=== PATIENT | female | born 1950 | race Caucasian/White ===

== ENCOUNTER 2017-11-14 11:00 | Outpatient (RCR) | payer MEDICARE, SELFPAY ==
--- NOTE | 2017-09-30 16:26 | HMH.PTOPEV ---
Rehab Outpatient Evaluation Rehab OP Evaluation Start: 09/30/17 16:07 Freq: Status: Active Protocol: Document 09/30/17 16:07 RMYOKASTA (Rec: 09/30/17 16:26 [facility] [id number][facility] Electronically Signed By Mandie Zaldivar OT 09/30/17 16:07 Outpatient Therapy Subjective History Subjective History Pt is a 67 year old female who reports to therapy for initial evaluation to right wrist/thumb. Pt reports her pain began in April of 2017. Pt does not recall any specific injury causing her pain. Pt demonstrates with slight decreased AROM/strength at right wrist. 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 Pt has been dx with right De' Quervain's and CMC arthritis. Pt's main complaint with wrist is her pain during use. Pt also reports her pain has been refurring up her arm into her shoulder. Pt will continue to be seen in order to address these deficits. Chief Complaint Pain Stiff Decreased Plastic Surgery Technician Strength Decreased Coordination Symptom Type Ache Sharp Symptoms Relieved By Nothing Rest/Positioning Symptoms Aggravated By Physical Activity Twisting Lifting Prior Functional Limitations None Current Functional Limitations Reaching Lifting Housework Sleeping Recreation Activity Symptom Description Intermittent Activity Dependent Level of pain today (0-10) 2 Pain scale - at its best (0-10) 2 Pain scale - at its worst (0-10) 8 Wrist/Hand Eval Wrist Range of Motion Wrist Limitations of Range of Motion Soft Tissue Tightness Pain Wrist Extension Active Range of Motion ( 60 degrees) Wrist Flexion Active Range of Motion ( 60 degrees) Wrist Radial Deviation Active Range of 28 Motion (degrees) Wrist Ulnar Deviation Active Range of 28
== END 2017-11-14 11:01 | disposition home or self-care (01) ==
LOC: OT 11:00
PROVIDERS: Family Provider Internal Medicine Adolescent Medicine; PCP Internal Medicine Adolescent Medicine; Visit Provider Orthopaedic Surgery
DX: M25.531 Pain in right wrist (principal)
CPT/HCPCS: 97014; 97018; 97035; 97140; 97165; G0283

== ENCOUNTER 2017-12-17 14:00 | Outpatient (RCR) | payer MEDICARE, SELFPAY ==
--- NOTE | 2017-11-26 15:26 | HMH.PTOPEV ---
Rehab Outpatient Evaluation Rehab OP Evaluation Start: 11/26/17 15:12 Freq: Status: Active Protocol: Document 11/26/17 15:12 RMARSHALL (Rec: 11/26/17 15:26 [facility] [id number] Electronically Signed By Mandie Zaldivar OT 11/26/17 15:12 Outpatient Therapy Subjective History Subjective History Pt is a 67 year old female who reports to therapy for evaluation to right wrist. Pt was recently seen by therapy for ~5 weeks due to right de Quervains and CMC joint arthritis. Pt continues to have a small knot at the right thumb base with pain, but the de Quervains has improved. However, pt has began to have more pain in the posterior aspect of the right wrist. Pt has recently been dx with right common extensor tendonitis. Pt does demonstrate with decreased AROM and strength at right wrist. 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 Pt will continue to be seen in order to address these deficits. Chief Complaint Pain Stiff Decreased Stained Glass Artist Strength Symptom Type Ache Throb Sharp Stabbing Numbness Tingling Symptoms Relieved By Nothing Symptoms Aggravated By Physical Activity Twisting Lifting Prior Functional Limitations None Current Functional Limitations Reaching Lifting Housework Driving Sleeping Recreation Activity Symptom Description Constant but Variable Level of pain today (0-10) 3 Pain scale - at its best (0-10) 2 Pain scale - at its worst (0-10) 8 Wrist/Hand Eval Wrist Range of Motion Wrist Limitations of Range of Motion Pain Wrist Extension Active Range of Motion ( 58 degrees degrees) Wrist Flexion Active Rang
== END 2017-12-17 14:01 | disposition home or self-care (01) ==
LOC: OT 14:00
PROVIDERS: Family Provider Internal Medicine Adolescent Medicine; PCP Internal Medicine Adolescent Medicine; Visit Provider Orthopaedic Surgery
DX: M65.4 Radial styloid tenosynovitis [de Quervain] (principal); M19.041 Primary osteoarthritis, right hand
CPT/HCPCS: 97014; 97018; 97035; 97140; 97163; 97166; G0283

== ENCOUNTER → 2018-01-21 10:42 | Outpatient (CLI) | payer MEDICARE, SELFPAY ==
--- NOTE | 2018-01-21 10:44 | MR_ITS ---
MR wrist RT wo con HISTORY right wrist pain ITS.REASON: RT wrist ganglion cyst volar aspect ORDERING PHYSICIAN: Abiodun Aburto MD PATIENT AGE: 67 years Comparison: None TECHNIQUE: Multiplanar multiecho sequences are performed with the head coil. In addition, thin section coronal 3-D images also generated. FINDINGS: A fluid collection is present along the dorsal aspect of the wrist at epicentered dorsal to the capitate measuring approximate 1 cm AP and 1.8 cm transverse the collection also extends laterally dorsal to the scapholunate trapezium and scaphotriquetral area region and is deep to the extensor carpi radialis brevis and extensor indicis.. An additional small locular-appearing fluid collection is present at the ulnar styloid process region measuring 5 mm. There is also small amount fluid in the radiocarpal joint. An additional small fluid collection measuring 6 mm is present just deep to the flexor carpi radialis. This measures 6 x 6 mm and is at the radiocarpal region. There are mild osteoarthritic changes of the scaphotrapezium joint with a minimal amount of bone marrow edema in the scaphoid. The triangle fibrocartilage appears intact. Small subchondral cystic changes are present at the first metacarpal carpal joint. IMPRESSION: 1. Fluid collection along the dorsal aspect of the wrist epicentered dorsal to the capitate as described above. This is nonspecific but could be related to a ganglion cyst 2. Small fluid collection associated with the flexor carpi radialis measuring 6 mm and could be related to a small ganglion cyst or 3 small locular fluid collection along the ulnar styloid process region at 5 mm also possibly related to ganglia on cyst or secondary to synovitis 3. Osteoarthritis of the wrist
== END ==
PROVIDERS: Family Provider Internal Medicine Adolescent Medicine; PCP Internal Medicine Adolescent Medicine; Visit Provider Orthopaedic Surgery
DX: M67.431 Ganglion, right wrist (principal)
CPT/HCPCS: 73221

== ENCOUNTER → 2018-06-04 08:27 | Outpatient (CLI) | payer MEDICARE, SELFPAY ==
--- NOTE | 2018-06-04 08:39 | MM_ITS ---
MM Dig screening mamm BI w/CAD CAD Screening COMPARISON: Digital mammograms with CAD 06/02/2017 and 05/16/2016 INDICATION: There is a history of breast cancer in patient's maternal grandmother diagnosed at age 30 and patient's sister diagnosed at age 40 TECHNIQUE: Standard CC and MLO images were obtained. R2 CAD reviewed. FINDINGS: Scattered fibroglandular densities are seen in both breasts and the findings are bilateral and symmetrical. There is no suspicious lesion and no suspicious microcalcifications. IMPRESSION: Fibrofatty parenchyma no suspicious lesion seen BI-RADS Category: 1 Negative RECOMMENDED FOLLOW-UP: 1YR - 1 YEAR FOLLOW-UP (A letter has been sent to the patient regarding results of the study.)
== END ==
PROVIDERS: PCP Internal Medicine Adolescent Medicine; Visit Provider Nurse Practitioner Family
DX: Z12.31 Encounter for screening mammogram for malignant neoplasm of breast (principal)
CPT/HCPCS: 77067

== ENCOUNTER → 2019-03-22 10:40 | Outpatient (CLI) | payer MEDICARE, SELFPAY ==
--- NOTE | 2019-03-22 10:48 | XR_ITS ---
XR foot wt bearing RT 3V HISTORY: ITS.REASON: pain ORDERING PHYSICIAN: Krista Cedeno DPM PATIENT AGE: 68 years COMPARISON: None FINDINGS: No fracture or dislocation. No lytic or blastic change. There is normal mineralization.. The joint spaces are well-preserved. No significant degenerative/arthritic changes. No erosive changes evident. Minimal pes planus IMPRESSION: Minimal pes planus otherwise negative
--- NOTE | 2019-03-22 10:48 | XR_ITS ---
XR ankle wt bearing RT min 3V HISTORY: ITS.REASON: pain ORDERING PHYSICIAN: Krista Cedeno DPM PATIENT AGE: 68 years Comparison: None FINDINGS: No fracture or dislocation. No lytic or blastic change. There is normal mineralization.. The joint spaces are well-preserved. No significant degenerative/arthritic changes. No erosive changes evident. IMPRESSION: Negative ankle, no acute finding
--- NOTE | 2019-03-22 10:48 | XR_ITS ---
XR ankle wt bearing LT min 3V HISTORY: ITS.REASON: pain ORDERING PHYSICIAN: Krista Cedeno DPM PATIENT AGE: 68 years Comparison: None FINDINGS: No fracture or dislocation. No lytic or blastic change. There is normal mineralization.. The joint spaces are well-preserved. No significant degenerative/arthritic changes. No erosive changes evident. IMPRESSION: Negative ankle, no acute finding
--- NOTE | 2019-03-22 10:48 | XR_ITS ---
XR foot wt bearing LT 3V HISTORY: ITS.REASON: pain ORDERING PHYSICIAN: Krista Cedeno DPM PATIENT AGE: 68 years COMPARISON: None FINDINGS: No fracture or dislocation. No lytic or blastic change. There is normal mineralization.. The joint spaces are well-preserved. No significant degenerative/arthritic changes. No erosive changes evident. IMPRESSION: Negative, no acute finding
== END ==
PROVIDERS: PCP Internal Medicine Adolescent Medicine; Visit Provider Podiatrist
DX: M79.672 Pain in left foot (principal); M25.572 Pain in left ankle and joints of left foot; M25.571 Pain in right ankle and joints of right foot
CPT/HCPCS: 73610; 73630

== ENCOUNTER → 2019-04-27 15:33 | Outpatient (POV) | payer MEDICARE, SELFPAY | PROVIDERS: Visit Provider Dermatology | DX: Z00.00 Encounter for general adult medical examination without abnormal findings (principal) ==

== ENCOUNTER → 2019-05-25 09:55 | Outpatient (POV) | payer MEDICARE, SELFPAY | PROVIDERS: Visit Provider Dermatology | DX: Z00.00 Encounter for general adult medical examination without abnormal findings (principal) ==

== ENCOUNTER → 2019-06-07 08:15 | Outpatient (CLI) | payer MEDICARE, SELFPAY ==
--- NOTE | 2019-06-07 08:22 | XR_ITS ---
PROCEDURE: XR DEXA AXIAL SKELETON CLINICAL HISTORY: OSTEOPENIA The the the the the the COMPARISON: No exams were available for comparison FINDINGS: L1-L4 density is 1.235 grams/centimeters sq with T-score of 0.5. Left femoral neck density is 0.838 grams/centimeters sq with a T-score of -1.4 IMPRESSION: Osteopenia with moderate fracture risk. Treatment advised. Suggest follow-up exam May 2021. Dictated by: Elliot Oliver MD 06/07/2019 12:27 Electronically signed by Elliot Oliver MD in [place] 06/07/2019 12:27
--- NOTE | 2019-06-07 08:23 | MM_ITS ---
PROCEDURE: MM DIG SCREENING MAMM BI W/CAD CLINICAL INDICATION: SCREENING There is a history of breast cancer patient's maternal grandmother and the patient's sister both diagnosed before menopause. There have been previous cyst aspirations on each breast for benign disease. COMPARISON: DMDXUAVL DIG MAMM-DX UNI ADD VIEWS-LT from 05/29/2016 [facility] DIG MAMM-SCREEN TRUDI W/CAD from 06/02/2017 [facility] MM Dig screening mamm BI w/CAD from 06/04/2018 TECHNIQUE: Standard CC and MLO images were obtained. R2 CAD reviewed. FINDINGS: Scattered diffuse fibroglandular densities are seen throughout both breasts. There is stable somewhat asymmetric fibroglandular elements upper-outer quadrant right breast. There are multiple small nodes in both axilla. There is no suspicious lesion and no suspicious microcalcifications. IMPRESSION: Stable exam with no suspicious lesions seen BI-RAD Category: 2 Benign Finding(s) FOLLOW-UP: 1YR 1 Year Follow-up (A letter has been sent to the patient regarding results of the study.) Dictated by: Dr. Carlo Rodriguez MD 06/08/2019 11:[address] Carlo Rodriguez MD in [place] 06/08/2019 11:03
== END ==
PROVIDERS: PCP Internal Medicine Adolescent Medicine; Visit Provider Nurse Practitioner Family
DX: M85.89 Other specified disorders of bone density and structure, multiple sites (principal); Z12.31 Encounter for screening mammogram for malignant neoplasm of breast
CPT/HCPCS: 77067; 77080

== ENCOUNTER → 2020-05-18 14:16 | Outpatient (POV) | payer MEDICARE, SELFPAY ==
[2020-05-18 14:44] VITALS: BP 132/78; PULSE 79; RESP 18; TEMP 36.2; O2SAT 98; BMI 22.1
--- NOTE | 2020-05-18 15:34 | HMH.PMCON ---
Assessment and Plan (1) Low back pain Status: Chronic Category: Medical Code(s): M54.5 - Low back pain (2) Lumbar radiculopathy Status: Chronic Category: Medical Code(s): M54.16 - Radiculopathy, lumbar region (3) Left hip pain Status: Chronic Category: Medical Code(s): M25.552 - Pain in left hip - Assessment and plan all Dx Assessment and Plan for all problems:: Patient did not have any tenderness over bilateral SI joints and she was negative for Joann and compression test. At this point, I think she would benefit from an MRI of her lumbar spine. We will get imaging of her spine to see if she has had any changes from her previous MRI. We will follow-up with her afterwards to reassess her symptoms. We will also order patient some Lyrica 75 mg 1 tablet p.o. daily. She is not able to tolerate gabapentin. We will see her back in the clinic to discuss her MRI results and see how she is doing with Lyrica. She has been instructed to contact clinic if she has any concerns before next appointment. The patient and I specifically discussed risk factors for COVID19. These risks include, but are not limited to age greater than 60, heart or lung disease, diabetes, immunosuppression, and travel. We also discussed NSAIDs may worsen COVID19 infection or symptoms. Patient should not use NSAIDs to treat COVID19 signs or symptoms. Patient was also informed that any type of corticosteroid of any form (oral or injection) will decrease the patient's immune system response and may increase the likelihood of COVID19 infection and symptoms. HPI - Data of Consult Patient: new to practice Consult date: 05/18/20 Requesting Physician: Carrie Martines APRN Primary Care Provider: Addy Rubin MD - Consult Narrative Reason for consult: Left low back pain, left hip pain History of present illness: Ms. Diego is a 70 year old female who presents today for consultation for left low back pain with radiation into left hip. Patient says that she has had this pain for many years. She has had surgery to her L5-S1 area in the past. She says that she is very active with golfing and outdoor activity. She says that she toughened through the pain . Patient says that the pain at this time is excruciating, however. She rates her pain a 6 out of 10 today. Patient says the pain is not worsened by movement. She says that it is sporadic and a throbbing sensation that requires repetitive repositioning. She has tried anti-inflammatories and has gotten some relief with those medications. She also reports that she is now having some numbness and tingling into her right foot. She says that she has seen Dr. Carrasco as well as an orthopedic provider to discuss the pain and numbness and tingling in her right foot. Patient does not have any recent imaging of her lumbar spine. Patient says she is concerned that her numbness and tingling in her foot could be routed to something going on with her back. She does use ice and heat therapies and does do exercises daily. Patient is currently doing physical therapy. CC: Carrie Martines APRN [facility] History I have reviewed the patient's past medical history: Yes Medical History: Reports:: Hyperlipidemia, Osteoporosis Denies:: Cancer, Diabetes Mellitus Type 1, Diabetes Mellitus Type 2, MRSA *Have you ever received a pneumonia vaccine?: Yes *Have you received a flu vaccine this season?: Yes Other Medical History: Reports: Arthritis, Osteoporosis, Other (Osteopenia ) Other Surgeries: Yes: No Previous Surgery, Colonoscopy, Hysterectomy-Total, Other Amputation: No Fractures: No - *Social History Smoking Status: Never smoker Alcohol Intake: never Alcohol Intake Frequency:: a few times a week Substance Use Type: denies use *Occupational Status:: retired Housing: house Household Members: other *Travel in the last 8 weeks: None Family Hx:: Unable to obtain Review of Systems - Review of Systems Rev
== END ==
PROVIDERS: PCP Internal Medicine Adolescent Medicine; Visit Provider Clinical Nurse Specialist Family Health
DX: M54.5 Low back pain (principal); M54.16 Radiculopathy, lumbar region; M25.552 Pain in left hip
CPT/HCPCS: 99202

== ENCOUNTER → 2020-05-24 14:16 | Outpatient (CLI) | payer MEDICARE, SELFPAY ==
--- NOTE | 2020-05-24 14:24 | MR_ITS ---
PROCEDURE: MR LUMBAR SPINE WO CON CLINICAL INDICATION: BACK PAIN HX OF L5-S1 SURGERY IN 2000. PT C/O LBP AND INTERMITTENT PAIN WHEN TWISTING AND BENDING. PT DENIES TRAUMA OR INJURY. COMPARISON: No exams were available for comparison TECHNIQUE: Standard multiplanar multiecho sequences are performed without contrast. 3-D MIP and myelographic images are also rendered and reviewed FINDINGS: There is normal alignment. Spinal cord ends at the T12-L1 level. 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 L1-L2: Mild degenerative disc disease with minimal bulging disc. There is mild kyphosis at L1-L2 L2-L3: Minimal bulging disc. L3-L4: Minimal bulging disc with mild facet and ligamentum hypertrophy and mild bilateral lateral recess and foraminal narrowing. L4-5: Bulging disc with a small broad-based central disc protrusion slightly eccentric toward the left along with facet and ligamentum hypertrophy with canal stenosis. There is severe left lateral recess narrowing moderate right lateral recess narrowing and mild bilateral foraminal narrowing. Prominent facet and ligamentum hypertrophy is present at this level with severe canal stenosis L5-S1: Degenerative disc disease with facet and ligamentum hypertrophy. There is a small central disc protrusion very slightly eccentric toward the left. There is moderate left-sided foraminal narrowing and mild right foraminal narrowing. There are small synovial cyst at the facet joint posteriorly at L5-S1. Tarlov cysts are present at S1-S2 IMPRESSION: 1. There is multilevel lumbar spondylosis with degenerative disc disease, bulging disc, facet and ligamentum hypertrophy with lateral recess and foraminal narrowing. Please see above for detailed description at each level. 2. L4-5: Bulging disc with a small broad-based central disc protrusion slightly eccentric toward the left along with facet and ligamentum hypertrophy with canal stenosis. There is severe left lateral recess narrowing moderate right lateral recess narrowing and mild bilateral foraminal narrowing. Prominent facet and ligamentum hypertrophy is present at this level with severe canal stenosis 3. L5-S1: Degenerative disc disease with facet and ligamentum hypertrophy. There is a small central disc protrusion very slightly eccentric toward the left. There is moderate left-sided foraminal narrowing and mild right foraminal narrowing. Dictated by: Elliot Oliver MD 05/25/2020 13:50 Elliot Oliver MD in [place] 05/25/2020 13:50
== END ==
PROVIDERS: PCP Internal Medicine Adolescent Medicine; Visit Provider Clinical Nurse Specialist Family Health
DX: M54.5 Low back pain (principal)
CPT/HCPCS: 72148; 76376

== ENCOUNTER → 2020-06-01 13:11 | Outpatient (POV) | payer MEDICARE, SELFPAY ==
[2020-06-01 13:14] VITALS: BP 112/74; PULSE 85; RESP 18; O2SAT 97; BMI 22.1
--- NOTE | 2020-06-01 16:36 | HMH.PAINSOAP ---
[facility] Pain Management SOAP Note Subjective:: Patient is a pleasant 70-year-old white female who presents today for follow-up after MRI. The patient is being treated for low back pain that is radiating into her left hip. Her pain is primarily in her left low back area. She says that it does radiate into the left hip and has been there for many years. She has had surgery to her L5-S1 area in the past. She is very active with golfing and yoga as well as outdoor activities. Patient reports that her pain is worse with leaning forward and with turning and twisting, extension at her waist. She does rate her pain a 5 out of 10 today. Patient says that she has worsening pain with standing and leaning forward, however, her pain does improve with sitting. Patient is very active with exercising and says that this has not been beneficial for her pain. She is also having some numbness and tingling into her right foot. She has tried anti-inflammatories [id number]-vhsyqpe and has gotten some relief with these medications in the past. She has undergone physical therapy and is currently enrolling in aquatic therapy. Does use ice and heat therapies. Review of Systems General: No recent weight changes, no fever, no sleep disturbances Respiratory: No cough, no shortness of air, no recurring pulmonary infections Cardiovascular/peripheral vascular: No chest pain, no palpitations, no edema, no shortness of breath Gastrointestinal: No new onset incontinence, normal bowel movements reported Genitourinary: No new onset incontinence Musculoskeletal: Low back pain, left hip pain, intermittent right foot numbness Psychiatric: Normal mood/affect Neurological: [Denies weakness in extremities], [denies balance issues] Objective:: Physical exam General: Alert and oriented x3, no acute distress, pleasant and cooperative, [on room air] Lungs: Respirations even and unlabored, symmetrical chest expansion Eyes: PERRL Musculoskeletal: Flexion and extension of lumbar spine somewhat guarded secondary to pain, deep tendon reflexes normal, strength in upper and lower extremities [5/5], [abnormal gait noted], positive Kemps test Neurological: Speech clear, 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 She is continuing to be very active. She does use ice and heat therapies. We will proceed with injective therapy. She does have a positive Kemps test today. Her pain is worse with leaning forward and extension at her waist. We will schedule the patient for medial branch block/facet joint injections at L4-L5 L5-S1. She is not on any anticoagulation therapy. We will plan to see her back in the clinic after her injections to reassess her symptoms. She will continue with her home stretching program and her ice and heat therapies. We will also order the patient diclofenac 75 mg 1 tablet p.o. twice daily. She has been instructed to contact clinic if she has any concerns before next appointment. The patient and I specifically discussed risk factors for COVID19. These risks include, but are not limited to age greater than 60, heart or lung disease, diabetes, immunosuppression, and travel. We also discussed NSAIDs may worsen COVID19 infection or symptoms. Patient should not use NSAIDs to treat COVID19 signs or symptoms. Patient was also informed that any type of corticosteroid of any form (oral or injection) will decrease the patient's immune system response and may increase the likelihood of COVID[address] Maria has reviewed this note and agrees with this plan of care. This note was dictated using voice recognition software and make contain errors or omissions. [facility] History I have reviewed the patient'
== END ==
PROVIDERS: PCP Internal Medicine Adolescent Medicine; Visit Provider Clinical Nurse Specialist Family Health
DX: M51.36 Other intervertebral disc degeneration, lumbar region (principal); M47.816 Spondylosis without myelopathy or radiculopathy, lumbar region; M12.88 Other specific arthropathies, not elsewhere classified, other specified site
CPT/HCPCS: 99212

== ENCOUNTER → 2020-06-08 07:56 | Outpatient (CLI) | payer MEDICARE, SELFPAY ==
--- NOTE | 2020-06-08 08:03 | MM_ITS ---
PROCEDURE: MM DIG SCREENING MAMM BI W/CAD Digital Breast Tomosynthesis Included CLINICAL INDICATION: SCREENING There is a history of breast cancer in the patient's maternal grandmother and sister both diagnosed before menopause. There has been previous cyst aspirations on each breast. COMPARISON: MG [facility] DIG MAMM-SCREEN TRUDI W/CAD from 06/02/2017 [facility] MM Dig screening mamm BI w/CAD from 06/04/2018 MG MM DIG SCREENING MAMM BI W/CAD from 06/07/2019 TECHNIQUE: Standard CC and MLO images and 3D Tomosynthesis was obtained. R2 CAD reviewed. FINDINGS: Scattered fibroglandular densities are seen throughout both breast. There is an asymmetric density near the nipple upper-outer quadrant right breast which has been seen previously but it appears more prominent on the current study with slightly spiculated borders best demonstrated on yevgeniy images. Recommend the patient return for spot compression magnification views and ultrasound for additional evaluation. There are no suspicious microcalcifications. There are multiple small benign-appearing nodes in both axilla. IMPRESSION: Fibrofatty parenchyma with possible change and asymmetric density right breast BI-RAD Category: 0 Need Additional Imaging Evaluation FOLLOW-UP: IMM Immediate Follow-up Recommended (A letter has been sent to the patient regarding results of the study.) Dictated by: Dr. Carlo Rodriguez MD 06/09/2020 09:09 Dr. Carlo Rodriguez MD in [place] 06/09/2020 09:09
== END ==
PROVIDERS: PCP Internal Medicine Adolescent Medicine; Visit Provider Internal Medicine Adolescent Medicine
DX: Z12.31 Encounter for screening mammogram for malignant neoplasm of breast (principal)
CPT/HCPCS: 77063; 77067

== ENCOUNTER 2020-06-16 09:55 | Day surgery (SDC) | payer MEDICARE, SELFPAY ==
[2020-06-16 10:27] VITALS: BP 164/72; PULSE 69; RESP 18; TEMP 36.8; O2SAT 69; BMI 22.1
--- NOTE | 2020-06-16 11:20 | HMH.PMPROC ---
- Procedure Date: 06/16/20 Time: 11:26 Anesthesiologist:: Ramiro Maria MD Complications:: None Pre-procedure Diagnosis:: Degenerative disc disease of lumbar spine with lumbar spondylosis and lumbar facet arthropathy Post-procedure Diagnosis:: Same Indications for Procedure:: This patient is a pleasant 70-year-old white female who we are treating for low back pain with lumbar spondylosis and lumbar facet arthropathy. She does have increasing pain to the lumbar spine. This does radiate into her left hip. She is tender over the facet joints of L4-5 and L5-S1. We will do bilateral lumbar medial branch block/facet joint injections of L4-5 and L5-S1 today. Procedure Details:: Lumbar medial branch block Informed consent was obtained and the risks and benefits of the procedure was explained to the patient. The back was prepped using ChloraPrep. The skin and subcutaneous tissues were anesthetized using lidocaine. I placed 22-gauge spinal needles into the facet joint/medial branches of L4-L5 and L5-S1 bilaterally. Needle placement was confirmed with dye. After this we injected 3 mL bupivacaine 0.25% and Depo-Medrol 20 mg into each facet joint/medial branch of L4-L5 and L5-S1 bilaterally. We used a total of 80 mg Depo-Medrol for both levels bilaterally. The patient tolerated the procedure well with no complications. Plan and Disposition:: We will follow-up with her in 2 weeks. Will reevaluate symptoms at that time. If these blocks are successful may seek approval for RF ablation to the same facet joint/medial branches of L4-5 and L5-S1 bilaterally.
[2020-06-16 11:22] VITALS: BP 122/74; PULSE 85; RESP 18; O2SAT 98
[2020-06-16 11:23] VITALS: BP 121/74; PULSE 88; RESP 18; O2SAT 98
[2020-06-16 11:42] VITALS: BP 135/67; PULSE 59; RESP 18; O2SAT 97
== END 2020-06-16 11:43 | disposition home or self-care (01) ==
PROVIDERS: PCP Internal Medicine Adolescent Medicine; Visit Provider Anesthesiology
DX: M51.36 Other intervertebral disc degeneration, lumbar region (principal); M47.816 Spondylosis without myelopathy or radiculopathy, lumbar region; M12.88 Other specific arthropathies, not elsewhere classified, other specified site; E78.5 Hyperlipidemia, unspecified; Z82.49 Family history of ischemic heart disease and other diseases of the circulatory system; Z88.6 Allergy status to analgesic agent; Z79.82 Long term (current) use of aspirin; Z79.899 Other long term (current) drug therapy
CPT/HCPCS: 64493; 64494; J1030; Q9966

== ENCOUNTER 2020-06-17 12:06 | Emergency (ER) | payer MEDICARE, SELFPAY ==
[2020-06-17 12:45] VITALS: BP 158/83; PULSE 78; RESP 17; TEMP 36.9; O2SAT 98; BMI 22.4
--- NOTE | 2020-06-17 12:47 | HMH.EDUTC ---
[facility] [place] Disposition Clinical Impression: Exposure to COVID-19 virus Disposition: Home, Self-Care Condition on Discharge: Good Instructions: Preventing the Spread of Coronavirus Discharge Instructions Referrals: Addy Rubin MD [Primary Care Provider] - Time of Disposition: 12:49 Medical Decision Making - Greg Inquiry Pt receiving controlled substance: No Orders (Tests/Meds): ORDERS Category Date Time Status Covid-19 Nasal PCR ([facility]) Routine Lab 06/17/20 12:37 Ordered [facility] [place] HPI - General Stated complaint: covid test Time Seen by Provider: 06/17/20 12:47 - History of Present Illness Provider Complaint: Secondary exposure to COVID19. Would like to be tested as a precaution. Denies symptoms at this time. Onset (ago): week(s) (1) Relieving factors: none Exacerbating factors: none Associated symptoms: denies other symptoms Treatments prior to arrival: none - Related Data Home Medications Medication Instructions Recorded Confirmed krill oil 500 mg capsule 500 mg PO DAILY 11/25/17 06/16/20 magnesium 250 mg tablet 250 mg PO ONCE 11/25/17 06/16/20 arginine (L-arginine) 500 mg tablet 500 mg PO DAILY 03/22/19 06/16/20 aspirin 81 mg tablet,delayed 81 mg PO BID 03/22/19 06/16/20 release simvastatin 20 mg tablet 20 mg PO DAILY #30 tab 03/22/19 06/16/20 diclofenac sodium 25 mg 25 mg PO DAILY PRN tab 08/30/19 06/16/20 tablet,delayed release Diclofenac Sodium [Diclofenac 75mg 75 mg PO BID 06/16/20 Tab] Allergies Allergy/AdvReac Type Severity Reaction Status Date / Time codeine [CODEINE] AdvReac Unknown NA-NAUSEA Verified 05/15/20 13:43 [facility] History - Hepatitis A Screen Attestation statement:: This patient has been screened for Hepatitis A risk factors. I have reviewed the patient's past medical history: Yes Medical History: Reports:: Hyperlipidemia, Osteoporosis Denies:: Cancer, Diabetes Mellitus Type 1, Diabetes Mellitus Type 2, MRSA, Seizures Other Medical History: Reports: Arthritis, Osteoporosis, Other (Osteopenia ). Denies: Blood Transfusion Reaction Other Surgeries: Yes: No Previous Surgery, Colonoscopy, Hysterectomy-Total, Other Amputation: No Fractures: No Comment: back surgery - Social History Smoking Status: Never smoker Alcohol Intake: never Alcohol Intake Frequency:: a few times a week Substance Use Type: denies use Occupational Status: employed Housing: house Household Members: spouse Family Hx:: Unable to obtain ROS Obtained: Yes All systems reviewed & no additional complaints Physical Exam - General General appearance: alert, in no apparent distress - Head Head exam: atraumatic, normocephalic - Eye Eye exam: Present: PERRL - ENT ENT exam: Present: normal oropharynx - Chest Chest inspection: Present: normal inspection, symmetric chest wall rise - Respiratory Respiratory exam: Present: normal lung sounds bilaterally - Cardiovascular Cardiovascular exam: Present: regular rate, normal rhythm - Neurological Exam Neurological exam: Present: alert, oriented X3
[2020-06-17 12:56] VITALS: BP 158/83; PULSE 78; RESP 17; TEMP 36.9
--- NOTE | 2020-06-17 16:04 | PC.NURSE ---
Pt called 06/17/2020at 1556 and given Covid-19 results. Negative.
== END 2020-06-17 12:55 | disposition home or self-care (01) ==
PROVIDERS: Emergency Provider Physician Assistant; PCP Internal Medicine Adolescent Medicine
DX: Z20.828 Contact with and (suspected) exposure to other viral communicable diseases (principal); E78.5 Hyperlipidemia, unspecified; M81.0 Age-related osteoporosis without current pathological fracture; Z88.5 Allergy status to narcotic agent; Z79.899 Other long term (current) drug therapy
CPT/HCPCS: G0463; 99201; U0003

== ENCOUNTER → 2020-06-29 13:30 | Outpatient (CLI) | payer MEDICARE, SELFPAY ==
--- NOTE | 2020-06-29 13:32 | MM_ITS ---
PROCEDURE: MM DIG MAMM DX UNILAT RT CAD Digital Breast Tomosynthesis Included CLINICAL INDICATION: ABN MAMM OF RT BREAST COMPARISON: US BR US BREAST-RT from 06/08/2013 MG [facility] MM Dig screening mamm BI w/CAD from 06/04/2018 MG MM DIG SCREENING MAMM BI W/CAD from 06/07/2019 MG MM DIG SCREENING MAMM BI W/CAD from 06/08/2020 US US BREAST RT COMPLETE from 06/29/2020 TECHNIQUE: Standard CC and MLO images and 3D Tomosynthesis was obtained. R2 CAD reviewed. Right breast ultrasound complete axilla FINDINGS: There is average fibroglandular tissue. The area of asymmetric density in the superior aspect of the right breast does appear to compress out on the spot compression view. Right breast ultrasound: At 12 o'clock there is a 6 mm 6 mm hypoechoic area. This is wider than tall well-circumscribed show some enhanced through transmission of sound. This area was present on 06/08/2013 and appears somewhat less apparent on today's exam. This is probably benign. Six-month follow-up is suggested. At 1 o'clock there is a 3 mm hypoechoic nodule may be due to small complex cyst. IMPRESSION: BI-RAD Category: 3 Probably Benign Finding Short Term Follow-up FOLLOW-UP: 6M 6Month Follow-up (A letter has been sent to the patient regarding results of the study.) Dictated by: Elliot Oliver MD 06/30/2020 12:11 Elliot Oliver MD in [place] 06/30/2020 12:11
== END ==
PROVIDERS: PCP Internal Medicine Adolescent Medicine; Visit Provider Internal Medicine Adolescent Medicine
DX: R92.8 Other abnormal and inconclusive findings on diagnostic imaging of breast (principal)
CPT/HCPCS: 76641; 77061; 77065; G0279

== ENCOUNTER → 2020-07-10 10:07 | Outpatient (POV) | payer MEDICARE, SELFPAY ==
[2020-07-10 10:43] VITALS: BP 110/62; PULSE 72; RESP 18; TEMP 36.6; O2SAT 98; BMI 22.4
--- NOTE | 2020-07-10 11:13 | P.CONS_ITS ---
[facility] Pain Management SOAP Note Subjective:: Patient is a pleasant 70-year-old white female who presents today for follow-up after medial branch block of the lumbar spine. Patient got no relief with this. She did not even get relief while numb. Patient and I had a long discussion about her symptomology. She does have pain over her low back. Patient's pain does not radiate. Patient has a positive Joann test SI joint compression test Raleigh's test and distraction test bilaterally. Patient and I discussed SI joint injections I do believe that this may benefit her. She does have worsening pain after she golfs. We did discuss SI joint stabilization belt. She rates her pain today a 3 out of 10. ROS General: no recent weight change, no fever, no sleep disturbances Respiratory: no cough, no shortness of air, no recurring pulmonary infections Cardiovascular/Peripheral Vascular: No chest pain, No palpitations, no edema, no shortness of breath. Gastrointestinal: no new onset incontinence, normal bowel movements reported Genitourinary: no new onset incontinence Musculoskeletal: Back pain, SI joint pain Psychiatric: normal mood/ affect Neurological: [denies new onset weakness in extremities], [denies new onset balance issues] Objective:: Physical Exam General: Alert and oriented x3, no acute distress, pleasant and cooperative, [on room air] Lungs: Resps E/U, Symmetrical chest expansion, Eyes: PERRL Musculoskeletal: Flexion and extension of lumbar spine somewhat guarded secondary to pain, deep tendon reflexes normal, strength in upper and lower extremities [5/5], slightly antalgic gait noted Neurological: 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 Patient's been instructed to call the office if she has any issues prior to her next appointment. Dr. Maria has reviewed this note and agrees with this plan of care. This note was dictated using voice recognition software and may contain errors or omissions [facility] History I have reviewed the patient's past medical history: Yes Medical History: Reports:: Hyperlipidemia, Osteoporosis Denies:: Cancer, Diabetes Mellitus Type 1, Diabetes Mellitus Type 2, Internal Pacemaker, MRSA, Seizures *Have you ever received a pneumonia vaccine?: Yes *Have you received a flu vaccine this season?: Yes Other Medical History: Reports: Arthritis, Osteoporosis, Other (Osteopenia ). Denies: Blood Transfusion Reaction Other Surgeries: Yes: No Previous Surgery, Colonoscopy, Hysterectomy-Total, Other. No: Pacemaker Amputation: No Fractures: No - *Social History Smoking Status: Never smoker Alcohol Intake: never Alcohol Intake Frequency:: a few times a week Substance Use Type: denies use *Occupational Status:: other Housing: house Household Members: spouse *Travel in the last 8 weeks: None Family Hx:: Unable to obtain
== END ==
PROVIDERS: PCP Internal Medicine Adolescent Medicine; Visit Provider Clinical Nurse Specialist Family Health
DX: M46.1 Sacroiliitis, not elsewhere classified (principal); M51.36 Other intervertebral disc degeneration, lumbar region
CPT/HCPCS: 99212

== ENCOUNTER 2020-07-31 12:54 | Day surgery (SDC) | payer MEDICARE, SELFPAY ==
[2020-07-31 13:03] VITALS: BP 137/75; PULSE 72; RESP 18; TEMP 36.6; O2SAT 98; BMI 22.4
[2020-07-31 13:47] VITALS: BP 133/74; PULSE 85; RESP 18
[2020-07-31 13:48] VITALS: BP 135/74; PULSE 86; RESP 18; O2SAT 98
--- NOTE | 2020-07-31 13:57 | HMH.PMPROC ---
- Procedure Date: 07/31/20 Time: 13:57 Anesthesiologist:: Jeannie Monroy APRN Complications:: None Pre-procedure Diagnosis:: Sacroiliitis Post-procedure Diagnosis:: Same Indications for Procedure:: Patient is a pleasant 70-year-old white female who presents today for bilateral SI joint injections. Patient had medial branch blocks of her lumbar spine with no relief she did not even get relief while numb. Patient symptomology is low back. She has a positive SI joint compression test Raleigh's test Joann test distraction test bilaterally. I do believe that SI joint injections will benefit her. We will move forward with this today. Procedure Details:: informed consent was obtained and the risks and benefits of the procedure were explained to the patient. Patient was taken to the procedure room. Patient was placed prone on the procedure table. The left hip was prepped using ChloraPrep as a cleansing solution. The skin and subcutaneous tissues were anesthetized using lidocaine. Using fluoroscopic guidance I placed a 22-gauge spinal needle into the inferior aspect of the left SI joint. After this I injected 5 mL bupivacaine 0.25% and Depo-Medrol 40 mg into the left SI joint. This was then repeated on the right side. The patient tolerated the procedure well with no complication. Plan and Disposition:: I will see the patient back in several weeks reassess her symptoms at that time she has been instructed to call the office if she has any issues prior to her next appointment. Dr. Maria has reviewed this note and agrees with this plan of care. This note was dictated using voice recognition software and may contain errors or omissions
[2020-07-31 14:08] VITALS: BP 154/70; PULSE 69; RESP 20; O2SAT 98
== END 2020-07-31 14:08 | disposition home or self-care (01) ==
LOC: SC.PAINP 12:57
PROVIDERS: PCP Internal Medicine Adolescent Medicine; Visit Provider Clinical Nurse Specialist Family Health
DX: M46.1 Sacroiliitis, not elsewhere classified (principal); E78.5 Hyperlipidemia, unspecified
CPT/HCPCS: 27096; G0260; J1030; Q9966

== ENCOUNTER → 2020-08-15 10:38 | Outpatient (POV) | payer MEDICARE, SELFPAY | PROVIDERS: Visit Provider Dermatology | DX: Z00.00 Encounter for general adult medical examination without abnormal findings (principal) ==

== ENCOUNTER → 2020-08-21 08:42 | Outpatient (POV) | payer MEDICARE, SELFPAY ==
--- NOTE | 2020-08-21 09:01 | P.CONS_ITS ---
[facility] Pain Management SOAP Note Subjective:: Pleasant 70-year-old white female who presents today for follow-up after bilateral SI joint injections. Patient got significant relief rating her pain today 1 out of 10. She got over 80% relief of her symptomology. Patient would like to repeat this injection in several months. I do believe that would benefit her. She does have a positive Joann test Raleigh's test SI joint compression test and distraction test bilaterally. ROS General: no recent weight change, no fever, no sleep disturbances Respiratory: no cough, no shortness of air, no recurring pulmonary infections Cardiovascular/Peripheral Vascular: No chest pain, No palpitations, no edema, no shortness of breath. Gastrointestinal: no new onset incontinence, normal bowel movements reported Genitourinary: no new onset incontinence Musculoskeletal: SI joint pain Psychiatric: normal mood/ affect Neurological: [denies new onset weakness in extremities], [denies new onset balance issues] Objective:: Physical Exam General: Alert and oriented x3, no acute distress, pleasant and cooperative, [on room air] Lungs: Resps E/U, Symmetrical chest expansion, Eyes: PERRL Musculoskeletal: Flexion and extension of lumbar spine somewhat guarded secondary to pain, deep tendon reflexes normal, strength in upper and lower extremities [5/5], normal gait noted Neurological: 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 Patient been instructed to call the office if she has any issues prior to her next appointment. Overall patient doing well at this time. Dr. Maria has reviewed this note and agrees with this plan of care. This note was dictated using voice recognition software and may contain errors or omissions [facility] History I have reviewed the patient's past medical history: Yes Medical History: Reports:: Hyperlipidemia, Osteoporosis Denies:: Cancer, Diabetes Mellitus Type 1, Diabetes Mellitus Type 2, Internal Pacemaker, MRSA, Seizures *Have you ever received a pneumonia vaccine?: No *Have you received a flu vaccine this season?: No Other Medical History: Reports: Arthritis, Osteoporosis, Other (Osteopenia ). Denies: Blood Transfusion Reaction Laterality Cases: Left: Other Other Surgeries: Yes: No Previous Surgery, Colonoscopy, Hysterectomy-Total, Other. No: Pacemaker Amputation: No Fractures: No - *Social History Smoking Status: Never smoker Alcohol Intake: never Alcohol Intake Frequency:: a few times a week Substance Use Type: denies use *Occupational Status:: retired Housing: house Household Members: spouse *Travel in the last 8 weeks: None Family Hx:: Unable to obtain
[2020-08-21 09:16] VITALS: BP 125/85; PULSE 74; RESP 18; TEMP 36.2; O2SAT 98; BMI 22.9
== END ==
PROVIDERS: PCP Internal Medicine Adolescent Medicine; Visit Provider Clinical Nurse Specialist Family Health
DX: M46.1 Sacroiliitis, not elsewhere classified (principal)
CPT/HCPCS: 99212; G0463

== ENCOUNTER 2020-10-06 09:23 | Day surgery (SDC) | payer MEDICARE, SELFPAY ==
[2020-10-06 09:49] VITALS: BP 128/71; PULSE 68; RESP 18; O2SAT 98; BMI 22.4
--- NOTE | 2020-10-06 10:01 | HMH.PMPROC ---
- Procedure Date: 10/06/20 Time: 10:01 Anesthesiologist:: Ramiro Maria MD Complications:: None Pre-procedure Diagnosis:: Sacroiliitis Post-procedure Diagnosis:: Same Indications for Procedure:: Patient is a pleasant 70-year-old white female who we are treating for bilateral hip pain. She did very well after her last bilateral SI joint injections. She was 80 to 90% better. Her pain is just now starting to come back. She does have a positive Joann test bilaterally. She has a positive Raleigh's test bilaterally. She is positive SI joint compression test bilaterally. She is positive distraction test bilaterally. We will do repeat bilateral SI joint injections under fluoroscopy today. Procedure Details:: B/L SI joint injection under fluoroscopy Informed consent was obtained and the risks and benefits of the procedure was explained to the patient. The patient was taken to the procedure room and placed prone on the procedure table. The patient was prepped using ChloraPrep. The skin and subcutaneous tissues overlying the SI joints were anesthetized using lidocaine. I placed a 22-gauge needle first in the left SI joint and second in the right SI joint. Needle placement was confirmed with dye. After this we injected 5 mL bupivacaine 0.25% and Depo-Medrol 40 mg into each SI joint. Patient tolerated the procedure well with no complication. Plan and Disposition:: We will follow-up with her in 2 weeks. Will reevaluate her symptoms at that time.
[2020-10-06 10:17] VITALS: BP 122/62; PULSE 65; RESP 18; O2SAT 98
[2020-10-06 10:19] VITALS: BP 128/68; PULSE 85; RESP 18; O2SAT 98
[2020-10-06 10:44] VITALS: BP 151/79; PULSE 62; RESP 18; O2SAT 98
== END 2020-10-06 10:45 | disposition home or self-care (01) ==
LOC: SC.PAINP 09:25
PROVIDERS: PCP Internal Medicine Adolescent Medicine; Visit Provider Anesthesiology
DX: M46.1 Sacroiliitis, not elsewhere classified (principal); E78.5 Hyperlipidemia, unspecified; M19.90 Unspecified osteoarthritis, unspecified site; M81.0 Age-related osteoporosis without current pathological fracture; Z88.6 Allergy status to analgesic agent; Z79.82 Long term (current) use of aspirin; Z79.899 Other long term (current) drug therapy
CPT/HCPCS: 27096; G0260; J1030; Q9966

== ENCOUNTER → 2020-10-26 10:46 | Outpatient (POV) | payer MEDICARE, SELFPAY ==
--- NOTE | 2020-10-26 11:32 | HMH.PAINSOAP ---
[facility] Pain Management SOAP Note Subjective:: Patient is a pleasant 70-year-old white female who presents today for follow-up after bilateral SI joint injections. Patient rates her pain today a 2 out of 10. Patient overall doing well. She is continuing water aerobics and staying quite active. Patient and I discussed following up on an as-needed basis. ROS General: no recent weight change, no fever, no sleep disturbances Respiratory: no cough, no shortness of air, no recurring pulmonary infections Cardiovascular/Peripheral Vascular: No chest pain, No palpitations, no edema, no shortness of breath. Gastrointestinal: no new onset incontinence, normal bowel movements reported Genitourinary: no new onset incontinence Musculoskeletal: SI joint pain Psychiatric: normal mood/ affect Neurological: [denies new onset weakness in extremities], [denies new onset balance issues] Objective:: Physical Exam General: Alert and oriented x3, no acute distress, pleasant and cooperative, [on room air] Lungs: Resps E/U, Symmetrical chest expansion, Eyes: PERRL Musculoskeletal: Flexion and extension of lumbar spine somewhat guarded secondary to pain, deep tendon reflexes normal, strength in upper and lower extremities [5/5], normal gait noted Neurological: 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 Patient's been instructed to call the office if she has return of her symptomology. Dr. Maria has reviewed this note and agrees with this plan of care. This note was dictated using voice recognition software and may contain errors or omissions [facility] History I have reviewed the patient's past medical history: Yes Medical History: Reports:: Hyperlipidemia, Osteoporosis Denies:: Cancer, Diabetes Mellitus Type 1, Diabetes Mellitus Type 2, Internal Pacemaker, MRSA, Seizures *Have you ever received a pneumonia vaccine?: No *Have you received a flu vaccine this season?: No Other Medical History: Reports: Arthritis, Osteoporosis, Other (Osteopenia ). Denies: Blood Transfusion Reaction Laterality Cases: Left: Other Other Surgeries: Yes: No Previous Surgery, Colonoscopy, Hysterectomy-Total, Other. No: Pacemaker Amputation: No Fractures: No - *Social History Smoking Status: Never smoker Alcohol Intake: never Alcohol Intake Frequency:: a few times a week Substance Use Type: denies use *Occupational Status:: retired Housing: house Household Members: spouse *Travel in the last 8 weeks: None Family Hx:: Unable to obtain
[2020-10-26 12:07] VITALS: BP 111/74; PULSE 71; RESP 18; O2SAT 99; BMI 22.6
== END ==
PROVIDERS: PCP Internal Medicine Adolescent Medicine; Visit Provider Clinical Nurse Specialist Family Health
DX: M46.1 Sacroiliitis, not elsewhere classified (principal)
CPT/HCPCS: 99212; G0463

== ENCOUNTER → 2020-11-28 12:29 | Outpatient (CLI) | payer MEDICARE, SELFPAY ==
[2020-11-28 13:33] LABS: Blood Urea Nitrogen 16 mg/dl (7-17); Estimated Glomerular Filt Rate 62 ml/min (>60); GFR (African American) 75 ML/MIN (>60)
== END ==
PROVIDERS: Visit Provider Nurse Practitioner Family
DX: H53.10 Unspecified subjective visual disturbances (principal)
CPT/HCPCS: 36415; 82565; 84520

== ENCOUNTER → 2020-11-29 09:24 | Outpatient (CLI) | payer MEDICARE, SELFPAY ==
--- NOTE | 2020-11-29 09:28 | MR_ITS ---
PROCEDURE: MR HEAD/BRAIN WO/W CON CLINICAL INDICATION: DISTURBANCE, VISUAL, SUBJECTIVE Pt has hx of hemachromatosis. Blood was drained from jugular vein x3wks ago. After blood was drained pt was unable to move lt arm. Had visual disturbance out of lt eye that lasted 15 minutes x2wks ago. Another episode of visual disturbance that lasted 5 minutes. Pt has hx of vitreous detachment of rt eye. Rt temporal headache. COMPARISON: No exams were available for comparison TECHNIQUE: Routine multiplanar multi echo sequences are performed without gadolinium enhancement. FINDINGS: No midline shift, mass effect, intracranial hemorrhage or hydrocephalus is evident. There is no evidence of acute infarction. The cerebellopontine angles, cerebellum, and brainstem have an unremarkable appearance as does midbrain. There are few scattered T2 white matter hyperintensities in the frontal and parietal and right occipital lobe. These are nonspecific and may be due to ischemic gliotic foci. Summary in the right external capsule. These areas do not demonstrate restricted diffusion. There is 2 small cystic areas in the right basal ganglia the largest at 4 mm and may represent dilated perivascular spaces. There appears to be a small developmental venous anomaly is noted in the left frontal area series 9/image 15. No surrounding hemorrhage. The pituitary, optic chiasm, of the corpus callosum, and craniocervical junction have an unremarkable appearance. No mastoid effusion or sinus air-fluid level. IMPRESSION: 1. No acute intracranial findings. 2. Scattered T2 white matter hyperintensities as described above which may represent ischemic gliotic foci from small vessel disease. Migraine headache is also a consideration. Demyelinating process felt to be less likely based on imaging characteristics but not totally excluded 3. 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 Dictated by: Elliot Oliver MD 11/30/2020 13:24 Elliot Oliver MD in [place] 11/30/2020 13:24
--- NOTE | 2020-11-29 09:28 | MR_ITS ---
PROCEDURE: MR ANGIO HEAD WO CON CLINICAL INDICATION: DISTURBANCE, VISUAL, SUBJECTIVE Pt has hx of hemachromatosis. Blood was drained from jugular vein x3wks ago. After blood was drained pt was unable to move lt arm. Had visual disturbance out of lt eye that lasted 15 minutes x2wks ago. Another episode of visual disturbance that lasted 5 minutes. Pt has hx of vitreous detachment of rt eye. Rt temporal headache. COMPARISON: No exams were available for comparison TECHNIQUE: 3D [id number] images were obtained with multi slab reformats FINDINGS: No aneurysm, AVM, intracranial occlusive process or dissection is evident. There is persistent origin of the right posterior cerebral artery as a normal variant. MRI performed of the same day with contrast suggested a developmental venous anomaly in the left frontal area. This is not demonstrated on this exam possibly due to lack of IV contrast. IMPRESSION: Negative MR a of the brain. Please see above for detail Dictated by: Elliot Oliver MD 11/30/2020 13:32 Elliot Oliver MD in [place] 11/30/2020 13:32
== END ==
PROVIDERS: PCP Internal Medicine Adolescent Medicine; Visit Provider Nurse Practitioner Family
DX: H53.10 Unspecified subjective visual disturbances (principal)
CPT/HCPCS: 70544; 70553; A9576

== ENCOUNTER → 2020-12-23 09:05 | Outpatient (CLI) | payer MEDICARE, SELFPAY | PROVIDERS: Visit Provider Specialist | DX: G44.1 Vascular headache, not elsewhere classified (principal) ==

== ENCOUNTER → 2020-12-26 08:10 | Outpatient (CLI) | payer MEDICARE, SELFPAY ==
[2020-12-26 09:26] LABS: Erythrocyte Sedimentation Rate 1 mm/hr (0-30)
[2020-12-26 09:33] LABS: C-Reactive Protein 0.4 mg/L (0-4)
== END ==
PROVIDERS: Visit Provider Specialist
DX: G44.1 Vascular headache, not elsewhere classified (principal); H53.9 Unspecified visual disturbance; R29.818 Other symptoms and signs involving the nervous system
CPT/HCPCS: 36415; 85651; 86140

== ENCOUNTER → 2020-12-27 14:15 | Outpatient (CLI) | payer MEDICARE, SELFPAY ==
--- NOTE | 2020-12-27 | CA_ITS ---
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 Laterality: Bilateral Study Quality: Good Indications: syncope, hemachromotosis Doppler Spectral Velocity Analysis ECA (R) 113.00/10.50 cm/s ECA (L) 178.60/20.30 cm/s dICA (R) 130.20/43.40 cm/s dICA (L) 108.80/36.00 cm/s Marco (R) 119.00/38.20 cm/s Marco (L) 101.10/35.10 cm/s pICA (R) 122.70/41.90 cm/s pICA (L) 186.90/56.40 cm/s dCCA (R) 80.10/21.70 cm/s dCCA (L) 87.30/23.80 cm/s pCCA (R) 80.80/15.00 cm/s pCCA (L) 81.50/16.70 cm/s Vert (R) 53.30/12.80 cm/s Vert (L) 53.30/16.70 cm/s ICA/CCA 1.60 ICA/CCA 2.14 Findings Duplex evaluation demonstrates stenosis of the right proximal internal carotid artery in the range of 20-49% with PSV <140 cm/sec, EDV <100 cm/sec, and IC/CC Ratio <4.0.Duplex evaluation demonstrates stenosis of the left proximal internal carotid artery in the range of 50-69% with PSV =140 cm/sec, EDV <100 cm/sec, and IC/CC Ratio <4.0. Duplex evaluation demonstrates antegrade flow of the bilateral Vertebral Arteries. Conclusion Duplex evaluation demonstrates stenosis of the right proximal internal carotid artery in the range of 20-49% with PSV <140 cm/sec, EDV <100 cm/sec, and IC/CC Ratio <4.0.Duplex evaluation demonstrates stenosis of the left proximal internal carotid artery in the range of 50-69% with PSV =140 cm/sec, EDV <100 cm/sec, and IC/CC Ratio <4.0. Duplex evaluation demonstrates antegrade flow of the bilateral Vertebral Arteries. Electronically signed by : Elliot Oliver MD 12/27/2020 16:14:26
== END ==
PROVIDERS: PCP Internal Medicine Adolescent Medicine; Visit Provider Specialist
DX: G44.1 Vascular headache, not elsewhere classified (principal); H53.9 Unspecified visual disturbance; R29.818 Other symptoms and signs involving the nervous system; R42 Dizziness and giddiness
CPT/HCPCS: 93880

== ENCOUNTER → 2021-01-22 13:30 | Outpatient (CLI) | payer MEDICARE, SELFPAY ==
[2021-01-22 15:13] LABS: Blood Urea Nitrogen 15 mg/dl (7-17); Estimated Glomerular Filt Rate 62 ml/min (>60); GFR (African American) 75 ML/MIN (>60)
== END ==
PROVIDERS: Visit Provider Specialist
DX: Z01.812 Encounter for preprocedural laboratory examination (principal)
CPT/HCPCS: 36415; 82565; 84520

== ENCOUNTER → 2021-01-24 12:44 | Outpatient (CLI) | payer MEDICARE, SELFPAY ==
--- NOTE | 2021-01-24 12:44 | CT_ITS ---
Procedure: CT ANGIO NECK CLINICAL HISTORY: Carotid stenosis, left worse than the right COMPARISON: US CA CAROTID DUPLEX BI from 12/27/2020 TECHNIQUE: IV Contrast: 100ml Isovue 370 Axial images obtained with sagittal and coronal reformats. All CT scans at the facility use one or more dose reduction, viz: automated exposure control, ma/kV adjustment per patient size (including targeted exams where dose is matched to indication, i.e. head), or iterative reconstruction technique. FINDINGS: CT angiography of the neck shows moderate calcified plaque at the bilateral carotid bulbs and proximal internal carotid arteries. There is a moderate stenosis of the proximal left internal carotid artery with that narrowed vessel measuring about 2.4 mm in the more distal normal vessel measuring about 5.4 mm, consistent with a approximately 60-70 percent stenosis. There is a mild stenosis of the right carotid bulb measuring 3.6 mm at the bulb and 5 mm in the more normal distal right internal carotid artery, consistent with a 30-40 percent stenosis. External carotid arteries are normal. Right vertebral artery is hypoplastic compared to the left. Vertebral arteries otherwise normal. Some diffuse degenerative changes of the cervical spine are noted. Soft tissues of the neck are normal. Great vessels off the aortic arch are normal. No intracranial abnormality is noted. Lung apices show some scar versus atelectasis. IMPRESSION: Findings consistent with a 60-70 percent stenosis of the left proximal internal carotid artery and a 30-40 percent stenosis of the right carotid bulb, with moderate calcified plaque in the bilateral carotid bulbs and proximal internal carotid arteries. 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 Vertebral arteries otherwise normal. Diffuse cervical spondylosis. Some scar versus atelectasis in the lung apices. Dictated by: Abiodun Martin MD 01/24/2021 14:13 Abiodun Martin MD in [facility] 01/24/2021 14:13
== END ==
PROVIDERS: PCP Internal Medicine Adolescent Medicine; Visit Provider Specialist
DX: H53.412 Scotoma involving central area, left eye (principal); I65.23 Occlusion and stenosis of bilateral carotid arteries
CPT/HCPCS: 70498; Q9967

== ENCOUNTER → 2021-01-26 12:52 | Outpatient (CLI) | payer MEDICARE, SELFPAY ==
[2021-01-26 14:54] LABS: Cholesterol 170 mg/dl (140-200); HDL Cholesterol 34 mg/dl (40-60); Triglycerides 324 mg/dl (30-150); VLDL Cholesterol 65 mg/dL (0-40)
[2021-01-26 15:05] LABS: Direct LDL Cholesterol 67.51 mg/dL (100-129)
== END ==
PROVIDERS: Visit Provider Specialist
DX: I65.29 Occlusion and stenosis of unspecified carotid artery (principal)
CPT/HCPCS: 36415; 80061

== ENCOUNTER → 2021-03-30 08:13 | Outpatient (CLI) | payer MEDICARE, SELFPAY ==
[2021-03-30 09:21] LABS: Chol/HDL Ratio 2.2 (1-3.5); Cholesterol 160 mg/dl (140-200); HDL Cholesterol 73 mg/dl (40-60); Triglycerides 103 mg/dl (30-150); VLDL Cholesterol 21 mg/dL (0-40)
[2021-03-30 09:32] LABS: Direct LDL Cholesterol 70.61 mg/dL (100-129)
== END ==
PROVIDERS: Visit Provider Internal Medicine Adolescent Medicine
DX: E78.5 Hyperlipidemia, unspecified (principal)
CPT/HCPCS: 36415; 80061

== ENCOUNTER → 2021-04-11 17:09 | Outpatient (CLI) | payer MEDICARE, SELFPAY ==
[2021-04-11 19:18] LABS: Ferritin 117 ng/ml (11.1-264)
== END ==
PROVIDERS: Visit Provider Nurse Practitioner Family
DX: R79.89 Other specified abnormal findings of blood chemistry (principal)
CPT/HCPCS: 36415; 82728

== ENCOUNTER → 2021-06-12 08:19 | Outpatient (CLI) | payer MEDICARE, SELFPAY ==
--- NOTE | 2021-06-12 08:24 | MM_ITS ---
PROCEDURE INFORMATION: Exam: MG Bilateral Screening 3D Mammography Exam date and time: 06/12/2021 8:24 AM Age: 71 years old Clinical indication: Encounter for screening mammogram for malignant neoplasm of breast. Family history of premenopausal breast carcinoma. TECHNIQUE: Imaging protocol: Bilateral screening tomosynthesis and 2D mammography including computer-aided detection (CAD) when performed. COMPARISON: 1. MG MM DIG MAMM DX UNILAT RT CAD 06/29/2020 1:39 PM 2. MG MM DIG SCREENING MAMM BI W/CAD 06/08/2020 8:06 AM 3. MG MM DIG SCREENING MAMM BI W/CAD 06/07/2019 8:38 AM FINDINGS: MAMMOGRAPHY: Breast composition: There are scattered areas of fibroglandular density. Mass: No suspicious masses. Architectural distortion: See below. Calcifications: No suspicious calcifications. Asymmetric density: Questionable irregular 1.2 cm asymmetry in the right upper outer quadrant, anterior to middle depth. Questionable associated architectural distortion is seen. Skin thickening: None. Axillary adenopathy: None. IMPRESSION: 1. Recommend right breast spot compression CC/MLO view, full field true lateral view and ultrasound for further evaluation of a questionable asymmetry in the right upper outer quadrant with associated architectural distortion. 2. Of note, six-month follow-up right breast ultrasound was also previously recommended on right breast ultrasound report dated 06/30/2020, in order to confirm stability of 2 masses in the 12:00 o'clock and 1 o'clock position of the right breast. Follow-up ultrasound is not seen in PACS at this time. If not yet performed at outside facility, patient should also return for sonographic follow-up of the previously noted masses in the right breast. 3. No definite mammographic evidence of malignancy in the left breast . Given the reported risk factors , a breast cancer risk assessment may prove useful for further evaluation. ASSESSMENT: BI-RADS Category 0: Incomplete- Need Additional Imaging Evaluation and/or Prior Mammograms for Comparison
--- NOTE | 2021-06-12 08:25 | XR_ITS ---
PROCEDURE: XR DEXA AXIAL SKELETON CLINICAL HISTORY: POST MENOPAUSAL COMPARISON: CR BONE3 BONE DENSITOMETRY(HIP:LT SPINE from 04/07/2017 FINDINGS: The right hip BMD is 0.701 with a T-score of -1.3. The left hip BMD is 0.726 with a T-score of -1.1. The lumbar spine BMD is 1.063 with a T-score of 0.1. Previously the lowest density was in the left femoral neck with a T-score -1.8 IMPRESSION: This patient is considered osteopenic according to the World Health Organization criteria. Bone density is between 10 and 25 percent below young normal. Fracture risk is moderate. Treatment is advised. Based on these results a follow-up exam is recommended in 2 year. Dictated by: Elliot Oliver MD 06/14/2021 15:48 Elliot Oliver MD in [place] 06/14/2021 15:48
== END ==
PROVIDERS: PCP Internal Medicine Adolescent Medicine; Visit Provider Nurse Practitioner Family
DX: Z12.31 Encounter for screening mammogram for malignant neoplasm of breast (principal); Z13.820 Encounter for screening for osteoporosis; Z78.0 Asymptomatic menopausal state
CPT/HCPCS: 77063; 77067; 77080

== ENCOUNTER → 2021-07-19 13:55 | Outpatient (CLI) | payer MEDICARE, SELFPAY ==
--- NOTE | 2021-07-19 13:57 | MM_ITS ---
PROCEDURE INFORMATION: Exam: US Right Breast, Complete MG Right Diagnostic Breast Tomosynthesis Exam date and time: 07/19/2021 1:57 PM Age: 71 years old Clinical indication: patient recalled on the basis of a screening mammogram dated 06/12/2021 for further evaluation of a questionable asymmetry in the anterior right upper outer quadrant TECHNIQUE: Imaging protocol: Complete ultrasound of all four quadrants of the Right breast and the retroareolar regions, including ultrasound of the axilla when performed. Right Diagnostic tomosynthesis and 2D mammography including computer-aided detection (CAD) when performed. Unilateral or bilateral exam. COMPARISON: 1. MG MM DIG SCREENING MAMM BI W/CAD 06/12/2021 8:25 AM 2. MG MM DIG MAMM DX UNILAT RT CAD 06/29/2020 1:39 PM FINDINGS: MAMMOGRAPHY: Digital diagnostic spot compression views of the right breast and 90 degree lateral view of the right breast demonstrate normal overlapping fibroglandular structures without persistent mass or asymmetry identified. ULTRASOUND: Sonographic images of the right breast including the retroareolar region, all 4 quadrants and the axilla do not demonstrate any solid or cystic masses. Cursors were placed over normal fibroglandular structures in the 12 o'clock axis No architectural distortion or acoustical shadowing. No skin thickening or axillary adenopathy. IMPRESSION: No mammographic or sonographic evidence of malignancy. Annual bilateral mammographic screening is recommended unless otherwise clinically indicated. ASSESSMENT: BI-RADS Category 1: Negative
== END ==
PROVIDERS: PCP Internal Medicine Adolescent Medicine; Visit Provider Nurse Practitioner Family
DX: R92.8 Other abnormal and inconclusive findings on diagnostic imaging of breast (principal)
CPT/HCPCS: 76641; 77061; 77065; G0279

== ENCOUNTER → 2021-08-13 16:43 | Outpatient (CLI) | payer MEDICARE, SELFPAY | PROVIDERS: PCP Internal Medicine Adolescent Medicine; Visit Provider Nurse Practitioner | DX: Z20.822 Contact with and (suspected) exposure to COVID-19 (principal) | CPT/HCPCS: C9803; U0003; U0005 ==

== ENCOUNTER → 2021-08-21 10:57 | Outpatient (POV) | payer MEDICARE, SELFPAY ==
--- NOTE | 2021-08-21 11:08 | HMH.PAINSOAP ---
[facility] Pain Management SOAP Note Subjective:: Patient is a 71-year-old white female who presents today for follow-up. Patient was last seen in the clinic on 10/26/2020. At that time she was following up after bilateral SI joint injections. She is complaining today of pain once again to these areas. She says that the pain is currently in the low back, left buttock and left leg. She does have a tired type sensation. Patient describes the pain as similar to what she had years ago prior to surgery that was performed at the L4-L5 area?20 years ago. Patient is very active and says this is limiting her ability to perform daily activity. Pain did worsen in May and has progressively gotten worse since then. She does report to be in a clinical trial with Eugenio to following a carotid endarterectomy. She is currently on 2 baby aspirin's daily. The patient says her pain is worse upon awakening in the a.m. As the day progresses the pain does improve somewhat. Today, she rates her pain a 6 out of 10. Review of Systems General: No recent weight changes, no fever, no sleep disturbances Respiratory: No cough, no shortness of air, no recurring pulmonary infections Cardiovascular/peripheral vascular: No chest pain, no palpitations, no edema, no shortness of breath Gastrointestinal: No new onset incontinence, normal bowel movements reported Genitourinary: No new onset incontinence Musculoskeletal: Left low back pain with radiation into left buttock and leg Psychiatric: [Normal mood/affect] Neurological: [Denies weakness in extremities], [denies balance issues] Objective:: Physical exam General: Alert and oriented x3, no acute distress, pleasant and cooperative Lungs: Respirations even and unlabored, symmetrical chest expansion Eyes: PERRL Musculoskeletal: Flexion and extension of lumbar [spine] somewhat guarded secondary to pain, [antalgic gait noted], positive Martha's test, positive Raleigh's test, positive distraction test, positive compression test Neurological: Speech clear, no gross sensory deficit Assessment:: Degenerative disc disease lumbar spine with lumbar radiculopathy symptoms Plan:: We will schedule the patient for a repeat left SI joint injection. If she does not get relief, we will proceed with an injection at L4-L5/epidural. She is in agreement. Possible side effects of corticosteroids have been discussed with the patient. Risks and benefits of the procedure have been explained to the patient. Patient would like to proceed with the procedure. Patient has been instructed to contact the clinic with any concerns before the next appointment. Dr. Maria has reviewed this note and agrees with this plan of care. This note was dictated using voice recognition software and make contain errors or omissions. [facility] History I have reviewed the patient's past medical history: Yes Medical History: Reports:: Hyperlipidemia, Osteoporosis Denies:: Cancer, Diabetes Mellitus Type 1, Diabetes Mellitus Type 2, Internal Pacemaker, MRSA, Seizures *Have you ever received a pneumonia vaccine?: Yes *Have you received a flu vaccine this season?: Yes Other Medical History: Reports: Arthritis, Osteoporosis, Other. Denies: Blood Transfusion Reaction Laterality Cases: Left: Other Other Surgeries: Yes: No Previous Surgery, Colonoscopy, Hysterectomy-Total, Other. No: Pacemaker Amputation: No Fractures: No - *Social History Smoking Status: Never smoker Alcohol Intake: never Alcohol Intake Frequency:: a few times a week Substance Use Type: denies use *Occupational Status:: retired Housing: house Household Members: spouse *Travel in the last 8 weeks: None Family Hx:: Unable to obtain
[2021-08-21 11:11] VITALS: BP 150/72; PULSE 78; RESP 18; O2SAT 100; BMI 21.9
== END ==
PROVIDERS: Visit Provider Clinical Nurse Specialist Family Health
DX: M51.16 Intervertebral disc disorders with radiculopathy, lumbar region (principal)
CPT/HCPCS: 99212; G0463

== ENCOUNTER 2021-09-07 14:18 | Day surgery (SDC) | payer MEDICARE, SELFPAY ==
[2021-09-07 14:26] VITALS: BP 139/68; PULSE 74; RESP 20; TEMP 36.5; O2SAT 99; BMI 21.8
[2021-09-07 15:11] VITALS: BP 134/84; PULSE 79; RESP 16; O2SAT 97
[2021-09-07 15:19] VITALS: PULSE 75; RESP 18; O2SAT 98
--- NOTE | 2021-09-07 15:23 | HMH.PMPROC ---
- Procedure Date: 09/07/21 Time: 15:23 Anesthesiologist:: Ramiro Maria MD Complications:: None Pre-procedure Diagnosis:: Sacroiliitis Post-procedure Diagnosis:: Same Indications for Procedure:: Patient is a pleasant 71-year-old white female who we are treating for bilateral hip pain. She did well with previous bilateral SI joint injections. She now has return of some left-sided hip pain over the left SI joint. She has a positive Alan's test on left side. She is positive Joann is on the left side. She is positive SI joint compression test on left side. We will plan a left SI joint injection under fluoroscopy today to help with pain symptoms. Procedure Details:: Left SI joint injection under fluoroscopy Informed consent was obtained and the risks and benefits of the procedure was explained to the patient. Patient was taken to the procedure room. Patient was placed prone on the procedure table. The left hip was prepped using ChloraPrep. The skin and subcutaneous tissues were anesthetized using lidocaine. I placed a 22-gauge spinal needle into the inferior aspect of the left SI joint. Needle placement was confirmed with dye. After this we injected 5 mL bupivacaine 0.25% and Depo-Medrol 40 mg into the left SI joint. The patient tolerated the procedure well with no complication. Plan and Disposition:: We will follow-up with her in 2 weeks. Will reevaluate symptoms at that time.
[2021-09-07 15:30] VITALS: BP 142/72; PULSE 72; RESP 20; O2SAT 98
== END 2021-09-07 15:32 | disposition home or self-care (01) ==
LOC: SC.PAINP 14:19
PROVIDERS: PCP Internal Medicine Adolescent Medicine; Visit Provider Anesthesiology
DX: M46.1 Sacroiliitis, not elsewhere classified (principal); I10 Essential (primary) hypertension
CPT/HCPCS: 27096; G0260; J1040; Q9966

== ENCOUNTER → 2021-09-27 11:13 | Outpatient (POV) | payer MEDICARE, SELFPAY ==
[2021-09-27 11:20] VITALS: BP 134/64; PULSE 78; RESP 18; O2SAT 100; BMI 21.9
--- NOTE | 2021-09-27 15:29 | HMH.PAINSOAP ---
[facility] Pain Management SOAP Note Subjective:: Patient is a very pleasant 71-year-old white female who presents today for follow-up. Currently being treated for left-sided sacroiliitis. She recently underwent left SI joint injection on September 07, [address] ASH Duvall and notes 80% pain relief that is ongoing. She is very satisfied with the results of the injection. Rates her pain today as a 2 out of 10. She is not taking any controlled pain medications at this time. ROS General: No recent weight changes, no fever, no sleep disturbances Respiratory: No cough, no shortness of air, no recurring pulmonary infections Cardiovascular/peripheral vascular: No chest pain, no palpitations, no edema, no shortness of breath Gastrointestinal: No new onset incontinence, normal bowel movements reported Genitourinary: No new onset incontinence Musculoskeletal: No low back or hip pain Psychiatric: [Normal mood/affect] Neurological: [Denies weakness in extremities], [denies balance issues] Objective:: General: Alert and oriented x3, no acute distress, pleasant and cooperative Lungs: Resps E/U, symmetric chest expansion Eyes: PERRL Musculoskeletal: limited flexion and extension of the lumbar spine secondary to pain. Deep tendon reflexes were normal in bilateral lower extremities. Motor exam was grossly intact in the bilateral lower extremities, antalgic gait noted. Neurological: Speech is clear, currency exchange specialist equal, no gross sensory deficits Assessment:: Left sacroiliitis, low back pain, left-sided hip pain Plan:: Discussed with the patient that we will continue to closely monitor her pain symptoms for her left hip. I also discussed with her that we will schedule her for repeat sided SI joint injection should the pain started to return. We will follow-up with this patient in 3 months for reassessment of her chronic pain symptoms. [facility] #[id number] was reviewed and appropriate. [facility] History Medical History: Reports:: Hyperlipidemia, Hypertension, Osteoporosis Denies:: Cancer, Diabetes Mellitus Type 1, Diabetes Mellitus Type 2, Internal Pacemaker, MRSA, Seizures *Have you ever received a pneumonia vaccine?: Yes *Have you received a flu vaccine this season?: Yes Other Medical History: Reports: Arthritis, Osteoporosis, Other. Denies: Blood Transfusion Reaction Laterality Cases: Left: Other Other Surgeries: Yes: No Previous Surgery, Colonoscopy, Hysterectomy-Total, Other. No: Pacemaker Amputation: No Fractures: No - *Social History Smoking Status: Never smoker Alcohol Intake: never Alcohol Intake Frequency:: a few times a week Substance Use Type: denies use *Occupational Status:: unemployed, retired Housing: house Household Members: spouse *Travel in the last 8 weeks: None Family Hx:: Other
== END ==
PROVIDERS: Visit Provider Anesthesiology Pain Medicine
DX: M46.1 Sacroiliitis, not elsewhere classified (principal); M54.50 Low back pain, unspecified; M25.552 Pain in left hip
CPT/HCPCS: 99212; G0463

== ENCOUNTER 2021-10-26 10:24 | Day surgery (SDC) | payer MEDICARE, SELFPAY ==
[2021-10-26 10:38] VITALS: BP 134/58; BP 161/60; BP 167/71; PULSE 65; PULSE 76; PULSE 79; RESP 20; TEMP 36.4; O2SAT 97; O2SAT 98; BMI 21.9
--- NOTE | 2021-10-26 10:54 | P.PCN_ITS ---
- Procedure Date: 10/26/21 Time: 10:54 Anesthesiologist:: Ramiro Maria MD Complications:: None Pre-procedure Diagnosis:: Sacroiliitis Post-procedure Diagnosis:: Same Indications for Procedure:: Patient pleasant 71-year-old white female who we are treating for left-sided hip pain. She is tender over the left SI joint. She does have a positive Raleigh's test on the left side. She has a positive Joann test on left side. She is positive SI joint compression test on left side. We will plan a left SI joint junction under fluoroscopy. Procedure Details:: Left SI joint injection under fluoroscopy Informed consent was obtained and the risks and benefits of the procedure was explained to the patient. Patient was taken to the procedure room. Patient was placed prone on the procedure table. The left hip was prepped using ChloraPrep. The skin and subcutaneous tissues were anesthetized using lidocaine. I placed a 22-gauge spinal needle into the inferior aspect of the left SI joint. Needle placement was confirmed with dye. After this we injected 5 mL bupivacaine 0.25% and Depo-Medrol 40 mg into the left SI joint. The patient tolerated the proced ure well with no complication. Plan and Disposition:: We will follow-up with her in 2 weeks. Will reevaluate symptoms at that time.
[2021-10-26 11:00] VITALS: BP 155/72; PULSE 67; RESP 20; O2SAT 99
== END 2021-10-26 11:00 | disposition home or self-care (01) ==
LOC: SC.PAINP 10:25
PROVIDERS: PCP Internal Medicine Adolescent Medicine; Visit Provider Anesthesiology
DX: M46.1 Sacroiliitis, not elsewhere classified (principal); I10 Essential (primary) hypertension; E78.5 Hyperlipidemia, unspecified; M19.90 Unspecified osteoarthritis, unspecified site; Z88.6 Allergy status to analgesic agent
CPT/HCPCS: 27096; G0260; J1040; Q9966

== ENCOUNTER → 2021-11-22 10:56 | Outpatient (POV) | payer MEDICARE, SELFPAY ==
[2021-11-22 11:21] VITALS: BP 145/74; PULSE 75; RESP 18; TEMP 36.6; O2SAT 99; BMI 21.8
--- NOTE | 2021-11-22 12:43 | P.CONS_ITS ---
[facility] Pain Management SOAP Note Subjective:: Patient is a pleasant 71-year-old female who is here today for follow-up after a left SI injection under fluoroscopy on October 26, 2021. Patient is current being treated for left sacroiliitis. After the procedure, she had 60 to 70% relief. Rates pain at 3 out of 10. This is the patient's fourth SI injection. She had 2 SI injections last year that provided long-term relief of about 5 to 6 months. She says that these last 2 SI injections are not helping her as much as the previous 2. She does remain fairly active. She continues to do home exercises. Denies any recent falls or traumas. For pain, she takes Tylenol as needed. [facility] #[id number] with an active morphine equivalent of 0. Review of Systems: General: No recent weight changes, no fever, no sleep disturbances Respiratory: No cough, no shortness of air, no recurring pulmonary infections Cardiovascular/peripheral vascular: No chest pain, no palpitations, no edema, no shortness of breath Gastrointestinal: No new onset incontinence, normal bowel movements reported Genitourinary: No new onset incontinence Musculoskeletal: Left hip pain Psychiatric: [Normal mood/affect] Neurological: [Denies weakness in extremities], [denies balance issues] Objective:: Physical Exam: General: Alert and oriented x3, no acute distress, pleasant and cooperative, [on room air] Lungs: Respirations even and unlabored, symmetrical chest expansion Eyes: PERRL Musculoskeletal: Left SI is positive for BI, Martha's, Boston's, Gaenslen's, compression, and distraction. Neurological: Speech clear, no gross sensory deficit Assessment:: Sacroiliitis Plan:: Patient had some relief after her left SI injection. She wants to know if we can restart her muscle relaxer since it was helping her a lot previously. We will start the patient on Flexeril 5 mg twice a day. Patient is to take this medication at night first for the first few days and then she can take it twice a day after that. Follow-up in 3 months Patient has been instructed to contact the clinic with any concerns before the next appointment. Dr. Maria has reviewed this note and agrees with this plan of care. This note was dictated using voice recognition software and make contain errors or omissions. [facility] History Medical History: Reports:: Hyperlipidemia, Hypertension, Osteoporosis Denies:: Cancer, Diabetes Mellitus Type 1, Diabetes Mellitus Type 2, Internal Pacemaker, MRSA, Seizures *Have you ever received a pneumonia vaccine?: Yes *Have you received a flu vaccine this season?: Yes Other Medical History: Reports: Arthritis, Osteoporosis, Other. Denies: Blood Transfusion Reaction Laterality Cases: Left: Other Other Surgeries: Yes: No Previous Surgery, Colonoscopy, Hysterectomy-Total, Other. No: Pacemaker Amputation: No Fractures: No - *Social History Smoking Status: Never smoker Alcohol Intake: never Alcohol Intake Frequency:: a few times a week Substance Use Type: denies use *Occupational Status:: retired Housing: house Household Members: spouse *Travel in the last 8 weeks: None Family Hx:: Coronary Artery Disease, Cancer
== END ==
PROVIDERS: Visit Provider Student in an Organized Health Care Education/Training Program
DX: M46.1 Sacroiliitis, not elsewhere classified (principal)
CPT/HCPCS: 99212; G0463

== ENCOUNTER → 2022-03-04 09:54 | Outpatient (POV) | payer MEDICARE, SELFPAY ==
[2022-03-04 11:44] VITALS: BP 137/77; PULSE 67; RESP 20; TEMP 36.5; O2SAT 100; BMI 22.1
--- NOTE | 2022-03-04 13:02 | HMH.PAINSOAP ---
[facility] Pain Management SOAP Note Subjective:: Patient is a pleasant 71-year-old female who presents today for follow-up. Patient is currently being treated for left-sided sacroiliitis. Patient is currently being managed with injective therapy. She gets significant relief from L SI injections. We are also managing her with flexeril 5mg TID as needed. She is needed refills on these today. She does have some pain from time to time, but tolerable. She says that she is doing good overall. She has a trip to [facility] in the next few weeks. Rates pain today as 2/10. Review of Systems: General: No recent weight changes, no fever, no sleep disturbances Respiratory: No cough, no shortness of air, no recurring pulmonary infections Cardiovascular/peripheral vascular: No chest pain, no palpitations, no edema, no shortness of breath Gastrointestinal: No new onset incontinence, normal bowel movements reported Genitourinary: No new onset incontinence Musculoskeletal: Left hip pain Psychiatric: [Normal mood/affect] Neurological: [Denies weakness in extremities], [denies balance issues] Objective:: Physical Exam: General: Alert and oriented x3, no acute distress, pleasant and cooperative Lungs: Respirations even and unlabored, symmetrical chest expansion Eyes: PERRL Musculoskeletal: Flexion and extension of lumbar [spine] somewhat guarded secondary to pain, [antalgic gait noted]; improving ROM of left hip Neurological: Speech clear, no gross sensory deficit Assessment:: Sacroiliitis Plan:: Patient is now wanting any repeat injections at this time. We will refill the patient's Flexeril 5 mg 3 times a day as needed. I will also start this patient on prednisone 20 mg twice a day for 5 days in case her left hip pain flares up while she is traveling. We will follow this patient in 6 months. Patient has been instructed to contact the clinic with any concerns before the next appointment. Dr. Maria has reviewed this note and agrees with this plan of care. This note was dictated using voice recognition software and make contain errors or omissions. [facility] History Medical History: Reports:: Hyperlipidemia, Hypertension, Osteoporosis Denies:: Cancer, Diabetes Mellitus Type 1, Diabetes Mellitus Type 2, Internal Pacemaker, MRSA, Seizures *Have you ever received a pneumonia vaccine?: Yes *Have you received a flu vaccine this season?: Yes Other Medical History: Reports: Arthritis, Osteoporosis, Other. Denies: Blood Transfusion Reaction Laterality Cases: Left: Other Other Surgeries: Yes: No Previous Surgery, Colonoscopy, Hysterectomy-Total, Other. No: Pacemaker Amputation: No Fractures: No - *Social History Smoking Status: Never smoker Alcohol Intake: never Alcohol Intake Frequency:: a few times a week Substance Use Type: denies use *Occupational Status:: other Housing: house Household Members: spouse *Travel in the last 8 weeks: None Family Hx:: Coronary Artery Disease, Cancer
== END ==
PROVIDERS: PCP Internal Medicine Adolescent Medicine; Visit Provider Student in an Organized Health Care Education/Training Program
DX: M46.1 Sacroiliitis, not elsewhere classified (principal)
CPT/HCPCS: 99212; G0463

== ENCOUNTER → 2022-03-05 09:44 | Outpatient (POV) | payer MEDICARE, SELFPAY | PROVIDERS: Visit Provider Dermatology | DX: Z00.00 Encounter for general adult medical examination without abnormal findings (principal) ==

== ENCOUNTER → 2022-06-13 08:23 | Outpatient (CLI) | payer MEDICARE, SELFPAY ==
--- NOTE | 2022-06-13 08:29 | MM_ITS ---
PROCEDURE INFORMATION: Exam: MG Bilateral Screening 3D Mammography Exam date and time: 06/13/2022 8:24 AM Age: 72 years old Clinical indication: Screening examination TECHNIQUE: Imaging protocol: Bilateral Screening tomosynthesis and 2D mammography including computer-aided detection (CAD) when performed. COMPARISON: 1. MG MM DIG MAMM DX UNILAT RT CAD 07/19/2021 1:52 PM 2. MG MM DIG SCREENING MAMM BI W/CAD 06/12/2021 8:25 AM FINDINGS: MAMMOGRAPHY: Breast composition: There are scattered areas of fibroglandular density. Mass: None. Architectural distortion: None. Calcifications: No suspicious calcifications. Asymmetric density: None. Skin thickening: None. Axillary adenopathy: None. IMPRESSION: No mammographic evidence of malignancy. Annual screening is recommended unless otherwise clinically indicated. ASSESSMENT: BI-RADS Category 1: Negative
== END ==
PROVIDERS: PCP Internal Medicine Adolescent Medicine; Visit Provider Nurse Practitioner Family
DX: Z12.31 Encounter for screening mammogram for malignant neoplasm of breast (principal)
CPT/HCPCS: 77063; 77067

== ENCOUNTER → 2022-09-02 10:11 | Outpatient (POV) | payer MEDICARE, SELFPAY ==
--- NOTE | 2022-09-02 10:34 | EXP.PAIN.SOA ---
[facility] Pain Management SOAP Note Subjective:: Patient is a pleasant 72-year-old female who presents today for 6-month follow-up. We are currently treating the patient for left-sided sacroiliitis, low back pain, lumbar radiculopathy symptoms.Today she rates her pain a 3 out of 10. Patient denies any new injury or trauma. Patient denies any change from the location or type of pain she experiences. Patient states she will occasionally have flareups of pain however, when she rests it is relieved. Patient states this is worse in times of summer due to increased gardening and increased activity. Patient had previously been prescribed Flexeril 5 mg 3 times daily as needed however she states she has not been having to take this for quite some time. Patient is on estrogen therapy from Dr. Giron. Patient's Greg is [id number]. Its been reviewed and appropriate. Review of Systems: General: No recent weight changes, no fever, no sleep disturbances Respiratory: No cough, no shortness of air, no recurring pulmonary infections Cardiovascular/peripheral vascular: No chest pain, no palpitations, no edema, no shortness of breath Gastrointestinal: No new onset incontinence, normal bowel movements reported Genitourinary: No new onset incontinence Musculoskeletal: Low back pain Psychiatric: [Normal mood/affect] Neurological: [Denies weakness in extremities], [denies balance issues] Objective:: Physical Exam: General: Alert and oriented x3, no acute distress, pleasant and cooperative Lungs: Respirations even and unlabored, symmetrical chest expansion Eyes: PERRL Musculoskeletal: Flexion and extension of lumbar [spine] somewhat guarded secondary to pain, [antalgic gait noted] Neurological: Speech clear, no gross sensory deficit ORT score updated with low risk Assessment:: Low back pain with lumbar radiculopathy symptoms. sacroiliitis Plan:: Patient continues to have decreased pain in her low back and at this time does not require any additional injective therapy. Patient will return to clinic in 6 months for reevaluation of symptoms and follow-up. Patient has been instructed to contact the clinic with any concerns before the next appointment. Dr. Maria has reviewed this note and agrees with this plan of care. This note was dictated using voice recognition software and make contain errors or omissions. [facility] Disclaimer: The information contained in this section may have been updated after the patient was seen, as this information can be updated by other users. 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
[2022-09-02 10:36] VITALS: BP 117/76; PULSE 78; RESP 18; O2SAT 98; BMI 22.3
== END ==
PROVIDERS: PCP Internal Medicine Adolescent Medicine; Visit Provider Nurse Practitioner Family
DX: M46.1 Sacroiliitis, not elsewhere classified (principal); M54.16 Radiculopathy, lumbar region; M54.50 Low back pain, unspecified
CPT/HCPCS: 99212; G0463

== ENCOUNTER → 2023-03-06 09:34 | Outpatient (POV) | payer MEDICARE, SELFPAY ==
--- NOTE | 2023-03-06 09:43 | EXP.PAIN.SOA ---
[facility] Pain Management SOAP Note Subjective:: Patient is a pleasant 72-year-old female who presents today for 6-month follow-up. We are currently treating the patient for left-sided sacroiliitis, low back pain, lumbar radiculopathy symptoms.Today she rates her pain a 3 out of 10. She denies any new trauma or injury or change to location of her pain. She states overall she continues to do well. She states she has occasionally had some pain more so on the left side which is a chronic issue and that occasionally will have a small amount on the right but overall she still can rest and it goes away. She does state that she has recently been painting more so she has had a little bit more of flareups but it is still very tolerable and she does not feel like she needs an injection at this time. She states she will use Tylenol or the Flexeril 5 mg as needed for additional help and it works well. Patient's Greg is [phone]. Its been reviewed and appropriate. Review of Systems: General: No recent weight changes, no fever, no sleep disturbances Respiratory: No cough, no shortness of air, no recurring pulmonary infections Cardiovascular/peripheral vascular: No chest pain, no palpitations, no edema, no shortness of breath Gastrointestinal: No new onset incontinence, normal bowel movements reported Genitourinary: No new onset incontinence Musculoskeletal: Low back pain Psychiatric: [Normal mood/affect] Neurological: [Denies weakness in extremities], [denies balance issues] Objective:: Physical Exam: General: Alert and oriented x3, no acute distress, pleasant and cooperative Lungs: Respirations even and unlabored, symmetrical chest expansion Eyes: PERRL Musculoskeletal: Flexion and extension of lumbar [spine] somewhat guarded secondary to pain, [antalgic gait noted] Neurological: Speech clear, no gross sensory deficit Assessment:: Left-sided sacroiliitis, low back pain, lumbar radiculopathy symptoms Plan:: At this time the patient does not require any additional injective therapy or medication refills. I have counseled the patient if something were to change to contact our office and we can move up her next follow-up appointment. Patient will return to clinic in 6 months for reevaluation of symptoms and plan of care. Patient has been instructed to contact the clinic with any concerns before the next appointment. Dr. Maria has reviewed this note and agrees with this plan of care. This note was dictated using voice recognition software and make contain errors or omissions. [facility] Disclaimer: The information contained in this section may have been updated after the patient was seen, as this information can be updated by other users. 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
[2023-03-06 09:55] VITALS: BP 129/72; PULSE 80; RESP 20; BMI 21.8
== END ==
PROVIDERS: Visit Provider Nurse Practitioner Family
DX: M46.1 Sacroiliitis, not elsewhere classified (principal); M54.16 Radiculopathy, lumbar region; M54.50 Low back pain, unspecified
CPT/HCPCS: 99212; G0463

== ENCOUNTER → 2023-04-03 09:18 | Outpatient (CLI) | payer MEDICARE, SELFPAY ==
--- NOTE | 2023-04-03 09:22 | US_ITS ---
FINAL REPORT CLINICAL HISTORY: ABNORMAL LIVER ENZYMES COMPARISON: None FINDINGS: Sonographic images of the right upper quadrant were obtained. The pancreas is partially obscured. There is mild fatty infiltration of the liver. The gallbladder appears normal without evidence of gallstones.There is no evidence of biliary ductal dilatation.The common duct measures 3 mm. Limited images of the right kidney are unremarkable. IMPRESSION: Mild fatty infiltration of the liver. Otherwise unremarkable right upper quadrant ultrasound. Reviewed, Interpreted and Dictated by Richy Lopez MD Transcribed by Nakia Yañez Authenticated and [facility]
== END ==
PROVIDERS: PCP Internal Medicine Adolescent Medicine; Visit Provider Nurse Practitioner Family
DX: R74.8 Abnormal levels of other serum enzymes (principal); R79.89 Other specified abnormal findings of blood chemistry
CPT/HCPCS: 76705

== ENCOUNTER 2023-06-12 15:33 | Outpatient (CLI) | payer MEDICARE, SELFPAY ==
[2023-06-12 15:39] VITALS: BMI 22.4
--- NOTE | 2023-06-12 16:00 | PC.NURSE ---
1400-collected labs via venipuncture stick in right hand after 2 unsuccessful attempts;sent specimens to lab;d/c home
[2023-06-12 16:11] LABS: Basophils % 0.4 % (0.1-2.0); Eosinophils # 0.2 K/mm3 (0.0-0.4); Eosinophils % 2.9 % (0.1-12.0); Hematocrit 46.2 % (37.0-47.0); Hemoglobin 15.6 g/dL (12.2-16.2); Lymphocytes # 1.6 K/mm3 (0.7-4.5); Lymphocytes % 29.3 % (10-50); Mean Corpuscular HGB Conc 33.7 g/dL (31.8-35.4); Mean Corpuscular Hemoglobin 34.6 pg (27.0-31.2); Mean Corpuscular Volume 102.8 fl (81-99); Mean Platelet Volume 9.4 fl (7.4-10.4); Monocytes # 0.4 K/mm3 (0.1-1.0); Monocytes % 7.1 % (1.7-9.3); Neutrophils # 3.3 K/mm3 (1.8-7.8); Neutrophils % 60.2 % (37.0-80.0); Platelet Count 249 K/mm3 (142-424); Red Blood Count 4.49 M/mm3 (4.20-5.40); Red Cell Distribution Width 13.2 % (11.5-17.5); White Blood Count 5.4 K/mm3 (4.8-10.8)
[2023-06-12 16:16] LABS: Chloride 104 mmol/L (98-107)
[2023-06-12 16:17] LABS: Potassium 4.3 mmoL/L (3.5-5.1); Sodium 139 mmol/L (136-145)
[2023-06-12 16:19] LABS: Alanine Aminotransferase 40 U/L (12-78); Alkaline Phosphatase 54 U/L (38-126); Aspartate Amino Transferase 45 U/L (14-36); Bilirubin,Total 0.3 mg/dl (0.2-1.3); Blood Urea Nitrogen 20 mg/dl (7-17); Creatinine Clearance Estimated 50 mL/min (50-200); Estimated Glomerular Filt Rate 71 ml/min (>60); GFR (African American) 86 ML/MIN (>60)
[2023-06-12 16:20] LABS: Albumin Level 4.9 g/dl (3.5-5.0); Albumin/Globulin Ratio 2.1 (1.1-1.8); Anion Gap 11.3 mEq/L (5-15); Calcium 9.7 mg/dl (8.4-10.2); Carbon Dioxide 28 mmol/L (22.0-30.0); Globulin 2.3 g/dL (1.3-3.2); Glucose 96 mg/dl (74-100); Iron 251 ug/dL (37-170); Total Protein,Serum 7.2 g/dl (6.3-8.2)
[2023-06-12 16:29] LABS: Total Iron Binding Capacity 251 ug/dL (265-497)
[2023-06-12 16:55] LABS: Ferritin 176 ng/ml (11.1-264)
== END 2023-06-12 16:05 | disposition home or self-care (01) ==
LOC: LAB 15:34 → INF 15:39
PROVIDERS: PCP Internal Medicine Adolescent Medicine; Visit Provider Internal Medicine Medical Oncology
DX: E83.119 Hemochromatosis, unspecified (principal)
CPT/HCPCS: 36415; 80053; 81256; 82728; 83540; 83550; 85025

== ENCOUNTER 2023-06-16 08:25 | Outpatient (CLI) | payer MEDICARE, SELFPAY ==
[2023-06-16 08:30] VITALS: BMI 21.7
--- NOTE | 2023-06-16 08:45 | PC.NURSE ---
0842-collected labs via venipuncture stick with butterfly needle in right wrist; pt d/c home.
[2023-06-16 09:23] LABS: Lactate Dehydrogenase 259 U/L (313-618)
[2023-06-16 10:31] LABS: Vitamin B12 369 pg/mL (239-931)
[2023-06-16 10:32] LABS: Folate > 20.00 ng/mL
[2023-06-17 10:00] LABS: Haptoglobin 94 mg/dL (42-346)
== END 2023-06-16 08:45 | disposition home or self-care (01) ==
LOC: INF 08:27
PROVIDERS: PCP Internal Medicine Adolescent Medicine; Visit Provider Internal Medicine Medical Oncology
DX: E83.118 Other hemochromatosis (principal)
CPT/HCPCS: 36415; 82607; 82746; 83010; 83615; 85044; 86880

== ENCOUNTER → 2023-06-18 07:54 | Outpatient (CLI) | payer MEDICARE, SELFPAY ==
--- NOTE | 2023-06-18 07:57 | MM_ITS ---
PROCEDURE INFORMATION: Exam: MG Bilateral Screening 3D Mammography Exam date and time: 06/18/2023 7:52 AM Age: 73 years old Clinical indication: Screening examination TECHNIQUE: Imaging protocol: Bilateral Screening tomosynthesis and 2D mammography including computer-aided detection (CAD) when performed. COMPARISON: 1. MG MM DIG SCREENING MAMM BI W/CAD 06/13/2022 8:24 AM 2. MG MM DIG MAMM DX UNILAT RT CAD 07/19/2021 1:52 PM FINDINGS: MAMMOGRAPHY: Breast composition: There are scattered areas of fibroglandular density. Mass: None. Architectural distortion: None. Calcifications: No suspicious calcifications. Asymmetric density: None. Skin thickening: None. Axillary adenopathy: None. IMPRESSION: No mammographic evidence of malignancy. Annual screening is recommended unless otherwise clinically indicated. ASSESSMENT: BI-RADS Category 1: Negative
== END ==
PROVIDERS: PCP Internal Medicine Adolescent Medicine; Visit Provider Internal Medicine Adolescent Medicine
DX: Z12.31 Encounter for screening mammogram for malignant neoplasm of breast (principal)
CPT/HCPCS: 77063; 77067

== ENCOUNTER → 2023-07-22 11:12 | Outpatient (POV) | payer MEDICARE, SELFPAY | PROVIDERS: PCP Internal Medicine Adolescent Medicine; Visit Provider Dermatology | DX: Z00.00 Encounter for general adult medical examination without abnormal findings (principal) ==

== ENCOUNTER → 2023-08-08 09:03 | Outpatient (CLI) | payer MEDICARE, SELFPAY ==
--- NOTE | 2023-08-08 09:13 | XR_ITS ---
FINAL REPORT CLINICAL HISTORY: OSTEOPENIA OF MULTIPLE SITES Osteoporosis screening COMPARISON: 06/12/2021 FINDINGS: Using L1-4, the bone mineral density of the spine is 1.014 g/cm2, corresponding to T-score of -0.3, within normal limits. Previously 1.063 g/cm? with a T-score of 0.1. Using the left hip, the bone mineral density of the femoral neck is 0.708 g/cm2, corresponding to a T-score of -1.8, consistent with osteopenia. Previously 0.726 g/cm? with T-score of -1.1. Using the right hip, the bone mineral density of the femoral neck is 0.712 g/cm2, corresponding to a T-score of -1.2, consistent with osteopenia. Previously 0.701 g/cm? with T-score of -1.3. FRAX 10 year fracture risk is 2.4% for a hip fracture and 14% for a major osteoporotic fracture. NOTE: T-score: Standard deviation compared with peak bone mass of young adult mean. *Following the recommendations of the International Society of Bone densitometry, classification of hip BMD is based on the lower of two T-scores; total hip or femoral neck. IMPRESSION: Diminished bone mineral density consistent with osteopenia. Reviewed, Interpreted and Dictated by Richy Lopez MD Transcribed by Brittney Valenzuela Authenticated and [facility]
== END ==
LOC: RAD 09:03
PROVIDERS: PCP Internal Medicine Adolescent Medicine; Visit Provider Nurse Practitioner Family
DX: M85.89 Other specified disorders of bone density and structure, multiple sites (principal)
CPT/HCPCS: 77080

== ENCOUNTER → 2023-09-04 08:26 | Outpatient (POV) | payer MEDICARE, SELFPAY ==
--- NOTE | 2023-09-04 09:19 | A.OFFVIS_ITS ---
[facility] Pain Management SOAP Note Subjective:: Patient is a pleasant 73-year-old female who presents today for follow-up. We are currently treating the patient for left-sided sacroiliitis. Today she rates her pain at a 6 out of 10. Patient denies any new trauma or injury. She does state that her left SI area has started to flareup. Patient states she has been helping her daughters with painting and trim work which may have aggravated her symptoms. She does describe her pain as an aching, throbbing sensation with some numbness and tingling in and around her low back on the left side and left hip. Patient does state the pain interferes with her ability perform activities of daily living such as cooking and cleaning. Patient has had injections in her SI in the past that did provide upwards of 80% relief lasting 5 to 6 months with each injection. Patient is interested in repeating this procedure. Patient does use Tylenol or Flexeril 5 mg as needed for additional improvement. Patient denies any side effects from this medication. Her Greg has been reviewed and is appropriate. Review of Systems: General: No recent weight changes, no fever, no sleep disturbances Respiratory: No cough, no shortness of air, no recurring pulmonary infections Cardiovascular/peripheral vascular: No chest pain, no palpitations, no edema, no shortness of breath Gastrointestinal: No new onset incontinence, normal bowel movements reported Genitourinary: No new onset incontinence Musculoskeletal: Low back pain, left hip pain Psychiatric: [Normal mood/affect] Neurological: [Denies weakness in extremities], [denies balance issues] Objective:: Physical Exam: General: Alert and oriented x3, no acute distress, pleasant and cooperative Lungs: Respirations even and unlabored, symmetrical chest expansion Eyes: PERRL Musculoskeletal: Flexion and extension of lumbar [spine] somewhat guarded secondary to pain, [antalgic gait noted] point tenderness along left SI with positive left Raleigh's, Martha's, Gaenslen's, compression and distraction exam Neurological: Speech clear, no gross sensory deficit Assessment:: Chronic left sacroiliitis Plan:: Patient is experiencing worsening pain in her low back along the left side and into her left hip. Patient did have point tenderness along her left SI with a positive left Raleigh's, Martha's, Gaenslen's, compression and distraction exam. I have discussed with the patient that she may benefit from a repeat left SI injection. Risk and benefits were discussed with the patient and she would like to proceed forward with this plan of care. Patient has had 80% improvement in the past lasting approximately 5 to 6 months. I will also refill the patient's Flexeril 5 mg twice daily as needed and provide a 6-month supply of this medication. Patient will be scheduled for a left SI injection under fluoroscopy. Patient has been instructed to contact the clinic with any concerns before the next appointment. Dr. Maria has reviewed this note and agrees with this plan of care. This note was dictated using voice recognition software and make contain errors or omissions. [facility] Disclaimer: The information contained in this section may have been updated after the patient was seen, as this information can be updated by other users. Medical History Colon polyp Endometriosis Eustachian tube dysfunction I would encourage her to continue to auto inflate the ears. We are going to change her nasal steroid spray to 1 that is more moisturizing and less inflammatory. Fibrocystic breast disease GERD (gastroesophageal reflux disease) Hx of ectopic Hyperlipidemia Impacted cerumen, right ear Laryngopharyngeal reflux This is partially treated and I do think she would benefit from the use of regular medication. We will avoid the PPI family and use Pepcid to see if this is beneficial. 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
[2023-09-04 11:58] VITALS: BP 130/64; PULSE 72; RESP 18; O2SAT 97; BMI 22.4
== END | disposition home or self-care (01) ==
PROVIDERS: PCP Internal Medicine Adolescent Medicine; Visit Provider Nurse Practitioner Family
DX: M46.1 Sacroiliitis, not elsewhere classified (principal); G89.29 Other chronic pain
CPT/HCPCS: 99212; G0463

== ENCOUNTER 2023-09-16 08:16 | Day surgery (SDC) | payer MEDICARE, SELFPAY ==
[2023-09-16 08:39] VITALS: BP 135/74; PULSE 72; RESP 18; TEMP 36.3; O2SAT 99; BMI 22.6
[2023-09-16] MEDS: methylPREDNISolone ACETATE 80MG/ML VIAL 80 MG (09:01)
[2023-09-16] MEDS: LIDOCAINE 1% 5ML PF VIAL 5 ML (09:01)
[2023-09-16 09:02] VITALS: BP 138/76; PULSE 70; RESP 18; O2SAT 99
[2023-09-16] MEDS: BUPIVACAINE 0.25% 10ML INJ 25 MG IJ (09:02)
[2023-09-16 09:07] VITALS: BP 138/76; PULSE 70; RESP 18; O2SAT 99
[2023-09-16 09:10] VITALS: BP 147/62; PULSE 61; RESP 18; O2SAT 99
--- NOTE | 2023-09-16 09:14 | P.PCN_ITS ---
Procedure Date: 09/16/23 Time: 09:00 Anesthesiologist:: Leland Woodward CRNA Complications:: None Pre-procedure Diagnosis:: Left sacroiliitis Post-procedure Diagnosis:: Same Indications for Procedure:: Patient is a pleasant 73-year-old female comes our clinic today for a left sacroiliac joint injection. Patient received significant improvement terms of her overall left posterior hip pain with previous injection 2 years ago. She rates her pain today 6/10. She reports difficulty transitioning from sitting to standing. Difficulty with ambulation due to left posterior hip pain. Procedure Details:: Procedure: Left sacroiliac injection under fluoroscopy Informed consent was obtained and the risk and benefits of the procedure were explained to the patient.~ The patient was taken to the procedure room and noninvasive monitors were placed including noninvasive blood pressure cuff and pulse oximeter.~ The patient was placed prone on the procedure table.~ The~ left hip was cleansed using Betadine as a cleansing solution.~ C-arm fluorosocpy was used to view the left SI joint.~ The skin and subcutaneous tissues were anesthetized using Lidocaine 1.5% and a 25-gauge needle.~ After this, a 22-gauge spinal needle was inserted under fluoroscopic guidance into the inferior aspect of the left SI joint.~ Omnipaque dye was injected and a good spread was seen throughout the joint.~ After this, approximately 5 mL of bupivacaine 0.25% and D epo-Medrol 40 mg was incrementally injected into the sacroiliac joint.~ The patient tolerated the procedure well with no complications.~ The patient was observed in the Pain Clinic for a period of 30-45 minutes, then discharged home neurologically intact.~ Plan and Disposition:: Patient was discharged without incident.
== END 2023-09-16 09:10 | disposition home or self-care (01) ==
PROVIDERS: PCP Internal Medicine Adolescent Medicine; Visit Provider Nurse Anesthetist, Certified Registered
DX: M46.1 Sacroiliitis, not elsewhere classified (principal)
CPT/HCPCS: 27096; G0260; J1040

== ENCOUNTER → 2023-10-06 13:56 | Outpatient (POV) | payer MEDICARE, SELFPAY ==
--- NOTE | 2023-10-06 14:11 | EXP.PAIN.SOA ---
[facility] Pain Management SOAP Note Subjective:: Patient is a pleasant 73-year-old female who presents today for follow-up of left SI injection on 09/16/2023. We are currently treating the patient for left-sided sacroiliitis. Today she rates her pain a 0 out of 10. Patient states she has had at least 85% relief following this injection and feels like it is still continuing to provide additional improvement. Patient states she has been able to increase her activity with decreased pain symptoms and feels overall more functional. Patient does typically get at least 5 to 6 months with each of these injections. Patient does use Flexeril 5 mg as needed however has not had to take this due to the improvement of her overall pain symptoms. Her Greg has been reviewed and is appropriate. Review of Systems: General: No recent weight changes, no fever, no sleep disturbances Respiratory: No cough, no shortness of air, no recurring pulmonary infections Cardiovascular/peripheral vascular: No chest pain, no palpitations, no edema, no shortness of breath Gastrointestinal: No new onset incontinence, normal bowel movements reported Genitourinary: No new onset incontinence Musculoskeletal: Low back pain Psychiatric: [Normal mood/affect] Neurological: [Denies weakness in extremities], [denies balance issues] Objective:: Physical Exam: General: Alert and oriented x3, no acute distress, pleasant and cooperative Lungs: Respirations even and unlabored, symmetrical chest expansion Eyes: PERRL Musculoskeletal: Flexion and extension of lumbar [spine] somewhat guarded secondary to pain Neurological: Speech clear, no gross sensory deficit Assessment:: Left-sided sacroiliitis Plan:: Patient has had significant improvement following her left SI injection and does not require any additional injection therapy at this time. Patient does typically get at least 6 months relief from these injections. Patient will return to clinic in 6 months for reevaluation of symptoms and plan of care. Patient has been instructed to contact the clinic with any concerns before the next appointment. Dr. Maria has reviewed this note and agrees with this plan of care. This note was dictated using voice recognition software and make contain errors or omissions. [facility] Disclaimer: The information contained in this section may have been updated after the patient was seen, as this information can be updated by other users. Medical History Colon polyp Endometriosis Eustachian tube dysfunction I would encourage her to continue to auto inflate the ears. We are going to change her nasal steroid spray to 1 that is more moisturizing and less inflammatory. Fibrocystic breast disease GERD (gastroesophageal reflux disease) Hx of ectopic Hyperlipidemia Impacted cerumen, right ear Laryngopharyngeal reflux This is partially treated and I do think she would benefit from the use of regular medication. We will avoid the PPI family and use Pepcid to see if this is beneficial. 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
[2023-10-06 15:33] VITALS: BP 134/77; PULSE 59; RESP 18; O2SAT 97; BMI 22.1
== END ==
LOC: SC.PAIN 13:57
PROVIDERS: Visit Provider Nurse Practitioner Family
DX: M46.1 Sacroiliitis, not elsewhere classified (principal)
CPT/HCPCS: 99212; G0463

== ENCOUNTER 2023-11-06 08:50 | Outpatient (CLI) | payer MEDICARE, SELFPAY ==
[2023-11-06 09:02] VITALS: BMI 22.3
--- NOTE | 2023-11-06 09:09 | PC.NURSE ---
0909-collected labs via venipuncture stick in right wrist with butterfly needle pt to hematology appointment.
[2023-11-06 09:19] LABS: Basophils # 0.1 K/mm3 (0-0.2); Basophils % 1.1 % (0.1-2.0); Eosinophils # 0.1 K/mm3 (0.0-0.4); Hematocrit 48.3 % (37.0-47.0); Hemoglobin 15.1 g/dL (12.2-16.2); Lymphocytes # 1.7 K/mm3 (0.7-4.5); Lymphocytes % 40.3 % (10-50); Mean Corpuscular HGB Conc 31.2 g/dL (31.8-35.4); Mean Corpuscular Hemoglobin 34.3 pg (27.0-31.2); Mean Corpuscular Volume 109.7 fl (81-99); Mean Platelet Volume 9.4 fl (7.4-10.4); Monocytes # 0.3 K/mm3 (0.1-1.0); Monocytes % 6.6 % (1.7-9.3); Neutrophils # 2.1 K/mm3 (1.8-7.8); Platelet Count 276 K/mm3 (142-424); White Blood Count 4.3 K/mm3 (4.8-10.8)
[2023-11-06 11:08] LABS: Ferritin 19.9 ng/ml (11.1-264)
== END 2023-11-06 09:10 | disposition home or self-care (01) ==
LOC: INF 08:51
PROVIDERS: PCP Internal Medicine Adolescent Medicine; Visit Provider Internal Medicine Medical Oncology
DX: E83.119 Hemochromatosis, unspecified (principal)
CPT/HCPCS: 36415; 82728; 85025

== ENCOUNTER 2023-12-17 12:32 | Day surgery (SDC) | payer MEDICARE, SELFPAY ==
[2023-12-16 08:30] VITALS: BMI 22.8
[2023-12-17] MEDS: LACTATED RINGERS 1000ML 1,000 ML 25 ML IV (12:58)
[2023-12-17 13:00] VITALS: BP 109/58; PULSE 81; RESP 18; TEMP 36.7; O2SAT 98
--- NOTE | 2023-12-17 13:31 | EXP.ANES.CKL ---
[facility] Disclaimer: The information contained in this section may have been updated after the patient was seen, as this information can be updated by other users. Medical History Endometriosis Hx of ectopic Fibrocystic breast disease Colon polyp GERD (gastroesophageal reflux disease) Hyperlipidemia Polycythemia Eustachian tube dysfunction Laryngopharyngeal reflux Impacted cerumen, right ear Surgical History H/O endarterectomy H/O arthroplasty History of hysterectomy History of lumbar surgery Family History Other Cancer Heart disease Stroke Social History Smoking Status: Never smoker second hand exposure: No alcohol intake: never substance use type: denies use current occupational status: retired Travel in the last 8 weeks: None household members: spouse housing: house 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: No caffeine: Yes [facility] Anesthesia Checklist Patient Identification Patient Identification: Arm Band and Verbal (Name & ) Structural Data Admitted From: Home Planned Operative Procedure/s: Colonoscopy Consent for Planned Operative Procedure(s) Verified: Yes NPO Status Verified Time NPO: 00:00 Additional verifications Anesthesia Reactions: No Hx Blood Transfusions: No Blood Transfusion Reaction: No Airway Assessment Mallampati Score:: Class II C-Spine Mobility Assessed: Yes TMJ Mobility Assessed: Yes Dentition: Good Dentition Neurological Assessment Level of Consciousness: Awake Hx Seizures: No Numbness or tingling in extremities: No Anesthesia Plan Anesthesia Risk discussed: Yes Anesthesia Plan: Verified ASA Class: II Anesthesia Type: MAC
[2023-12-17 14:15] VITALS: O2SAT 100
--- NOTE | 2023-12-17 14:38 | HMH.SCOPE ---
Procedure: Date: 12/17/23 Patient Date of :: 1950 Procedure Performed:: Colonoscopy Indications:: The patient is a 73-year-old who presents for surveillance colonoscopy for history of polyps in the past. Performing Provider:: Grant Michaels MD Referring Provider:: Eliu Rubin MD Sedation:: See RN records Procedure:: After placing the patient in the left lateral decubitus position, the colonoscopy was gently inserted into the rectum and under direct visualization advanced to the cecum which was identified by transillumination in the right lower quadrant, identification of the ileocecal valve, appendiceal orifice, and cecal strap. Color, texture, mucosa, and anatomy of the colon were carefully examined with the scope. Findings:: Colonoscopy was somewhat difficult secondary to a tortuous colon. The quality of the bowel preparation was fair in the sigmoid colon and ascending colon. Time was spent irrigating and cleansing the mucosa. Remainder of the colon was a good preparation. There was a diminutive polyp in the sigmoid colon. The polyp was removed with cold forceps. On retroflexion view the rectum appeared normal. There were small hypertrophic anal papilla seen. Impression: Sigmoid colon polyp Recommendations:: Await pathology result Yash colonoscopy in 5 years Complications:: None Estimated blood obtained (mL): 0 Colonoscopy Component Colonoscopy Component Was a colonoscopy performed during today's procedure?: Yes Recommended follow up colonoscopy of at least 10 years?: Yes
[2023-12-17 14:40] VITALS: BP 90/50; PULSE 72; RESP 12; O2SAT 95
[2023-12-17 14:50] VITALS: BP 86/45; PULSE 72; RESP 14; O2SAT 95
[2023-12-17 15:00] VITALS: BP 93/58; PULSE 83; RESP 14; O2SAT 97
== END 2023-12-17 15:10 | disposition home or self-care (01) ==
PROVIDERS: PCP Internal Medicine Adolescent Medicine; Visit Provider Internal Medicine
PROC: 0DJD8ZZ Inspection of Lower Intestinal Tract, Via Natural or Artificial Opening Endoscopic (ICD-10-PCS; CPT 45378; principal; 2023-12-17 13:30)
DX: Z12.11 Encounter for screening for malignant neoplasm of colon (principal); Z86.010 Personal history of colon polyps; K56.2 Volvulus; K63.5 Polyp of colon
CPT/HCPCS: 45380

== ENCOUNTER 2024-04-05 08:33 | Outpatient (POV) | payer MEDICARE, SELFPAY ==
[2024-04-05 08:45] VITALS: BP 125/67; PULSE 73; RESP 16; O2SAT 99; BMI 22.6
--- NOTE | 2024-04-05 08:52 | A.OFFVIS_ITS ---
[facility] Disclaimer: The information contained in this section may have been updated after the patient was seen, as this information can be updated by other users. Medical History Endometriosis Hx of ectopic Fibrocystic breast disease Colon polyp GERD (gastroesophageal reflux disease) Hyperlipidemia Polycythemia Eustachian tube dysfunction Laryngopharyngeal reflux Impacted cerumen, right ear Surgical History H/O endarterectomy H/O arthroplasty History of hysterectomy History of lumbar surgery Family History Other Cancer Heart disease Stroke Social History Smoking Status: Never smoker second hand exposure: No alcohol intake: never substance use type: denies use current occupational status: retired Travel in the last 8 weeks: None household members: spouse housing: house 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 Today she rates her pain a 1 out of 10. Patient denies any new trauma or injury. Patient does state that overall she is doing well. She states she will have an occasional pain when she is vacuuming but she is able to change arms and it does go away or stop and take a break. Patient is currently managed with Flexeril 5 mg as needed however she states that she may have only used 2 or 3 from her last prescription and does not need any refills. Patient had her last left SI injection back in September of this year and has continued to do extremely well with this. Her Greg has been reviewed and is appropriate. Review of Systems: General: No recent weight changes, no fever, no sleep disturbances Respiratory: No cough, no shortness of air, no recurring pulmonary infections Cardiovascular/peripheral vascular: No chest pain, no palpitations, no edema, no shortness of breath Gastrointestinal: No new onset incontinence, normal bowel movements reported Genitourinary: No new onset incontinence Musculoskeletal: Low back pain Psychiatric: [Normal mood/affect] Neurological: [Denies weakness in extremities], [denies balance issues] Pain at rest (0-10 scale): 1 Objective Objective:: Physical Exam: General: Alert and oriented x3, no acute distress, pleasant and cooperative Lungs: Respirations even and unlabored, symmetrical chest expansion Eyes: PERRL Musculoskeletal: Flexion and extension of lumbar within normal limits Neurological: Speech clear, no gross sensory deficit Has patient had previous pain injection?: No Conservative treatment options previously tried: Home exercise plan Length of treatment: Longer than 6 weeks Meds Home Medications and Allergies Home Medications ?Medication ?Instructions ?Recorded ?Confirmed ?Type arginine (L-arginine) 500 mg tablet 500 mg PO DAILY . 03/22/19 04/05/24 History aspirin 81 mg tablet,delayed 81 mg PO BID heart health 03/22/19 04/05/24 History release (Adult Low Dose Aspirin) atorvastatin 80 mg tablet 80 mg PO HS 04/07/23 04/05/24 History esterified 1 tab PO DAILY 04/07/23 04/05/24 History estrogens-methyltestosterone 0.625 mg-1.25 mg tablet lisinopril 20 mg tablet 10 mg PO DAILY 04/07/23 04/05/24 History sod picosulf 10 mg-magnes 3.5 160 ml PO DAILY bowel prep 2 doses 12/01/23 04/05/24 Rx gram-citric 12 gram/160 mL oral #320 mL solution (Clenpiq) cyclobenzaprine 5 mg tablet 5 mg PO BID PRN . 12/16/23 04/05/24 History famotidine 20 mg tablet (Pepcid) 20 mg PO DAILY 12/16/23 04/05/24 History New Prescriptions to Start Prescriptions: Allergies Allergy/AdvReac Type Severity Reaction Status Date / Time codeine [CODEINE] AdvReac Unknown NA-NAUSEA Verified 12/17/23 12:59 Assessment and Plan *Assessment and plan (1) Left hip pain: Status: Chronic Category: Medical Code(s): M25.552 - Pain in left hip Plan Patient continues to do well and does not require any additional interventions at this time. Patient will return to clinic in 3 months for reevaluation of symptoms and plan of care. Patient has been instructed to contact the clinic with any concerns before the next appointment. Dr. Maria has reviewed this note and agrees with this plan of care. This note was dictated using voice recognition software and make contain errors or omissions. All injections are used with Lidocaine or Bupivacaine and Depo Medrol.
[2024-04-05 11:20] VITALS: BMI 22.6
--- NOTE | 2024-04-05 11:25 | PC.NURSE ---
1125-collected labs via venipuncture stick in right wrist with butterfly needle;pt to d/c home
[2024-04-05 12:29] LABS: Ferritin 38.8 ng/ml (11.1-264)
== END 2024-04-05 11:30 | disposition home or self-care (01) ==
LOC: SC.PAIN 08:34 → INF 11:15
PROVIDERS: PCP Internal Medicine Adolescent Medicine; Visit Provider Nurse Practitioner Family
DX: M25.552 Pain in left hip (principal); E83.119 Hemochromatosis, unspecified
CPT/HCPCS: 36415; 82728; 99212; G0463

== ENCOUNTER 2024-06-07 10:15 | Emergency (ER) | payer MEDICARE, SELFPAY ==
[2024-06-07 11:35] VITALS: BP 134/67; PULSE 67; RESP 18; TEMP 36.6; O2SAT 100; BMI 23.3
--- NOTE | 2024-06-07 11:39 | EXP.UTC ---
Discharge Plan Disposition Patient Disposition: Home, Self-Care Condition: Good Prescriptions Prescriptions: New ibuprofen 600 mg tablet 600 mg PO Q6HP PRN (Reason: Mild Pain) Qty: 30 0RF No Action atorvastatin 80 mg tablet 80 mg PO HS lisinopril 20 mg tablet 10 mg PO DAILY estrogens-methyltestosterone 0.625-1.25 mg tablet 1 tab PO DAILY Referrals Follow up/Referrals: Vitor Mason DO [Staff Physician] - See instructions Addy Rubin MD [Primary Care Provider] - See instructions Activity Restrictions/Add. Instructions Additional Instructions/Restrictions: Rest the extremity. Take tylenol or ibuprofen for pain. I sent in a prescription for ibuprofen to your pharmacy. Wear the arm sling for the next few days to support your shoulder. After that, stop wearing it. Follow up with Dr. Mason (orthopedics). I put in a referral but you need to call his office and schedule an appointment. Follow up with your regular doctor. GO TO THE ER FOR ANY WORSENING SYMPTOMS Clinical Impressions Clinical Impression: Shoulder separation, Left shoulder pain Instructions Patient Instructions: How to Use a Sling, DI for AC Joint Separation, AC Joint Separation Print Language Print Language: [place] Discharge ED [place] Abiodun Lozoya [facility] [place] [facility] [place] General Stated complaint: fall 06/06 L shoulder pain Time Seen by Provider: 06/07/24 11:39 History of Present Illness Provider Complaint: She states that she tripped in a hole in a parking lot and fell yesterday. She came down on her left upper arm. Since then she has had left upper arm pain and left shoulder pain. She denies any neck pain, back pain or any other complaints. She did not hit her head. Related Data Home Medications ?Medication ?Instructions ?Recorded ?Confirmed atorvastatin 80 mg tablet 80 mg PO HS 04/07/23 06/07/24 esterified 1 tab PO DAILY 04/07/23 06/07/24 estrogens-methyltestosterone 0.625 mg-1.25 mg tablet lisinopril 20 mg tablet 10 mg PO DAILY 04/07/23 06/07/24 Previous Rx's ?Medication ?Instructions ?Recorded ibuprofen 600 mg tablet 600 mg PO Q6HP PRN Mild Pain #30 06/07/24 tabs Allergies Allergy/AdvReac Type Severity Reaction Status Date / Time codeine [CODEINE] AdvReac Unknown NA-NAUSEA Verified 12/17/23 12:59 PFS PFS Disclaimer: The information contained in this section may have been updated after the patient was seen, as this information can be updated by other users. Medical History Endometriosis Hx of ectopic Fibrocystic breast disease Colon polyp GERD (gastroesophageal reflux disease) Hyperlipidemia Polycythemia Eustachian tube dysfunction Laryngopharyngeal reflux Impacted cerumen, right ear Surgical History H/O endarterectomy H/O arthroplasty History of hysterectomy History of lumbar surgery Family History Other Cancer Heart disease Stroke Social History Smoking Status: Never smoker second hand exposure: No alcohol intake: never substance use type: denies use current occupational status: retired Travel in the last 8 weeks: None household members: spouse housing: house 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: No caffeine: Yes ROS Obtained: Yes All systems reviewed & no additional complaints except as documented Constitutional Constitutional: Denies chills and Denies fever(s) Eyes Eyes: Denies eye discharge ENT Ears, Nose, Mouth, and Throat: Denies dizziness, Denies otalgia and Denies sore throat Cardiovascular Cardiovascular: Denies chest pain Respiratory Respiratory: Denies shortness of breath, Denies chest congestion, Denies cough, Denies stridor and Denies wheezing Gastrointestinal Gastrointestingal: Denies nausea or vomiting Musculoskeletal Musculoskeletal: Reports as per HPI Integumentary/Breasts Skin/Breast: Denies redness, Denies rash and Denies wounds Neurologic Neurologic: Denies dizziness and Denies paresthesias Allergic/Immunologic Allergic/Immunologic: Denies wheezing Physical Exam General General appearance: alert and in no apparent distress Head Head exam: atraumatic, normocephalic and normal inspection Eye Eye exam: Present normal appearance, PERRL and EOMI ENT ENT exam: Present normal exam, normal oropharynx, mucous membranes moist, TM's normal bilaterally and normal external ear exam Neck Neck exam: Present normal inspection, full ROM and trachea midline; Absent tenderness, meningismus or lymphadenopathy Chest Chest inspection: Present normal inspection and symmetric chest wall rise; Absent tenderness Respiratory Respiratory exam: Present normal lung sounds bilaterally; Absent respiratory distress Cardiovascular Cardiovascular exam: Present regular rate and normal rhythm; Absent JVD Abdominal Exam Abdominal exam: Present soft and normal bowel sounds; Absent distention, tenderness or guarding Extremities Exam Extremities exam: Present normal capillary refill; Absent calf tenderness Expanded Upper Extremity Exam Left: Shoulder exam: Present full ROM and tenderness; Absent swelling, abrasion, laceration, ecchymosis, deformity, crepitus, dislocation, erythema or tenderness over AC joint Arm exam: Present full ROM and tenderness; Absent swelling, abrasion, laceration, ecchymosis, deformity, crepitus or erythema Elbow exam: Present normal inspection and full ROM; Absent tenderness, pain w/ pronation/supination or tenderness over radial head Forearm/Wrist exam: Present normal inspection and full ROM; Absent tenderness, tenderness over anatomical snuff box or pain with axial thumb loading Hand exam: Present normal inspection and full ROM; Absent tenderness Neuromotor exam: Normal wrist extension, thumb opposition, thumb IP flexion, thumb adduction and fingers 2-5 abduction Neurosensory exam: Normal radial nerve, ulnar nerve and median nerve Vascular exam: Normal capillary refill, radial pulse and ulnar pulse Back Exam Back exam: Present normal inspection; Absent tenderness Neurological Exam Neurological exam: Present alert and oriented X3 Psychiatric Psychiatric exam: Present normal affect and normal mood Skin Skin exam: Present warm, dry, intact and normal color Lymphatic Lymphatic Findings: no adenopathy Medical Decision Making Medical Records Medical records reviewed: No I reviewed the patient's medical records. Screening: Per USPSTF and CDC recommendations, given the prevalence of disease in our region, it is our hospital?s policy to screen for HIV and viral Hepatitis for all patients aged 18 and over and those with ongoing risk factors. Greg Inquiry Pt receiving controlled substance: No Radiology Data #1: Image(s): Shoulder Image Reviewed: Yes I reviewed the patient's radiology image and Yes I have reviewed radiologist's interpretation Preliminary Findings: No Fracture Seen Accession No. : [id number] Patient Name / ID : TEJA MANN / [id number] Exam Date : 06/07/2024 11:45:28 ( Final ) Study Comment : Sex / Age : F / 74Y Creator : REGAN SAVAGE MD Dictator : Marketing Specialist : Medical Laboratory Technical Officer : REGAN SAVAGE MD Approver2 : Report Date : 06/07/2024 13:04:47 My Comment : PROCEDURE INFORMATION: Exam: XR Left Shoulder Exam date and time: 06/07/2024 11:45 AM Age: 74 years old Clinical indication: Pain; Shoulder; Left; Additional info: Fell TECHNIQUE: Imaging protocol: Radiologic exam of the left shoulder. Views: 2 or more views. COMPARISON: CT ANGIO NECK 01/24/2021 1:39 PM FINDINGS: Bones/joints: There is no evidence for acute fracture or dislocation. Overall bony mineralization is within normal limits. Acromioclavicular productive change is noted. Soft tissues: Normal. IMPRESSION: No acute process in the left shoulder. #2: Image(s): Humerus Image Reviewed: Yes I reviewed the patient's radiology image and Yes I have reviewed radiologist's interpretation Preliminary Findings: No Fracture Seen Accession No. : [id number] Patient Name / ID : TEJA MANN / [id number] Exam Date : 06/07/2024 11:46:57 ( Final ) Study Comment : Sex / Age : F / 74Y Creator : REGAN SAVAGE MD Dictator : Marketing Specialist : Medical Laboratory Technical Officer : REGAN SAVAGE MD Approver2 : Report Date : 06/07/2024 13:06:11 My Comment : PROCEDURE INFORMATION: Exam: XR Left Humerus Exam date and time: 06/07/2024 11:46 AM Age: 74 years old Clinical indication: Pain; Shoulder; Left; Additional info: Fell TECHNIQUE: Imaging protocol: Radiologic exam of the left humerus. Views: 2 or more views. COMPARISON: CR XR SHOULDER LT MIN 2V 06/07/2024 11:45 AM FINDINGS: Bones/joints: Normal. Soft tissues: Normal. IMPRESSION: No acute findings. Procedures Risk/Benefits of Procedure(s) Were Explained: Yes Orthopedic Splinting/Casting Injury #1: Side: left Upper Extremity Injury Location: shoulder and upper arm Upper Extremity Immobilizer: sling and applied by nurse/dr hernández Post Cast/Splinting Neuro Status: intact and no change Post Cast/Splinting Vasc Status: intact and no change
[2024-06-07 12:53] VITALS: BP 134/67; PULSE 67; RESP 18; TEMP 36.6; O2SAT 100
== END 2024-06-07 12:57 | disposition home or self-care (01) ==
PROVIDERS: Emergency Provider Nurse Practitioner Family; PCP Internal Medicine Adolescent Medicine
DX: S43.005A Unspecified dislocation of left shoulder joint, initial encounter (principal); W19.XXXA Unspecified fall, initial encounter
CPT/HCPCS: 73030; 73060; 99213; G0381

== ENCOUNTER 2024-06-17 10:38 | Outpatient (CLI) | payer MEDICARE, SELFPAY ==
--- NOTE | 2024-06-17 11:00 | PC.NURSE ---
1100-collected labs via venipuncture stick in right hand with butterfly needle; to notify pt with results.
[2024-06-17 11:18] LABS: Basophils # 0.1 K/mm3 (0-0.2); Basophils % 1.1 % (0.1-2.0); Eosinophils # 0.1 K/mm3 (0.0-0.4); Eosinophils % 2.5 % (0.1-12.0); Hematocrit 48.2 % (37.0-47.0); Hemoglobin 16.1 g/dL (12.2-16.2); Lymphocytes # 1.4 K/mm3 (0.7-4.5); Lymphocytes % 33.2 % (10-50); Mean Corpuscular HGB Conc 33.4 g/dL (31.8-35.4); Mean Corpuscular Hemoglobin 33.7 pg (27.0-31.2); Mean Corpuscular Volume 101.2 fl (81-99); Mean Platelet Volume 9.1 fl (7.4-10.4); Monocytes # 0.3 K/mm3 (0.1-1.0); Monocytes % 7.5 % (1.7-9.3); Neutrophils # 2.3 K/mm3 (1.8-7.8); Neutrophils % 55.6 % (37.0-80.0); Platelet Count 258 K/mm3 (142-424); Red Blood Count 4.77 M/mm3 (4.20-5.40); Red Cell Distribution Width 13.2 % (11.5-17.5); White Blood Count 4.2 K/mm3 (4.8-10.8)
[2024-06-17 11:33] LABS: Albumin Level 4.6 g/dl (3.5-5.0); Chloride 106 mmol/L (98-107); Potassium 4.2 mmoL/L (3.5-5.1); Sodium 137 mmol/L (136-145)
[2024-06-17 11:35] LABS: Blood Urea Nitrogen 21 mg/dl (7-17)
[2024-06-17 11:36] LABS: Alanine Aminotransferase 39 U/L (12-78); Albumin/Globulin Ratio 1.8 (1.1-1.8); Alkaline Phosphatase 50 U/L (38-126); Anion Gap 12.2 mEq/L (5-15); Aspartate Amino Transferase 60 U/L (14-36); Bilirubin,Total 0.9 mg/dl (0.2-1.3); Calcium 9.6 mg/dl (8.4-10.2); Carbon Dioxide 23 mmol/L (22.0-30.0); Estimated Glomerular Filt Rate 71 ml/min (>60); GFR (African American) 85 ML/MIN (>60); Globulin 2.5 g/dL (1.3-3.2); Glucose 115 mg/dl (74-100); Total Protein,Serum 7.1 g/dl (6.3-8.2)
[2024-06-17 12:10] LABS: Ferritin 44.2 ng/ml (11.1-264)
== END 2024-06-17 11:05 | disposition home or self-care (01) ==
LOC: INF 10:38
PROVIDERS: PCP Internal Medicine Adolescent Medicine; Visit Provider Internal Medicine Medical Oncology
DX: E83.119 Hemochromatosis, unspecified (principal)
CPT/HCPCS: 36415; 80053; 82728; 85025

== ENCOUNTER 2024-07-06 16:04 | Outpatient (CLI) | payer MEDICARE, SELFPAY ==
--- NOTE | 2024-07-06 16:07 | MM_ITS ---
PROCEDURE INFORMATION: Exam: MG Bilateral Screening 3D Mammography Exam date and time: 07/06/2024 4:10 PM Age: 74 years old Clinical indication: Screening examination. Family history of breast carcinoma. TECHNIQUE: Imaging protocol: Bilateral Screening tomosynthesis and 2D mammography including computer-aided detection (CAD) when performed. COMPARISON: 1. MG MM DIG SCREENING MAMM BI W/CAD 06/18/2023 7:52 AM 2. MG MM DIG SCREENING MAMM BI W/CAD 06/13/2022 8:24 AM 3. MG MM DIG MAMM DX UNILAT RT CAD 07/19/2021 1:52 PM FINDINGS: MAMMOGRAPHY: Breast composition: There are scattered areas of fibroglandular density. Mass: No suspicious masses. Architectural distortion: No suspicious distortion. Calcifications: No suspicious calcifications. Asymmetric density: None. Skin thickening: None. Axillary adenopathy: None. IMPRESSION: 1. No mammographic evidence of malignancy. Annual screening is recommended unless otherwise clinically indicated. 2. Given the reported risk factors for this patient, a breast cancer risk assessment may prove useful for further evaluation. ASSESSMENT: BI-RADS Category 1: Negative.
== END 2024-07-06 23:59 | disposition home or self-care (01) ==
LOC: RAD 16:05
PROVIDERS: PCP Internal Medicine Adolescent Medicine; Visit Provider Internal Medicine Adolescent Medicine
DX: Z12.31 Encounter for screening mammogram for malignant neoplasm of breast (principal)
CPT/HCPCS: 77063; 77067

== ENCOUNTER 2024-07-14 13:48 | Outpatient (CLI) | payer MEDICARE, SELFPAY ==
--- NOTE | 2024-07-14 13:49 | MR_ITS ---
FINAL REPORT CLINICAL HISTORY: left shoulder pain.PT FELL ON SHOULDER 5-6WEEKS AGO. LIMITED ROM. WEAKNESS IN ARM FINDINGS: Multiplanar MR imaging of the left shoulder was performed without contrast. There is a partial-thickness bursal surface tear of the infraspinatus tendon involving less than 50%. No full-thickness rotator cuff tear is identified. There is mild AC joint arthrosis. Small amount of fluid is seen in the subacromial/subdeltoid bursa. There is a small Hill-Sachs deformity. There is a fracture of the anterior glenoid with bone marrow edema. No well-defined labral tear is identified. The long head of the biceps tendon is intact. Moderate glenohumeral joint effusion is seen. There is irregularity at the humeral attachment of the glenohumeral ligament worrisome for HAGL. There is no evidence of soft tissue mass. IMPRESSION: Small Hill-Sachs deformity with a fracture of the anterior glenoid. Partial-thickness bursal surface tear of the supraspinatus tendon. Findings worrisome for HAGL. Reviewed, Interpreted and Dictated by Tremayne Khan III, MD Transcribed by Doreen Kim Authenticated and [facility]
== END 2024-07-14 23:59 | disposition home or self-care (01) ==
LOC: RAD 13:49
PROVIDERS: PCP Internal Medicine Adolescent Medicine; Visit Provider Physician Assistant
DX: S40.012A Contusion of left shoulder, initial encounter (principal)
CPT/HCPCS: 73221

== ENCOUNTER 2024-09-09 11:00 | Outpatient (RCR) | payer MEDICARE, SELFPAY ==
--- NOTE | 2024-08-24 12:48 | HMH.OTOPEV ---
OT Inpatient Evaluation Rehab OT Outpatient Eval Start: 08/24/24 11:45 Freq: Status: Active Protocol: Document 08/24/24 11:45 RMARSHALL (Rec: 08/24/24 12:48 RMARSHALL [id number]) E-signed By Mandie Zaldivar, OT Outpatient Therapy Subjective History Subjective History Pt is a 74 year old female who reports to therapy for initial evaluation to left shoulder. Pt initially injured left shoulder on June 06, 2024 during a fall in a parking lot landing on left shoulder. Pt has had a MRI with the following findings: Small Hill-Sachs deformity with a fracture of the anterior glenoid and Partial-thickness bursal surface tear of the supraspinatus tendon. Pt demonstrates with significant decline in AROM and strength at left shoulder. Pt will continue to be seen twice a week in order to address all deficits. New diagnosis of cancer in past 12 Yes: Skin cancer 2023? Chief Complaint Pain,Stiff,Weakness Symptom Type Ache,Throb,Sharp,Dull Symptoms Relieved By Rest/Positioning Symptoms Aggravated By Physical Activity,Lifting Prior Functional Limitations None Current Functional Limitations Reaching,Lifting,Housework, Dressing,Driving,Sleeping, Recreation Activity Symptom Description Intermittent,Activity Dependent Level of pain today (0-10) 0 Pain scale - at its best (0-10) 0 Pain scale - at its worst (0-10) 5 Shoulder/Elbow Eval Shoulder Objective Measurements Shoulder ROM Left Shoulder Abduction Active Range of 100 degrees Motion (degrees) Shoulder Flexion Active Range of Motion 110 degrees (degrees) Query Text: Shoulder External Rotation Active Range 60 degrees of Motion (degrees) Shoulder Internal Rotation Active Range 35 degrees of Motion (degrees) Shoulder MMT Shoulder Abduction Strength Grade 3+ Fair+ Shoulder Flexion Strength Grade 3+ Fair+ Shoulder External Rotation Strength 3+ Fair+ Grade Shoulder Internal Rotation Strength 3+ Fair+ Grade Shoulder Strength Patient Testing Sitting Position Elbow Objective Measurements QuickDASH Activities Please rate your ability to do the following activities in the last week by selecting the number below the appropriate response. 1. Open a tight or new jar. Moderate difficulty 2. Do heavy poultry vaccinator (e.g., wash Mild difficulty llamas, floors). 3. Carry a shopping bag or briefcase. No difficulty 4. Wash your back. Mild difficulty 5. Use a knife to cut food. Mild difficulty 6. Recreational activities in which you Moderate difficulty take some force or impact through your arm, shoulder, or hand (e.g., golf, hammering, tennis, etc.). 7. During the past week, to what extent Moderately has your arm, shoulder or hand problem interfered with your normal social activities with family, friends, neighbors or groups? 8. During the past week, were you Moderately limited limited in your work or other regular daily activites as a result of your arm, shoulder or hand problem? 9. Arm, shoulder or hand pain. Moderate 10. Tingling (pins and needles) in your Mild arm, shoulder or hand. 11. During the past week, how much Moderate difficulty difficulty have you had sleeping because of the pain in your arm, shoulder or hand? Quick DASH 27 OT Outpatient Assessment Impairments Problems/Impairments Palpation Tenderness,Impaired Range of Motion,Impaired Strength,Impaired Endurance, Impaired Lifting,Impaired Shower/Bathing,Impaired Household Care,Impaired Recreational Activities, Impaired Work Activities, Subjective C/O Pain Prognosis Rehab Potential Good Clinical Impression Consistent with Diagnosis Yes Short Term Goals Number of Weeks 3 Increase Range of Motion Yes: Flex: 130 Abd: 120 ER: 75 IR: 55 Increase Strength Yes: 4-/5 throughout left shoulder Increase Endurance Yes: Pt will tolerate L shoulder exercises for ~20 minutes prior to rest. Decrease Subjective C/O Pain Yes: 3/10 pain at worst Patient to be Ind w/ HEP Yes: AAROM exercises; pulleys Improve Quick Dash Score Yes: Activities: 20 or below Solutions Architect Consultant Goals Number of Weeks 6 Increase Range of Motion Yes: Flex: 150 Abd: 140 ER: 80 IR: 60 Increase Strength Yes: 4/5 throughout left shoulder Increase Endurance Yes: Pt will tolerate L shoulder exercises for ~30 minutes prior to rest. Decrease Subjective C/O Pain Yes: 2/10 at worst Patient to be Ind w/ Advanced HEP Yes: Advanced strengthening Improve Quick Dash Score Yes: Activities: 15 or below Outpatient Therapy Plan of Care Treatment Plan May Include Therapeutic Exercise Including Home Yes Exercise Program Manual Therapy Techniques Yes Neuromuscular Re-education Yes Therapeutic Activities to Return to Yes Previous Functional/Work Level ADL/Self Care Education Yes Thermal Modalities Yes Electrical Stimulation Yes Ultrasound/Phonophoresis Yes Iontophoresis Yes Orthotics/Bracing/Splinting Yes Massage Yes Eval/Re-Eval Yes Frequency Times per week 2 Duration Number of Weeks 6 Addendums This patient is a candidate for social No or vocational rehab? Patient/Guardian verbally acknowledges Yes understanding of treatment program and consents to further treatment? Patient/Guardian verbally acknowledges Yes understanding of diagnosis, prognosis and goals for treatment? Eval Complexity OT Charge 91551 - Moderate Complexity PHYSICIAN CERTIFICATION: I certify the specified therapy services for Lyla Diego are required, authorized, and reviewed every 30 days.
== END 2024-09-09 23:59 | disposition home or self-care (01) ==
LOC: OT 11:00
PROVIDERS: Visit Provider Physician Assistant
DX: M25.512 Pain in left shoulder (principal); S40.012A Contusion of left shoulder, initial encounter
CPT/HCPCS: 97014; 97110; 97140; 97166; G0283

== ENCOUNTER 2024-10-01 11:23 | Outpatient (CLI) | payer MEDICARE, SELFPAY ==
--- NOTE | 2024-10-01 11:26 | XR_ITS ---
FINAL REPORT CLINICAL HISTORY: Right foot pain, 1st mtp joint pain COMPARISON: 03/22/2019 FINDINGS: AP, oblique and lateral views of the right foot were obtained. There is no acute fracture or dislocation. There is degenerative joint disease at the first metatarsophalangeal joint and the midfoot. This appears slightly progressed compared to the prior exam. Soft tissues are unremarkable. IMPRESSION: No acute osseous abnormality of the right foot. Slight progression of degenerative disc disease. Reviewed, Interpreted and Dictated by Carli Reed MD Transcribed by Tere Sol Authenticated and [facility]
== END 2024-10-01 23:59 | disposition home or self-care (01) ==
LOC: RAD 11:24
PROVIDERS: PCP Internal Medicine Adolescent Medicine; Visit Provider Nurse Practitioner
DX: M77.41 Metatarsalgia, right foot (principal); M79.671 Pain in right foot
CPT/HCPCS: 73630

== ENCOUNTER 2024-10-04 08:00 | Outpatient (RCR) | payer MEDICARE, SELFPAY ==
--- NOTE | 2024-09-24 10:43 | HMH.RHREAS ---
Rehab Reassessment Rehab OP Re-assessment Start: 09/13/24 14:33 Freq: Status: Active Protocol: Document 09/24/24 09:55 MAGALY (Rec: 09/24/24 10:42 MAGALY [id number]) E-signed By Mandie Zaldivar OT Rehab Re-assessment Subjective Subjective I do feel it is doing better. Objective Objective Notes Pt continues to be seen twice a week in order to address L shoulder deficits. Each session, pt engages in AROM, AAROM, and strengthening exercises at left shoulder. Pt also receives PROM manual stretching in all planes: flexion, abduction, ER, and IR . Modalities are provided in order to decrease pain/ inflammation (phonophoresis and e-stim). Assessment Progress Assessment Progressing as Expected Assessment Notes Pt very consistent about attending therapy sessions. Overall, pt's AROM at left shoulder has improved significantly since initial evaluation. Pt also rates her worst pain at 3/10 at worst. Pt returns to ortho on October 12 for re-evaluation. Pt continues to have most pain with internal rotation. L shoulder AROM Flex: 145 degrees Abd: 150 degrees ER: 85 degrees IR: [address] goals [address]-6 Goals Not Met See below Revised Goals LT-6 Plan Plan Continue with OT plan of care at this time Frequency of Therapy 2x's a week Duration of therapy 4 more weeks Time and Billing Re-Eval Time 8 Re-Eval Billing Units 1 Charge for OT reassessment? Yes PHYSICIAN CERTIFICATION: I certify the specified therapy services for Lyla Diego are required, authorized, and reviewed every 30 days.
== END 2024-10-04 23:59 | disposition home or self-care (01) ==
LOC: OT 08:00
PROVIDERS: Visit Provider Physician Assistant
DX: M25.512 Pain in left shoulder (principal); S40.012A Contusion of left shoulder, initial encounter
CPT/HCPCS: 97014; 97035; 97110; 97140; 97168; G0283

== ENCOUNTER 2024-11-05 10:00 | Outpatient (RCR) | payer MEDICARE, SELFPAY | END 2024-11-05 23:59 | disposition home or self-care (01) | LOC: OT 10:00 | PROVIDERS: Visit Provider Physician Assistant | DX: M25.512 Pain in left shoulder (principal); M79.602 Pain in left arm; S40.012A Contusion of left shoulder, initial encounter | CPT/HCPCS: 97014; 97035; 97110; 97140; 97168; 97530; G0283 ==

== ENCOUNTER 2024-12-01 11:15 | Outpatient (CLI) | payer MEDICARE, SELFPAY ==
[2024-12-01 11:28] VITALS: BMI 22.4
[2024-12-01 11:49] LABS: Basophils % 0.3 % (0.1-2.0); Eosinophils # 0.1 Kmm3 (0.0-0.4); Eosinophils % 1.7 % (0.1-12.0); Hematocrit 43.2 % (37.0-47.0); Hemoglobin 14.9 g/dL (12.2-16.2); Lymphocytes # 1.8 K/mm3 (0.7-4.5); Mean Corpuscular HGB Conc 34.5 g/dL (31.8-35.4); Mean Corpuscular Hemoglobin 32.3 pg (27.0-31.2); Mean Corpuscular Volume 93.7 fl (81-99); Mean Platelet Volume 11.3 fl (7.4-10.4); Monocytes # 0.5 K/mm3 (0.1-1.0); Monocytes % 8.5 % (1.7-9.3); Neutrophils # 3.5 K/mm3 (1.8-7.8); Neutrophils % 59.2 % (37.0-80.0); Nucleated Red Blood Cells # 0 10^3/uL; Nucleated Red Blood Cells % 0 %; Platelet Count 258 K/mm3 (142-424); Red Blood Count 4.61 M/mm3 (4.20-5.40); Red Cell Distribution Width-SD 44.7 fL
[2024-12-01 12:00] LABS: Alanine Aminotransferase 33 U/L (12-78); Albumin Level 4.4 g/dl (3.5-5.0); Albumin/Globulin Ratio 1.6 (1.1-1.8); Alkaline Phosphatase 47 U/L (38-126); Anion Gap 8.4 mEq/L (5-15); Aspartate Amino Transferase 39 U/L (14-36); Bilirubin,Total 0.9 mg/dl (0.2-1.3); Blood Urea Nitrogen 23 mg/dl (7-17); Calcium 9.7 mg/dl (8.4-10.2); Carbon Dioxide 25 mmol/L (22.0-30.0); Chloride 108 mmol/L (98-107); Creatinine Clearance Estimated 49 mL/min (50-200); Estimated Glomerular Filt Rate 62 ml/min (>60); GFR (African American) 74 ML/MIN (>60); Globulin 2.8 g/dL (1.3-3.2); Glucose 103 mg/dl (74-100); Potassium 4.4 mmoL/L (3.5-5.1); Sodium 137 mmol/L (136-145); Total Protein,Serum 7.2 g/dl (6.3-8.2)
[2024-12-01 12:44] LABS: Ferritin 16.5 ng/ml (11.1-264)
--- NOTE | 2024-12-01 14:11 | PC.NURSE ---
1140-Blood drawn using butterfly needle from right AC for labs, per Dr Levi.
== END 2024-12-01 11:45 | disposition home or self-care (01) ==
LOC: INF 11:16
PROVIDERS: PCP Internal Medicine Adolescent Medicine; Visit Provider Internal Medicine Medical Oncology
DX: D45 Polycythemia vera (principal)
CPT/HCPCS: 36415; 80053; 82728; 85025

== ENCOUNTER 2024-12-06 11:00 | Outpatient (RCR) | payer MEDICARE, SELFPAY | END 2024-12-08 23:59 | disposition home or self-care (01) | LOC: OT 11:00 | PROVIDERS: Visit Provider Physician Assistant | DX: M25.512 Pain in left shoulder (principal); S40.012A Contusion of left shoulder, initial encounter | CPT/HCPCS: 97014; 97035; 97110; 97140; 97168; 97530; G0283 ==

== ENCOUNTER 2025-05-06 08:43 | Outpatient (CLI) | payer MEDICARE, SELFPAY ==
--- NOTE | 2025-05-06 08:45 | MR_ITS ---
FINAL REPORT TECHNIQUE: Multiplanar and multisequence imaging the right knee was obtained without contrast. CLINICAL HISTORY: PAIN IN RIGHT KNEE instability felt pop when walking down stairs pain is below patella COMPARISON: None FINDINGS: Bones: There is no acute fracture or marrow edema. The joint space is preserved. There is full-thickness cartilage loss involving the lateral patellar facet with subchondral changes. There is also grade 2-3 cartilage loss in the medial patellar facet. Menisci: There is an oblique tear of the anterior horn of the lateral meniscus. The posterior horn is intact. The medial meniscus is intact. Ligaments: No cruciate or collateral ligament tear is present. Tendons/Muscles: The quadriceps and patellar tendons are within normal limits. The biceps femoris tendon and iliotibial tract are intact. The popliteus tendon is normal. Other: A moderate to large joint effusion is present. Note is made of a small popliteal cyst. 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 Oblique tear of the anterior horn of the lateral meniscus. Moderate to large joint effusion. Reviewed, Interpreted and Dictated by Carli Reed MD Transcribed by Nakia Yañez Authenticated and . [facility]
--- OUTSIDE RECORDS SUMMARY | 2025-05-06 09:07 | XMS_ITS | Clinical Summary ---
[facility] Address [address] [place] [address] Care Team Providers Care Warp Knit Operator Name Role Phone Addy Rubin MD Primary Care Provider [phone] Allergies Active Allergy Reactions Criticality Noted Date Comments Codeine Nausea Only 10/22/2021 Medications estrogens, conjugated,-met hyltestosterone (ESTRATEST HS) 0.625-1.25 MG per tablet Take 0.5 tablets by mouth Take As Directed. 4 times weekly Active aspirin 81 MG EC tablet Take 2 tablets by mouth Daily. Active KRILL OIL PO Take 2,000 mg by mouth Daily. Active Multiple Minerals (CALCIUM/MAGNES IUM/ZINC PO) Take 1 tablet by mouth 2 (two) times a day. Active L-ARGININE PO Take 1,000 mg by mouth Daily. Active Cholecalciferol (VITAMIN D3 PO) Take 2,000 Units by mouth 1 (One) Time Per Week. Active B Complex Vitamins (VITAMIN B COMPLEX PO) Take 1 tablet by mouth Daily. 2 tablets per week Active ibuprofen (ADVIL,MOTRIN) 600 MG tablet Take 1 tablet by mouth As Needed. 1 Active atorvastatin (LIPITOR) 80 MG tablet TAKE ONE TABLET BY MOUTH AT BEDTIME 30 tablet 11 2 Active cyclobenzaprine (FLEXERIL) 5 MG tablet 1 tablet As Needed. 2 Active dutasteride (AVODART) 0.5 MG capsule Take 1 capsule by mouth Daily. 3 Active famotidine (PEPCID) 20 MG tablet Take 1 tablet by mouth At Night As Needed. 3 Active Flonase Sensimist 27.5 MCG/SPRAY nasal spray 2 sprays into the nostril(s) as directed by provider Daily. 3 Active montelukast (SINGULAIR) 10 MG tablet Take 1 tablet by mouth Every Night. 3 Active minoxidil (LONITEN) 2.5 MG tablet Take 1 tablet by mouth Daily. 4 Active Diclofenac Sodium (VOLTAREN) 1 % gel gel Apply 4 g topically to the appropriate area as directed As Needed. Active lisinopril (PRINIVIL,ZESTR IL) 20 MG tabletIndicatio ns:Carotid stenosis, left,History of left-sided carotid endarterectomy, Essential hypertension,Dy slipidemia TAKE ONE TABLET BY MOUTH ONCE A DAY 30 tablet 11 5 Active Active Problems Problem Noted Date Diagnosed Date History of left-sided carotid endarterectomy Moderate R ICA stenosis 04/17/2021 Hemochromatosis requiring phlebotomy 04/17/2021 Dyslipidemia 04/17/2021 Hypertension 04/17/2021 Former smoker 04/17/2021 Daily ETOH use 04/17/2021 Carotid stenosis, left 04/09/2021 Immunizations Immunization Administration Dates Next Due COVID-19 (MODERNA) 1st,2nd,3rd Dose Monovalent 0 09/14/2020,08/17/2020 Family History Medical History Relation Name Comments Heart attack Father Nicho 3 times Hyperlipidemia Father Nicho Anemia Maternal Grandmother Cynthia breast, cervical Anemia Mother Daly Thalassemia, ca ncer Multiple myeloma Mother Daly Anemia Sister 1 Renetta Thalassemia, ca ncer Breast cancer Sister 1 Renetta No Known Problems Sister 2 has liver problems No Known Problems Sister 3 Relation Name Status Comments Brother in a car accident Father Nicho Maternal Grandmother Cynthia Mother Daly Sister 1 Renetta Alive Sister 2 has liver problems Alive Sister 3 Alive Social History Tobacco Use Types Packs/Day Years Used Date Smoking Tobacco: Never Passive Smoke Exposure: Never Smokeless Tobacco: Never Comments:Casual social one t o two cigarettes monthly Alcohol Use Standard Drinks/Week Comments Yes 6 (1 standard drink = 0.6 oz pur e alcohol) occas Abuse Screen Answer Date Recorded Unsafe at Home or Work/School Not on file Feels Threatened by Someone? Not on file 04/2023 Does Anyone Keep You from Co ntacting Others or Doint Things Outside the Home? Not on file 05/19/2023 Physical Sign of Abuse Present Not on file 1 Housing Stability Answer Date Recorded Current Living Arrangements Not on file 04/2023 Potentially Unsafe Housing Conditions Not on claudia e 05/19/2023 Family and Community Support Answer Ronnie e Recorded Help with Day-to-Day Activities Not on file 05/19/2023 Lonely or Isolated Not on file 05/19/2023 Employment Answer Date Recorded Do you want help finding or keeping work or a simi b? Not on file 05/19/2023 Disabilities Answer Date Recorded Concentrating, Remembering, or Making Decisions Difficulty Not on file 05/19/2023 Doing Errands Independently Difficulty Not on fi le 05/19/2023 Education Answer Date Recorded Help with school or training? Not on file Preferred Language Not on file 05/19/2023 Comments No Sex and Gender Information Value Date Recorded Sex Assigned at Not on file Legal Sex Female 10:10 AM EDT Gender Identity Not on file Sexual Orientation Not on file Last Filed Vital Signs Vital Sign Reading Time Taken Comments Blood Pressure 147/77 04/27/2024 2:06 PM EDT Pulse 77 04/27/2024 2:06 PM EDT Temperature 36.4 C (97.6 F) 08/23/2021 2:11 PM EST Respiratory Rate 16 04/18/2021 8:00 AM EDT Oxygen Saturation 99% 04/27/2024 1:25 PM EDT Inhaled Oxygen Concentration - - Weight 62.1 kg (137 lb) 04/27/2024 2:00 PM EDT Height 163.8 cm (5' 4.5 ) 04/27/2024 1:25 PM EDT Body Mass Index 23.15 04/27/2024 1:25 PM EDT Plan of Treatment Upcoming Encounters Date Type Department Care Team (Late st Contact Info) Description 07/19/2025 10:00 AM EST Appointment [facility] NONINVASIVE LAB [address] [place] [phone] 07/19/2025 11:15 AM EST [facility] [address] [place] [phone] Ky Lai MD [address] [place] [address] Health Maintenance Due Date Last Done Comments DXA SCAN 1952 TDAP/TD VACCINES (1 - Tdap) 1971 MAMMOGRAM 1992 COLOGUARD 1997 COLON CANCER SCREENING 5 YEA R SIGMOIDOSCOPY 1997 COLONOSCOPY 1997 COLORECTAL CANCER SCREENING 1997 CT COLONOGRAPHY 1997 FECAL OCCULT BLOOD TEST 1997 FIT Testing (1 year) 1997 ANNUAL WELLNESS VISIT 03/26/2021 HEPATITIS C SCREENING 03/26/2021 INFLUENZA VACCINE 03/11/2025 05/17/2022, , 06/04/2019, Additional history exists COVID-19 Vaccine (2023- 5 season) 2025 04/20/2024, 05/17/2022, 12/26/2021, Additional history exists Pneumococcal Vaccine 50+ Completed 04/15/2018, 03/12 ZOSTER VACCINE Completed 06/21/2019, 04/2019, 04/30/2017 Medical Devices Implanted Type Area Site Damage Prevention Technician Device Identifier Shelf Expiration Date Model / Serial / Lot Clip Ligat Vasc Horizon Abhi Arriola Yoan 6ct - [id number] Implanted:Qty : 1 on 04/17/2021 by Syd De La Cruz MD at [facility] Implant Left: Carotid TELEFLEX MEDICAL [id number] / / 0 Clip Ligat Vasc Horizon Abhi Arriola Yoan 6ct - [id number] Implanted:Qty : 1 on 04/17/2021 by Syd De La Cruz MD at [facility] Implant Left: Carotid TELEFLEX MEDICAL [id number] / / 0 Clip Ligat Vasc Horizon Ti Yel 6ct - [id number] Implanted:Qty : 1 on 04/17/2021 by Syd De La Cruz MD at [facility] Implant Left: Carotid TELEFLEX MEDICAL [id number] / / 0 Clip Ligat Vasc Horizon Ti Sm Yel 6ct - [id number] Implanted:Qty : 1 on 04/17/2021 by Syd De La Cruz MD at [facility] Implant Left: Carotid TELEFLEX MEDICAL [id number] / / 0 Kt Seal Hemos Abs Floseal Matrx Fast/Prep 10ml - [id number] Implanted:Qty : 1 on 04/17/2021 by Syd De La Cruz MD at [facility] Implant Left: Carotid [facility] [id number] 01/09/2023 [id number] / / [id number] Hemost Abs Surgifoam Sz100 8x12 10mm - [id number] Implanted:Qty : 1 on 04/17/2021 by Syd De La Cruz MD at [facility] Implant Left: Carotid ETHICON DIV OF J AND J 11/02/2024 1974 / / [id number] Ptch Vascuguard 1x6cm - [id number] Implanted:Qty : 1 on 04/17/2021 by Syd De La Cruz MD at [facility] Implant Left: Carotid SYNOVIS [id number] 10/25/2025 [id number] / / [id number] Hemost Abs Surgicel 4x8in - [id number] Implanted:Qty : 1 on 04/17/2021 by Syd De La Cruz MD at [facility] Implant Left: Carotid ETHICON DIV OF J AND J [id number] 10/08/20241951 / / [id number] Left Finger Insurance Medicare [employer] PPO Advance Directives Documents on File Type Date Recorded Patient Tripe Cooker Expl anation POWER OF STUDY LEAD - SCAN 04/17/2021 5:58 AM LIVING WILL - SCAN 04/17/2021 5:57 AM Healthcare Agents on File Name Relationship Healthcare Agent Relationshi p Communication Mac Johnathon Spouse Power of Attorne y for Healthcare Care Teams Warp Knit Operator Relationship Specialty Start Date End Date Addy Rubin MD [address] [facility] [address] [address] PCP - General Adolescent Medicine 02/08/21
== END 2025-05-06 23:59 | disposition home or self-care (01) ==
LOC: RAD 08:44
PROVIDERS: PCP Internal Medicine Adolescent Medicine; Visit Provider Nurse Practitioner Family
DX: M22.41 Chondromalacia patellae, right knee (principal); S83.281A Other tear of lateral meniscus, current injury, right knee, initial encounter; M25.461 Effusion, right knee; G89.11 Acute pain due to trauma
CPT/HCPCS: 73721

== ENCOUNTER 2025-05-23 12:11 | Outpatient (CLI) | payer MEDICARE, SELFPAY ==
--- NOTE | 2025-05-23 12:13 | PC.NURSE ---
1213-collected labs via venipuncture stick in right arm with butterfly needle
--- OUTSIDE RECORDS SUMMARY | 2025-05-23 12:14 | XMS_ITS | Clinical Summary ---
[facility] Address [address] [place] [address] Care Team Providers Care Claims Adjuster Supervisor Name Role Phone Addy Rubin MD Primary Care Provider [phone] Allergies Active Allergy Reactions Criticality Noted Date [...] Info) Description 07/19/2025 10:00 AM EST Appointment [facility] NONINVASIVE LAB [address] [place] [phone] 07/19/2025 11:15 AM EST Office Visit [facility] [address] [place] [phone] Ky Lai MD [address] [place] [address] Health Maintenance Due Date Last Done Comments [...] 04/2019, 04/30/2017 Medical Devices Implanted Type Area Supply Specialist Device Identifier Shelf Expiration Date Model / Serial / Lot Clip Ligat Vasc Horizon Abhi Arriola Yoan 6ct - [id number] Implanted:Qty : 1 on 04/17/2021 by Syd De La Cruz MD at [facility] Implant Left: Carotid TELEFLEX MEDICAL [id number] / / 0 Clip Ligat Vasc Horizon Abhi Arriola Yoan 6ct - [id number] Implanted:Qty : 1 on 04/17/2021 by Syd De La Cruz MD at [facility] Implant Left: Carotid TELEFLEX MEDICAL [id number] / / 0 Clip Ligat Vasc Horizon Ti Yel 6ct - [id number] Implanted:Qty : 1 on 04/17/2021 by Syd De La Cruz MD at [facility] Implant Left: Carotid TELEFLEX MEDICAL [id number] / / 0 Clip Ligat Vasc Horizon Ti Sm Yel 6ct - [id number] Implanted:Qty : 1 on 04/17/2021 by Syd De La Cruz MD at [facility] Implant Left: Carotid TELEFLEX MEDICAL [id number] / / 0 Kt Seal Hemos Abs Floseal Matrx Fast/Prep 10ml - [id number] Implanted:Qty : 1 on 04/17/2021 by Syd De La Cruz MD at [facility] Implant Left: Carotid [facility] [id number] 01/09/2023 [id number] / / [id number] Hemost Abs Surgifoam Sz100 8x12 10mm - [id number] Implanted:Qty : 1 on 04/17/2021 by Syd De La Cruz MD at [facility] Implant Left: Carotid ETHICON DIV OF J AND J 11/02/2024 1974 / / [id number] Ptch Vascuguard 1x6cm - [id number] Implanted:Qty : 1 on 04/17/2021 by Syd De La Cruz MD at [facility] Implant Left: Carotid SYNOVIS [id number] 10/25/2025 [id number] / / [id number] Hemost Abs Surgicel 4x8in - [id number] Implanted:Qty : 1 on 04/17/2021 by Syd De La Cruz MD at [facility] Implant Left: Carotid ETHICON DIV OF J AND J [id number] 10/08/20241951 / / [id number] Left Finger Insurance Medicare [employer] PPO Advance Directives Documents on File Type Date Recorded Patient Digital Sales Representative Expl anation POWER OF CRAYON SAWYER - SCAN 04/17/2021 5:58 AM LIVING WILL - SCAN 04/17/2021 5:57 AM Healthcare Agents on File Name Relationship Healthcare Agent Relationshi p Communication Mac Johnathon Spouse Power of Attorne y for Healthcare Care Teams Claims Adjuster Supervisor Relationship Specialty Start Date End Date Addy Rubin MD [address] [facility] [address] [address] PCP - General Adolescent Medicine 02/08/21
[2025-05-23 12:24] LABS: Hematocrit 42.6 % (37.0-47.0); Hemoglobin 14.7 g/dL (12.2-16.2); Immature Granulocytes % 0.2 %; Mean Corpuscular HGB Conc 34.5 g/dL (31.8-35.4); Mean Corpuscular Hemoglobin 33.1 pg (27.0-31.2); Mean Corpuscular Volume 95.9 fl (81-99); Nucleated Red Blood Cells % 0 %; Platelet Count 262 K/mm3 (142-424); Red Blood Count 4.44 M/mm3 (4.20-5.40); Red Cell Distribution Width-SD 46.0 fL; White Blood Count 5.1 K/mm3 (4.8-10.8)
[2025-05-23 12:34] LABS: Albumin Level 4.3 g/dl (3.5-5.0); Chloride 104 mmol/L (98-107); Sodium 137 mmol/L (136-145)
[2025-05-23 12:35] LABS: Potassium 4.2 mmoL/L (3.5-5.1)
[2025-05-23 12:37] LABS: Alanine Aminotransferase 30 U/L (12-78); Albumin/Globulin Ratio 1.6 (1.1-1.8); Alkaline Phosphatase 63 U/L (38-126); Anion Gap 13.2 mEq/L (5-15); Aspartate Amino Transferase 36 U/L (14-36); Bilirubin,Total 0.6 mg/dl (0.2-1.3); Blood Urea Nitrogen 18 mg/dl (7-17); Carbon Dioxide 24 mmol/L (22.0-30.0); Creatinine,Serum 0.80 mg/dl (0.52-1.04); Estimated Glomerular Filt Rate 70 ml/min (>60); GFR (African American) 85 ML/MIN (>60); Globulin 2.7 g/dL (1.3-3.2); Total Protein,Serum 7.0 g/dl (6.3-8.2)
[2025-05-23 12:38] LABS: Calcium 9.0 mg/dl (8.4-10.2); Glucose 68 mg/dl (74-100)
[2025-05-23 13:13] LABS: Ferritin 30.5 ng/ml (11.1-264)
== END 2025-05-23 23:59 | disposition home or self-care (01) ==
PROVIDERS: PCP Internal Medicine Adolescent Medicine; Visit Provider Internal Medicine Medical Oncology
DX: E83.119 Hemochromatosis, unspecified (principal)
CPT/HCPCS: 36415; 80053; 82728; 85025

== ENCOUNTER 2025-06-08 09:51 | Outpatient (CLI) | payer MEDICARE, SELFPAY ==
--- OUTSIDE RECORDS SUMMARY | 2025-06-08 10:17 | XMS_ITS | Clinical Summary ---
[facility] Address [address] [place] [address] Care Team Providers Care Commission Clerk Name Role Phone Addy Rubin MD Primary Care Provider [phone] Allergies Active Allergy Reactions Criticality Noted Date [...] Info) Description 07/19/2025 10:00 AM EST Appointment [facility] NONINVASIVE LAB [address] [place] [phone] 07/19/2025 11:15 AM EST Office Visit [facility] [address] [place] [phone] Ky Lai MD [address] [place] [address] Health Maintenance Due Date Last Done Comments [...] , 06/04/2019, Additional history exists COVID-19 Vaccine (7 - Modern a risk ) 04/11/2025 04/20/2024, 05/17/2022, 12/26/2021, Additional history exists Pneumococcal Vaccine 50+ Completed 04/15/2018, 03/12 ZOSTER VACCINE Completed 06/21/2019, 04/2019, 04/30/2017 Medical Devices Implanted Type Area Earth Science Technician Device Identifier Shelf Expiration Date Model / Serial / Lot Clip Ligat Vasc Horizon Abhi Arriola Yoan 6ct - [id number] Implanted:Qty : 1 on 04/17/2021 by Syd De La Cruz MD at Implant Left: Carotid TELEFLEX MEDICAL [id number] / / 0 Clip Ligat Vasc Horizon Abhi Arriola Yoan 6ct - [id number] Implanted:Qty : 1 on 04/17/2021 by Syd De La Cruz MD at Implant Left: Carotid TELEFLEX MEDICAL [id number] / / 0 Clip Ligat Vasc Horizon Ti Yel 6ct - [id number] Implanted:Qty : 1 on 04/17/2021 by Syd De La Cruz MD at Implant Left: Carotid TELEFLEX MEDICAL [id number] / / 0 Clip Ligat Vasc Horizon Ti Sm Yel 6ct - [id number] Implanted:Qty : 1 on 04/17/2021 by Syd De La Cruz MD at Implant Left: Carotid TELEFLEX MEDICAL [id number] / / 0 Kt Seal Hemos Abs Floseal Matrx Fast/Prep 10ml - [id number] Implanted:Qty : 1 on 04/17/2021 by Syd De La Cruz MD at Implant Left: Carotid [facility] [id number] 01/09/2023 [id number] / / [id number] Hemost Abs Surgifoam Sz100 8x12 10mm - [id number] Implanted:Qty : 1 on 04/17/2021 by Syd De La Cruz MD at Implant Left: Carotid ETHICON DIV OF J AND J 11/02/2024 1974 / / [id number] Ptch Vascuguard 1x6cm - [id number] Implanted:Qty : 1 on 04/17/2021 by Syd De La Cruz MD at Implant Left: Carotid SYNOVIS [id number] 10/25/2025 [id number] / / [id number] Hemost Abs Surgicel 4x8in - [id number] Implanted:Qty : 1 on 04/17/2021 by Syd De La Cruz MD at Implant Left: Carotid ETHICON DIV OF J AND J [id number] 10/08/20241951 / / [id number] Left Finger Insurance Medicare [employer] PPO Advance Directives Documents on File Type Date Recorded Patient Litigation Partner Expl anation POWER OF VICE PRESIDENT OF COMMUNICATIONS - SCAN 04/17/2021 5:58 AM LIVING WILL - SCAN 04/17/2021 5:57 AM Healthcare Agents on File Name Relationship Healthcare Agent Relationshi p Communication Mac Johnathon Spouse Power of Attorne y for Healthcare Care Teams Commission Clerk Relationship Specialty Start Date End Date Addy Rubin MD [facility] [address] [facility] [address] [place] [address] PCP - General Adolescent Medicine 02/08/21
--- NOTE | 2025-06-08 10:26 | ECG_ITS ---
APPROVED REPORT Exam: Resting ECG HR:67 bpm ECG Measurements Heart Rate 67 AXES WA 133 P 62 QRSd 91 QRS 85 QT 393 T 66 QTc 408 Conclusion SINUS RHYTHM NONSPECIFIC ST & T-WAVE ABNORMALITY BORDERLINE ECG UNCONFIRMED REPORT Electronically signed by : Addy Rubin MD 06/09/2025 16:06:59
[2025-06-08 11:10] LABS: Hematocrit 44.2 % (37.0-47.0); Hemoglobin 15.1 g/dL (12.2-16.2); Immature Granulocytes % 0.2 %; Mean Corpuscular HGB Conc 34.2 g/dL (31.8-35.4); Mean Corpuscular Hemoglobin 32.8 pg (27.0-31.2); Mean Corpuscular Volume 95.9 fl (81-99); Nucleated Red Blood Cells % 0 %; Platelet Count 283 K/mm3 (142-424); Red Blood Count 4.61 M/mm3 (4.20-5.40); Red Cell Distribution Width-SD 45.9 fL; White Blood Count 4.5 K/mm3 (4.8-10.8)
[2025-06-08 11:29] LABS: Alanine Aminotransferase 40 U/L (12-78); Albumin Level 3.7 g/dl (3.5-5.0); Albumin/Globulin Ratio 1.0 (1.1-1.8); Alkaline Phosphatase 64 U/L (38-126); Anion Gap 11.5 mEq/L (5-15); Aspartate Amino Transferase 44 U/L (14-36); Bilirubin,Total 0.9 mg/dl (0.2-1.3); Blood Urea Nitrogen 24 mg/dl (7-17); Calcium 9.4 mg/dl (8.4-10.2); Carbon Dioxide 25 mmol/L (22.0-30.0); Chloride 104 mmol/L (98-107); Creatinine,Serum 0.90 mg/dl (0.52-1.04); Estimated Glomerular Filt Rate 61 ml/min (>60); GFR (African American) 74 ML/MIN (>60); Globulin 3.6 g/dL (1.3-3.2); Glucose 97 mg/dl (74-100); Potassium 4.5 mmoL/L (3.5-5.1); Sodium 136 mmol/L (136-145); Total Protein,Serum 7.3 g/dl (6.3-8.2)
== END 2025-06-08 23:59 | disposition home or self-care (01) ==
LOC: PREOP 09:52
PROVIDERS: Nurse Anesthetist, Certified Registered; PCP Internal Medicine Adolescent Medicine; Visit Provider Otolaryngology
DX: Z01.810 Encounter for preprocedural cardiovascular examination (principal); Z01.812 Encounter for preprocedural laboratory examination; R94.31 Abnormal electrocardiogram [ECG] [EKG]
CPT/HCPCS: 80053; 85025; 93005

== ENCOUNTER 2025-06-20 06:48 | Day surgery (SDC) | payer MEDICARE, SELFPAY ==
[2025-06-08 11:27] VITALS: BMI 22.4
[2025-06-20] VITALS (12 sets, daily range): BP systolic 112–206; BP diastolic 63–100; PULSE 76–110; RESP 16–18; TEMP 36.2–36.6; O2SAT 98–100
[2025-06-20] MEDS: LACTATED RINGERS 1000ML 1,000 ML 25 ML IV (07:21)
--- NOTE | 2025-06-20 07:36 | EXP.ANES.CKL ---
[facility] Disclaimer: The information contained in this section may have been updated after the patient was seen, as this information can be updated by other users. 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 Laryngopharyngeal reflux This is partially treated and I do think she would benefit from the use of regular medication. We will avoid the PPI family and use Pepcid to see if this is beneficial. 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: No caffeine: Yes Have you lived/traveled outside US in past 30 days?: No Contact w/someone who lives/traveled outside US past 30 days?: No Exposure to someone with infectious disease in past 14 days?: No Do you have a fever (greater than 100.4 F or 38 C)?: No Have you tested positive for COVID-19?: No Exposed to someone with COVID-19 in past 14 days?: No Do you have a sore throat?: No Do you have a cough?: No Do you have any weakness?: No Do you have any diarrhea?: No Are you experiencing any unusual bleeding?: No Do you have any muscle aches/pain?: No Do you have any abdominal pain?: No Are you experiencing loss of taste or smell?: No [facility] Anesthesia Checklist Patient Identification Patient Identification: Arm Band and Verbal (Name & ) Structural Data Admitted From: Home Planned Operative Procedure/s: Eustachian tube dilation Verified Documents: Surgical Consent NPO Status Verified Time NPO: 00:00 Chart Verification Results Verified: ECG Additional verifications Anesthesia Reactions: No Hx Blood Transfusions: No Blood Transfusion Reaction: No Airway Assessment Mallampati Score:: Class II C-Spine Mobility Assessed: Yes TMJ Mobility Assessed: Yes Dentition: Good Dentition Neurological Assessment Level of Consciousness: Awake, Alert and Appropriate Anesthesia Plan Anesthesia Risk discussed: Yes Anesthesia Plan: Verified ASA Class: II Anesthesia Type: General
[2025-06-20] MEDS: LIDOCAINE 1% W/EPI 1:100,000 20ML VIAL 20 ML (08:26)
[2025-06-20] MEDS: OXYMETAZOLINE NASAL SPRAY 0.05% 15ML 15 ML NS (08:26)
[2025-06-20] MEDS: MUPIROCIN 2% OINTMENT 22GM TUBE 22 GM TP (08:32)
--- NOTE | 2025-06-20 08:48 | P.PNANES_ITS ---
[facility] Anesthesia Record Part I Anesthesia Record I Intake, IV Amount: 800 Hydration: Adequate Estimated blood loss (mL): 5 Urine output (mL): 0 Blood Products used (#): none Blood Pressure: 178/99 SaO2: 99 Pulse Rate: 110 Airway Patency: Patent Respiratory Rate: 16 Temperature: 97.1 F Patient is:: Drowsy and Stable Stable to PACU at:: 08:45
--- NOTE | 2025-06-20 08:51 | EXP.OP.NOTE ---
Date of procedure: 06/20/25 Pre-op Diagnosis:: Chronic eustachian tube dysfunction Post-op Diagnosis:: Same Procedure performed:: Bilateral eustachian tube balloon dilatation Surgeon:: Kwame Banegas III, MD CONE CLEANER:: Scott Gannon Anesthesia: GETA Estimated blood loss (mL): 19 Operative findings:: Intraoperative noted left septal spur Operative note:: The patient was brought to the operating room and placed under general endotracheal anesthesia with IV sedation. An LMA device was used to facilitate the airway. The patient's nose was prepared with topical Afrin and lidocaine on cottonoids. She was placed in the lounge chair position. After adequate time was allowed for vasoconstriction the cottonoids were removed from the left side of the nose. It was evident that she had a left septal spur that was impacting the airway. In order to access the eustachian tube opening, I displaced the spur back to the midline. Using the 0 degree pediatric scope was able to identify the opening to the eustachian tube. The [place] eustachian tube balloon was then introduced into the eustachian tube opening and advanced. It was then inflated for approximately 2 minutes. After this was completed topical mupirocin ointment was applied. A similar procedure (without the septal reduction) was performed on the right side with similar results. The patient was then awakened in the operating room taken recovery good condition. Condition: stable Disposition: PACU Complications:: None
[2025-06-20] MEDS: LABETALOL 20MG/4ML SYRINGE 10 MG IV ×2 (09:25→09:36)
--- NOTE | 2025-06-20 10:58 | P.PNANES_ITS ---
[facility] Anesthesia Record Part II Anesthesia Record Part II Discharge Time: 10:05 Destination: Surgical Day Care (OP Surgery) PACU nurse assessment reviewed?: Yes Patient Condition:: Good Anesthesia Complications:: None Swallowing reflex intact?: Yes Airway Patency: Patent Cyanosis?: No Blood Pressure: 169/100 SaO2: 100 Respiratory Rate: 18 Pulse Rate: 76 Temperature: 97.6 F Mental Status: Alert & Oriented Pain level:: 0 Nausea and/or vomitting:: None Intake, IV Amount: 0 Hydration: Adequate
== END 2025-06-20 10:05 | disposition home or self-care (01) ==
PROVIDERS: PCP Internal Medicine Adolescent Medicine; Visit Provider Otolaryngology
PROC: (CPT 69420; principal; 2025-06-20 08:15)
DX: H69.83 Other specified disorders of Eustachian tube, bilateral (principal); K21.9 Gastro-esophageal reflux disease without esophagitis; E78.5 Hyperlipidemia, unspecified; M19.90 Unspecified osteoarthritis, unspecified site; Z85.9 Personal history of malignant neoplasm, unspecified; Z88.5 Allergy status to narcotic agent; Z79.01 Long term (current) use of anticoagulants; Z79.899 Other long term (current) drug therapy
CPT/HCPCS: 69706; C1726; J1100; J1920; J2003; J2004; J2405; J2704; J3010; J7120

== ENCOUNTER 2025-06-24 19:57 | Emergency (ER) | payer MEDICARE, SELFPAY ==
[2025-06-24] VITALS (16 sets, daily range): BP systolic 62–183; BP diastolic 44–129; PULSE 65–103; RESP 13–25; TEMP 34.7–37.1; O2SAT 97–100; BMI 23.1
--- OUTSIDE RECORDS SUMMARY | 2025-06-24 20:06 | XMS_ITS | Clinical Summary ---
[facility] Address [address] [place] [address] Care Team Providers Care Extension Worker Name Role Phone Addy Rubin MD Primary Care Provider [phone] Allergies Active Allergy Reactions Criticality Noted Date [...] Info) Description 07/19/2025 10:00 AM EST Appointment [facility] NONINVASIVE LAB [address] [place] [phone] 07/19/2025 11:15 AM EST Office Visit [facility] [address] [place] [phone] Ky Lai MD [address] [place] [address] Health Maintenance Due Date Last Done Comments [...] 04/2019, 04/30/2017 Medical Devices Implanted Type Area Meat Cutter Device Identifier Shelf Expiration Date Model / Serial / Lot Clip Ligat Vasc Horizon Abhi Arriola Yoan 6ct - [id number] Implanted:Qty : 1 on 04/17/2021 by Syd De La Cruz MD at [facility] Implant Left: Carotid TELEFLEX MEDICAL [id number] / / 0 Clip Ligat Vasc Horizon Abhi Arriola Yoan 6ct - [id number] Implanted:Qty : 1 on 04/17/2021 by Syd De La Cruz MD at [facility] Implant Left: Carotid TELEFLEX MEDICAL 727654 / / 0 Clip Ligat Vasc Horizon Ti Yel 6ct - [id number] Implanted:Qty : 1 on 04/17/2021 by Syd De La Cruz MD at [facility] Implant Left: Carotid TELEFLEX MEDICAL 457455 / / 0 Clip Ligat Vasc Horizon Ti Sm Yel 6ct - [id number] Implanted:Qty : 1 on 04/17/2021 by Syd De La Cruz MD at [facility] Implant Left: Carotid TELEFLEX MEDICAL [id number] / / 0 Kt Seal Hemos Abs Floseal Matrx Fast/Prep 10ml - [id number] Implanted:Qty : 1 on 04/17/2021 by Syd De La Cruz MD at [facility] Implant Left: Carotid [facility] [id number] 01/09/2023 [id number] / / [id number] Hemost Abs Surgifoam Sz100 8x12 10mm - [id number] Implanted:Qty : 1 on 04/17/2021 by Syd De La Cruz MD at [facility] Implant Left: Carotid ETHICON DIV OF J AND J 11/02/2024 1974 / / [id number] Ptch Vascuguard 1x6cm - [id number] Implanted:Qty : 1 on 04/17/2021 by Syd De La Cruz MD at [facility] Implant Left: Carotid SYN[employer]IS [id number] 10/25/2025 [id number] / / [id number] Hemost Abs Surgicel 4x8in - [id number] Implanted:Qty : 1 on 04/17/2021 by Syd De La Cruz MD at [facility] Implant Left: Carotid ETHICON DIV OF J AND J [id number] 10/08/20241951 / / [id number] Left Finger Insurance Medicare [employer] PPO Advance Directives Documents on File Type Date Recorded Patient Bow Machine Operator Expl anation POWER OF BOX TOE BUFFER - SCAN 04/17/2021 5:58 AM LIVING WILL - SCAN 04/17/2021 5:57 AM Healthcare Agents on File Name Relationship Healthcare Agent Relationshi p Communication Mac Johnathon Spouse Power of Attorne y for Healthcare Care Teams Extension Worker Relationship Specialty Start Date End Date Addy Rubin MD [facility] [address] [facility] [address] [place] [address] PCP - General Adolescent Medicine 02/08/21
--- OUTSIDE RECORDS SUMMARY | 2025-06-24 20:06 | XMS_ITS | Data Portability ---
Author Organization [facility] Sharon cates, ILAS STOUT CLOSED Address [address] [place] [address] Care Team Providers Care Advertising Operations Manager Name Role Phone ADDY WATSON Primary Care Provider [phone] Assessment Encounter Date Assessment Date Assessment LastModified by Organization Details LastModified Time 09/10/2024 09/10/2024 74-year-old female with a history of hand joint issues presenting with joint pain and inflammation. The symptoms suggest persistent joint pathology, likely due to degenerative changes and partial cartilage loss. Management including topical and oral therapy has provided limited relief. Consideration of alternatives, like glucosamine and chondroitin, discussed; also considering the limitation of avoiding invasive interventions such as surgery at this stage. [email or web address] Not available 09/10/2024 10:21:49 Plan of Treatment Reminders Order Date Submit Date Provider Last Modified By Organization Details Last Modified Time Details Appointments None record ed. Lab None record ed. Referral None record ed. Procedures None record ed. Surgeries None record ed. Imaging None record ed. Medication Orders None record ed. Patient TargetsNo targets recorded. Patient Instructions Encounter Date Encounter Id Patient Instructions Last Modified By Organization Details Last Modified Time 09/10/2024 [id number] - Continue using Voltaren gel as needed for pain relief. - Consider trying glucosamine and chondroitin supplements to help alleviate joint pain. - Monitor symptoms and seek follow-up care if conditions worsen or do not improve with the current management plan. [email or web address] Not available 09/10/2024 10:21:52 Reason for Referral None Reported. Problems No Known Problems Procedures Surgical History Date Name Laterality Status Provider Name and Address Organization Details Recorded Time 08/04/202 5 Injection - Joint/Bursa, Small completed ADDY CHIN MD [address] [place], [address], [place] [facility] 03/14/2025 10:19:52 5 Injection - Joint/Bursa, Interm completed ADDY CHIN MD [address] [place], [address], [place] [facility] 11/26/2024 11:41:44 5 Injection - Joint/Bursa, Small completed ADDY CHIN MD [address] [place], [address], [place] [facility] 11/26/2024 11:41:56 5 Injection - Joint/Bursa, Small completed ADDY CHIN MD [address] [place], [address], [place] [facility] 09/10/2024 10:22:19 4 Injection - Joint/Bursa, Small completed ADDY CHIN MD [address] [place], [address], [place] [facility] 05/31/2024 09:36:54 4 Injection - Joint/Bursa, Interm completed ADDY CHIN MD [address] [place], [address], [place] [facility] 02/27/2024 10:47:21 4 Injection - Joint/Bursa, Small completed ADDY CHIN MD [address] [place], [address], [place] [facility] 02/27/2024 10:47:36 4 Injection - Joint/Bursa, Small completed ADDY CHIN MD [address] [place], [address], [facility] 11/26/2023 12:55:06 4 Injection - Joint/Bursa, Small completed Jocelynn Delgado [facility] 08/25/2023 09:19:14 3 Injection - Joint/Bursa, Interm completed ADDY CHIN MD [address] [place], [address], [place] [facility] 05/02/2023 10:51:11 3 Injection - Joint/Bursa, Small completed ADDY CHIN MD [address] [place], [address], [place] [facility] 01/08/2023 17:33:54 1 Injection - Joint/Bursa, Interm completed ADDY CHIN MD [address] [place], [address], [place] [facility] 10/02/2020 14:04:43 0 Injection - Joint/Bursa, Interm completed ADDY CHIN MD [address] [place], [address], [place] [facility] 04/07/2020 09:09:31 0 Injection - Joint/Bursa, Small completed ADDY CHIN MD [address] [place], [address], [place] [facility] 04/07/2020 09:09:54 0 Injection - Joint/Bursa, Interm completed ADDY CHIN MD [address] [place], [address], [place] [facility] 12/24/2019 09:09:29 0 Injection - Joint/Bursa, Small completed ADDY CHIN MD [address] [place], [address], [place] [facility] 12/24/2019 09:09:44 9 Injection - Joint/Bursa, Small completed ADDY CHIN MD [address] [place], [address], [place] [facility] 06/28/2019 15:41:13 9 Injection - Joint/Bursa, Interm completed ADDY CHIN MD [address] [place], [address], [place] [facility] 12/07/2018 10:14:18 9 Injection - Joint/Bursa, Small completed ADDY CHIN MD [address] [place], [address], [facility] 12/07/2018 10:14:11 8 Injection - Joint/Bursa, Interm completed ADDY CHIN MD [address] [place], [address], [facility] 02/23/2018 11:28:59 Imaging Results None recorded. Procedure Notes None recorded. Medical Equipment None Reported. Allergies No known drug allergies Medications Name Sig Start Date Stop Date Status Note LastModified by Organization Details LastModified Time atorvastat in 80 mg tablet TAKE ONE TABLET BY MOUTH ONCE A DAY active Not Available Not Available No t Available esterified estrogens- methyltest osterone 0.625 mg-1.25 mg tablet TAKE 1/2 TABLET BY MOUTH 4 TIMES EACH WEEK active Not Available Not Available No t Available azithromyc in 250 mg tablet 10/02 completed Not Available Not Available Not Available ampicillin 500 mg capsule TAKE 1 CAPSULE BY MOUTH THREE TIMES DAILY active Not Available Not Available No t Available ranitidine 300 mg tablet 06/28 completed Not Available Not Available Not Available hydrocodon e 5 mg-acetami nophen 325 mg tablet TAKE 1 TAB PO Q 4-6 HRS PRN UNCONTRO LLED PAIN 10/02 completed Not Available Not Available Not Available lisinopril 20 mg tablet TAKE ONE TABLET BY MOUTH ONCE A DAY active Not Available Not Available No t Available prednisone 20 mg tablet 05/02 completed Not Available Not Available Not Available ciprofloxa reddy 500 mg tablet 09/10 completed per pt no longer taking as of 024 Not Available Not Available Not Available minoxidil 2.5 mg tablet TAKE ONE TABLET BY MOUTH ONCE A DAY active Not Available Not Available No t Available aspirin 81 mg tablet,del ayed release Take 1 tablet twice a day by oral route. active Not Available Not Available No t Available triamcinol one acetonide 0.1 % topical cream 05/02 completed Not Available Not Available Not Available famotidine 20 mg tablet TAKE ONE TABLET BY MOUTH 2 TIMES A DAY active Not Available Not Available No t Available simvastati n 20 mg tablet 3 times weekly 05/02 completed Not Available Not Available Not Available neomycin-p olymyxin-d exameth 3.5 mg/mL-10,0 00 unit/mL-0. 1% eye drops 09/10 completed per pt no longer taking as of 024 Not Available Not Available Not Available lisinopril 10 mg tablet 09/10 completed per pt no longer taking as of 024 Not Available Not Available Not Available fluorometh olone 0.1 % eye drops,susp ension 05/02 completed Not Available Not Available Not Available omeprazole 20 mg capsule,de layed release 06/28 completed Not Available Not Available Not Available diclofenac sodium 75 mg tablet,del ayed release 05/02 completed Not Available Not Available Not Available montelukas t 10 mg tablet 09/10 completed per pt no longer taking as of 024 Not Available Not Available Not Available ibuprofen 600 mg tablet active Not Available Not Available Not Available amoxicilli n 500 mg-potassi um clavulanat e 125 mg tablet active Not Available Not Available Not Available dutasterid e 0.5 mg capsule 09/10 completed per pt no longer taking as of 024 Not Available Not Available Not Available cyclobenza vita 5 mg tablet active Not Available Not Available Not Available Lyrica 50 mg capsule Take 1 capsule every day by oral route. 10/02 completed Not Available Not Available Not Available Estratest F.S. 05/02 completed Not Available Not Available Not Available Prevacid 12/23 completed Not Available Not Available Not Available Zostavax (PF) 19,400 unit/0.65 mL subcutaneo us suspension 02/23 completed Not Available Not Available Not Available MoviPrep 100 gram-7.5 gram-2.691 gram oral powder packet 02/23 completed Not Available Not Available Not Available Children's Flonase Sensimist 27.5 mcg/actuat ion nasal spray,susp ension 09/10 completed per pt no longer taking as of 024 Not Available Not Available Not Available Shingrix (PF) 50 mcg/0.5 mL intramuscu lar suspension , kit 11/27 completed Not Available Not Available Not Available Lagevrio 200 mg capsule (EUA) TAKE 4 CAPSULES BY MOUTH EVERY 12 HOURS FOR 5 DAYS active per pt no longer taking as of 024 Not Available Not Available Not Available Vitals Date Recorded Body height Pain severity - 0-10 verbal numeric rating [Score] - Reported Body mass index (BMI) Body weight Provider Name and Address Organization Details Last Updated DateTime 09/10/2024 163.83 cm 8 22.6 kg/m2 21716.38 g Haresh De La Cruz [facility] 09/10/2024 09:09:05 Date Recorded Body height Pain severity - 0-10 verbal numeric rating [Score] - Reported Body mass index (BMI) Body weight Provider Name and Address Organization Details Last Updated DateTime 11/26/2024 162.56 cm 6 22.7 kg/m2 07154.19 g Haresh De La Cruz [facility] 11/26/2024 11:22:02 Date Recorded Body height Body mass index (BMI) Body weight Provider Name and Address Organization Details Last Updated DateTime 02/27/2024 165.1 cm 22.6 kg/m2 21414.56 g Kathy Joseph [facility] 02/27/2024 10:13:26 Date Recorded Body height Body mass index (BMI) Body weight Provider Name and Address Organization Details Last Updated DateTime 03/14/2025 162.56 cm 22.7 kg/m2 75964.19 g Michael Jimenez [facility] 03/14/2025 10:09:46 Date Recorded Body height Pain severity - 0-10 verbal numeric rating [Score] - Reported Body mass index (BMI) Body weight Provider Name and Address Organization Details Last Updated DateTime 05/31/2024 165.1 cm 7 22.6 kg/m2 95474.56 g Haresh De La Cruz [facility] 05/31/2024 09:23:49 Social History Question Answer Notes LastModified by Organizat ion Details LastModified Time Tobacco Smoking Status [facility] 08:56:54 What Is Your Level Of Caffeine Consumption? Occasional Information not available 02/23/2018 Which Of Your Hands Is Dominant? Bilateral Information not available 02/23/2018 Have You Been Treated For This Problem Before? No Information not available 02/23/2018 How Long Have You Had These Symptoms? May Information not available 02/23/2018 Will This Be Filed As Workers' Compensation? No Information not available 02/23/2018 Marital Status Informatio n not available 02/23/2018 Work Related Injury? No Information not available 02/23/2018 Sex: Female Functional Status Question Answer Note LastModified by Organizat ion Details LastModified Time Do you use any illicit or recreational drugs? No Information not available 02/23/2018 What is your level of alcohol consumption? Occasional Information not available 02/23/2018 Are you currently employed? 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 Family History Relationship Description Onset Age of this Age Resolved Age Notes LastModified by Organization Details LastModified Time Father No current problems or disability Not available 02/23 11:03:52 Mother No current problems or disability Not available 02/23 11:03:52 Medical History Condition Response Included as Review of Systems Y Bleeding Disorder Y Blood Thinners Y Arthritis Y High Cholesterol Y Gynecological HistoryNo gynecological history recorded. Obstetrics History GPAL:G 0 P 0 0 0 0 Immunizations Vaccine Type Date Status Note Provider Nam e and Address Organization Details Recorded Time Influenza, split virus, quadrivalent, preservative 7 completed [facility] 11/26/2024 11:14:55 zoster recombinant 9 completed Haresh De La Cruz [facility] 11/26/2024 11:14:55 zoster recombinant 9 completed Haresh De La Cruz [facility] 11/26/2024 11:14:55 COVID-19, mRNA, LNP-S, PF, 100 mcg/0.5mL dose or 50 mcg/0.25mL dose 1 completed Haresh De La Cruz [facility] 11/26/2024 11:14:55 COVID-19, mRNA, LNP-S, PF, 100 mcg/0.5mL dose or 50 mcg/0.25mL dose 1 completed Haresh De La Cruz [facility] 11/26/2024 11:14:55 COVID-19, mRNA, LNP-S, PF, 100 mcg/0.5mL dose or 50 mcg/0.25mL dose 2 completed Haresh De La Cruz [facility] 11/26/2024 11:14:55 COVID-19, mRNA, LNP-S, PF, 100 mcg/0.5mL dose or 50 mcg/0.25mL dose 1 completed Haresh De La Cruz [facility] 11/26/2024 11:14:55 COVID-19, mRNA, LNP-S, bivalent, PF, 50 mcg/0.5 mL or 25mcg/0.25 mL dose 2 completed Haresh De La Cruz [facility] 11/26/2024 11:14:55 pneumococcal polysaccharide PPV23 8 completed Haresh De La Cruz [facility] 11/26/2024 11:14:55 Pneumococcal conjugate PCV 13 7 completed Haresh De La Cruz [facility] 11/26/2024 11:14:55 zoster live 7 completed Haresh De La Cruz [facility] 11/26/2024 11:14:56 Influenza, high-dose, trivalent, PF 0 completed Haresh De La Cruz [facility] 11/26/2024 11:14:56 Influenza, high-dose, trivalent, PF 9 completed Haresh De La Cruz [facility] 11/26/2024 11:14:56 Hep A, adult 8 completed Haresh De La Cruz [facility] 11/26/2024 11:14:56 Influenza, split virus, quadrivalent, PF 2 completed Haresh De La Cruz [facility] 11/26/2024 11:14:56 Pneumococcal conjugate PCV 13 7 completed Michael Jimenez [facility] 03/14/2025 10:05:40 Past Encounters Encounter ID Performer Location Encounter Start Date Encounter Closed Date Diagnosis/Indication Diagnosis SNOMED-CT Code Diagnosis ICD10 Code Diagnosis IMO Codes Diagnosis Note [id number] MD CAROLINE BLANTON [facility] [address] [place] [address] 02/23/2018 10:54:58 02/23/2018 14:29:34 Idiopathic osteoarthritis 903362369 M19.91 There is evidence of CMC arthritis with subchondra l cyst formation but 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 Options include excision distal scaphoid pole, STT arthrodesi s, and basal joint arthroplas ty with partial trapezoid excision. She would do best without arthrodesi s in my estimation because of the potential late effects on the CMC joint. Having said that, would like to avoid surgery in this active woman and for the moment I did an injection into the STT joint, she will see how that works and contact me if we need to discuss the options further. She will continue her natural anti-infla mmatory regimen. [id number] MD [facility]ANT[facility] [address] [place] [address] 12/07/2018 09:29:03 12/07/2018 10:16:56 Idiopathic osteoarthritis 421352637 M19.91 Right STT joint, left index MP joint. Injected both. May be a good candidate for right distal pole scaphoid excision, still has no CMC involvemen t. [id number] MD [facility] [address] [place] [address] 06/28/2019 14:50:23 06/28/2019 16:53:40 Idiopathic osteoarthritis 306975598 M19.91 Left index MP joint. Injection. Right wrist STT joint is doing okay Upon follow-up as needed obtain x-ray AP lateral left hand [id number] MD CAROL[facility] BLANT[facility] [address] [place] [address] 12/24/2019 08:38:37 12/24/2019 09:25:30 Idiopathic osteoarthritis 624919436 M19.91 Left index MP joint. Injection. Best definitive treatment: Arthrodesi s. Second best: Grundy arthroplas ty Right wrist STT joint Injection Best definitive treatment: Basal joint arthroplas ty with partial trapezoid excision. If CMC not symptomati c then excision distal scaphoid pole. [id number] ADDY CHIN MD [facility] [address] [facility] [place] [address] 04/07/2020 08:45:30 04/07/2020 09:17:23 Idiopathic osteoarthritis 828332360 M19.91 Left index MP joint. Injection. Best definitive treatment: Arthrodesi s. Second best: Grundy arthroplas ty 04/07/2020 discussion : Favor arthroplas ty over arthrodesi s Right wrist STT joint Injection Best definitive treatment: Basal joint arthroplas ty with partial trapezoid excision. If CMC not symptomati c then excision distal scaphoid pole. 04/07/2020 discussion : Favor excision distal pole scaphoid, CMC grind is positive but it does not hurt and there is no guarantee that it will ever hurt in the future. [id number] ADDY CHIN MD SURGERY SCHEDULE [address] [place] [address] 07/11/2020 07:08:05 07/11/2020 07:09:48 [id number] OCHOA BROCK PA-C [facility] [address] [place] [address] 07/24/2020 13:52:49 07/24/2020 14:49:06 Idiopathic osteoarthritis 741427491 M19.91 and well status post left index finger MCP joint arthroplas ty with repair of the ulnar and radial collateral ligaments. [id number] ADDY CHIN MD [facility] [address] [place] [address] 08/21/2020 10:40:31 08/21/2020 11:47:47 Idiopathic osteoarthritis 279001864 M19.91 6 weeks postop with developing PIP dorsal capsular contractur e, recommend joint mobilizati on, active and passive range of motion and strengthen ing, follow-up 6 weeks with new x-rays [id number] ADDY CHIN MD [facility] [address] [address] 10/02/2020 13:21:33 10/02/2020 14:07:34 Idiopathic osteoarthritis 686304197 M19.91 3 months postop, PIP dorsal capsular contractur e resolving, a little bit of extensor tendon adhesions been no intrinsic tightness. She has some of the initial pain that she Had preoperati vely, which is disappoint ing, hopefully this will resolve with use and time. Follow-up 6 weeks Right wrist STT arthritis, injection. Follow-up 6 weeks with x-rays PA lateral and hyperprona nima view [id number] ADDY CHIN MD [facility] [address] [address] 11/27/2020 14:58:47 11/27/2020 15:51:35 Idiopathic osteoarthritis 797809992 M19.91 Starting to improve, able to play golf doing well on the left. On the right may benefit from distal scaphoid excision, follow-up as needed [id number] ADDY CHIN MD [facility] [address] [address] 01/08/2023 16:34:00 01/08/2023 17:34:51 Idiopathic osteoarthritis 413136429 M19.91 Left LF and IF We discussed operative versus nonoperati ve management including risks and benefits. She does not want to proceed with surgical interventi on. We discussed doing a CSI, LLF MPJ and the patient agreed to CSI in the office today. F/U PRN [id number] ADDY CHIN MD [facility] [address] [address] 05/02/2023 08:58:24 05/02/2023 09:25:54 Idiopathic osteoarthritis 170365516 M19.91 Left LF and Right IFWe discussed operative versus nonoperati ve management including risks and benefits. Discussed a silicon implant or to fuse the joint. She does not want to proceed with surgical interventi on. Recommende d to do a CSI to right STT joint and left LF MPJ in office today, she agrees to proceed. I injected her right STT joint and left LF MPJ with CSI; she tolerated the procedure well.Geronimo martinez prn. [id number] ADDY CHIN MD [facility] [address] [address] 08/25/2023 09:09:19 08/25/2023 09:34:47 Idiopathic osteoarthritis 385101930 M19.91 Left LF MPJ and Right IF STT joint We discussed the anatomy of the fingers and etiology of OA. Her right IF is still doing well s/p STT joint CSI. We discussed repeat CSI for the left LF in the office today and she would like to move forward with this. I injected her left LF MP joint with CSI; she tolerated the procedure well. F/U PRN. [id number] ADDY CHIN MD [facility] [address] [address] 11/26/2023 12:33:58 12/03/2023 10:31:46 Idiopathic osteoarthritis 983311221 M19.91 Left LF MPJ injection. Index finger seems to be doing a little bit better in terms of range of motion and pain although it does hurt to flex it beyond [id number] ADDY CHIN MD [facility] [address] [place] [address] 02/27/2024 10:00:31 02/27/2024 10:50:09 Idiopathic osteoarthritis 453246391 M19.91 Left LF MPJ injection. R STT inj f/u prn [id number] ADDY CHIN MD [facility] [address] [address] 05/31/2024 09:18:11 05/31/2024 10:08:53 Idiopathic osteoarthritis 590966905 M19.91 Only about 6 weeks relief with the left long finger injection the right wrist is doing well. Advised this is a quality-of -life issue and if injections splinting activity modificati on are not satisfacto ry to her then MP arthroplas ty would be ideal. I advised her that the long finger is more predictabl e than the index finger and the postoperat brando recovery should be superior She will follow-up as needed. [id number] ADDY CHIN MD [facility] [address] [address] 09/10/2024 08:51:42 09/10/2024 10:16:26 Arthritis 2276793 M19.90 The plan includes the continuati on of topical Voltaren gel and a trial of glucosamin e and chondroiti n supplement s for possible relief from joint pain and swelling. A follow-up will be contingent on the patient s response to these interventi ons. Surgical options are deferred at this time per the patient's preference . [id number] ADDY CHIN MD [facility] [address] [address] 11/26/2024 11:10:09 11/26/2024 12:03:02 Arthritis [id number] M19.90 Injected right STT joint and left long finger MP joint, palliative management , she will consider surgical management but really wants to avoid it, have not injected the STT joint in a long time and the MP injection was 4 months ago [id number] ADDY CHIN MD [facility] [address] [place] [address] 03/14/2025 09:54:32 03/14/2025 10:28:13 Arthritis 7546348 M19.90 Left long finger MP joint injected, discussed surgical management and she again declines. Not seeing any developing complicati ons with injections and she is getting at least 3 months to 4 months relief so reasonable to continue. Health Concerns Section Related Observation LastModified by Organization Detai ls LastModified Time None Recorded Concern Status LastModified by Organization Details LastModified Time None Recorded Advance Directives Directive None Recorded Payers Insurance Date Sequence Insurance Name Policy Number Policy Mejia Covered Member ID Mejia Member ID Guarantor Name 03/11/2025 1 [facility] (MEDICARE REPLACEMENT/A DVANTAGE - PPO) [id number] Lyla Diego [id number] Lyla Diego Notes Date Note Type Note Provider Name and Address Organization Details Recorded Time 4 text/html [facility] Phys[facility]: Dr. Addy Watson Hand dominance: ambidextrousLocation: Left LF rt wrist Pain level: 8 /10 Onset: 7 months Recent Surgery: No In office procedure? Yeslt LF, rt IF csi: 05/02/2023lt LF MP joint CSI: 08/25/2023; 11/26/2023; 01/08/2023Right wrist STT csi: 1Previous upper extremity surgery? YesProcedure: Left index finger metacarpophalangeal arthroplasty with Integra Grundy MCP size 20Repair radial collateral ligament left index finger MP jointRepair ulnar collateral ligament left index finger MP jointApproximate date of surgery:07/11/2020Surgeo n (if known): Dr. Chin Have you or any of your immediate family members been seen by our hand surgeons before? 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 Diego is here for recheck of lt hand. She received an injection at her last visit. She says the injection lasted 2 months, she is disappointed with that. She is also wanting another injection in the right wrist. ADDY CHIN MD [address] [place] [address], [id number], [facility] 02/27/2024 10:48:06 4 text/html Consult [facility]: [facility] Phys[facility]: Dr. Addy Watson Hand dominance: ambidextrousLocation: Left LF rt wrist Pain level: 7 /10 Onset: 7+ months Recent Surgery: No In office procedure? Yeslt LF, rt IF csi: 05/02/2023lt LF MP joint CSI:02/27/2024; 08/25/2023; 11/26/2023; 01/08/2023Right wrist STT csi: 02/27/2024; 1Previous upper extremity surgery? YesProcedure: Left index finger metacarpophalangeal arthroplasty with Integra Grundy MCP size 20Repair radial collateral ligament left index finger MP jointRepair ulnar collateral ligament left index finger MP jointApproximate date of surgery:07/11/2020Sursofyao n (if known): Dr. Chin Have you or any of your immediate family members been seen by our hand surgeons before? 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 Diego is here for recheck of lt hand. She received injections at her last visit. Ms. Diego says that her right wrist is doing great. However, she says that the injections in her left hand helped for 6 weeks, but is now painful again. ADDY CHIN MD [address] [place] [address], [phone], [facility] 05/31/2024 09:37:56 5 text/html Consult [facility]: [facility] Care Physician: Dr. Addy Watson Hand dominance: ambidextrousLocation: Left LF rt wrist Pain level: 8 /10 Onset: 10+ months Recent Surgery: No In office procedure? Yeslt LF, rt IF csi: 05/02/2023lt LF MP joint CSI: 05/31/2024; 02/27/2024; 08/25/2023; 11/26/2023; 01/08/2023Right wrist STT csi: 02/27/2024; 11/27/2020 Previous upper extremity surgery? YesProcedure: Left index finger metacarpophalangeal arthroplasty with Integra Grundy MCP size 20Repair radial collateral ligament left index finger MP jointRepair ulnar collateral ligament left index finger MP jointApproximate date of surgery:07/11/2020Surgaudencio n (if known): Dr. Chin Have you or any of your immediate family members been seen by our hand surgeons before? 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 Diego is here for recheck of lt hand. She received an injection at her last visit, which she says helped for ~7 weeks. However, her symptoms have returned and her LF is sore again. She experiences stabbing pains at the base of her LF. She says that her rt wrist is doing well so far.The patient is a 74-year-old female presenting with joint pain and inflammation in the hand. She reports experiencing pain and swelling in the joint, with noticeable shaking and fluid accumulation. The patient has been managing the condition with topical Voltaren gel, which provides some relief, and oral acetaminophen, which she prefers to avoid due to her desire to limit the use of medications. The patient is contemplating other treatments that may provide longer relief since she has also tried joint injections in the past, which are becoming less effective. She has a history of not wanting surgery. The patient's condition seems to be associated with joint cartilage damage, and she seeks advice on alternative therapies. ADDY CHIN MD [address] [place] [address], [phone], [facility] 09/10/2024 10:22:43 5 text/html Consult [facility]: [facility] Physician: Dr. Addy Watson Hand dominance: ambidextrousLocation: Left LF rt wrist Pain level: 7 /10 on lt LF and 6/10 in rt wrist Onset: 10+ months Recent Surgery: No In office procedure? Yeslt LF, rt IF csi: 05/02/2023lt LF MP joint CSI: 09/10/2024; 05/31/2024; 02/27/2024; 08/25/2023; 11/26/2023; 01/08/2023Right wrist STT csi: 02/27/2024; 11/27/2020 Previous upper extremity surgery? YesProcedure: Left index finger metacarpophalangeal arthroplasty with Integra Grundy MCP size 20Repair radial collateral ligament left index finger MP jointRepair ulnar collateral ligament left index finger MP jointApproximate date of surgery:07/11/2020Surgeo n (if known): Dr. Chin Have you or any of your immediate family members been seen by our hand surgeons before? 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 Diego is here for a recheck of her lt LF and rt thumb. She received an injection at her last visit, which she says helped for ~3.5 months. However, her LF MCP joint is becoming painful again. She says that the pain is constant.She also says that her rt base of thumb started becoming painful again 3-4 weeks ago. She says that ther pain spikes when she tries to use her rt hand, especially when twisting the wrist. She complains that she still has not been able to play golf due to her rt wrist pain. ADDY CHIN MD [facility] [place], [phone], [facility] 11/26/2024 11:42:55 text/html Consult requested by: selfPrimary Care Physician: Dr. Addy Watson Hand dominance: ambidextrousLocation: Left LF & rt wrist Pain level: 8 /10 -lt LF Onset: 1+ years Recent Surgery: No In office procedure? Yeslt LF, rt IF csi: 05/02/2023lt LF MP joint CSI: 11/26/2024; 09/10/2024; 05/31/2024; 02/27/2024; 08/25/2023; 11/26/2023; 01/08/2023Right wrist STT CSI: 11/26/2024; 02/27/2024; 11/27/2020 Previous upper extremity surgery? YesProcedure: Left index finger metacarpophalangeal arthroplasty with Integra Grundy MCP size 20Repair radial collateral ligament left index finger MP jointRepair ulnar collateral ligament left index finger MP jointApproximate date of surgery:07/11/2020Surgeo n (if known): Dr. Chin Have you or any of your immediate family members been seen by our hand surgeons before? 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 Diego is here for a recheck of her lt LF and rt wrist. She received an injection in both at her last visit. Pt states the injections helped and the rt wrist is still doing well currently. However, she has been having pain again in the lt LF for ~4 weeks. She states the pain is now constant. [place], [phone], [facility] 03/14/2025 10:20:38 OBGyn Episode No OBEpisode recorded.
[2025-06-24] MEDS: OXYMETAZOLINE NASAL SPRAY 0.05% 15ML NS ×2 (20:15→21:08)
[2025-06-24] MEDS: LACTATED RINGERS 1000ML 1,000 ML 999 ML IV ×2 (20:20→21:53)
[2025-06-24 20:31] LABS: Hematocrit 33.8 % (37.0-47.0); Hemoglobin 11.8 g/dL (12.2-16.2); Immature Granulocytes % 0.2 %; Mean Corpuscular HGB Conc 34.9 g/dL (31.8-35.4); Mean Corpuscular Hemoglobin 33.2 pg (27.0-31.2); Mean Corpuscular Volume 95.2 fl (81-99); Nucleated Red Blood Cells % 0 %; Platelet Count 264 K/mm3 (142-424); Red Blood Count 3.55 M/mm3 (4.20-5.40); Red Cell Distribution Width-SD 46.0 fL; White Blood Count 4.7 K/mm3 (4.8-10.8)
[2025-06-24 20:37] LABS: Anion Gap 11.0 mEq/L (5-15); Blood Urea Nitrogen 19 mg/dl (7-17); Calcium 9.2 mg/dl (8.4-10.2); Carbon Dioxide 24 mmol/L (22.0-30.0); Chloride 105 mmol/L (98-107); Creatinine,Serum 0.80 mg/dl (0.52-1.04); Estimated Glomerular Filt Rate 70 ml/min (>60); GFR (African American) 85 ML/MIN (>60); Glucose 101 mg/dl (74-100); Potassium 4.0 mmoL/L (3.5-5.1); Sodium 136 mmol/L (136-145)
[2025-06-24] MEDS: LIDOCAINE 1% 10ML MDV 10 ML SUBCUT (20:45)
[2025-06-24 20:54] LABS: Activated Partial Thrombo Time 22.4 seconds (22.8-30.6); INR 1.01 (0.9-1.1); Prothrombin Time 11.2 seconds (10.1-12.5)
--- NOTE | 2025-06-24 21:11 | PC.NURSE ---
[employer] contacted for weather check. [employer] to call back
--- NOTE | 2025-06-24 21:12 | PC.NURSE ---
[employer] on stand by at this time.
--- NOTE | 2025-06-24 21:14 | HMH.EDGENADL ---
Discharge Plan Disposition Patient Disposition: Xfer Other Condition: Serious Prescriptions Prescriptions: No Action atorvastatin 80 mg tablet 80 mg PO HS estrogens-methyltestosterone 0.625-1.25 mg tablet 1 tab PO MOWEFR lisinopril 20 mg tablet 20 mg PO DAILY minoxidil 2.5 mg tablet 2.5 mg PO DAILY famotidine 20 mg tablet 20 mg PO DAILY Patient Comments: TAKE ONE TABLET BY MOUTH 2 TIMES A DAY aspirin 81 mg tablet 81 mg PO BID coQ10 (ubiquinol) [Qunol Kennedy CoQ10] 100 mg capsule 400 mg PO DAILY ibuprofen 600 mg tablet 600 mg PO Q6HP PRN (Reason: Mild Pain) Qty: 30 0RF Referrals Follow up/Referrals: Addy Rubin MD [Primary Care Provider, Internal Medicine] - See instructions Clinical Impressions Clinical Impression: Posterior epistaxis Stand Alone Forms Stand Alone Forms: Transfer Record - ED Instructions Patient Instructions: DI for Nosebleed Print Language Print Language: Swedish Discharge ED Provider: Ky Lambert Adult HPI General Chief complaint: Epistaxis Stated complaint: Severe Nose Bleed Time Seen by Provider: 06/24/25 20:13 Mode of Arrival: Family Vehicle Source of Information: Patient Description of Symptoms (Recalled from ER Triage Doc. by RN): Nose Bleed Pt ppresents to the ED with c/o nose bleed. Pt reports that she had Sx on her ear tubes on 06/20 here. Pt denies pain but has large amount of blood flowing from each nostril. History of Present Illness HPI narrative: This is a 75-year-old female patient, with past medical history of hypertension, hyperlipidemia, who is presenting to the emergency department today for Related Data Home Medications ?Medication ?Instructions ?Recorded ?Confirmed atorvastatin 80 mg tablet 80 mg PO HS 04/07/23 06/20/25 esterified 1 tab PO MOWEFR 04/07/23 06/20/25 estrogens-methyltestosterone 0.625 mg-1.25 mg tablet minoxidil 2.5 mg tablet 2.5 mg PO DAILY 06/17/24 06/20/25 aspirin 81 mg tablet 81 mg PO BID 02/28/25 06/20/25 Held on 06/20/25. Instructions: Resume on 06/22/25. coQ10 (ubiquinol) 100 mg capsule 400 mg PO DAILY 02/28/25 06/20/25 (Qunol Kennedy CoQ10) famotidine 20 mg tablet 20 mg PO DAILY 02/28/25 06/20/25 lisinopril 20 mg tablet 20 mg PO DAILY 02/28/25 06/20/25 Previous Rx's ?Medication ?Instructions ?Recorded ibuprofen 600 mg tablet 600 mg PO Q6HP PRN Mild Pain #30 06/07/24 tabs Allergies Allergy/AdvReac Type Severity Reaction Status Date / Time codeine (CODEINE) AdvReac Unknown NA-NAUSEA Verified 06/24/25 20:34 [facility] Disclaimer: The information contained in this section may have been updated after the patient was seen, as this information can be updated by other users. 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 Laryngopharyngeal reflux This is partially treated and I do think she would benefit from the use of regular medication. We will avoid the PPI family and use Pepcid to see if this is beneficial. 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: No caffeine: Yes Have you lived/traveled outside US in past 30 days?: No Contact w/someone who lives/traveled outside US past 30 days?: No Exposure to someone with infectious disease in past 14 days?: No Do you have a fever (greater than 100.4 F or 38 C)?: No Have you tested positive for COVID-19?: No Exposed to someone with COVID-19 in past 14 days?: No Do you have a sore throat?: No Do you have a cough?: No Do you have any weakness?: No Do you have any diarrhea?: No Are you experiencing any unusual bleeding?: No Do you have any muscle aches/pain?: No Do you have any abdominal pain?: No Are you experiencing loss of taste or smell?: No Other Medical History Have you received the Flu Vaccine for this season: Yes Have you received the Pneumonia Vaccine: Yes ROS Obtained: Yes Systems reviewed as appropriate & no additional complaints except as documented Physical Exam General General appearance: other (See MDM) Respiratory Respiratory exam: Present other (See MDM) Cardiovascular Cardiovascular exam: Present other (See MDM) Neurological Exam Neurological exam: Present other (See MDM) Medical Decision Making Medical Records Medical records reviewed: Yes I reviewed the patient's medical records. Screening: Per USPSTF and CDC recommendations, given the prevalence of disease in our region, it is our hospital?s policy to screen for HIV and viral Hepatitis for all patients aged 18 and over and those with ongoing risk factors. Greg Inquiry Pt receiving controlled substance: No Greg was queried for this patient: No Vital Signs: 06/24/25 20:16 06/24/25 20:20 06/24/25 20:21 Temperature Temperature Source Pulse Rate Pulse Rate [Left] Respiratory Rate 21 25 H 24 Blood Pressure 62/44 L 82/45 L 114/65 Blood Pressure [Right Arm] Blood Pressure Mean Blood Pressure Mean [Right Arm] Blood Pressure Source [Right Arm] Blood Pressure Position [Right Arm] 02 Sat by Pulse Oximetry Oxygen Delivery Method 06/24/25 20:26 06/24/25 20:31 06/24/25 20:33 Temperature Temperature Source Pulse Rate 91 H 89 Pulse Rate [Left] Respiratory Rate 16 16 16 Blood Pressure 176/85 H 151/129 H 179/99 H Blood Pressure [Right Arm] Blood Pressure Mean Blood Pressure Mean [Right Arm] Blood Pressure Source [Right Arm] Blood Pressure Position [Right Arm] 02 Sat by Pulse Oximetry 100 100 Oxygen Delivery Method 06/24/25 20:35 06/24/25 21:00 06/24/25 21:21 Temperature 94.5 F L Temperature Source Axillary Pulse Rate 100 H Pulse Rate [Left] 65 Respiratory Rate 16 16 Blood Pressure 165/102 H 183/91 H Blood Pressure [Right Arm] 114/65 Blood Pressure Mean 121 Blood Pressure Mean [Right Arm] 81 Blood Pressure Source [Right Arm] Automatic Cuff Blood Pressure Position [Right Arm] Sitting 02 Sat by Pulse Oximetry 99 100 Oxygen Delivery Method Room Air 06/24/25 21:21 06/24/25 21:30 06/24/25 21:30 Temperature Temperature Source Pulse Rate 97 H Pulse Rate [Left] Respiratory Rate 14 16 Blood Pressure 163/88 H Blood Pressure [Right Arm] Blood Pressure Mean 120 Blood Pressure Mean [Right Arm] Blood Pressure Source [Right Arm] Blood Pressure Position [Right Arm] 02 Sat by Pulse Oximetry 98 Oxygen Delivery Method 06/24/25 21:45 06/24/25 22:00 06/24/25 22:00 Temperature 98.8 F Temperature Source Axillary Pulse Rate 102 H 94 H Pulse Rate [Left] Respiratory Rate 20 13 Blood Pressure 158/91 H Blood Pressure [Right Arm] Blood Pressure Mean 118 Blood Pressure Mean [Right Arm] Blood Pressure Source [Right Arm] Blood Pressure Position [Right Arm] 02 Sat by Pulse Oximetry 99 98 Oxygen Delivery Method Room Air Room Air 06/24/25 22:15 06/24/25 22:30 Temperature Temperature Source Pulse Rate 103 H 98 H Pulse Rate [Left] Respiratory Rate 13 18 Blood Pressure 160/90 H Blood Pressure [Right Arm] Blood Pressure Mean Blood Pressure Mean [Right Arm] Blood Pressure Source [Right Arm] Blood Pressure Position [Right Arm] 02 Sat by Pulse Oximetry 99 99 Oxygen Delivery Method Lab Data Lab Results 06/24/25 08:20: WBC 4.7 L, RBC 3.55 L, Hgb 11.8 L, Hct 33.8 L, MCV 95.2, MCH 33.2 H, MCHC 34.9, RDW 13.0, Plt Count 264, MPV 11.5 H, Neut % (Auto) 39.4, Lymph % (Auto) 49.2, [place] % (Auto) 8.9, Eos % (Auto) 1.9, Baso % (Auto) 0.4, Neut # (Auto) 1.9, Lymph # (Auto) 2.3, [place] # (Auto) 0.4, Eos # (Auto) 0.1, Baso # (Auto) 0.0, PT 11.2, INR 1.01, APTT 22.4 L, Sodium 136, Potassium 4.0, Chloride 105, Carbon Dioxide 24, Anion Gap 11.0, BUN 19 H, Creatinine 0.80, Estimated GFR 70, Est GFR ( Amer) 85, Glucose 101 H, Calcium 9.2 06/24/25 20:29: Blood Type Confirm A Positive 06/24/25 21:17: Blood Type A Positive, Antibody Screen Negative, Crossmatch (AHG) See Detail 06/24/25 08:20 06/24/25 08:20 Orders (Tests/Meds): ED MEDICATIONS Generic Name Dose Route Start Last Admin Trade Name Freq PRN Reason Stop Dose Admin Sodium Chloride 250 mls @ 25 mls/hr 06/24/25 21:15 06/24/25 21:49 Sod Chlor 0.9% 250ml Bag IV 06/25/25 21:14 Not Given .Q10H ANTONIETA Oxymetazoline HCl 0.5 ml 06/24/25 20:58 06/24/25 21:08 Oxymetazoline Nasal [place] 0.05% 15ml NS 07/24/25 20:57 0.5 ml Q6MINP PRN Administration Epistaxis Discontinued Medications Generic Name Dose Route Start Last Admin Trade Name Freq PRN Reason Stop Dose Admin Hydromorphone HCl 0.5 mg 06/24/25 23:00 Hydromorphone 2mg/Ml Syringe IV 06/24/25 23:01 ONCE ONE Lactated Ringer's 1,000 mls @ 999 mls/hr 06/24/25 20:57 06/24/25 21:20 Lactated Ringer's 1000 Ml Bag IV 06/24/25 21:57 Infused .Q1H1M ONE Infusion Lactated Ringer's 1,000 mls @ 999 mls/hr 06/24/25 21:51 06/24/25 21:53 Lactated Ringer's 1000 Ml Bag IV 06/24/25 22:51 999 mls/hr .Q1H1M ONE Administration Lidocaine HCl 10 ml 06/24/25 20:32 06/24/25 20:45 Lidocaine 1% 10ml Mdv SUBCUT 06/24/25 20:33 10 ml ONCE ONE Administration Morphine Sulfate 4 mg 06/24/25 21:49 06/24/25 21:52 Morphine 4mg/Ml Syringe IV 06/24/25 21:50 4 mg ONCE ONE Administration Morphine Sulfate 4 mg 06/24/25 22:37 06/24/25 22:51 Morphine 4mg/Ml Syringe IV 06/24/25 22:38 4 mg ONCE ONE Administration Ondansetron HCl 4 mg 06/24/25 21:47 06/24/25 21:52 Ondansetron 4mg/2ml Vial IV 06/24/25 21:48 4 mg ONCE ONE Administration Ondansetron HCl 4 mg 06/24/25 22:37 Ondansetron 4mg/2ml Vial IV 06/24/25 22:38 ONCE ONE Tranexamic Acid 1,000 mg 06/24/25 21:15 06/24/25 21:19 Tranexamic Acid 1,000 Mg/10 Ml Vial TP 06/24/25 21:16 50 mg ONCE ONE Administration ORDERS Category Date Time Status PRBC [Red Blood Cells] Stat [facility] 06/24/25 21:17 Results Type and Screen Stat [facility] 06/24/25 21:17 Results BMP [Basic Metabolic Panel] Stat [facility] 06/24/25 08:20 Completed CBC w/Auto Diff [Complete Blood Count Auto Diff] Stat [facility] 06/24/25 08:20 Completed PTT [Activated Partial Thrombo Time] Stat [facility] 06/24/25 08:20 Completed Prothrombin Time INR Stat [facility] 06/24/25 08:20 Completed Medical Decision Narrative: This is a 75-year-old female patient who is presenting to the emergency department today for evaluation of epistaxis. Patient underwent a eustachian tube dilation through the naris on 06/20/2025. This was with Dr. Banegas who is primarily working at [facility] in [place] but also travels here remotely to provide ENT care for patients in [facility]. The patient describes sentinel bleeding from her nares a couple of days ago that was relatively self-limited. 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 She states that today she began having significant bleeding out of the left naris the last over the period of a couple of hours. She has not had any digital trauma to the nose and has not had any falls. She denies anticoagulant use. She is on a daily baby aspirin. On arrival to the emergency department the patient arrives with a small trash can that is full of clots that are completely soaked in blood. She nearly had a constant stream of blood coming from the left nare. She was protecting her airway. Her lungs were equal to auscultation bilaterally and unremarkable Differential diagnose at this time included anterior epistaxes, posterior epistaxis, sphenopalatine artery injury, among other We initially try to stabilize the patient with having her perform anterior tilt and apply pressure to the anterior naris. It was very apparent that this bleed was to precipitate for this to be effective. Therefore I performed packing of the left nare and then applied a nasal clamp and had her perform an anterior tilt. On examination of her oropharynx she had blood that was constantly dripping down the posterior pharynx. She then began having hemorrhage from the right naris. At this point I performed packing of the right nare and applied a nasal clamp. She continued to have hemorrhage through the posterior pharynx and soaked both of the anterior nasal packings. At this point we kept the right nare packed and used a 14 English Carrero catheter to pass through the left nare and into the oropharynx where we inflated the bed with 10 mL of saline and applied anterior traction against the posterior nasal cavity. I used a Merocel packing on the anterior aspect abutting this against the Carrero balloon. Prior to inserting the Merocel, I did soak it with TXA and lidocaine. This controlled hemorrhage for a short period of time and the patient began having hemorrhage down the posterior pharynx again. At this point I was able to establish contact with Dr. Goss through the otolaryngology group at [facility] in [place] where Dr. Banegas works. Dr. Goss instructed me to place a Carrero balloon in the right nare as well and then packed both anterior nare with rapid Rhino. This procedure was performed and we were able to achieve somewhat better hemostasis. The patient does intermittently continue to have hemorrhage down the posterior pharynx in which she expectorates blood. Bleeding does improve as more anterior traction is applied to the full in both naris. We have secured the Carrero to her face as well as to the bed to encourage better traction in the anterior direction. She remains protecting her airway mentating appropriately. She is saturating well on room air. She has had increasing tachycardia since arrival as well as increasing hypertension, and this is felt to be secondary to mixture of blood loss as well as significant pain from the procedures described above. We did obtain hematologic labs while she was here in the emergency department and found that she had a 4 point drop in her hemoglobin from 15-11. Platelets are normal. APTT and PT/INR are within normal limits. The patient is on a daily baby aspirin but does not take any anticoagulant therapies. I do not have DDAVP available to reverse her aspirin use. I ultimately had an interactive discussion with the internal medicine service with Dr. Arndt who graciously agreed to accept the patient to [facility] in [place]. Given the significant risk of decompensation I did elect to fly the patient via helicopter ambulance for more prompt intervention and treatment. Approximate 1 hour lapse between these conversations and when transport arrived. Patient continued to expectorate blood intermittently requiring multiple serial reassessments and adjustments of the amount of inflation of the Carrero balloons as well as adjustment and traction applied to the balloons. We have treated her with IV crystalloids. At the time of arrival of helicopter ambulance the patient has remained hemodynamically stable. She was transferred in guarded condition. Procedures Epistaxis Control Time Out Performed: Yes Nostril: left and right Nose Prepped With: oxymetazoline Direct Inspection: posterior source indentified Clots Removed by: blowing nose Device Inserted: nasal tampon and carrero catheter Patient Tolerated Procedure: well Complications: other (Intermittently continued epistaxis) Critical Care Critical Care Time Critical Care Time: Yes Attestation: On 06/24/25, the high probability of a clinically significant, sudden or life threatening deterioration of the following system(s) required my full and direct attention, intervention and personal management. The time I documented below is in addition to time spent performing reported procedures but includes the following listed in this critical care notation. Total Time Total Critical Care Time: 90
[2025-06-24] MEDS: TRANEXAMIC ACID 1,000 MG/10 ML VIAL 1000 MG TP (21:19)
[2025-06-24] MEDS: MORPHINE 4MG/ML SYRINGE 4 MG IV ×2 (21:52→22:51)
[2025-06-24] MEDS: ONDANSETRON 4MG/2ML VIAL 4 MG IV ×2 (21:52→23:13)
[2025-06-24] MEDS: HYDROMORPHONE 2MG/ML SYRINGE 0.5 MG IV (23:13)
== END 2025-06-24 23:46 | disposition other institution (70) ==
PROVIDERS: Emergency Provider Student in an Organized Health Care Education/Training Program; PCP Internal Medicine Adolescent Medicine
DX: R04.0 Epistaxis (principal)
CPT/HCPCS: 80048; 85025; 85610; 85730; 86850; 96361; 96374; 96375; 96376; 99285; J1171; J2003; J2270; J2405; J7120

== ENCOUNTER 2025-07-01 12:40 | Outpatient (CLI) | payer MEDICARE, SELFPAY ==
--- OUTSIDE RECORDS SUMMARY | 2025-06-25 00:19 | XMS_ITS | Encounter Summary ---
[facility] Organization [facility] Address [address] [place] [address] Care Team Providers Care Truss Maker Name Role Phone Addy Rubin MD Primary Care Provider [phone] Reason for Referral * Physical Therapy (Routine) - Pending Review Specialty Diagnoses / Procedures Referred By Jennifer kathleen Referred To Contact Physical Therapy Diagnoses Acute posterior epistaxis Carotid stenosis, left History of left-sided carotid endarterectomy Primary hypertension Carotid stenosis, right Procedures SD OFFICE/OUTPATIENT NEW MODERATE MDM 45 MINUTES Tamiko Cr PA [address] [address] Phone: tel: fax: Referral ID Status Reason Start Date Expiration Date Visits Requested Visits Authorized [id number] Pending Review Specialty Services Required 09/26/2026 1 1 Reason for Visit * Auth/Cert Specialty Diagnoses / Procedures Referred By Jennifer kathleen Referred To Contact Diagnoses Epistaxis (Nose Bleed) Referral ID Status Reason Start Date Expiration Date Visits Re quested Visits Authorized [id number] 1 1 Encounter Details Date Type Department Care Team (Late st Contact Info) Description 06/25/2025 12:19 AM EST - 06/27/2025 2:18 PM EST Hospital Encounter [address] [place] [id number] Reynaldo Arndt III, DO [address] [place] [address] Duane Scott MD [address] [facility] [address] [place], [place] [id number] Nash Anne MD [address] [place] [id number] Acute posterior epistaxis (Primary Dx); Carotid stenosis, left; History of left-sided carotid endarterectomy; Primary hypertension; Moderate R ICA stenosis Discharge Disposition: Home or Self Care Social History Tobacco Use Types Packs/Day Years Used Date Smoking Tobacco: Never Passive Smoke Exposure: Never Smokeless Tobacco: Never Comments:Casual social one t o two cigarettes monthly Alcohol Use Standard Drinks/Week Comments Not Currently 0 (1 standard drink = 0.6 oz pur e alcohol) occas AUDIT-C Answer Date Recorded Q1: How often do you have a drink containing alcohol? Never 06/25/2025 Q2: How many drinks containi ng alcohol do you have on a typical day when you are drinking? Patient does not drink Q3: How often do you have si x or more drinks on one occasion? Never 06/25/2025 Abuse Screen Answer Date Recorded Feels Unsafe at Home or Work/School no 06/25/2025 Feels Threatened by Someone no 06/11 Does Anyone Try to Keep You From Having Contact with Others or Doing Things Outside Your Home? no 06/25/2025 Physical Signs of Abuse Present no 06/25/2025 Housing Stability Answer Date Recorded Current Living Arrangements home 06/11 Potentially Unsafe Housing Conditions Not on claudia e 06/27/2025 Disabilities Answer Date Recorded Difficulty Concentrating, Remembering or Making Decisions no 06/25/2025 Difficulty Managing Errands Independently no 06/25/2025 Comments No Sex and Gender Information Value Date Recorded Sex Assigned at Not on file Legal Sex Female 10:10 AM EDT Gender Identity Not on file Sexual Orientation Not on file documented as of this encounter Last Filed Vital Signs Vital Sign Reading Time Taken Comments Blood Pressure 109/55 06/27/2025 12:16 PM EST Pulse 79 06/27/2025 4:50 AM EST Temperature 36.7 C (98 F) 06/27/2025 12:16 PM EST Respiratory Rate 16 06/27/2025 12:16 PM EST Oxygen Saturation 97% 06/27/2025 4:50 AM EST Inhaled Oxygen Concentration - - Weight 62.1 kg (137 lb) 06/26/2025 5:00 AM EST Height 163.8 cm (5' 4.5 ) 06/26/2025 5:00 AM EST Body Mass Index 23.15 06/26/2025 5:00 AM EST documented in this encounter Functional Status * Question Answer Date of Assessment Author 1. Wish to be (Past 1 Month) No 025 3:04 AM An Chery RN 2. Non-Specific Active Suici oj Thoughts (Past 1 Month) No 06/25/2025 3:04 AM Arturo Chery RN * Calculated C-SSRS Risk Score (Lifetime/Recent) Answer Date of Assessment Author No Risk Indicated 06/25/2025 3:04 AM An Chery RN * [place] Suicide Severity Rating Scale (Screener/Recent Self-Report) Question Answer Date of Assessment Author 6. Suicidal Behavior (Lifetime) No 3:04 AM An Chery RN documented as of this encounter Discharge Summaries * Lorenza Pop RN - 06/27/2025 10:52 AM EST Images from the original note were not included. To [facility] From Lorenza Pop [phone] Diego Lyla Olivas (75 y.o. Female) [place] [id number] 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 Primary: [employer] MEDICARE REPLACEMENT [id number] Referring Provider Information: TAMIKO CR Referral Information: # Visits: 1 Referral Type: Physical Therapy [AE1] Urgency: Routine Referral Reason: Specialty Services Required Start Date: Jun 27, 2025 End Date: To be determined by Insurer Diagnosis: Acute posterior epistaxis (R04.0) Carotid stenosis, left (I65.22) History of left-sided carotid endarterectomy (Z98.890) Primary hypertension (I10) Carotid stenosis, right (I65.21) Refer to Dept: Refer to Provider: Refer to Provider Phone: Refer to Facility: Specialty needed: Evaluate and treat Weight Bearing Status: Full weight bearing Follow-up needed: Yes This document serves as a request of services and does not constitute Insurance authorization or approval of services. To determine eligibility, please contact the members Insurance carrier to verifyand review coverage. If you have medical questions regarding this request for services. Please contact [address] at [phone] during normal business hours. Authorizing Provider:Tamiko Cr PA Authorizing Provider's Order Entered By: Lorenza Pop RN 06/27/2025 10:51 AM Electronically signed by: Tamiko Cr PA 06/27/2025 10:51 AM Date of 1950 Social Security Number [id number] [place] [address] [place] [address] [employer] Marital Status Admission Date 06/25/2025 Admission Type Urgent Admitting Provider Nash Anne MD Attending Provider Nash Anne MD Department, Room/Bed [address], S527/1 Discharge Date Discharge Disposition Discharge Destination Attending Provider: Nash Anne MD Allergies: Codeine Isolation: None Infection: None Code Status: CPR Ht: 163.8 cm (64.5 ) Wt: 62.1 kg (137 lb) Admission Cmt: None Principal Problem: Acute posterior epistaxis [R04.0] Active Insurance as of 06/25/2025 Primary Coverage Payor Plan Insurance Group Employer/Plan Group [employer] MEDICARE REPLACEMENT UHC Medicare Advantage GROUP PPO [id number] Payor Plan Address Payor Plan Phone Number Payor Plan Fax Number Effective Dates [address] [address] 08/11/2022 - None Entered [facility] [id number] Subscriber Name Subscriber Date Member ID LYLA DIEGO 1950 [id number] Emergency Contacts 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 female who had a eustachian tube dilation 4 days ago at the [facility]. Was performed by the ENT service. She has had bleeding in small amounts over thelast 4 days from the nose, but at around 5:30 PM earlier today (Sunday 06/24) the patient and her state that the blood really began coming out. They describe the bleed is uncontrollable and due to the amount they saw, they took the patient to the ED at [facility] for further evaluation. The ED physician there states to me that he had significant difficulty in controlling the bleed from both nares and the patient's mouth. The ED physician there states he attempted use, repositioning of the patient, nasal clamps, Rhino Rocket's, but she bled through all of these things. He thencontacted the ENT doctor on-call here who recommended placing 14 Sudanese Thurston catheters in each nare and then tying to the bed to achieve anterior traction. He then used a Merisel packing soaked in TXA and lidocaine; this did control the hemorrhage for short time, but she continued to bleed. She also continued to have blood down the back of her throat. The patient was then transferred here by therese. During my visit in the early hours of Monday 06/25, she states she feels very funny, has strange sensations in my ears and back of my throat, and notes that she does not feel very well atall. She still has packing and Thurston catheters in each nare and soaks the packing rather quickly. In terms of other symptoms, she states she had chills earlier tonight after arriving at the [facility] ED, but her temperature was normal. During my visit her vitals are stable, she is not tachycardic, maintains a good blood pressure, and normal O2 saturation. Her medical history is significant for hypertension, hyperlipidemia, and carotid artery stenosis s/p endarterectomy. 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 Personal History Past Medical History: Diagnosis Date Anesthesia slow to awaken Cancer February 2024 Squamous carcinoma GERD (gastroesophageal reflux disease) Headache Hemochromatosis High grade L ICA stenosis 04/09/2021 Hyperlipidemia Wears contact lenses Wears glasses Past Surgical History: Procedure Laterality Date BACK SURGERY 2000 [place] L5/S1 CAROTID ENDARTERECTOMY Left 04/17/2021 Procedure: CAROTID ENDARTERECTOMY WITH EEG LEFT; Surgeon: Syd De La Cruz MD; [facility]; Service: Neurosurgery; Laterality: Left; COLONOSCOPY ECTOPIC 1975 FINGER SURGERY Left 2019 arthroplasty HYSTERECTOMY 1998 SQUAMOUS CELL CARCINOMA EXCISION 04/14/2024 Family History: family history includes Anemia in her maternal grandmother, mother, and sister; Breast cancer in her sister; Heart attack in her father; Hyperlipidemia in her father; Multiple myelomain her mother; No Known Problems in her sister and sister. Social History: reports that she has never smoked. She has never been exposed to tobacco smoke. Shehas never used smokeless tobacco. She reports that she does not currently use alcohol. She reports that she does not use drugs. Social History Social History Narrative Not on file Medications: Available home medication information reviewed. Arginine, B Complex Vitamins, Cholecalciferol, Diclofenac Sodium, Krill Oil, Multiple Minerals, aspirin, atorvastatin, cyclobenzaprine, dutasteride, estrogens (conjugated)-methyltestosterone, famotidine, fluticasone, ibuprofen, lisinopril, minoxidil, and montelukast Allergies Allergen Reactions Codeine Nausea Only Objective Objective Vital Signs: Heart Rate: [79] 79 Resp: [18] 18 BP: (169)/(82) 169/82 Physical Exam Constitutional: Awake, alert. Some distress due to anxiety as well as stress from having Thurston catheter in each nare. Eyes: PERRLA, sclerae anicteric, no conjunctival injection HENT: Each near full with packing as well as Thurston catheter, after anterior packing is replaced, itis soaked with blood within 2-3 minutes. Did not attempt palpation. Did not attempt exam of oropharynx. Neck: Supple, no thyromegaly, no lymphadenopathy, trachea midline Respiratory: Clear to auscultation bilaterally, nonlabored respirations Cardiovascular: RRR, no murmurs, rubs, or gallops, palpable pedal pulses bilaterally Gastrointestinal: Positive bowel sounds, soft, nontender, nondistended Musculoskeletal: No bilateral ankle edema, no clubbing or cyanosis to extremities Psychiatric: Appropriate affect, cooperative Neurologic: Oriented x 3, strength symmetric in all extremities, cranial nerves not tested at this time, speech clear Skin: No rashes, normal turgor. Result Review: I have personally reviewed the results from the time of this admission to 06/25/2025 01:50 EST and agree with these findings: [x] Laboratory list / accordion [] Microbiology [] Radiology [x] EKG/Telemetry [] Cardiology/Vascular [] Pathology [x] Old records [] Other: Most notable findings include: On her hospital receiving clerk in her room, rhythm is sinus, regular, between 75-85 during my visit. Reviewed accompanying lab results and ER report and accompanying paperwork from sending hospital. LAB RESULTS: Microbiology Results (last 10 days) No results found for the last 240 hours. No radiology results from the last 24 hrs Assessment & Plan Assessment & Plan Acute posterior epistaxis 75F with postprocedural acute posterior epistaxis Postprocedural acute posterior epistaxis - H&H every 4 hours. - Type and screen. - IV fluids. - Pain control with IV agents as needed. - Nausea control with IV Zofran as needed. - Will recheck in with ENT on-call tonight for further instructions; family wanting to see ENT tonight. - Will follow-up in ENT recommendations. Hypertension - Hold all home oral medications for now. - Labetalol 10 mg IV every 4 hours as needed systolic pressure >180. Hyperlipidemia - Hold all home oral medications for now, restart statin when she is able to take oral food/fluids/medications. History of carotid artery stenosis s/p endarterectomy. - Chronic comorbidity, no apparent acute issues. [ADDENDUM, 0434, 06/25: Reviewed ENT note after ENT physician on-call came to see the patient during the overnight. Saw a request for IV antibiotics to cover for Staphylococcus, and for systolic pressures to be ideally less than or equal to 140. Will change IV labetalol to 10 mg IV every 4 hours for SBP >140, and will order IV Zosyn.] Total time spent: 75 minutes Time spent includes time reviewing chart, jnyc-dw-ovxz time, counseling patient/family/caregiver, ordering medications/tests/procedures, communicating with other health care transitions nurse, documenting clinical information in the electronic health record, and coordination of care. VTE Prophylaxis: Mechanical VTE prophylaxis orders are present. CODE STATUS: Full Code Status and Medical Interventions: CPR (Attempt to Resuscitate); Full Support Ordered at: 06/25/25 0101 Code Status (Patient has no pulse and is not breathing): CPR (Attempt to Resuscitate) Medical Interventions (Patient has pulse or is breathing): Full Support Level Of Support Discussed With: Patient Expected Discharge tbd Reynaldo Arndt III, 06/25/25 0436 @[email or web address]@ Discharge Summary No notes of this type exist for this encounter. * Tamiko Cr PA - 06/27/2025 10:22 AM EST Images from the original note were not included. [facility] DISCHARGE SUMMARY Patient Name: Lyla Diego : 1950 Date of Admission: 06/25/2025 12:19 AM Date of Discharge: 06/27/2025 Primary Care Physician: Addy Rubin MD Consults Date and Time Order Name Status Description 06/25/2025 1:09 AM Inpatient ENT Consult Completed Hospital Course Presenting Problem: Acute Posterior epistaxis Active Hospital Problems Diagnosis POA Acute posterior epistaxis [R04.0] Yes Resolved Hospital Problems No resolved problems to display. Hospital Course: Lyla Diego is a 75 y.o. female who had eustachian tube dilation recently , presented to [facility] ED w/ nasal bleeding evening of 06/24/25, local ED provider unable to adequately controlbleeding via packing so patient transferred to [facility], seen by ENT upon arrival early vocnisz93/15/25, repacked by Dr. Goss (ENT) and recommended empiric antibiotics. Since admission, bleeding has improved, had nausea improved on scopolamine patch. Original plan was to discharge patient home 06/26/25 (if no further bleeding) with outpatient office follow up Wednesday 06/27 for removal of packing; however, patient was quite generally weak, borderline low BP so keeping in hospital, having pt/ot evals performed. She had progressive bleeding evening 06/26, ENT called and evaluated patient. Patient refused change out of Rhino Rocket at that time. She felt much improved by morning 06/27 other than some weakness in legs/with ambulation. ENT did re evaluate and removed the right side Rhinoroc ket. She has been cleared for DC with plans to remove left side tomorrow in outpatient clinic. PT evaluated patient and recommended home with rolling walker for ambulatory/balance assistance but did feel she was safe for discharge. Refractory posterior bilateral epistaxis Recent eustachian tube balloon dilation (Dr. Banegas) - Seen by ENT Dr. Goss printer slotter feeder 06/25/25: S/P bilateral rhino-rocket insertion, appears bleeding improved - Anti staph antibiotic coverage recommended, initiated on zosyn. Changed to oral Keflex 06/26 for 4 more days. - Advanced diet 06/26, tolerating. - Dr. Banegas discontinued right sided nasal packing on Wednesday 06/27 with plans to remove left side in outpatient clinic in [place] on Thursday 06/28. - H/H overall stable. Carotid stenosis, previous CEA HTN HLP - Per ENT, continue to hold ASA at discharge. - Holding anti hypertensives with marginal BP. Patient is NOT orthostatic here.Monitor BP at home and resume when appropriate. - Continue statin. Nausea - improved w/ scopolamine patch. Will Rx 1 patch at time of DC. Orthostasis Generalized weakness - PT/OT have evaluated, recommended HH. Patient's sister has rolling walker to assist with ambulation at home. Discharge Follow Up Recommendations for outpatient labs/diagnostics: 1. Follow up with Dr. Banegas in [place] clinic on Friday06/28/2025 as directed. 2. Follow up with Dr. Lai on 07/19/2025 at 10 a.m. as previously scheduled. Day of Discharge HPI: Revisited patient in afternoon. Has been cleared for discharged by Dr. Banegas, ENT. Vitals stable, patient is NOT orthostatic. She is requesting DC home. She continues to mess with her nose - cleaning area, picking around rocket. PT/OT have seen patient and are recommending home with walker for balance assistance. Review of Systems See earlier note. Vital Signs: Temp: [97.7 ??F (36.5 ??C)-98.8 ??F (37.1 ??C)] 97.7 ??F (36.5 ??C) Heart Rate: [77-113] 79 Resp: [16-18] 18 BP: (103-154)/(45-71) 114/65 Physical Exam: See earlier note with Right sided Rhino rocket removed. Left sided packing remains. Pertinent and/or Most Recent Results LAB RESULTS: Lab 06/27/25 0531 06/26/25200506/26/25 0605 06/26/25 0103 06/25/25 1716 06/25/25 0428 06/25/25 0151 06/25/25 0150 WBC 5.93 -- -- -- -- -- 8.35 -- HEMOGLOBIN 9.1* 9.4* 10.6* 9.3* 10.4* < > 11.7* -- HEMATOCRIT 28.0* 28.6* 32.2* 27.5* 30.9* < > 35.1 -- PLATELETS 176 -- -- -- -- -- 226 -- MCV 99.3* -- -- -- -- -- 98.0* -- PROTIME -- -- -- -- -- -- -- 14.0 < > = values in this interval not displayed. Lab 06/27/25 0531 06/25/25 0150 SODIUM 141 139 POTASSIUM 3.7 4.5 CHLORIDE 109* 107 CO2 25.3 23.4 ANION GAP 6.7 8.6 BUN 8.7 20.0 CREATININE 0.77 0.70 EGFR 81.6 91.5 GLUCOSE 102* 175* CALCIUM 9.1 8.5* MAGNESIUM -- 2.0 Lab 06/25/25 015 TOTAL PROTEIN 5.6* ALBUMIN 4.0 GLOBULIN 1.6 ALT (SGPT) 31 AST (SGOT) 28 BILIRUBIN 0.3 ALK PHOS 47 Lab 06/25/25 0150 PROTIME 14.0 INR 1.02 Lab 06/25/25 0428 06/25/25 0151 ABO TYPING A A RH TYPING Positive Positive ANTIBODY SCREEN -- Negative Brief Urine Lab Results None Microbiology Results (last 10 days) No results found for the last 240 hours. No radiology results for the last 10 days Results for orders placed during the hospital encounter of 04/27/24 Duplex Carotid Ultrasound CAR 04/28/2024 12:57 PM Interpretation Summary There is bilateral antegrade vertebral artery flow. There is no stenosis in the left ICA s/p left CEA. There is no stenosis in the right ICA. Results for orders placed during the hospital encounter of 04/27/24 Duplex Carotid Ultrasound CAR 04/28/2024 12:57 PM Interpretation Summary There is bilateral antegrade vertebral artery flow. There is no stenosis in the left ICA s/p left CEA. There is no stenosis in the right ICA. I have personally reviewed the therapy plans: [x] PT/OT/ ST Therapy Plans Plan for Follow-up of Pending Labs/Results: No pending results Discharge Details Discharge Medications PAUSE taking these medications Instructions Start Date aspirin 81 MG EC tablet Wait to take this until your doctor or other care provider tells you to start again. Hold until cleared by ENT to resume 162 mg, Daily lisinopril 20 MG tablet Wait to take this until your doctor or other care provider tells you to start again. Continue to check BP at home. If systolic BP (top number) consistently rund >135, you may resumemedication. If it does not, continue to hold/check BP and follow up with PCP. Commonly known as: PRINIVIL,ZESTRIL 20 mg, Oral, Daily New Medications Instructions Start Date cephalexin 500 MG capsule Commonly known as: KEFLEX 500 mg, Oral, 4 Times Daily Scopolamine 1 MG/3DAYS patch 1 patch, Transdermal - scopolamine, Every 72 Hours Start Date: June 28, 2025 Continue These Medications Instructions Start Date atorvastatin 80 MG tablet Commonly known as: LIPITOR TAKE ONE TABLET BY MOUTH AT BEDTIME CALCIUM/MAGNESIUM/ZINC PO 1 tablet, Oral, 2 times daily cyclobenzaprine 5 MG tablet Commonly known as: FLEXERIL 5 mg, As Needed Diclofenac Sodium 1 % gel gel Commonly known as: VOLTAREN 4 g, Topical, As Needed estrogens (conjugated)-methyltestosterone 0.625-1.25 MG per tablet Commonly known as: ESTRATEST HS 0.5 tablets, Oral, Take As Directed, 4 times weekly ibuprofen 600 MG tablet Commonly known as: ADVIL,MOTRIN 1 tablet, Oral, As Needed KRILL OIL PO 2,000 mg, Oral, Daily L-ARGININE PO 1,000 mg, Oral, Daily minoxidil 2.5 MG tablet Commonly known as: LONITEN 2.5 mg, Oral, Daily Stop These Medications dutasteride 0.5 MG capsule Commonly known as: AVODART montelukast 10 MG tablet Commonly known as: SINGULAIR VITAMIN B COMPLEX PO VITAMIN D3 PO ASK your doctor about these medications Instructions Start Date famotidine 20 MG tablet Commonly known as: PEPCID 20 mg, Nightly PRN Flonase Sensimist 27.5 MCG/SPRAY nasal spray Generic drug: fluticasone 2 sprays, Daily Allergies Allergen Reactions Codeine Nausea Only Discharge Disposition: Home in stable condition. to transport Home or Self Care Diet: Diet Order Procedures Diet: Regular/House; Fluid Consistency: Thin (IDDSI 0) Standing Status: Standing Number of Occurrences: 1 Diets:: Regular/House Fluid Consistency:: Thin (IDDSI 0) Activity: As tolerated Restrictions or Other Recommendations: N/A CODE STATUS: Code Status and Medical Interventions: CPR (Attempt to Resuscitate); Full Support Ordered at: 06/25/25 0101 Code Status (Patient has no pulse and is not breathing): CPR (Attempt to Resuscitate) Medical Interventions (Patient has pulse or is breathing): Full Support Level Of Support Discussed With: Patient Future Appointments Date Time Provider Department Center 07/19/2025 10:00 AM [facility] RM 2 [facility] 07/19/2025 11:15 AM Ky Lai MD E [facility] Additional Instructions for the Follow-ups that You Need to Schedule Ambulatory Referral to Physical Therapy for Evaluation & Treatment As directed Specialty needed: Evaluate and treat Weight Bearing Status: Full weight bearing Follow-up needed: Yes CONTRERAS Driver 06/27/25 Time Spent on Discharge: I spent 50 minutes on this discharge activity which included: vlko-rd-guuplihcroykn with the patient, reviewing the data in the system, coordination of the care with the nursing staff as well as consultants, documentation, and entering orders. Cosigned by Nash Anne MD at 06/27/2025 2:53 PM EST Associated attestation - Nash Anne MD - 06/27/2025 2:53 PM EST I have reviewed this documentation and agree. Attending Cosignature I supervised care of the patient on day of service with direct care provided by the advanced care provider (APC). Nash Anne MD 06/27/25 documented in this encounter Discharge Instructions * Attachments The following attachments cannot be sent through Care Everywhere. * Cephalexin Capsules or Tablets (Norwegian) * Scopolamine Patches (Norwegian) * Nasal Packing (Norwegian) * Nasal Packing Care After (Norwegian) documented in this encounter Medications at Time of Discharge aspirin 81 MG EC tablet Take 2 tablets by mouth Daily. atorvastatin (LIPITOR) 80 MG tablet TAKE ONE TABLET BY MOUTH AT BEDTIME 30 tablet 11 01/02/2022 cyclobenzaprine (FLEXERIL) 5 MG tablet 1 tablet As Needed. 03/04/2022 Diclofenac Sodium (VOLTAREN) 1 % gel gel Apply 4 g topically to the appropriate area as directed As Needed. estrogens, conjugated,-meth yltestosterone (ESTRATEST HS) 0.625-1.25 MG per tablet Take 0.5 tablets by mouth Take As Directed. 4 times weekly famotidine (PEPCID) 20 MG tablet Take 1 tablet by mouth At Night As Needed. 04/07/2023 Flonase Sensimist 27.5 MCG/SPRAY nasal spray 2 sprays into the nostril(s) as directed by provider Daily. 04/07/2023 ibuprofen (ADVIL,MOTRIN) 600 MG tablet Take 1 tablet by mouth As Needed. 07/09/2021 KRILL OIL PO Take 2,000 mg by mouth Daily. L-ARGININE PO Take 1,000 mg by mouth Daily. lisinopril (PRINIVIL,ZESTRI L) 20 MG tabletIndication s:Carotid stenosis, left,History of left-sided carotid endarterectomy,E ssential hypertension,Dys lipidemia TAKE ONE TABLET BY MOUTH ONCE A DAY 30 tablet 11 01/04/2025 minoxidil (LONITEN) 2.5 MG tablet Take 1 tablet by mouth Daily. 04/05/2024 Multiple Minerals (CALCIUM/MAGNESI UM/ZINC PO) Take 1 tablet by mouth 2 (two) times a day. cephalexin (KEFLEX) 500 MG capsuleIndicatio ns:Skin and Soft Tissue Infection,nasal packing in place Take 1 capsule by mouth 4 (Four) Times a Day for 11 doses. 11 capsule 06/27/2025 12:37 PM EST 06/27/2025 5 Scopolamine 1 MG/3DAYS patch Apply 1 patch to the appropriate area as directed Every 72 (Seventy-Two) Hours for 1 dose. 1 patch 06/27/2025 12:37 PM EST 06/28/2025 5 documented as of this encounter Progress Notes * Kwame Banegas MD - 06/27/2025 9:39 AM EST ENT Progress Note Subjective Patient did have some oozing last night but it has stopped. She does complain of discomfort from the packing in place Objective Vital Signs Temp: [97.6 ??F (36.4 ??C)-98.8 ??F (37.1 ??C)] 97.7 ??F (36.5 ??C) Heart Rate: [77-113] 79 Resp: [16-18] 18 BP: (103-154)/(45-71) 114/65 Physical Exam: General Appearance: Alert, cooperative, in no acute distress, no audible stridor Head: Normocephalic, without obvious abnormality, atraumatic Eyes: conjunctivae and sclerae normal, corneas clear, PERRLA Nose: Bilateral packing in place-dried clots noted no active bleeding in the nasal cavity or oropharynx Oral Exam: No oral lesions, no thrush, oral mucosa moist, tonsils 2+ Results Review: Results from last 7 days Lab Units 06/27/25 0531 WBC 10*3/mm3 5.93 HEMOGLOBIN g/dL 9.1* HEMATOCRIT % 28.0* PLATELETS 10*3/mm3 176 Results from last 7 days Lab Units 06/27/25 0531 SODIUM mmol/L 141 POTASSIUM mmol/L 3.7 CHLORIDE mmol/L 109* CO2 mmol/L 25.3 BUN mg/dL 8.7 CREATININE mg/dL 0.77 GLUCOSE mg/dL 102* CALCIUM mg/dL 9.1 Imaging Results (Last 24 Hours) No results found for the last 24 hours. Assessment: Acute posterior epistaxis-left side-packed bilaterally- Plan: I removed the packing from the right side. Will arrange for follow-up in [place] tomorrow for further removal on the left Hold aspirin for now -will complete antibiotic course Low activity with no lifting or bending Discharge to home today Kwame Banegas MD 06/27/25 09:40 EST * Tamiko Cr PA - 06/27/2025 7:38 AM EST Images from the original note were not included. [facility] PROGRESS NOTE Patient Name: Lyla Diego : 1950 Date of Admission: 06/25/2025 Primary Care Physician: Addy Rubin MD Subjective Subjective CC: Following for Nose bleeding HPI: Awake in room, asleep at bedside. Vitals stable. Developed headache overnight. Venetia did not help, she did receive relief from Toradol. No further dizziness at this time. IVF are off. Overnight events reviewed with night RN/patient. ENT was called ~ 8-9 pm last night for continued bleeding left side. ENT came and evaluated patient, patient refused for Rhino Rocket to be changed. Objective Objective Vital Signs: Temp: [97.6 ??F (36.4 ??C)-98.8 ??F (37.1 ??C)] 98 ??F (36.7 ??C) Heart Rate: [66-113] 79 Resp: [16-18] 18 BP: (95-154)/(31-71) 142/71 Physical Exam: Constitutional: No acute distress, awake, alert HENT: NCAT, mucous membranes moist. Rhino Rocket bilateral nares. Respiratory: Clear to auscultation bilaterally, respiratory effort normal Cardiovascular: RRR, no murmurs, rubs, or gallops Gastrointestinal: Positive bowel sounds, soft, nontender, nondistended Musculoskeletal: No bilateral ankle edema Psychiatric: Appropriate affect, cooperative Neurologic: Oriented x 3, Cranial Nerves grossly intact to confrontation, speech clear Skin: No rashes Results Reviewed: LAB RESULTS: Lab 06/27/25 0506/26/25 2006 06/26/25 0605 06/26/25 0103 06/25/25 1716 06/25/25 0428 06/25/25 0151 06/25/25 0150 WBC 5.93 -- -- -- -- -- 8.35 -- HEMOGLOBIN 9.1* 9.4* 10.6* 9.3* 10.4* < > 11.7* -- HEMATOCRIT 28.0* 28.6* 32.2* 27.5* 30.9* < > 35.1 -- PLATELETS 176 -- -- -- -- -- 226 -- MCV 99.3* -- -- -- -- -- 98.0* -- PROTIME -- -- -- -- -- -- -- 14.0 < > = values in this interval not displayed. Lab 06/27/25 0531 06/25/25 015 SODIUM 141 139 POTASSIUM 3.7 4.5 CHLORIDE 109* 107 CO2 25.3 23.4 ANION GAP 6.7 8.6 BUN 8.7 20.0 CREATININE 0.77 0.70 EGFR 81.6 91.5 GLUCOSE 102* 175* CALCIUM 9.1 8.5* MAGNESIUM -- 2.0 Lab 06/25/25 0150 TOTAL PROTEIN 5.6* ALBUMIN 4.0 GLOBULIN 1.6 ALT (SGPT) 31 AST (SGOT) 28 BILIRUBIN 0.3 ALK PHOS 47 Lab 06/25/25 0150 PROTIME 14.0 INR 1.02 Lab 06/25/25 0428 06/25/25 0151 ABO TYPING A A RH TYPING Positive Positive ANTIBODY SCREEN -- Negative Brief Urine Lab Results None Microbiology Results Abnormal None No radiology results from the last 24 hrs I have personally reviewed the therapy plans: [] PT/OT/ ST Therapy Plans Current medications: Scheduled Meds:atorvastatin, 40 mg, Oral, Nightly cephalexin, 500 mg, Oral, 4x Daily Scopolamine, 1 patch, Transdermal - scopolamine, Q72H sodium chloride, 10 mL, Intravenous, Q12H Continuous Infusions: PRN Meds:. acetaminophen Calcium Replacement - Follow Nurse / BPA Driven Protocol HYDROcodone-acetaminophen HYDROmorphone AND naloxone ketorolac LORazepam Magnesium Standard Dose Replacement - Follow Nurse / BPA Driven Protocol Morphine AND [DISCONTINUED] naloxone nitroglycerin ondansetron Phosphorus Replacement - Follow Nurse / BPA Driven Protocol Potassium Replacement - Follow Nurse / BPA Driven Protocol sodium chloride sodium chloride Assessment & Plan Assessment & Plan Active Hospital Problems Diagnosis POA Acute posterior epistaxis [R04.0] Yes Resolved Hospital Problems No resolved problems to display. Brief Hospital Course to date: Lyla Diego is a 75 y.o. female who had eustachian tube dilation recently , presented to [facility] ED w/ nasal bleeding evening of 06/24/25, local ED provider unable to adequately controlbleeding via packing so patient transferred to [facility], seen by ENT upon arrival early nawodhn29/15/25, repacked by Dr. Goss (ENT) and recommended empiric antibiotics. Since admission, bleeding has improved, had nausea improved on scopolamine patch. Original plan was to discharge patient home 06/26/25 (if no further bleeding) with outpatient office follow up Wednesday 06/27 for removal of packing; however, patient was quite generally weak, borderline low BP so keeping in hospital, having pt/ot evals performed. She had progressive bleeding evening 06/26, ENT called and evaluated patient. Patient refused change out of Rhino Rocket at that time. Refractory posterior bilateral epistaxis Recent eustachian tube balloon dilation (Dr. Banegas) - Seen by ENT Dr. Goss printer slotter feeder 06/25/25: S/P bilateral rhino-rocket insertion, appears bleeding improved - Anti staph antibiotic coverage recommended, initiated on zosyn. Changed to oral Keflex 06/26 for 4 more days. - Advanced diet 06/26, tolerating. - POC discussed w/ Dr. Goss via phone on 06/26/25, patient generally weak, somewhat dizzy today and not comfortable going home; will stay overnight. Dr. Goss planning on discontinuing the nasal packing Wednesday 06/27 late afternoon/early evening (closer to ~5pm). Dr. Goss was called in ~ 9 pm for p ersistent bleeding/clots left side. He re evaluated patient, patient refused change out of packing. - H/H overall stable. Carotid stenosis, previous CEA HTN HLP - Holding ASA until cleared by ENT - Holding anti hypertensives with orthostasis/marginal BP. - Continue statin. Nausea - improved w/ scopolamine patch Orthostasis Generalized weakness - PT/OT to evaluate patient today. Expected Discharge Location and Transportation: Home with Expected Discharge 06/27/2025 Expected Discharge Date: 06/27/2025; Expected Discharge Time: VTE Prophylaxis: Mechanical VTE prophylaxis orders are present. 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 Attending Cosignature I supervised care of the patient on day of service with direct care provided by the advanced care provider (APC). Nash nAne MD 06/27/25 * Duane Scott MD - 06/26/2025 10:59 AM EST Images from the original note were not included. [facility] PROGRESS NOTE Patient Name: Lyla Diego : 1950 Date of Admission: 06/25/2025 Primary Care Physician: Addy Rubin MD Subjective Subjective CC: Nose bleeding HPI: Was a bit dizzy earlier, now improved. Nausea improved. Generally weak. 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 Lab 06/25/25 0150 SODIUM 139 POTASSIUM 4.5 CHLORIDE 107 CO2 23.4 ANION GAP 8.6 BUN 20.0 CREATININE 0.70 EGFR 91.5 GLUCOSE 175* CALCIUM 8.5* MAGNESIUM 2.0 Lab 06/25/25 0150 TOTAL PROTEIN 5.6* ALBUMIN 4.0 GLOBULIN 1.6 ALT (SGPT) 31 AST (SGOT) 28 BILIRUBIN 0.3 ALK PHOS 47 Lab 06/25/25 0150 PROTIME 14.0 INR 1.02 Lab 06/25/25 0428 06/25/25 0151 ABO TYPING A A RH TYPING Positive Positive ANTIBODY SCREEN -- Negative Brief Urine Lab Results None Microbiology Results Abnormal None No radiology results from the last 24 hrs I have personally reviewed the therapy plans: [] PT/OT/ ST Therapy Plans Current medications: Scheduled Meds:atorvastatin, 40 mg, Oral, Nightly cephalexin, 500 mg, Oral, 4x Daily Scopolamine, 1 patch, Transdermal - scopolamine, Q72H sodium chloride, 10 mL, Intravenous, Q12H Continuous Infusions: PRN Meds:. acetaminophen Calcium Replacement - Follow Nurse / BPA Driven Protocol HYDROcodone-acetaminophen HYDROmorphone AND naloxone ketorolac LORazepam Magnesium Standard Dose Replacement - Follow Nurse / BPA Driven Protocol Morphine AND [DISCONTINUED] naloxone nitroglycerin ondansetron Phosphorus Replacement - Follow Nurse / BPA Driven Protocol Potassium Replacement - Follow Nurse / BPA Driven Protocol sodium chloride sodium chloride Assessment & Plan Assessment & Plan Active Hospital Problems Diagnosis POA Acute posterior epistaxis [R04.0] Yes Resolved Hospital Problems No resolved problems to display. Brief Hospital Course to date: Lyla Diego is a 75 y.o. female who had eustachian tube dilation recently , presented to [facility] ED w/ nasal bleeding evening of 06/24/25, local ED provider unable to adequately controlbleeding via packing so patient transferred to [facility], seen by ENT upon arrival early tbrprij93/15/25, repacked by Dr. Goss (ENT) and recommended empiric antibiotics. Since admission, bleeding has stopped, had nausea improved on scopolamine patch. Original plan was to discharge patient home06/26/25 (if no further bleeding) with outpatient office follow up Wednesday 06/27 for removal of packing; however, patient is now quite generally weak, borderline low BP so keeping in hospital, having pt/ot evals performed. Refractory posterior bilateral epistaxis Recent eustachian tube balloon dilation (Dr. Banegas) -seen by ENT Dr. Goss printer slotter feeder 06/25/25: s/p bilateral rhino-rocket insertion, appears bleeding stopped/improved -antistaph antibiotic coverage recommended, initiated on zosyn -advancing diet today -changing zosyn to PO keflex x 4 more days (per ent for anti-staph coverage) -hgb stable q8h (currently ~10) --discussed w/ Dr. Goss via phone on 06/26/25, patient generally weak, somewhat dizzy today and not comfortable going home; will stay overnight. Dr. Goss planning on discontinuing the nasal packingWednesday 06/27 late afternoon/early evening (closer to ~5pm) since not going home today -starting clears (nausea persists but improving), change to keflex x 5 days -recheck hgb tonight & in a.m. Hx carotid stenosis, previous cea HTN HL -statin -holding aspiring until cleared by ENT -holding lisinopril due to orthostasis/borderline low BP -giving 1 liter NS today (hgb stable ~10), back off prn opioids Nausea -improved w/ scopolamine patch Orthostasis Gen weakness -pt/ot evals Hgb evening of 06/26 Am labs: cbc,bmp Expected Discharge Location and Transportation: ? Home (pt/ot evals pending) Expected Discharge possibly 06/27/25 evening after nasal packing d/c'd (vs possible rehab dependingon how mobilizing w/ pt/ot) Expected Discharge Date: 06/27/2025; Expected Discharge Time: VTE Prophylaxis: Mechanical VTE prophylaxis orders are present. AM-PAC 6 Clicks Score (PT): 23 (06/25/252128) CODE STATUS: Code Status and Medical Interventions: CPR (Attempt to Resuscitate); Full Support Ordered at: 06/25/25 0101 Code Status (Patient has no pulse and is not breathing): CPR (Attempt to Resuscitate) Medical Interventions (Patient has pulse or is breathing): Full Support Level Of Support Discussed With: Patient Duane Scott MD 06/26/25 * Duane Scott MD - 06/25/2025 12:14 PM EST 2nd visit today. Admitted by partner earlier this morning. See H&P for details Refractory posterior bilateral epistaxis Recent eustachian tube balloon dilation (Dr. Banegas) -seen by ENT Dr. Goss printer slotter feeder 06/25/25: s/p bilateral rhino-rocket insertion, appears bleeding stopped/improved -antistaph antibiotic coverage recommended, initiated on zosyn -starting clears (nausea persists but improving), change to keflex x 5 days -q8h hgb (11-->10 currently) -pain meds -discussed w/ Dr. Goss; if stable overnight then plan to d/c on PO keflex, and to call Dr. Banegas office Friday06/27/25 to come set up time for nasal packing removal Hx carotid stenosis, previous cea HTN HL -restart statin & lisinopril once reliably tolerating po -for now prn labetalol Q8h hgb documented in this encounter H&P Notes * Reynaldo Arndt III, DO - 06/25/2025 1:50 AM EST Images from the original note were not included. [facility] HISTORY AND PHYSICAL Patient Name: Lyla Diego : 1950 Primary Care Physician: Addy Rubin MD Date of admission: 06/25/2025 Subjective Subjective Chief Complaint: Nosebleed HPI: Lyla Diego is a 75 y.o. female who had a eustachian tube dilation 4 days ago at the [facility] facility. Was performed by the ENT service. She has had bleeding in small amounts over thelast 4 days from the nose, but at around 5:30 PM earlier today (Sunday 06/24) the patient and her state that the blood really began coming out. They describe the bleed is uncontrollable and due to the amount they saw, they took the patient to the ED at [facility] for further evaluation. The ED physician there states to me that he had significant difficulty in controlling the bleed from both nares and the patient's mouth. The ED physician there states he attempted use, repositioning of the patient, nasal clamps, Rhino Rocket's, but she bled through all of these things. He thencontacted the ENT doctor on-call here who recommended placing 14 Sudanese Thurston catheters in each nare and then tying to the bed to achieve anterior traction. He then used a Merisel packing soaked in TXA and lidocaine; this did control the hemorrhage for short time, but she continued to bleed. She also continued to have blood down the back of her throat. [facility] During my visit in the early hours of Monday 06/25, she states she feels very funny, has strange sensations in my ears and back of my throat, and notes that she does not feel very well atall. She still has packing and Thurston catheters in each nare and soaks the packing rather quickly. In terms of other symptoms, she states she had chills earlier tonight after arriving at the [facility] ED, but her temperature was normal. During my visit her vitals are stable, she is not tachycardic, maintains a good blood pressure, and normal O2 saturation. Her medical history is significant for hypertension, hyperlipidemia, and carotid artery stenosis s/p endarterectomy. 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 Personal History Past Medical History: Diagnosis Date Anesthesia slow to awaken Cancer February 2024 Squamous carcinoma GERD (gastroesophageal reflux disease) Headache Hemochromatosis High grade L ICA stenosis 04/09/2021 Hyperlipidemia Wears contact lenses Wears glasses Past Surgical History: Procedure Laterality Date BACK SURGERY 2000 [place] L5/S1 CAROTID ENDARTERECTOMY Left 04/17/2021 Procedure: CAROTID ENDARTERECTOMY WITH EEG LEFT; Surgeon: Syd De La Cruz MD; [facility]; Service: Neurosurgery; Laterality: Left; COLONOSCOPY ECTOPIC 1975 FINGER SURGERY Left 2019 arthroplasty HYSTERECTOMY 1999 SQUAMOUS CELL CARCINOMA EXCISION 04/14/2024 Family History: family history includes Anemia in her maternal grandmother, mother, and sister; Breast cancer in her sister; Heart attack in her father; Hyperlipidemia in her father; Multiple myelomain her mother; No Known Problems in her sister and sister. Social History: reports that she has never smoked. She has never been exposed to tobacco smoke. Isabela never used smokeless tobacco. She reports that she does not currently use alcohol. She reports that she does not use drugs. Social History Social History Narrative Not on file Medications: Available home medication information reviewed. Arginine, B Complex Vitamins, Cholecalciferol, Diclofenac Sodium, Krill Oil, Multiple Minerals, aspirin, atorvastatin, cyclobenzaprine, dutasteride, estrogens (conjugated)-methyltestosterone, famotidine, fluticasone, ibuprofen, lisinopril, minoxidil, and montelukast Allergies Allergen Reactions Codeine Nausea Only Objective Objective Vital Signs: Heart Rate: [79] 79 Resp: [18] 18 BP: (169)/(82) 169/82 Physical Exam Constitutional: Awake, alert. Some distress due to anxiety as well as stress from having Thurston catheter in each nare. Eyes: PERRLA, sclerae anicteric, no conjunctival injection HENT: Each near full with packing as well as Thurston catheter, after anterior packing is replaced, itis soaked with blood within 2-3 minutes. Did not attempt palpation. Did not attempt exam of oropharynx. Neck: Supple, no thyromegaly, no lymphadenopathy, trachea midline Respiratory: Clear to auscultation bilaterally, nonlabored respirations Cardiovascular: RRR, no murmurs, rubs, or gallops, palpable pedal pulses bilaterally Gastrointestinal: Positive bowel sounds, soft, nontender, nondistended Musculoskeletal: No bilateral ankle edema, no clubbing or cyanosis to extremities Psychiatric: Appropriate affect, cooperative Neurologic: Oriented x 3, strength symmetric in all extremities, cranial nerves not tested at this time, speech clear Skin: No rashes, normal turgor. Result Review: I have personally reviewed the results from the time of this admission to 06/25/2025 01:50 EST and agree with these findings: [x] Laboratory list / accordion [] Microbiology [] Radiology [x] EKG/Telemetry [] Cardiology/Vascular [] Pathology [x] Old records [] Other: Most notable findings include: On her hospital receiving clerk in her room, rhythm is sinus, regular, between 75-85 during my visit. Reviewed accompanying lab results and ER report and accompanying paperwork from sending hospital. LAB RESULTS: Microbiology Results (last 10 days) No results found for the last 240 hours. No radiology results from the last 24 hrs Assessment & Plan Assessment & Plan Acute posterior epistaxis 75F with postprocedural acute posterior epistaxis Postprocedural acute posterior epistaxis - H&H every 4 hours. - Type and screen. - IV fluids. - Pain control with IV agents as needed. - Nausea control with IV Zofran as needed. - Will recheck in with ENT on-call tonight for further instructions; family wanting to see ENT tonight. - Will follow-up in ENT recommendations. Hypertension - Hold all home oral medications for now. - Labetalol 10 mg IV every 4 hours as needed systolic pressure >180. Hyperlipidemia - Hold all home oral medications for now, restart statin when she is able to take oral food/fluids/medications. History of carotid artery stenosis s/p endarterectomy. - Chronic comorbidity, no apparent acute issues. [ADDENDUM, 0434, 06/25: Reviewed ENT note after ENT physician on-call came to see the patient during the overnight. Saw a request for IV antibiotics to cover for Staphylococcus, and for systolic pressures to be ideally less than or equal to 140. Will change IV labetalol to 10 mg IV every 4 hours for SBP >140, and will order IV Zosyn.] Total time spent: 75 minutes Time spent includes time reviewing chart, [id number] time, counseling patient/family/caregiver, ordering medications/tests/procedures, communicating with other health care transitions nurse, documenting clinical information in the electronic health record, and coordination of care. VTE Prophylaxis: Mechanical VTE prophylaxis orders are present. CODE STATUS: Full Code Status and Medical Interventions: CPR (Attempt to Resuscitate); Full Support Ordered at: 06/25/25 0101 Code Status (Patient has no pulse and is not breathing): CPR (Attempt to Resuscitate) Medical Interventions (Patient has pulse or is breathing): Full Support Level Of Support Discussed With: Patient Expected Discharge tbd Reynaldo Arndt III, DO 06/25/25 documented in this encounter Consult Notes * Jeff Goss MD - 06/25/2025 3:22 AM ESTAssociated Order(s): IP CONSULT TO ENT [facility] Consult Note Patient Name: Lyla Diego : 1950 Primary Care Physician: Addy Rubin MD Referring Physician: Ky Lambert DO Date of admission: 06/25/2025 Subjective Subjective Reason for Consult/ Chief Complaint: epistaxis HPI: Lyla Diego is a 75 y.o. female who had a eustachian tube balloon dilation by Dr. Banegas earlier this week. She has had occasional bleeding since that time. She had fairly brisk bleeding on Friday night and went to the outside emergency department. She was packed with bilateral Thurston balloonsand 5 cm rapid Rhino's. She continued to bleed and was transferred here for evaluation Personal History Past Medical History: Diagnosis Date Anesthesia slow to awaken Cancer February 2024 Squamous carcinoma GERD (gastroesophageal reflux disease) Headache Hemochromatosis High grade L ICA stenosis 04/09/2021 Hyperlipidemia Wears contact lenses Wears glasses Past Surgical History: Procedure Laterality Date BACK SURGERY 2000 [place] L5/S1 CAROTID ENDARTERECTOMY Left 04/17/2021 Procedure: CAROTID ENDARTERECTOMY WITH EEG LEFT; Surgeon: Syd De La Cruz MD; [facility]; Service: Neurosurgery; Laterality: Left; COLONOSCOPY ECTOPIC 1975 FINGER SURGERY Left 2019 arthroplasty HYSTERECTOMY 1998 SQUAMOUS CELL CARCINOMA EXCISION 04/14/2024 Family History: family history includes Anemia in her maternal grandmother, mother, and sister; Breast cancer in her sister; Heart attack in her father; Hyperlipidemia in her father; Multiple myelomain her mother; No Known Problems in her sister and sister. Otherwise pertinent FHx was reviewed andnot pertinent to current issue. Social History: reports that she has never smoked. She has never been exposed to tobacco smoke. Shehas never used smokeless tobacco. She reports that she does not currently use alcohol. She reports that she does not use drugs. Home Medications: Arginine, B Complex Vitamins, Cholecalciferol, Diclofenac Sodium, Krill Oil, Multiple Minerals, aspirin, atorvastatin, cyclobenzaprine, dutasteride, estrogens (conjugated)-methyltestosterone, famotidine, fluticasone, ibuprofen, lisinopril, minoxidil, and montelukast Allergies: Allergies Allergen Reactions Codeine Nausea Only Objective Objective Vitals: Temp: [97 ??F (36.1 ??C)] 97 ??F (36.1 ??C) Heart Rate: [79] 79 Resp: [18] 18 BP: (169)/(82) 169/82 Physical Exam: Constitutional: Awake, alert Eyes: PERRLA, sclerae anicteric, no conjunctival injection Nose Thurston packs in place. Some slight amount of oozing anteriorly. Rapid Rhino's in place bilaterally about with about 2 cm outside of the anterior nasal openings Oral cavity oropharynx some bright red blood along the posterior pharyngeal wall Neck is nontender with no lymphadenopathy Voice is normal Salivary glands normal Cranial nerves II through XII intact Procedure performed Fully packs were removed. Small amount of bleeding bilaterally was present along the posterior pharyngeal llamas. I passed a 7.5 cm rapid Rhino into each nasal cavity. Inflated with saline. Bleeding controlled. Assessment & Plan Assessment / Plan Brief Patient Summary/Plan Lyla Diego is a 75 y.o. female who developed epistaxis after eustachian tube balloon dilation earlier this week. Bleeding was fairly significant and was packed at the outside emergency department with posterior packs. However the anterior portion of the packs were not and nearly far enough to stop the bleeding. Packs were placed with rapid Rhino 7.5 cm PACs. Bleeding seems to be controlledat this point. Recommend she be on antistaphylococcal antibiotic coverage. Would like to keep her systolic blood pressure less than 130s. If she has had no further bleeding she could be discharged onSunday and follow-up with Dr. Banegas or me on Friday or Friday to remove the packs Active Hospital Problems: Active Hospital Problems Diagnosis Acute posterior epistaxis Jeff Goss MD documented in this encounter Nursing Notes * Jacklyn Alexander RN - 06/27/2025 1:25 PM EST Problem: Adult Inpatient Plan of Care Goal: Plan of Care Review Outcome: Progressing Goal: Patient-Specific Goal (Individualized) Outcome: Progressing Goal: Absence of Hospital-Acquired Illness or Injury Outcome: Progressing Intervention: Identify and Manage Fall Risk Recent Flowsheet Documentation Taken 06/27/2025 1209 by Jacklyn Alexander RN Safety Promotion/Fall Prevention: activity supervised clutter free environment maintained assistive device/personal items within reach fall prevention program maintained toileting scheduled safety round/check completed room organization consistent nonskid shoes/slippers when out of bed Taken 06/27/2025 1000 by Jacklyn Alexander RN Safety Promotion/Fall Prevention: activity supervised clutter free environment maintained assistive device/personal items within reach fall prevention program maintained toileting scheduled safety round/check completed room organization consistent nonskid shoes/slippers when out of bed Taken 06/27/2025 0800 by Jacklyn Alexander RN Safety Promotion/Fall Prevention: activity supervised assistive device/personal items within reach clutter free environment maintained fall prevention program maintained toileting scheduled safety round/check completed room organization consistent nonskid shoes/slippers when out of bed Intervention: Prevent Skin Injury Recent Flowsheet Documentation Taken 06/27/2025 1209 by Jacklyn Alexander RN Body Position: legs elevated weight shifting Skin Protection: incontinence pads utilized Taken 06/27/2025 1000 by Jacklyn Alexander RN Body Position: position changed independently Skin Protection: incontinence pads utilized Taken 06/27/2025 0800 by Jacklyn Alexander RN Body Position: position changed independently Skin Protection: incontinence pads utilized Intervention: Prevent Infection Recent Flowsheet Documentation Taken 06/27/2025 1209 by Jacklyn Alexander RN Infection Prevention: environmental surveillance performed hand hygiene promoted rest/sleep promoted single patient room provided Taken 06/27/2025 1000 by Jacklyn Alexander RN Infection Prevention: environmental surveillance performed hand hygiene promoted rest/sleep promoted single patient room provided Taken 06/27/2025 0800 by Jacklyn Alexander RN Infection Prevention: environmental surveillance performed hand hygiene promoted rest/sleep promoted single patient room provided Goal: Optimal Comfort and Wellbeing Outcome: Progressing Intervention: Provide Person-Centered Care Recent Flowsheet Documentation Taken 06/27/2025 0800 by Jacklyn Alexander RN Trust Relationship/Rapport: care explained choices provided questions answered questions encouraged reassurance provided thoughts/feelings acknowledged Goal: Readiness for Transition of Care Outcome: Progressing Problem: Fall Injury Risk Goal: Absence of Fall and Fall-Related Injury Outcome: Progressing Intervention: Identify and Manage Contributors Recent Flowsheet Documentation Taken 06/27/2025 1209 by Jacklyn Alexander RN Medication Review/Management: medications reviewed Taken 06/27/2025 1000 by Jacklyn Alexander RN Medication Review/Management: medications reviewed Taken 06/27/2025 0800 by Jacklyn Alexander RN Medication Review/Management: medications reviewed Intervention: Promote Injury-Free Environment Recent Flowsheet Documentation Taken 06/27/2025 1209 by Jacklyn Alexander RN Safety Promotion/Fall Prevention: activity supervised clutter free environment maintained assistive device/personal items within reach fall prevention program maintained toileting scheduled safety round/check completed room organization consistent nonskid shoes/slippers when out of bed Taken 06/27/2025 1000 by Jacklyn Alexander RN Safety Promotion/Fall Prevention: activity supervised clutter free environment maintained assistive device/personal items within reach fall prevention program maintained toileting scheduled safety round/check completed room organization consistent nonskid shoes/slippers when out of bed Taken 06/27/2025 0800 by Jacklyn Alexander RN Safety Promotion/Fall Prevention: activity supervised assistive device/personal items within reach clutter free environment maintained fall prevention program maintained toileting scheduled safety round/check completed room organization consistent nonskid shoes/slippers when out of bed Problem: Pain Acute Goal: Optimal Pain Control and Function Outcome: Progressing Intervention: Optimize Psychosocial Wellbeing Recent Flowsheet Documentation Taken 06/27/2025 0800 by Jacklyn Alexander RN Supportive Measures: active listening utilized Diversional Activities: television Intervention: Prevent or Manage Pain Recent Flowsheet Documentation Taken 06/27/2025 1209 by Jacklyn Alexander RN Medication Review/Management: medications reviewed Taken 06/27/2025 1000 by Jacklyn Alexander RN Medication Review/Management: medications reviewed Taken 06/27/2025 0800 by Jacklyn Alexander RN Sleep/Rest Enhancement: consistent schedule promoted Medication Review/Management: medications reviewed Goal Outcome Evaluation: * Aileen Engel, PT - 06/27/2025 10:02 AM EST Goal Outcome Evaluation: Plan of Care Reviewed With: patient, spouse Outcome Evaluation: Pt s/p recent eustacian tube dilation followed by episode of epistaxis, dizziness, weakness, and nausea. Pt presents with ataxic gait, impaired balance, and difficutly walking andis below baseline level of function for mobility. Orthostatic BP's assessed and were negative for orthostatic hypotension this date. Pt's gait assessed without use of asstive device, with patient demataxia, several LOB, and reaching out for llamsa and furniture for support. Pt's balance and safety improved with use of RW, although continued with slow speed. Pt scored an 18/28 on the Tinetti Balance and Gait Assessment indicating she is at a HIGH RISK falls. Pt will benefit from IPPT services to address limitations. PT rec d/c home with RW and outpatient PT. Anticipated Discharge Disposition (PT): home with assist, home with outpatient therapy services * Carmela Santacruz, OT - 06/27/2025 8:53 AM EST Goal Outcome Evaluation: Plan of Care Reviewed With: patient, spouse Progress: no change (OT IE) Outcome Evaluation: OT evaluation completed. Pt presents w/ recent eustacian tube dilation followedby epistaxis, weakness, nausea and dizziness. Currently pt presents with decreased I in ADLs, related t/fs and mobility limited by decreased activity tolerance, imparied balance, mild muscle weaknessat BUEs, fatigue with more dynamic demands and persistent h/a pain. OT assisted in obtaining BP fororthostatic assessment which were negative this date, see specifics in vitals section. Pt req'd gross CGA for fxl t/fs and upward of min A during fxl mobility when without AD with unsteadiness noted upon standing and during mobility with one notable LOB to R side after 2-3 steps away from recliner.Pt denied any dizziness or feeling LH. Pt demonstrated improved balance when AD used prompting recsfor use. Pt req'd spv to SBA for face/hand hygiene and socks and shoes mgmt while seated, anticipate SBA for UBD. Pt is at increased risk for falls when standing for standing components of ADLs. Pt would benefit from IPOT POC and home w/ A and use of Rwx and OPPT at d/c when medically ready. Anticipated Discharge Disposition (OT): home with assist, home with outpatient therapy services, other (see comments) (OPPT) * Sudha Frazier RN - 06/26/2025 4:43 PM EST Problem: Adult Inpatient Plan of Care Goal: Plan of Care Review Outcome: Progressing Goal: Patient-Specific Goal (Individualized) Outcome: Progressing Goal: Absence of Hospital-Acquired Illness or Injury Outcome: Progressing Intervention: Identify and Manage Fall Risk Recent Flowsheet Documentation Taken 06/26/2025 1400 by Sudha Frazier RN Safety Promotion/Fall Prevention: safety round/check completed activity supervised assistive device/personal items within reach clutter free environment maintained elopement precautions fall prevention program maintained Taken 06/26/2025 1200 by Sudha Frazier RN Safety Promotion/Fall Prevention: safety round/check completed activity supervised assistive device/personal items within reach clutter free environment maintained elopement precautions fall prevention program maintained Taken 06/26/2025 1000 by Sudha Frazire RN Safety Promotion/Fall Prevention: safety round/check completed activity supervised assistive device/personal items within reach clutter free environment maintained elopement precautions fall prevention program maintained Taken 06/26/2025 0800 by Sudha Frazier RN Safety Promotion/Fall Prevention: safety round/check completed activity supervised assistive device/personal items within reach clutter free environment maintained fall prevention program maintained Intervention: Prevent Skin Injury Recent Flowsheet Documentation Taken 06/26/2025 1400 by Sudha Frazier RN Body Position: weight shifting Taken 06/26/2025 1200 by Sudha Frazier RN Body Position: weight shifting Taken 06/26/2025 1000 by Sudha Frazier RN Body Position: weight shifting Taken 06/26/2025 0800 by Sudha Frazier RN Body Position: position changed independently Intervention: Prevent Infection Recent Flowsheet Documentation Taken 06/26/2025 1400 by Sudha Frazier RN Infection Prevention: hand hygiene promoted single patient room provided rest/sleep promoted Taken 06/26/2025 1200 by Sudha Frazier RN Infection Prevention: hand hygiene promoted single patient room provided rest/sleep promoted Taken 06/26/2025 1000 by Sudha Frazier RN Infection Prevention: hand hygiene promoted single patient room provided rest/sleep promoted Goal: Optimal Comfort and Wellbeing Outcome: Progressing Intervention: Provide Person-Centered Care Recent Flowsheet Documentation Taken 06/26/2025 1400 by Sudha Frazier RN Trust Relationship/Rapport: care explained choices provided questions answered questions encouraged thoughts/feelings acknowledged Taken 06/26/2025 1200 by Sudha Frazier RN Trust Relationship/Rapport: care explained choices provided questions answered questions encouraged thoughts/feelings acknowledged Taken 06/26/2025 1000 by Sudha Frazier RN Trust Relationship/Rapport: care explained choices provided questions answered questions encouraged thoughts/feelings acknowledged Taken 06/26/2025 0800 by Sudha Frazier RN Trust Relationship/Rapport: care explained choices provided questions answered reassurance provided thoughts/feelings acknowledged Goal: Readiness for Transition of Care Outcome: Progressing Problem: Fall Injury Risk Goal: Absence of Fall and Fall-Related Injury Outcome: Progressing Intervention: Identify and Manage Contributors Recent Flowsheet Documentation Taken 06/26/2025 1400 by Sudha Frazier RN Medication Review/Management: medications reviewed Taken 06/26/2025 1200 by Sudha Frazier RN Medication Review/Management: medications reviewed Taken 06/26/2025 1000 by Sudha Frazier RN Medication Review/Management: medications reviewed Taken 06/26/2025 0800 by Sudha Frazier RN Medication Review/Management: medications reviewed Intervention: Promote Injury-Free Environment Recent Flowsheet Documentation Taken 06/26/2025 1400 by Sudha Frazier RN Safety Promotion/Fall Prevention: safety round/check completed activity supervised assistive device/personal items within reach clutter free environment maintained elopement precautions fall prevention program maintained Taken 06/26/2025 1200 by Sudha Frazier RN Safety Promotion/Fall Prevention: safety round/check completed activity supervised assistive device/personal items within reach clutter free environment maintained elopement precautions fall prevention program maintained Taken 06/26/2025 1000 by Sudha Frazier RN Safety Promotion/Fall Prevention: safety round/check completed activity supervised assistive device/personal items within reach clutter free environment maintained elopement precautions fall prevention program maintained Taken 06/26/2025 0800 by Sudha Frazier RN Safety Promotion/Fall Prevention: safety round/check completed activity supervised assistive device/personal items within reach clutter free environment maintained fall prevention program maintained Problem: Pain Acute Goal: Optimal Pain Control and Function Outcome: Progressing Intervention: Optimize Psychosocial Wellbeing Recent Flowsheet Documentation Taken 06/26/2025 0800 by Sudha Frazier RN Diversional Activities: smartphone Intervention: Prevent or Manage Pain Recent Flowsheet Documentation Taken 06/26/2025 1400 by Sudha Frazier RN Medication Review/Management: medications reviewed Taken 06/26/2025 1200 by Sudha Frazier RN Medication Review/Management: medications reviewed Taken 06/26/2025 1000 by Sudha Frazier RN Medication Review/Management: medications reviewed Taken 06/26/2025 0800 by Sudha Frazier RN Medication Review/Management: medications reviewed Goal Outcome Evaluation: * Amber Guillory RN - 06/26/2025 6:36 AM EST Pt rested between care. VSS. NSR. Pt reports pain in head, PRNs given. Goal Outcome Evaluation: Plan of Care Reviewed With: patient, child * Jacquie Oneil RN - 06/25/2025 5:47 PM EST Goal Outcome Evaluation: Pt having better pain and nausea control this evening. Her H&H is stable at this time. Family at bedside and very attentive. She is tolerating a clear liquid diet. documented in this encounter Miscellaneous Notes * Case Management/Social Work - Lorenza Pop, RN - 06/27/2025 10:58 AM EST Case Management Discharge Note Final Note: I spoke with the pt and her spouse. The pt states she has access to a walker. She want[facility] do out[facility] PT at [facility]. I spoke with Nabila [phone] at outpt PT at this location and faxed her a referral to [phone]. They are familar with the pt. They will f/u with the pt regarding an appointment. The pt denies other DC needs at this time. Selected Continued Care - Admitted Since 06/25/2025 Destination No services have been selected for the patient. Durable Medical Equipment No services have been selected for the patient. Dialysis/Infusion No services have been selected for the patient. Home Medical Care No services have been selected for the patient. Therapy Service Provider Services Address Phone Fax Patient Preferred [facility] Outpatient Physical Therapy [facility] [address] [facility] [id number] -- Community & DME No services have been selected for the patient. Community Resources No active community resources. Final Discharge Disposition Code: 01 - home or self-care * Therapy Evaluation - Aileen Engel, PT - 06/27/2025 10:03 AM EST Images from the original note were not included. Patient Name: Lyla Diego : 1950 Today's Date: 06/27/2025 Admit Date: 06/25/2025 Visit Dx: No diagnosis found. Patient Active Problem List Diagnosis Carotid stenosis, left Moderate R ICA stenosis Hemochromatosis requiring phlebotomy Dyslipidemia Hypertension Former smoker Daily ETOH use History of left-sided carotid endarterectomy Acute posterior epistaxis Past Medical History: Diagnosis Date Anesthesia slow to awaken Cancer February 2024 Squamous carcinoma GERD (gastroesophageal reflux disease) Headache Hemochromatosis High grade L ICA stenosis 04/09/2021 Hyperlipidemia Wears contact lenses Wears glasses Past Surgical History: Procedure Laterality Date BACK SURGERY 2000 [place] L5/S1 CAROTID ENDARTERECTOMY Left 04/17/2021 Procedure: CAROTID ENDARTERECTOMY WITH EEG LEFT; Surgeon: Syd De La Cruz MD; [facility]; Service: Neurosurgery; Laterality: Left; COLONOSCOPY ECTOPIC 1975 FINGER SURGERY Left 2019 arthroplasty HYSTERECTOMY 1998 SQUAMOUS CELL CARCINOMA EXCISION 04/14/2024 General Information Row Name 06/27/25 0937 Physical Therapy Time and Intention Document Type evaluation -SD Mode of Treatment physical therapy -SD Row Name 06/27/25 0937 General Information Patient Profile Reviewed yes -SD Prior Level of Function independent:;all household mobility;community mobility;gait;transfer;ADL's;bed mobility;work;driving 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 Independent without use of assistive device. -SD Existing Precautions/Restrictions fall;other (see comments) epistaxis -SD Barriers to Rehab none identified -SD Row Name 06/27/25 0937 Living Environment Current Living Arrangements home -SD People in Home spouse -SD Row Name 06/27/25 0937 Home Main Entrance Number of Stairs, Main Entrance one -SD Row Name 06/27/25 0937 Stairs Within Home, Primary Stairs, Within Home, Primary 2-story home with basement. Bedroom on 2nd level. -SD Row Name 06/27/25 0937 Cognition Orientation Status (Cognition) oriented x 3 -SD Row Name 06/27/25 0937 Safety Issues/Impairments Affecting Functional Mobility Safety Issues Affecting Function (Mobility) awareness of need for assistance;insight into deficits/self-awareness;safety precautions follow- through/compliance -SD Impairments Affecting Function (Mobility) balance;pain -SD Comment, Safety Issues/Impairments (Mobility) negative for orthostatic hypotension this session -SD User Gamez (r) = Recorded By, (t) = Taken By, (c) = Cosigned By Initials Name Provider Type SD Aileen Engel, PT Physical Therapist Mobility Row Name 06/27/25 0943 Bed Mobility Comment, (Bed Mobility) UIC -SD Row Name 06/27/2543 Transfers Comment, (Transfers) pt able to stand from recliner with and without using UE's. Pt unsteady initially upon standing needing Kirsten to correct. -SD Row Name 06/27/25 0943 Sit-Stand Transfer Sit-Stand Mena (Transfers) contact guard;verbal cues -SD Row Name 06/27/25 0943 Gait/Stairs (Locomotion) Mena Level (Gait) minimum assist (75% patient effort);contact guard;1 person assist;verbal cues -SD Assistive Device (Gait) walker, front-wheeled;other (see comments) -SD Patient was able to Ambulate yes -SD Distance in Feet (Gait) 250 -SD Deviations/Abnormal Patterns (Gait) bilateral deviations;ataxic;gait speed decreased -SD Bilateral Gait Deviations decreased arm swing;weight shift ability decreased -SD Comment, (Gait/Stairs) Pt initially ambulating without assistive device, dem ataxia and unsteadiness, with UE's reaching out for furniture and llamas for support. Pt's balance improved with use of RW,although pt continued with slow gait speed. Pt would benefit from RW at d/c. -SD User Gamez (r) = Recorded By, (t) = Taken By, (c) = Cosigned By Initials Name Provider Type Aileen Porter PT Physical Therapist Obj/Interventions [facility] 06/27/25 0950 Range of Motion Comprehensive General Range of Motion no range of motion deficits identified -SD [facility] 06/27/25 0950 Strength Comprehensive (MMT) General Manual Muscle Testing (MMT) Assessment no strength deficits identified -[facility] 06/27/25 0950 Balance Balance Assessment sitting static balance;sitting dynamic balance;standing static balance;standing dynamic balance -SD Static Sitting Balance independent -SD Dynamic Sitting Balance supervision -SD Position, Sitting Balance unsupported;sitting in chair -SD Static Standing Balance contact guard -SD Dynamic Standing Balance minimal assist -SD Position/Device Used, Standing Balance unsupported -SD Balance Interventions sitting;standing;static;dynamic;dynamic reaching;narrowed base of support;weight shifting activity;eyes closed during activity -SD User Gamez (r) = Recorded By, (t) = Taken By, (c) = Cosigned By Initials Name Provider Type Aileen Porter PT Physical Therapist Goals/Plan Row Name 06/27/25 1000 Transfer Goal 1 (PT) Activity/Assistive Device (Transfer Goal 1, PT) [id number] Mena Level/Cues Needed (Transfer Goal 1, PT) independent -SD Time Frame (Transfer Goal 1, PT) short term goal (STG);3 days -SD Row Name 06/27/25 1000 Gait Training Goal 1 (PT) Activity/Assistive Device (Gait Training Goal 1, PT) gait (walking locomotion) -SD Mena Level (Gait Training Goal 1, PT) modified independence -SD Distance (Gait Training Goal 1, PT) 400 -SD Time Frame (Gait Training Goal 1, PT) short term goal (STG);3 days -SD Row Name 06/27/25 1000 Stairs Goal 1 (PT) Activity/Assistive Device (Stairs Goal 1, PT) ascending stairs;descending stairs -SD Mena Level/Cues Needed (Stairs Goal 1, PT) modified independence -SD Number of Stairs (Stairs Goal 1, PT) 12 -SD Time Frame (Stairs Goal 1, PT) fci goal (LTG);10 days -SD Row Name 06/27/25 1000 Therapy Assessment/Plan (PT) Planned Therapy Interventions (PT) balance training;bed mobility training;gait training;home exercise program;patient/family education;neuromuscular re- education;transfer training;strengthening;stairtraining -SD User Gamez (r) = Recorded By, (t) = Taken By, (c) = Cosigned By Initials Name Provider Type Aileen Porter, PT Physical Therapist Clinical Impression Row Name 06/27/25 0935 Pain Pretreatment Pain Rating 3/10 -SD Posttreatment Pain Rating 3/10 -SD Pain Location head -SD Pain Management Interventions nursing notified -SD Response to Pain Interventions no change per patient report -SD Row Name 06/27/25 0956 Plan of Care Review Plan of Care Reviewed With patient;spouse -SD Outcome Evaluation Pt s/p recent eustacian tube dilation followed by episode of epistaxis, dizziness, weakness, and nausea. Pt presents with ataxic gait, impaired balance, and difficutly walking and is below baseline level of function for mobility. Orthostatic BP's assessed and were negative for orthostatic hypotension this date. Pt's gait assessed without use of asstive device, with patient dem ataxia, several LOB, and reaching out for llamas and furniture for support. Pt's balance and safety improved with use of RW, although continued with slow speed. Pt scored an 18/28 on the Tinetti Balance and Gait Assessment indicating she is at a HIGH RISK falls. Pt will benefit from IPPT services to a ddress limitations. PT rec d/c home with RW and outpatient PT. -SD Row Name 06/27/2551 Therapy Assessment/Plan (PT) Patient/Family Therapy Goals Statement (PT) return home -SD Rehab Potential (PT) good -SD Criteria for Skilled Interventions Met (PT) yes;skilled treatment is necessary -SD Therapy Frequency (PT) daily -SD Predicted Duration of Therapy Intervention (PT) 10 days -SD Row Name 06/27/2551 Vital Signs Pre Systolic BP Rehab 112 -SD Pre Treatment Diastolic BP 55 -SD Intra Systolic BP Rehab 116 -SD Intra Treatment Diastolic BP 60 -SD Post Systolic BP Rehab 127 -SD Post Treatment Diastolic BP 55 -SD Pretreatment Heart Rate (beats/min) 99 -SD Post SpO2 (%) 100 -SD O2 Delivery Post Treatment room air -SD Pre Patient Position Supine -SD Intra Patient Position Sitting -SD Post Patient Position Standing -SD Row Name 06/27/2551 Positioning and Restraints Pre-Treatment Position sitting in chair/recliner -SD Post Treatment Position chair -SD In Chair notified nsg;reclined;call light within reach;encouraged to call for assist;exit alarm on;with family/caregiver;waffle cushion -SD User Gamez (r) = Recorded By, (t) = Taken By, (c) = Cosigned By Initials Name Provider Type Aileen Porter, PT Physical Therapist Outcome Measures Row Name 06/27/2556 How much help from another person do you currently need... Turning from your back to your side while in flat bed without using bedrails? 4 -SD Moving from lying on back to sitting on the side of a flat bed without bedrails? 4 -SD Moving to and from a bed to a chair (including a wheelchair)? 3 -SD Standing up from a chair using your arms (e.g., wheelchair, bedside chair)? 3 -SD Climbing 3-5 steps with a railing? 3 -SD To walk in hospital room? 3 -SD AM-PAC 6 Clicks Score (PT) 20 -SD Highest Level of Mobility Goal Walk 10 Steps or More-6 -SD Row Name 06/27/2556 Tinetti Assessment Tinetti Assessment yes -SD Sitting Balance 1 -SD Arises 2 -SD Attempts to Rise 2 -SD Immediate Standing Balance (first 5 sec) 0 -SD Standing Balance 2 -SD Sternal Nudge (feet close together) 2 -SD Eyes Closed (feet close together) 1 -SD Turning 360 Degrees- Steps 1 -SD Turning 360 Degrees- Steadiness 1 -SD Sitting Down 2 -SD Tinetti Balance Score 14 -SD Gait Initiation (immediate after told go ) 0 -SD Step Length- Right Swing 1 -SD Step Length- Left Swing 1 -SD Foot Clearance- Right Foot 1 -SD Foot Clearance- Left Foot 1 -SD Step Symmetry 0 -SD Step Continuity 0 -SD Path (excursion) 0 -SD Trunk 0 -SD Base of Support 0 -SD Gait Score 4 -SD Tinetti Total Score 18 -SD Tinetti Assessment Comments Tinetti score 18/28 = high risk for falls -SD Row Name 06/27/25 0956 Functional Assessment Outcome Measure Options AM-PAC 6 Clicks Basic Mobility (PT);Tinetti -SD User Gamez (r) = Recorded By, (t) = Taken By, (c) = Cosigned By Initials Name Provider Type SD Aileen Engel PT Physical Therapist Physical Therapy Education Title: PT OT REIMBURSEMENT ANALYST Therapies (Done) Topic: Physical Therapy (Done) Point: Mobility training (Done) Learning Progress Summary Patient Acceptance, E, VU by SD at 06/27/2025 1001 Significant Other Acceptance, E, VU by SD at 06/27/2025 1001 Point: Home exercise program (Done) Learning Progress Summary Patient Acceptance, E, VU by SD at 06/27/2025 1001 Significant Other Acceptance, E, VU by SD at 06/27/2025 1001 Point: Body mechanics (Done) Learning Progress Summary Patient Acceptance, E, VU by SD at 06/27/2025 1001 Significant Other Acceptance, E, VU by SD at 06/27/2025 1001 Point: Precautions (Done) Learning Progress Summary Patient Acceptance, E, VU by SD at 06/27/2025 1001 Significant Other Acceptance, E, VU by SD at 06/27/2025 1001 User Gamez Initials Effective Dates Name Provider Type Discipline SD 10/21/22 - Aileen Engel PT Physical Therapist PT PT Recommendation and Plan Recommended discharge disposition is based on the functional assessment performed by PT/OT/Speech therapy (as applicable) and may not reflect the medical necessity determined by your provider or services covered by an individual patient's insurance plan or patient resource. Planned Therapy Interventions (PT): balance training, bed mobility training, gait training, home exercise program, patient/family education, neuromuscular re-education, transfer training, strengthening, stair training Therapy Frequency (PT): daily Outcome Evaluation: Pt s/p recent eustacian tube dilation followed by episode of epistaxis, dizziness, weakness, and nausea. Pt presents with ataxic gait, impaired balance, and difficutly walking andis below baseline level of function for mobility. Orthostatic BP's assessed and were negative for orthostatic hypotension this date. Pt's gait assessed without use of asstive device, with patient demataxia, several LOB, and reaching out for llamas and furniture for support. Pt's balance and safety improved with use of RW, although continued with slow speed. Pt scored an 18/28 on the Tinetti Balance and Gait Assessment indicating she is at a HIGH RISK falls. Pt will benefit from IPPT services to address limitations. PT rec d/c home with RW and outpatient PT. Time Calculation: PT Evaluation Complexity History, PT Evaluation Complexity: 3 or more personal factors and/or comorbidities Examination of Body Systems (PT Eval Complexity): total of 4 or more elements Clinical Presentation (PT Evaluation Complexity): evolving Clinical Decision Making (PT Evaluation Complexity): moderate complexity Overall Complexity (PT Evaluation Complexity): moderate complexity PT Charges Row Name 06/27/25 1002 Time Calculation Start Time 0845 -SD PT Non-Billable Time (min) 74 min -SD PT Received On 06/27/25 -SD PT Goal Re-Cert Due Date 07/07/25 -SD User Gamez (r) = Recorded By, (t) = Taken By, (c) = Cosigned By Initials Name Provider Type Aileen Porter PT Physical Therapist Therapy Charges for Today Code Description Service Date Service Provider Modifiers Qty [id number] HC-PT EVAL MOD COMPLEXITY 5 06/27/2025 Aileen Engel PT 1 PT G-Codes Outcome Measure Options: AM-PAC 6 Clicks Basic Mobility (PT), Tinetti AM-PAC 6 Clicks Score (PT): 20 Tinetti Total Score: 18 PT Discharge Summary Anticipated Discharge Disposition (PT): home with assist, home with outpatient therapy services Aileen Engel PT 06/27/2025 * Therapy Evaluation - Carmela Santacruz, OT - 06/27/2025 8:53 AM EST Images from the original note were not included. Patient Name: Lyla Diego : 1950 Today's Date: 06/27/2025 Admit Date: 06/25/2025 Visit Dx: ICD-10-CM ICD-9-CM 1. Acute posterior epistaxis R04.0 784.7 2. Carotid stenosis, left I65.22 433.10 3. History of left-sided carotid endarterectomy Z98.890 V45.89 4. Primary hypertension I10 401.9 5. Moderate R ICA stenosis I65.21 433.10 Patient Active Problem List Diagnosis Carotid stenosis, left Moderate R ICA stenosis Hemochromatosis requiring phlebotomy Dyslipidemia Hypertension Former smoker Daily ETOH use History of left-sided carotid endarterectomy Acute posterior epistaxis Past Medical History: Diagnosis Date Anesthesia slow to awaken Cancer February 2024 Squamous carcinoma GERD (gastroesophageal reflux disease) Headache Hemochromatosis High grade L ICA stenosis 04/09/2021 Hyperlipidemia Wears contact lenses Wears glasses Past Surgical History: Procedure Laterality Date BACK SURGERY 2000 [place] L5/S1 CAROTID ENDARTERECTOMY Left 04/17/2021 Procedure: CAROTID ENDARTERECTOMY WITH EEG LEFT; Surgeon: Syd De La Cruz MD; [facility]; Service: Neurosurgery; Laterality: Left; COLONOSCOPY ECTOPIC 1975 FINGER SURGERY Left 2019 arthroplasty HYSTERECTOMY 1998 SQUAMOUS CELL CARCINOMA EXCISION 04/14/2024 General Information Row Name 06/27/25 1019 OT Time and Intention Document Type evaluation -JY Mode of Treatment occupational therapy -JY Row Name 06/27/25 1019 General Information Patient Profile Reviewed yes -JY Prior Level of Function independent:;all household mobility;community mobility;gait;transfer;bed mobility;ADL's;feeding;grooming;dressing;bathing;home management;cooking;cleaning;driving I in all ADLs, IADLs, related t/fs and mobility w/o use of AD; 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; actively driving; denies any falls in last 6 months -JY Existing Precautions/Restrictions fall;other (see comments) epistaxis w/ paced B nares, monitor BP w/ recent orthostasis -JY Barriers to Rehab none identified -JY Row Name 06/27/25 1019 Occupational Profile Environmental Supports and Barriers (Occupational Profile) tub/shower combo w/ pt preference to getin tub, elevated toilet height, DME: no AD at baseline, recommend FWW at d/c -JY Patient Goals (Occupational Profile) to return to PLOF -JY Row Name 06/27/25 1019 Living Environment Current Living Arrangements home -JY People in Home spouse able to assist as needed -JY Row Name 06/27/25 1019 Home Main Entrance Number of Stairs, Main Entrance one -JY Stair Railings, Main Entrance none -JY Row Name 06/27/25 1019 Stairs Within Home, Primary Stairs, Within Home, Primary 2 story home w/ basement, bedroom and preferred bathroom on 2nd floor -JY Number of Stairs, Within Home, Primary other (see comments) flight -JY Stair Railings, Within Home, Primary railing on left side (ascending) -JY Row Name 06/27/25 1019 Cognition Orientation Status (Cognition) oriented x 3 -JY Row Name 06/27/25 1019 Safety Issues/Impairments Affecting Functional Mobility Safety Issues Affecting Function (Mobility) awareness of need for assistance;insight into deficits/self-awareness;safety precaution awareness -JY Impairments Affecting Function (Mobility) balance;pain -JY Comment, Safety Issues/Impairments (Mobility) alert and able to follow commands; negatie for orthostatic hypotension this session; unsteady upon standing and after initial stepping and during mobility w/o AD -JY User Gamez (r) = Recorded By, (t) = Taken By, (c) = Cosigned By Initials Name Provider Type Carmela Bullard, OT Occupational Therapist Mobility/ADL's Row Name 06/27/25 1120 Bed Mobility Comment, (Bed Mobility) recevied [facility] upon OT arrival, preferred to remain OOB after OT interventions therefore no bed mobility assessed this date -JY Row Name 06/27/25 1120 Transfers Transfers sit-stand transfer;stand-sit transfer -JY Comment, (Transfers) cues for optimal hand placement for controlled ascend, descend specifically topush up from seated surface, to reach back prior to sitting once aligned and in close proximity to seated surface; pt demonstsrated good return of hand placement and seq, able to stand without use ofUEs, unsteady upon initial standing w/ need for min A to correct -ARBEN Row Name 06/27/25 1120 Sit-Stand Transfer Sit-Stand Mena (Transfers) contact guard;verbal cues -JY Assistive Device (Sit-Stand Transfers) other (see comments) no AD used -ARBEN Row Name 06/27/25 1120 Stand-Sit Transfer Stand-Sit Mena (Transfers) contact guard;verbal cues -JY Assistive Device (Stand-Sit Transfers) other (see comments) no AD used -ARBEN Row Name 06/27/25 1120 Functional Mobility Functional Mobility- Ind. Level minimum assist (75% patient effort);verbal cues required -JY Functional Mobility- Device other (see comments);walker, front-wheeled initially no AD used, later trialled FWW after unsteadiness and LOB -JY Functional Mobility-Distance (Feet) -- in room and on unit ADL, IADL simulated mobility -JY Functional Mobility- Comment defer to PT for specifics, however during in room ADL and on unit IADLrelated/simulated mobility pt req'd gross min A w/o AD use and instances of CGA with AD use; pt unsteady upon initial standing and had LOB to R side after first few steps and sought UE support duringfurther mobility; denied any dizziness or feeling LH w/ movement; balance improved with use of AD -JY Patient was able to Ambulate yes -ARBEN Row Name 06/27/25 1120 Activities of Daily Living BADL Assessment/Intervention upper body dressing;lower body dressing;grooming -ARBEN Row Name 06/27/25 112 Upper Body Dressing Assessment/Training Mena Level (Upper Body Dressing) doff;don;pull-over garment;other (see comments) anticipateneed for SBA for close monitoring of mgmt over head w/ nares packed -JY Comment, (Upper Body Dressing) pt already with UB and LB clothing donned, based on skill set and observation, anticipate SBA for overhead garments for close monitoring of packed nares -ARBEN Row Name 06/27/25 1120 Lower Body Dressing Assessment/Training Mena Level (Lower Body Dressing) doff;don;socks;shoes/slippers;standby assist -JY Position (Lower Body Dressing) unsupported sitting -JY Comment, (Lower Body Dressing) no physical A for d/d socks and shoes, pt able to demo forward flexion reaching toward feet and ability to bring LEs upward to more proximal reach; denied any dizzinessor feeling LH with postition change -JY [facility] Name 06/27/25 1120 Grooming Assessment/Training Mena Level (Grooming) wash face, hands;set up -JY Position (Grooming) supported sitting -JY User Gamez (r) = Recorded By, (t) = Taken By, (c) = Cosigned By Initials Name Provider Type Carmela Bullard OT Occupational Therapist Obj/Interventions [facility] Name 06/27/25 1130 Sensory Assessment (Somatosensory) Sensory Assessment (Somatosensory) bilateral UE;sensation intact -J Bilateral UE Sensory Assessment general sensation;light touch awareness;intact -JY Sensory Assessment denies any numbness or tingling and able to recognize LT stimuli as intact and symmetrical at BUEs -[facility] Name 06/27/25 1130 Vision Assessment/Intervention Vision Assessment Comment no acute changes to vision -[facility] 06/27/25 1130 Range of Motion Comprehensive General Range of Motion bilateral upper extremity ROM WFL -[facility] 06/27/25 1130 Strength Comprehensive (MMT) General Manual Muscle Testing (MMT) Assessment upper extremity strength deficits identified -JY Comment, General Manual Muscle Testing (MMT) Assessment BUE MMS grossly 4+/5 per MMT; LUE slightly weaker than R w/ remote deficits -JY [facility] 06/27/25 1130 Motor Skills Motor Skills functional endurance;coordination -JY Coordination bilateral;upper extremity;finger to nose;other (see comments);WFL finger thumb opposition -JY Functional Endurance decreased activity tolerance toward more dynamic demands -[facility] 06/27/25 1130 Balance Balance Assessment sitting static balance;sitting dynamic balance;standing static balance;standing dynamic balance -JY Static Sitting Balance independent -JY Dynamic Sitting Balance supervision -JY Position, Sitting Balance unsupported;sitting in chair -JY Static Standing Balance contact guard -JY Dynamic Standing Balance minimal assist;verbal cues -JY Position/Device Used, Standing Balance unsupported;supported -JY Balance Interventions sitting;standing;static;dynamic;sit to stand;supported;occupation based/functional task -JY Comment, Balance unsteady upon initial standing, LOB to R side after initial 2-3 steps away from recliner and during mobility -JY User Gamez (r) = Recorded By, (t) = Taken By, (c) = Cosigned By Initials Name Provider Type Carmela Bullard OT Occupational Therapist Goals/Plan Row Name 06/27/25 1145 Transfer Goal 1 (OT) Activity/Assistive Device (Transfer Goal 1, OT) mje-jr-jqmag/yiqmp-ro-ptr;[id number]-ea-eexoz/meqqz-cn-vdh;commode;walker, rolling -JY Mena Level/Cues Needed (Transfer Goal 1, OT) standby assist;verbal cues required -JY Time Frame (Transfer Goal 1, OT) fci goal (LTG);4 days -JY Progress/Outcome (Transfer Goal 1, OT) new goal -JY Row Name 06/27/25 1145 Dressing Goal 1 (OT) Activity/Device (Dressing Goal 1, OT) upper body dressing;lower body dressing -JY Mena/Cues Needed (Dressing Goal 1, OT) supervision required;verbal cues required -JY Time Frame (Dressing Goal 1, OT) fci goal (LTG);4 days -JY Progress/Outcome (Dressing Goal 1, OT) new goal -JY Row Name 06/27/25 1145 Toileting Goal 1 (OT) Activity/Device (Toileting Goal 1, OT) adjust/manage clothing;perform perineal hygiene;commode;commode, bedside without drop arms;grab bar/safety frame;raised toilet seat -JY Mena Level/Cues Needed (Toileting Goal 1, OT) supervision required -JY Time Frame (Toileting Goal 1, OT) vermin exterminator goal (LTG);4 days -JY Progress/Outcome (Toileting Goal 1, OT) new goal -ApartamaY Row Name 06/27/25 1145 Strength Goal 1 (OT) Strength Goal 1 (OT) Pt to complete seated HEP encompassing BUEs targeting strength and endurance with progressive sets/reps/resistance in order to improve integration in ADLs, related t/fs and mobility as appropriate -JY Time Frame (Strength Goal 1, OT) short term goal (STG);3 days -JY Progress/Outcome (Strength Goal 1, OT) new goal -JY Row Name 06/27/25 1145 Therapy Assessment/Plan (OT) Planned Therapy Interventions (OT) activity tolerance training;adaptive equipment training;BADL retraining;functional balance retraining;occupation/activity based interventions;patient/caregiver educa tion/training;ROM/therapeutic exercise;strengthening exercise;transfer/mobility retraining -JY User Gamez (r) = Recorded By, (t) = Taken By, (c) = Cosigned By Initials Name Provider Type Carmela Bullard OT Occupational Therapist Clinical Impression Row Name 06/27/25 1133 Pain Assessment Pretreatment Pain Rating 10/18 -JY Posttreatment Pain Rating 10/18 -JY Pain Location head -JY Pain Side/Orientation generalized -JY Pain Management Interventions activity modification encouraged;exercise or physical activity utilized;nursing notified -JY Response to Pain Interventions no change per patient report -JY Pre/Posttreatment Pain Comment persistent rating of pain throughout, did not overtly limit pt in OTinterventions -JY Row Name 06/27/25 1133 Plan of Care Review Plan of Care Reviewed With patient;spouse -JY Progress no change OT IE -JY Outcome Evaluation OT evaluation completed. Pt presents w/ recent eustacian tube dilation followed by epistaxis, weakness, nausea and dizziness. Currently pt presents with decreased I in ADLs, related t/fs and mobility limited by decreased activity tolerance, imparied balance, mild muscle weakness at BUEs, fatigue with more dynamic demands and persistent h/a pain. OT assisted in obtaining BP for orthostatic assessment which were negative this date, see specifics in vitals section. Pt req'd gross CGA for fxl t/fs and upward of min A during fxl mobility when without AD with unsteadiness noted upon standing and during mobility with one notable LOB to R side after 2-3 steps away from recliner. Pt denied any dizziness or feeling LH. Pt demonstrated improved balance when AD used prompting recs for use. Pt req'd spv to SBA for face/hand hygiene and socks and shoes mgmt while seated, anticipateSBA for UBD. Pt is at increased risk for falls when standing for standing components of ADLs. Pt would benefit from IPOT POC and home w/ A and use of Rwx and OPPT at d/c when medically ready. -JY Row Name 06/27/25 1133 Therapy Assessment/Plan (OT) Patient/Family Therapy Goal Statement (OT) to return to PLOF -JY Rehab Potential (OT) good -JY Criteria for Skilled Therapeutic Interventions Met (OT) yes;skilled treatment is necessary -JY Therapy Frequency (OT) daily -JY Predicted Duration of Therapy Intervention (OT) 5 days -JY Row Name 06/27/25 1133 Therapy Plan Review/Discharge Plan (OT) Anticipated Discharge Disposition (OT) home with assist;home with outpatient therapy services;other(see comments) OPPT -JY Row Name 06/27/25 1133 Vital Signs Pre Systolic BP Rehab 112 -JY Pre Treatment Diastolic BP 55 -JY Intra Systolic BP Rehab 116 -JY Intra Treatment Diastolic BP 60 -JY Post Systolic BP Rehab 125 -JY Post Treatment Diastolic BP 60 127/53 once returned to sitting and reclined -JY Pretreatment Heart Rate (beats/min) 91 -JY Intratreatment Heart Rate (beats/min) 92 -JY Posttreatment Heart Rate (beats/min) 78 -JY O2 Delivery Pre Treatment room air -JY O2 Delivery Intra Treatment room air -JY Post SpO2 (%) 100 -JY O2 Delivery Post Treatment room air -JY Pre Patient Position Supine -JY Intra Patient Position Sitting -JY Post Patient Position Standing -JY Row Name 06/27/25 1133 Positioning and Restraints Pre-Treatment Position sitting in chair/recliner -JY Post Treatment Position chair -JY In Chair notified nsg;reclined;call light within reach;encouraged to call for assist;exit alarm on;with family/caregiver;waffle cushion;legs elevated -JY User Gamez (r) = Recorded By, (t) = Taken By, (c) = Cosigned By Initials Name Provider Type Carmela Bullard, ETHAN Occupational Therapist Outcome Measures Row Name 06/27/25 1148 How much help from another is currently needed... Putting on and taking off regular lower body clothing? 3 -JY Bathing (including washing, rinsing, and drying) 3 -JY Toileting (which includes using toilet bed robison or urinal) 3 -JY Putting on and taking off regular upper body clothing 3 -JY Taking care of personal grooming (such as brushing teeth) 4 -JY Eating meals 4 -JY AM-PAC 6 Clicks Score (OT) 20 -JY Row Name 06/27/25 0956 06/27/25 0800 How much help from another person do you currently need... Turning from your back to your side while in flat bed without using bedrails? 4 -SD 4 -CH Moving from lying on back to sitting on the side of a flat bed without bedrails? 4 -SD 4 -CH Moving to and from a bed to a chair (including a wheelchair)? 3 -SD 3 -CH Standing up from a chair using your arms (e.g., wheelchair, bedside chair)? 3 - SD 3 -CH Climbing 3-5 steps with a railing? 3 -SD 3 -CH To walk in hospital room? 3 -SD 3 -CH AM-PAC 6 Clicks Score (PT) 20 -SD 20 -CH Highest Level of Mobility Goal Walk 10 Steps or More-6 -SD Walk 10 Steps or More-6 -CH Row Name 06/27/25 1148 06/27/25 0956 Functional Assessment Outcome Measure Options AM-PAC 6 Clicks Daily Activity (OT) -JY AM-PAC 6 Clicks Basic Mobility (PT);Tinetti -SD User Gamez (r) = Recorded By, (t) = Taken By, (c) = Cosigned By Initials Name Provider Type Aileen Porter, PT Physical Therapist Carmela Bullard, OT Occupational Therapist Jacklyn Cee, RN Registered Nurse Occupational Therapy Education Title: PT OT REIMBURSEMENT ANALYST Therapies (In Progress) Topic: Occupational Therapy (In Progress) Point: ADL training (In Progress) Learning Progress Summary Patient Acceptance, E,D, NR by ARBEN at 06/27/2025852 Family Acceptance, E,D, NR by ARBEN at 06/27/2025852 Point: Precautions (In Progress) Learning Progress Summary Patient Acceptance, E,D, NR by ARBEN at 06/27/2025852 Family Acceptance, E,D, NR by ARBEN at 06/27/2025852 Point: Body mechanics (In Progress) Learning Progress Summary Patient Acceptance, E,D, NR by ARBEN at 06/27/2025 0853 Family Acceptance, E,D, NR by ARBEN at 06/27/2025 0853 User Gamez Initials Effective Dates Name Provider Type Discipline ARBEN 01/24/21 - Carmela Santacruz, OT Occupational Therapist OT OT Recommendation and Plan Recommended discharge disposition is based on the functional assessment performed by PT/OT/Speech therapy (as applicable) and may not reflect the medical necessity determined by your provider or services covered by an individual patient's insurance plan or patient resource. Planned Therapy Interventions (OT): activity tolerance training, adaptive equipment training, BADL retraining, functional balance retraining, occupation/activity based interventions, patient/caregiver education/training, ROM/therapeutic exercise, strengthening exercise, transfer/mobility retraining Therapy Frequency (OT): daily Plan of Care Review Plan of Care Reviewed With: patient, spouse Progress: no change (OT IE) Outcome Evaluation: OT evaluation completed. Pt presents w/ recent eustacian tube dilation followedby epistaxis, weakness, nausea and dizziness. Currently pt presents with decreased I in ADLs, related t/fs and mobility limited by decreased activity tolerance, imparied balance, mild muscle weaknessat BUEs, fatigue with more dynamic demands and persistent h/a pain. OT assisted in obtaining BP fororthostatic assessment which were negative this date, see specifics in vitals section. Pt req'd gross CGA for fxl t/fs and upward of min A during fxl mobility when without AD with unsteadiness noted upon standing and during mobility with one notable LOB to R side after 2-3 steps away from recliner.Pt denied any dizziness or feeling LH. Pt demonstrated improved balance when AD used prompting recsfor use. Pt req'd spv to SBA for face/hand hygiene and socks and shoes mgmt while seated, anticipate SBA for UBD. Pt is at increased risk for falls when standing for standing components of ADLs. Pt would benefit from IPOT POC and home w/ A and use of Rwx and OPPT at d/c when medically ready. Time Calculation: Evaluation Complexity (OT) Review Occupational Profile/Medical/Therapy History Complexity: expanded/moderate complexity Assessment, Occupational Performance/Identification of Deficit Complexity: 3-5 performance deficits Clinical Decision Making Complexity (OT): detailed assessment/moderate complexity Overall Complexity of Evaluation (OT): moderate complexity Time Calculation- OT Row Name 06/27/25 1150 Time Calculation- OT OT Start Time 0853 -JY OT Received On 06/27/25 -JY OT Goal Re-Cert Due Date 07/07/25 -JY Untimed Charges OT Eval/Re-eval Minutes 70 -JY Total Minutes Untimed Charges Total Minutes 70 -JY Total Minutes 70 -JY User Gamez (r) = Recorded By, (t) = Taken By, (c) = Cosigned By Initials Name Provider Type Carmela Bullard OT Occupational Therapist Therapy Charges for Today Code Description Service Date Service Provider Modifiers Qty [id number] HC-OT EVAL MOD COMPLEXITY 5 06/27/2025 Carmela Santacruz OT 1 Carmela Santacruz OT 06/27/2025 documented in this encounter Plan of Treatment Upcoming Encounters Date Type Department Care Team (Late st Contact Info) Description 07/19/2025 10:00 AM EST Appointment [facility] [address] [facility] [address] [place] [id number] 07/19/2025 11:15 AM EST Office Visit [facility] [address] [facility] [address] [place] [id number] Ky Lai MD [address] [facility] [address] [place] [address] Scheduled Referrals Name Type Priority Associated Diagnoses Order Schedule Ambulatory Referral to Physical Therapy for Evaluation & Treatment Outpatient Referral Routine Acute posterior epistaxis Carotid stenosis, left History of left-sided carotid endarterectomy Primary hypertension Moderate R ICA stenosis Ordered: 06/27/2025 documented as of this encounter Procedures Procedure Name Priority Date/Time Associated Diagnosis Comments CBC (NO DIFF) Urgent 06/27/2025 5:31 AM EST BASIC METABOLIC PANEL Urgent 06/27/2025 5:31 AM EST SCANNED - TELEMETRY 06/27/2025 1 2:14 AM EST HEMOGLOBIN AND HEMATOCRIT, BLOOD Urgent 06/26/2025 8:06 PM EST SCANNED - TELEMETRY 06/26/2025 1 :40 PM EST HEMOGLOBIN AND HEMATOCRIT, BLOOD Timed 06/26/2025 6:05 AM EST HEMOGLOBIN AND HEMATOCRIT, BLOOD Timed 06/26/2025 1:03 AM EST HEMOGLOBIN AND HEMATOCRIT, BLOOD Timed 06/25/2025 5:16 PM EST HEMOGLOBIN AND HEMATOCRIT, BLOOD Timed 06/25/2025 11:57 AM EST HEMOGLOBIN AND HEMATOCRIT, BLOOD Timed 06/25/2025 9:27 AM EST SCANNED - TELEMETRY 06/25/2025 8 :04 AM EST [facility] 2ND SPECIMEN VERIFICATION STAT 06/25/2025 4:28 AM EST HEMOGLOBIN AND HEMATOCRIT, BLOOD Timed 06/25/2025 4:28 AM EST CBC (NO DIFF) STAT 06/25/2025 1:51 AM EST TYPE AND SCREEN Urgent 06/25/2025 1:51 AM EST PROTIME-INR STAT 06/25/2025 1:50 AM EST MAGNESIUM STAT 06/25/2025 1:50 AM EST COMPREHENSIVE METABOLIC PANEL STAT 06/25/2025 1:50 AM EST documented in this encounter Results * (ABNORMAL) Basic Metabolic Panel (06/27/2025 5:31 AM EST) [facility] Glucose 102(H) 65 - 99 mg/dL 06/27/2025 6:32 AM EST [facility] BUN 8.7 8.0 - 23.0 mg/dL 06/27/2025 6:32 AM EST [facility] Creatinine 0.77 0.57 - 1.00 mg/dL 06/27/2025 6:32 AM EST [facility] Sodium 141 136 - 145 mmol/L 06/27/2025 6:32 AM EST [facility] Potassium 3.7 3.5 - 5.2 mmol/L 06/27/2025 6:32 AM EST [facility] Chloride 109(H) 98 - 107 mmol/L 06/27/2025 6:32 AM EST [facility] CO2 25.3 22.0 - 29.0 mmol/L 06/27/2025 6:32 AM [facility] Calcium 9.1 8.6 - 10.5 mg/dL 06/27/2025 6:32 AM [facility] BUN/Creatinine Ratio 11.3 7.0 - 25.0 06/27/2025 6:32 AM [facility] Anion Gap 6.7 5.0 - 15.0 mmol/L 06/27/2025 6:32 AM [facility] eGFR 81.6 >60.0 mL/min/1.7 3 06/27/2025 6:32 AM [facility] Blood Venipuncture / Unknown 06/27/2025 5:31 AM EST 06/27/2025 6:03 AM EST [facility] - 06/27/2025 6:32 AM EST GFR Categories in Chronic Kidney Disease (CKD) GFR Category GFR (mL/min/1.73) Interpretation G1 90 or greater Normal or high (1) G2 60-89 Mild decrease (1) G3a 45-59 Mild to moderate decrease G3b 30-44 Moderate to severe decrease G4 15-29 Severe decrease G5 14 or less Kidney failure (1)In the absence of evidence of kidney disease, neither GFR category G1 or G2 fulfill the criteria for CKD. eGFR calculation 2020 CKD-EPI creatinine equation, which does not include race as a factor us Duane Scott MD LAB BLOOD ORDERABLES Final Result [facility]
[address] [place] [address], * (ABNORMAL) CBC (No Diff) (06/27/2025 5:31 AM EST) WBC 5.93 3.40 - 10.80 10*3/mm3 06/27/2025 6:29 AM EST [facility] RBC 2.82(L) 3.77 - 5.28 10*6/mm3 06/27/2025 6:29 AM EST [facility] Hemoglobin 9.1(L) 12.0 - 15.9 g/dL 06/27/2025 6:29 AM EST [facility] Hematocrit 28.0(L) 34.0 - 46.6 % 06/27/2025 6:29 AM [facility] MCV 99.3(H) 79.0 - 97.0 fL 06/27/2025 6:29 AM EST [facility] MCH 32.3 26.6 - 33.0 pg 06/27/2025 6:29 AM [facility] MCHC 32.5 31.5 - 35.7 g/dL 06/27/2025 6:29 AM EST [facility] RDW 13.6 12.3 - 15.4 % 06/27/2025 6:29 AM [facility] RDW-SD 49.7 37.0 - 54.0 fl 06/27/2025 6:29 AM [facility] MPV 12.2(H) 6.0 - 12.0 fL 06/27/2025 6:29 AM [facility] Platelets 176 140 - 450 10*3/mm3 06/27/2025 6:29 AM [facility] Blood Venipuncture / Unknown 06/27/2025 5:31 AM EST 06/27/2025 6:23 AM EST us Duane Scott MD LAB BLOOD ORDERABLES Final Result [facility]
[address] [place] [address], * Telemetry Scan (06/27/2025 12:14 AM EST) [facility] ECG ORDERABLES Final Result * (ABNORMAL) Hemoglobin & Hematocrit, Blood (06/26/2025 8:06 PM EST) Hemoglobin 9.4(L) 12.0 - 15.9 g/dL 06/26/2025 8:20 PM EST [facility] Hematocrit 28.6(L) 34.0 - 46.6 % 06/26/2025 8:20 PM EST [facility] Blood Venipuncture / Unknown 06/26/2025 8:06 PM EST 06/26/2025 8:18 PM EST Duane Scott MD LAB BLOOD ORDERABLES Final Result [facility]
[address] [place] [address], * Telemetry Scan (06/26/2025 1:40 PM EST) [facility] ECG ORDERABLES Final Result * (ABNORMAL) Hemoglobin & Hematocrit, Blood (06/26/2025 6:05 AM EST) Hemoglobin 10.6(L) 12.0 - 15.9 g/dL 06/26/2025 6:39 AM EST [facility] Hematocrit 32.2(L) 34.0 - 46.6 % 06/26/2025 6:39 AM EST [facility] Blood Venipuncture / Unknown 06/26/2025 6:05 AM EST 06/26/2025 6:32 AM EST Duane Scott MD LAB BLOOD ORDERABLES Final Result [facility]
[address] [place] [address], * (ABNORMAL) Hemoglobin & Hematocrit, Blood (06/26/2025 1:03 AM EST) Hemoglobin 9.3(L) 12.0 - 15.9 g/dL 06/26/2025 1:17 AM EST [facility] Hematocrit 27.5(L) 34.0 - 46.6 % 06/26/2025 1:17 AM EST [facility] Blood Venipuncture / Unknown 06/26/2025 1:03 AM EST 06/26/2025 1:14 AM EST Duane Scott MD LAB BLOOD ORDERABLES Final Result Performing Organization Address City/[facility]/ZIP Co de Phone Number [facility]
[address] [place] [address], * (ABNORMAL) Hemoglobin & Hematocrit, Blood (06/25/2025 5:16 PM EST) Hemoglobin 10.4(L) 12.0 - 15.9 g/dL 06/25/2025 5:37 PM EST [facility] Hematocrit 30.9(L) 34.0 - 46.6 % 06/25/2025 5:37 PM EST [facility] Blood Venipuncture / Unknown 06/25/2025 5:16 PM EST 06/25/2025 5:32 PM EST Duane Scott MD LAB BLOOD ORDERABLES Final Result [facility]
[address] [place] [address], * (ABNORMAL) Hemoglobin & Hematocrit, Blood (06/25/2025 11:57 AM EST) Hemoglobin 10.4(L) 12.0 - 15.9 g/dL 06/25/2025 12:17 PM EST [facility] Hematocrit 31.2(L) 34.0 - 46.6 % 06/25/2025 12:17 PM EST [facility] Blood Venipuncture / Unknown 06/25/2025 11:57 AM EST 06/25/2025 12:13 PM EST Reynaldo Arndt III, DO LAB BLOOD ORDERAB LES Final Result Performing Organization Address City/[facility]/ZIP Co de Phone Number [facility]
[address] [place] [address], * (ABNORMAL) Hemoglobin & Hematocrit, Blood (06/25/2025 9:27 AM EST) Hemoglobin 10.2(L) 12.0 - 15.9 g/dL 06/25/2025 10:04 AM EST [facility] Hematocrit 30.0(L) 34.0 - 46.6 % 06/25/2025 10:04 AM EST [facility] Blood Venipuncture / Unknown 06/25/2025 9:27 AM EST 06/25/2025 9:52 AM EST Reynaldo Arndt III, DO LAB BLOOD ORDERAB LES Final Result [facility]
[address] [place] [address], * Telemetry Scan (06/25/2025 8:04 AM EST) [facility] Onbase ECG ORDERABLES Final Result * ABO RH Specimen Verification (06/25/2025 4:28 AM EST) ABO Type A 06/25/2025 12:31 PM EST [facility]ORAT[facility] RH type Positive 06/25/2025 12:31 PM EST [facility] Blood Venipuncture / Unknown 06/25/2025 4:28 AM EST 06/25/2025 5:02 AM EST Reynaldo Arndt III, DO BLOOD BANK TEST O RDERABLES Final Result Performing Organization Address City/[facility]/ZIP Co de Phone Number [facility]
[address] [place] [address], * (ABNORMAL) Hemoglobin & Hematocrit, Blood (06/25/2025 4:28 AM EST) Pathologist [facility] Hemoglobin 11.6(L) 12.0 - 15.9 g/dL 06/25/2025 5:08 AM EST [facility] Hematocrit 34.0 34.0 - 46.6 % 06/25/2025 5:08 AM EST [facility] Blood Venipuncture / Unknown 06/25/2025 4:28 AM EST 06/25/2025 4:45 AM EST Reynaldo Arndt III, DO LAB BLOOD ORDERAB LES Final Result [facility]
[address] [place] [address], * (ABNORMAL) CBC (No Diff) (06/25/2025 1:51 AM EST) WBC 8.35 3.40 - 10.80 10*3/mm3 06/25/2025 2:02 AM EST [facility] RBC 3.58(L) 3.77 - 5.28 10*6/mm3 06/25/2025 2:02 AM EST [facility] Hemoglobin 11.7(L) 12.0 - 15.9 g/dL 06/25/2025 2:02 AM [facility] Hematocrit 35.1 34.0 - 46.6 % 06/25/2025 2:02 AM [facility] MCV 98.0(H) 79.0 - 97.0 fL 06/25/2025 2:02 AM EST [facility] MCH 32.7 26.6 - 33.0 pg 06/25/2025 2:02 AM [facility] MCHC 33.3 31.5 - 35.7 g/dL 06/25/2025 2:02 AM [facility] RDW 13.3 12.3 - 15.4 % 06/25/2025 2:02 AM [facility] RDW-SD 48.3 37.0 - 54.0 fl 06/25/2025 2:02 AM [facility] MPV 10.9 6.0 - 12.0 fL 06/25/2025 2:02 AM [facility] Platelets 226 140 - 450 10*3/mm3 06/25/2025 2:02 AM [facility] Blood Venipuncture / Unknown 06/25/2025 1:51 AM EST 06/25/2025 2:00 AM EST us Reynaldo Arndt III, DO LAB BLOOD ORDERAB LES Final Result [facility]
[address] [place] [address], * Type & Screen (06/25/2025 1:51 AM EST) ABO Type A 06/25/2025 2:52 AM [facility] RH type Positive 06/25/2025 2:52 AM [facility] Antibody Screen Negative 06/25/2025 2:52 AM [facility] T&S Expiration Date 06/28/2025 11:59:59 PM 06/25/2025 2:52 AM EST [facility] Blood Venipuncture / Unknown 06/25/2025 1:51 AM EST 06/25/2025 2:08 AM EST Reynaldo Arndt III, DO BLOOD BANK TEST O RDERABLES Edited Result - Final Performing Organization Address City/[facility]/ZIP Co de Phone Number [facility]
[address] [place] [address], * Protime-INR (06/25/2025 1:50 AM EST) Protime 14.0 12.2 - 15.3 Seconds 06/25/2025 2:19 AM EST [facility] INR 1.02 0.89 - 1.12 06/25/2025 2:19 AM EST [facility] Blood Venipuncture / Unknown 06/25/2025 1:50 AM EST 06/25/2025 2:00 AM EST Reynaldo Arndt III, DO LAB BLOOD ORDERAB LES Final Result Performing Organization Address [facility] Co de Phone Number [facility]
[address] [place] [address], * Magnesium (06/25/2025 1:50 AM EST) Magnesium 2.0 1.6 - 2.4 mg/dL 06/25/2025 2:24 AM EST [facility] Blood Venipuncture / Unknown 06/25/2025 1:50 AM EST 06/25/2025 2:00 AM EST Reynaldo Arndt III, DO LAB BLOOD ORDERAB LES Final Result Performing Organization Address City/[facility]/ZIP Co de Phone Number [facility]
[address] [place] [address], * (ABNORMAL) Comprehensive Metabolic Panel (06/25/2025 1:50 AM EST) [facility] Glucose 175(H) 65 - 99 mg/dL 06/25/2025 2:24 AM [facility] BUN 20.0 8.0 - 23.0 mg/dL 06/25/2025 2:24 AM [facility] Creatinine 0.70 0.57 - 1.00 mg/dL 06/25/2025 2:24 AM [facility] Sodium 139 136 - 145 mmol/L 06/25/2025 2:24 AM [facility] Potassium 4.5 3.5 - 5.2 mmol/L 06/25/2025 2:24 AM [facility] Chloride 107 98 - 107 mmol/L 06/25/2025 2:24 AM [facility] CO2 23.4 22.0 - 29.0 mmol/L 06/25/2025 2:24 AM [facility] Calcium 8.5(L) 8.6 - 10.5 mg/dL 06/25/2025 2:24 AM [facility] Total Protein 5.6(L) 6.0 - 8.5 g/dL 06/25/2025 2:24 AM [facility] Albumin 4.0 3.5 - 5.2 g/dL 06/25/2025 2:24 AM [facility] ALT (SGPT) 31 1 - 33 U/L 06/25/2025 2:24 AM [facility] AST (SGOT) 28 1 - 32 U/L 06/25/2025 2:24 AM [facility] Alkaline Phosphatase 47 39 - 117 U/L 06/25/2025 2:24 AM [facility] Total Bilirubin 0.3 0.0 - 1.2 mg/dL 06/25/2025 2:24 AM [facility] Globulin 1.6 gm/dL 06/25/2025 2:24 AM EST [facility] Comment:Calculated Result A/G Ratio 2.5 g/dL 06/25/2025 2:24 AM EST [facility] BUN/Creatinine Ratio 28.6(H) 7.0 - 25.0 06/25/2025 2:24 AM EST [facility] Anion Gap 8.6 5.0 - 15.0 mmol/L 06/25/2025 2:24 AM EST [facility] eGFR 91.5 >60.0 mL/min/1.7 3 06/25/2025 2:24 AM EST [facility] Blood Venipuncture / Unknown 06/25/2025 1:50 AM EST 06/25/2025 2:00 AM EST [facility] - 06/25/2025 2:24 AM EST GFR Categories in Chronic Kidney Disease (CKD) GFR Category GFR (mL/min/1.73) Interpretation G1 90 or greater Normal or high (1) G2 60-89 Mild decrease (1) G3a 45-59 Mild to moderate decrease G3b 30-44 Moderate to severe decrease G4 15-29 Severe decrease G5 14 or less Kidney failure (1)In the absence of evidence of kidney disease, neither GFR category G1 or G2 fulfill the criteria for CKD. eGFR calculation 2020 CKD-EPI creatinine equation, which does not include race as a factor Reynaldo Arndt III, DO LAB BLOOD ORDERAB LES Final Result [facility]
[address] [id number], documented in this encounter Visit Diagnoses Diagnosis Acute posterior epistaxis- Primary Acute posterior epistaxis Carotid stenosis, left Occlusion and stenosis of carotid artery without mention of cerebral infarction History of left-sided carotid endarterectomy Primary hypertension Unspecified essential hypertension Moderate R ICA stenosis Occlusion and stenosis of carotid artery without mention of cerebral infarction documented in this encounter Admitting Diagnoses Diagnosis Acute posterior epistaxis documented in this encounter Administered Medications Inactive Administered Medications - up to 3 most recent administrations Medication Order MAR Action Action Date Dose Rate Site acetaminophen (TYLENOL) tablet 650 mg 650 mg, Oral, Every 6 Hours PRN, Moderate Pain, Starting on 06/26/25 at 0815, If given for fever, use fever parameter: fever greater than 100.4 F Based on patient request - if ordered for moderate or severe pain, provider allows for administration of a medication prescribed for a lower pain scale. Do not exceed 4 grams of acetaminophen in a 24 hr period. Max dose of 2gm for AST/ALT greater than 120 units/L. If given for pain, use the following pain scale: Mild Pain = Pain Score of 1-3, CPOT 1-2 Moderate Pain = Pain Score of 4-6, CPOT 3-4 Severe Pain = Pain Score of 7-10, CPOT 5-8 Given 06/26/2025 4:40 PM EST 650 mg Given 06/26/2025 8:40 AM EST 650 mg atorvastatin (LIPITOR) tablet 40 mg 40 mg, Oral, Nightly, First dose on 06/26/25 at 2100, Avoid grapefruit juice. Given 06/26/2025 8:35 PM EST 40 mg Calcium Replacement - Follow Nurse / BPA Driven Protocol Open Order & Select S Electrolyte Replacement Protocol Algorithm to View Details cephalexin (KEFLEX) capsule 500 mg 500 mg, Oral, 4 Times Daily, First dose on 06/26/25 at 1200, For 4 days, Take with food if GI upset occurs., Indications: Skin and Soft Tissue Infection, nasal packing in placeIndications:Skin and Soft Tissue Infection,nasal packing in place Given 06/27/2025 11:33 AM EST 500 mg Given 06/27/2025 9:44 AM EST 500 mg Given 06/26/2025 8:35 PM EST 500 mg HYDROcodone-acetaminophen (NORCO) 5-325 MG per tablet 0.5 tablet 0.5 tablet, Oral, Every 6 Hours PRN, Moderate Pain, Severe Pain, Starting on 06/26/25 at 0816, For 5 days, Based on patient request - if ordered for moderate or severe pain, provider allows for administration of a medication prescribed for a lower pain scale. [AMANDA] Do not exceed 4 grams of acetaminophen in a 24 hr period. Max dose of 2gm for AST/ALT greater than 120 units/L If given for pain, use the following pain scale: Mild Pain = Pain Score of 1-3, CPOT 1-2 Moderate Pain = Pain Score of 4-6, CPOT 3-4 Severe Pain = Pain Score of 7-10, CPOT 5-8 Given 06/26/2025 8:35 PM EST 0.5 tablets HYDROmorphone (DILAUDID) injection 0.25 mg 0.25 mg, Intravenous, Every 3 Hours PRN, Severe Pain, Starting on 06/26/25 at 1057, For 4 days, Based on patient request - if ordered for moderate or severe pain, provider allows for administration of a medication prescribed for a lower pain scale. If given for pain, use the following pain scale: Mild Pain = Pain Score of 1-3, CPOT 1-2 Moderate Pain = Pain Score of 4-6, CPOT 3-4 Severe Pain = Pain Score of 7-10, CPOT 5-8 HYDROmorphone (DILAUDID) injection 0.5 mg 0.5 mg, Intravenous, Every 3 Hours PRN, Severe Pain, Starting on 06/25/25 at 0101, For 5 days, Based on patient request - if ordered for moderate or severe pain, provider allows for administration of a medication prescribed for a lower pain scale. If given for pain, use the following pain scale: Mild Pain = Pain Score of 1-3, CPOT 1-2 Moderate Pain = Pain Score of 4-6, CPOT 3-4 Severe Pain = Pain Score of 7-10, CPOT 5-8 Given 06/26/2025 12:31 AM EST 0.5 mg Given 06/25/2025 6:05 PM EST 0.5 mg Given 06/25/2025 8:46 AM EST 0.5 mg ketorolac (TORADOL) injection 15 mg 15 mg, Intravenous, Every 6 Hours PRN, Severe Pain, Starting on 06/25/25 at 0100, For 5 days, Based on patient request - if ordered for moderate or severe pain, provider allows for administration of a medication prescribed for a lower pain scale. ([facility]) If given for pain, use the following pain scale: Mild Pain = Pain Score of 1-3, CPOT 1-2 Moderate Pain = Pain Score of 4-6, CPOT 3-4 Severe Pain = Pain Score of 7-10, CPOT 5-8 Given 06/27/2025 11:39 AM EST 15 mg Given 06/27/2025 4:54 AM EST 15 mg Given 06/26/2025 9:28 PM EST 15 mg labetalol (NORMODYNE,TRANDATE) injection 10 mg 10 mg, Intravenous, Every 4 Hours PRN, High Blood Pressure, Starting on 06/25/25 at 0118, As needed for SBP greater than 140 mmHg. Max. Dose: 300 mg. Give IV Push over 2 minutes. Given 06/25/2025 4:45 AM EST 10 mg lactated ringers infusion 100 mL/hr, Intravenous, Continuous, Starting on 06/25/25 at 0200, For 12 hours New Bag 06/25/2025 2:40 AM EST 100 mL/hr 100 mL/hr LORazepam (ATIVAN) injection 0.5 mg 0.5 mg, Intravenous, Every 6 Hours PRN, Anxiety, Starting on 06/25/25 at 0228, For 5 days, Dilute 1:1 with normal saline. (AMANDA} Caution: Look alike/sound alike. Given 06/25/2025 1:04 PM EST 0.5 mg Given 06/25/2025 3:27 AM EST 0.5 mg Magnesium Standard Dose Replacement - Follow Nurse / BPA Driven Protocol Open Order & Select BHS Electrolyte Replacement Protocol Algorithm to View Details morphine injection 2 mg 2 mg, Intravenous, Every 4 Hours PRN, Moderate Pain, Starting on 06/25/25 at 0100, For 5 days, Based on patient request - if ordered for moderate or severe pain, provider allows for administration of a medication prescribed for a lower pain scale. If given for pain, use the following pain scale: Mild Pain = Pain Score of 1-3, CPOT 1-2 Moderate Pain = Pain Score of 4-6, CPOT 3-4 Severe Pain = Pain Score of 7-10, CPOT 5-8 Given 06/25/2025 1:16 AM EST 2 mg naloxone (NARCAN) injection 0.4 mg 0.4 mg, Intravenous, Every 5 Minutes PRN, Respiratory Depression, Starting on 06/26/25 at 1057, If respiratory rate is less than 8 breaths/minute or patient is difficult to arouse stop any narcotics and contact physician. Administer slow IV push. Repeat as ordered until patient's respiratory rate is greater than 12 breaths/minute. nitroglycerin (NITROSTAT) SL tablet 0.4 mg 0.4 mg, Sublingual, Every 5 Minutes PRN, Chest Pain, Starting on 06/25/25 at 0059, If Pain Unrelieved After 3 Doses Notify MD May administer up to 3 doses per episode. Hold if SBP less than 100. ondansetron (ZOFRAN) injection 4 mg 4 mg, Intravenous, Every 6 Hours PRN, Nausea, Vomiting, Starting on 06/25/25 at 0101, If BOTH ondansetron (ZOFRAN) and promethazine (PHENERGAN) are ordered use ondansetron first and THEN promethazine IF ondansetron is ineffective. Given 06/25/2025 1:04 PM EST 4 mg Given 06/25/2025 7:25 AM EST 4 mg Given 06/25/2025 1:15 AM EST 4 mg Phosphorus Replacement - Follow Nurse / BPA Driven Protocol Open Order & Select BHS Electrolyte Replacement Protocol Algorithm to View Details piperacillin-tazobactam (ZOSYN) 4.5 g IVPB in 100 mL NS MBP (CD) 4.5 g, Intravenous, Administer over 30 Minutes, Once, On 06/25/25 at 0530, For 1 dose New Bag 06/25/2025 5:00 AM EST 4.5 g piperacillin-tazobactam (ZOSYN) 4.5 g IVPB in 100 mL NS MBP (CD) 4.5 g, Intravenous, Administer over 4 Hours, Every 8 Hours, First dose on 06/25/25 at 1200, For 3 days, Indications: Empiric, req. in ENT's note. pt w/ posterior epistaxis.Indications:Empiric,req. in ENT's note. pt w/ posterior epistaxis. New Bag 06/26/2025 5:10 AM EST 4.5 g Currently Infusing 06/26/2025 12:11 AM EST New Bag 06/25/2025 9:29 PM EST 4.5 g Potassium Replacement - Follow Nurse / BPA Driven Protocol Open Order & Select BHS Electrolyte Replacement Protocol Algorithm to View Details scopolamine patch 1 mg/72 hr 1 patch, Transdermal - scopolamine, Administer over 72 Hours, Every 72 Hours, First dose on 06/25/25 at 1300, Do not apply if patient has history of glaucoma. Not recommended for use if patient is older than 65. ([facility]) Medication Applied 06/25/2025 12:04 PM EST 1 patch Behind Left Ear sodium chloride 0.9 % bolus 1,000 mL 1,000 mL, Intravenous, at 500 mL/hr, Administer over 2 Hours, Once, On 06/26/25 at 0915, For 1 dose New Bag 06/26/2025 8:35 AM EST 1,000 mL 500 mL/hr sodium chloride 0.9 % flush 10 mL 10 mL, Intravenous, Every 12 Hours Scheduled, First dose on 06/25/25 at 0200 Given 06/27/2025 9:44 AM EST 10 mL Given 06/26/2025 8:36 PM EST 10 mL Given 06/26/2025 8:35 AM EST 10 mL sodium chloride 0.9 % flush 10 mL 10 mL, Intravenous, As Needed, Line Care, Starting on 06/25/25 at 0058 sodium chloride 0.9 % infusion 40 mL 40 mL, Intravenous, at 100 mL/hr, As Needed, Line Care, Starting on 06/25/25 at 0058, Following administration of an IV intermittent medication, flush line with 40mL NS at 100mL/hr. documented in this encounter Active and Recently Administered Medications Times are shown in EST. Scheduled Medication Order 06/25/2025 06/26/2025 06/27/2025 atorvastatin (LIPITOR) tablet 40 mg 40 mg, Oral, Nightly, First dose on 06/26/25 at 2100, Avoid grapefruit juice. 2034 (Given - Provider: Monika Akhtar, JANELL) cephalexin (KEFLEX) capsule 500 mg 500 mg, Oral, 4 Times Daily, First dose on 06/26/25 at 1200, For 4 days, Take with food if GI upset occurs., Indications: Skin and Soft Tissue Infection, nasal packing in place 1227 (Given - Provider: Sudha Frazier, JANELL)1728 (Given - Provider: Sudha Frazier, RN)2034 (Given - Provider: Monika Akhtar, JANELL) 0944 (Given - Provider: Jacklyn Alexander, RN)1133 (Given - Provider: Jacklyn Alexander, RN) piperacillin-tazobacta m (ZOSYN) 4.5 g IVPB in 100 mL NS MBP (CD) (COMPLETED) 4.5 g, Intravenous, Administer over 30 Minutes, Once, On 06/25/25 at 0530, For 1 dose 0500 (New Bag - Provider: An Miller RN) piperacillin-tazobacta m (ZOSYN) 4.5 g IVPB in 100 mL NS MBP (CD) (CANCELED) 4.5 g, Intravenous, Administer over 4 Hours, Every 8 Hours, First dose on 06/25/25 at 1200, For 3 days, Indications: Empiric, req. in ENT's note. pt w/ posterior epistaxis. 1108 (New Bag - Provider: Jacquie Oneil RN)2129 (New Bag - Provider: Amber Guillory, RN) 0011 (Currently Infusing - Provider: Amber Guillory, RN)0510 (New Bag - Provider: Amber Guillory, RN) scopolamine patch 1 mg/72 hr 1 patch, Transdermal - scopolamine, Administer over 72 Hours, Every 72 Hours, First dose on 06/25/25 at 1300, Do not apply if patient has history of glaucoma. Not recommended for use if patient is older than 65. ([facility]) 1204 (Medication Applied - Provider: Jacquie Oneil RN) 1418 (Due: Medication Removed - Provider: Automatic Discharge Provider - Comment: Time automatically adjusted from order being discontinued) sodium chloride 0.9 % bolus 1,000 mL (COMPLETED) 1,000 mL, Intravenous, at 500 mL/hr, Administer over 2 Hours, Once, On 06/26/25 at 0915, For 1 dose 0835 (New Bag - Provider: Sudha Frazier RN) sodium chloride 0.9 % flush 10 mL 10 mL, Intravenous, Every 12 Hours Scheduled, First dose on 06/25/25 at 0200 0243 (Given - Provider: An Miller, JANELL)0817 (Not Given - Provider: Jacquie Oneil RN - Reason: Given from running infusion)214 (Not Given - Provider: Amber Guillory RN - Reason: Given from running infusion) 0835 (Given - Provider: Sudha Frazier RN)203 (Given - Provider: Monika Akhtar, JANELL) 0944 (Given - Provider: Jacklyn Alexander RN) Continuous Medication Order 06/25/2025 06/26/2025 06/27/2025 lactated ringers infusion () 100 mL/hr, Intravenous, Continuous, Starting on 06/25/25 at 0200, For 12 hours 0240 (New Bag - Provider: An Miller RN)1444 (Stopped - Provider: Jacquie Oneil RN - Comment: [Order ends at this time. Document the following action when infusion is complete: Stopped]) PRN Medication Order 06/25/2025 06/26/2025 06/27/2025 acetaminophen (TYLENOL) tablet 650 mg 650 mg, Oral, Every 6 Hours PRN, Moderate Pain, Starting on 06/26/25 at 0815, If given for fever, use fever parameter: fever greater than 100.4 F Based on patient request - if ordered for moderate or severe pain, provider allows for administration of a medication prescribed for a lower pain scale. Do not exceed 4 grams of acetaminophen in a 24 hr period. Max dose of 2gm for AST/ALT greater than 120 units/L. If given for pain, use the following pain scale: Mild Pain = Pain Score of 1-3, CPOT 1-2 Moderate Pain = Pain Score of 4-6, CPOT 3-4 Severe Pain = Pain Score of 7-10, CPOT 5-8 0840 (Given - Provider: Sudha Frazier RN)1640 (Given - Provider: Sudha Frazier RN) Calcium Replacement - Follow Nurse / BPA Driven Protocol Open Order & Select BHS Electrolyte Replacement Protocol Algorithm to View Details HYDROcodone-acetaminophen (NORCO) 5-325 MG per tablet 0.5 tablet 0.5 tablet, Oral, Every 6 Hours PRN, Moderate Pain, Severe Pain, Starting on 06/26/25 at 0816, For 5 days, Based on patient request - if ordered for moderate or severe pain, provider allows for administration of a medication prescribed for a lower pain scale. [AMANDA] Do not exceed 4 grams of acetaminophen in a 24 hr period. Max dose of 2gm for AST/ALT greater than 120 units/L If given for pain, use the following pain scale: Mild Pain = Pain Score of 1-3, CPOT 1-2 Moderate Pain = Pain Score of 4-6, CPOT 3-4 Severe Pain = Pain Score of 7-10, CPOT 5-8 1218 (Not Given - Provider: Sudha Frazier RN - Reason: Order parameters not met - Comment: hypotensive)2034 (Given - Provider: Monika Akhtar RN) HYDROmorphone (DILAUDID) injection 0.25 mg(Linked Group 1) 0.25 mg, Intravenous, Every 3 Hours PRN, Severe Pain, Starting on 06/26/25 at 1057, For 4 days, Based on patient request - if ordered for moderate or severe pain, provider allows for administration of a medication prescribed for a lower pain scale. If given for pain, use the following pain scale: Mild Pain = Pain Score of 1-3, CPOT 1-2 Moderate Pain = Pain Score of 4-6, CPOT 3-4 Severe Pain = Pain Score of 7-10, CPOT 5-8 HYDROmorphone (DILAUDID) injection 0.5 mg (CANCELED) 0.5 mg, Intravenous, Every 3 Hours PRN, Severe Pain, Starting on 06/25/25 at 0101, For 5 days, Based on patient request - if ordered for moderate or severe pain, provider allows for administration of a medication prescribed for a lower pain scale. If given for pain, use the following pain scale: Mild Pain = Pain Score of 1-3, CPOT 1-2 Moderate Pain = Pain Score of 4-6, CPOT 3-4 Severe Pain = Pain Score of 7-10, CPOT 5-8 0329 (Given - Provider: An Miller RN)0846 (Given - Provider: Jacquie Oneil RN)1805 (Given - Provider: Jacquie Oneil RN) 0031 (Given - Provider: Amber Guillory RN) ketorolac (TORADOL) injection 15 mg 15 mg, Intravenous, Every 6 Hours PRN, Severe Pain, Starting on 06/25/25 at 0100, For 5 days, Based on patient request - if ordered for moderate or severe pain, provider allows for administration of a medication prescribed for a lower pain scale. ([facility]) If given for pain, use the following pain scale: Mild Pain = Pain Score of 1-3, CPOT 1-2 Moderate Pain = Pain Score of 4-6, CPOT 3-4 Severe Pain = Pain Score of 7-10, CPOT 5-8 1121 (Given - Provider: Jacquie Oneil RN)2130 (Given - Provider: Amber Guillory, RN) 0524 (Given - Provider: Amber Guillory, RN)1226 (Given - Provider: Sudha Frazier RN)2128 (Given - Provider: Jaimie Arriaga, RN) 0454 (Given - Provider: Monika Akhtar, JANELL)1139 (Given - Provider: Jacklyn Alexander, RN) labetalol (NORMODYNE,TRANDATE) injection 10 mg (CANCELED) 10 mg, Intravenous, Every 4 Hours PRN, High Blood Pressure, Starting on 06/25/25 at 0118, As needed for SBP greater than 140 mmHg. Max. Dose: 300 mg. Give IV Push over 2 minutes. 0445 (Given - Provider: An Miller, JANELL) LORazepam (ATIVAN) injection 0.5 mg 0.5 mg, Intravenous, Every 6 Hours PRN, Anxiety, Starting on 06/25/25 at 0228, For 5 days, Dilute 1:1 with normal saline. (AMANDA} Caution: Look alike/sound alike. 0327 (Given - Provider: An Miller, JANELL)1304 (Given - Provider: Jacquie Oneil RN) Magnesium Standard Dose Replacement - Follow Nurse / BPA Driven Protocol Open Order & Select BHS Electrolyte Replacement Protocol Algorithm to View Details morphine injection 2 mg(Linked Group 2) 2 mg, Intravenous, Every 4 Hours PRN, Moderate Pain, Starting on 06/25/25 at 0100, For 5 days, Based on patient request - if ordered for moderate or severe pain, provider allows for administration of a medication prescribed for a lower pain scale. If given for pain, use the following pain scale: Mild Pain = Pain Score of 1-3, CPOT 1-2 Moderate Pain = Pain Score of 4-6, CPOT 3-4 Severe Pain = Pain Score of 7-10, CPOT 5-8 0116 (Given - Provider: Jaimie Arriaga, JANELL)0654 (Not Given - Provider: An Miller RN - Reason: Other) naloxone (NARCAN) injection 0.4 mg(Linked Group 1) 0.4 mg, Intravenous, Every 5 Minutes PRN, Respiratory Depression, Starting on 06/26/25 at 1057, If respiratory rate is less than 8 breaths/minute or patient is difficult to arouse stop any narcotics and contact physician. Administer slow IV push. Repeat as ordered until patient's respiratory rate is greater than 12 breaths/minute. nitroglycerin (NITROSTAT) SL tablet 0.4 mg 0.4 mg, Sublingual, Every 5 Minutes PRN, Chest Pain, Starting on 06/25/25 at 0059, If Pain Unrelieved After 3 Doses Notify MD May administer up to 3 doses per episode. Hold if SBP less than 100. ondansetron (ZOFRAN) injection 4 mg 4 mg, Intravenous, Every 6 Hours PRN, Nausea, Vomiting, Starting on 06/25/25 at 0101, If BOTH ondansetron (ZOFRAN) and promethazine (PHENERGAN) are ordered use ondansetron first and THEN promethazine IF ondansetron is ineffective. 0115 (Given - Provider: Jaimie Arriaga, JANELL)0725 (Given - Provider: Jacquie Oneil, JANELL)1304 (Given - Provider: Jacquie Oneil, JANELL) Phosphorus Replacement - Follow Nurse / BPA Driven Protocol Open Order & Select BHS Electrolyte Replacement Protocol Algorithm to View Details Potassium Replacement - Follow Nurse / BPA Driven Protocol Open Order & Select BHS Electrolyte Replacement Protocol Algorithm to View Details sodium chloride 0.9 % flush 10 mL 10 mL, Intravenous, As Needed, Line Care, Starting on 06/25/25 at 0058 sodium chloride 0.9 % infusion 40 mL 40 mL, Intravenous, at 100 mL/hr, As Needed, Line Care, Starting on 06/25/25 at 0058, Following administration of an IV intermittent medication, flush line with 40mL NS at 100mL/hr. Linked Groups Order Group 1: HYDROmorphone (DILAUDID) injection 0.25 mgJump to med 0.25 mg, Intravenous, Every 3 Hours PRN, Severe Pain, Starting on 06/26/25 at 1057, For 4 days, Based on patient request - if ordered for moderate or severe pain, provider allows for administration of a medication prescribed for a lower pain scale. If given for pain, use the following pain scale: Mild Pain = Pain Score of 1-3, CPOT 1-2 Moderate Pain = Pain Score of 4-6, CPOT 3-4 Severe Pain = Pain Score of 7- 10, CPOT 5-8 And naloxone (NARCAN) injection 0.4 mgJump to med 0.4 mg, Intravenous, Every 5 Minutes PRN, Respiratory Depression, Starting on 06/26/25 at 1057, If respiratory rate is less than 8 breaths/minute or patient is difficult to arouse stop any narcotics and contact physician. Administer slow IV push. Repeat as ordered until patient's respiratory rate is greater than 12 breaths/minute. Group 2: morphine injection 2 mgJump to med 2 mg, Intravenous, Every 4 Hours PRN, Moderate Pain, Starting on 06/25/25 at 0100, For 5 days, Based on patient request - if ordered for moderate or severe pain, provider allows for administration of a medication prescribed for a lower pain scale. If given for pain, use the following pain scale: Mild Pain = Pain Score of 1-3, CPOT 1-2 Moderate Pain = Pain Score of 4-6, CPOT 3-4 Severe Pain = Pain Score of 7- 10, CPOT 5-8 And naloxone (NARCAN) injection 0.4 mg (CANCELED) 0.4 mg, Intravenous, Every 5 Minutes PRN, Respiratory Depression, Starting on 06/25/25 at 0100, If respiratory rate is less than 8 breaths/minute or patient is difficult to arouse stop any narcotics and contact physician. Administer slow IV push. Repeat as ordered until patient's respiratory rate is greater than 12 breaths/minute. documented in this encounter Care Teams Truss Maker Relationship Specialty Start Date End Date Addy Rubin MD [address] [place] [address] [address] [facility] [place] [id number] PCP - General Adolescent Medicine 02/08/21 documented as of this encounter
--- OUTSIDE RECORDS SUMMARY | 2025-07-01 12:42 | XMS_ITS | Clinical Summary ---
[facility] Address [address] [place] [address] Care Team Providers Care Exhibition Designer Name Role Phone Addy Rubin MD Primary Care Provider [phone] Allergies Active Allergy Reactions Criticality Noted Date Comments Codeine Nausea Only 10/22/2021 Medications estrogens, conjugated,-me thyltestostero ne (ESTRATEST HS) 0.625-1.25 MG per tablet Take 0.5 tablets by mouth Take As Directed. 4 times weekly Active aspirin 81 MG EC tablet Take 2 tablets by mouth Daily. Active KRILL OIL PO Take 2,000 mg by mouth Daily. Active Multiple Minerals (CALCIUM/MAGNE SIUM/ZINC PO) Take 1 tablet by mouth 2 (two) times a day. Active L-ARGININE PO Take 1,000 mg by mouth Daily. Active ibuprofen (ADVIL,MOTRIN) 600 MG tablet Take 1 tablet by mouth As Needed. 1 Active atorvastatin (LIPITOR) 80 MG tablet TAKE ONE TABLET BY MOUTH AT BEDTIME 30 tablet 11 2 Active cyclobenzaprin e (FLEXERIL) 5 MG tablet 1 tablet As Needed. 2 Active famotidine (PEPCID) 20 MG tablet Take 1 tablet by mouth At Night As Needed. 3 Active Flonase Sensimist 27.5 MCG/SPRAY nasal spray 2 sprays into the nostril(s) as directed by provider Daily. 3 Active minoxidil (LONITEN) 2.5 MG tablet Take 1 tablet by mouth Daily. 4 Active Diclofenac Sodium (VOLTAREN) 1 % gel gel Apply 4 g topically to the appropriate area as directed As Needed. Active lisinopril (PRINIVIL,ZEST RIL) 20 MG tabletIndicati ons:Carotid stenosis, left,History of left-sided carotid endarterectomy ,Essential hypertension,D yslipidemia TAKE ONE TABLET BY MOUTH ONCE A DAY 30 tablet 11 5 Active Cholecalcifero l (VITAMIN D3 PO) Take 2,000 Units by mouth 1 (One) Time Per Week. Discontinu ed(Stop Taking at Discharge) B Complex Vitamins (VITAMIN B COMPLEX PO) Take 1 tablet by mouth Daily. 2 tablets per week Discontinu ed(Stop Taking at Discharge) dutasteride (AVODART) 0.5 MG capsule Take 1 capsule by mouth Daily. 3 Discontinu ed(Stop Taking at Discharge) montelukast (SINGULAIR) 10 MG tablet Take 1 tablet by mouth Every Night. 3 Discontinu ed(Stop Taking at Discharge) cephalexin (KEFLEX) 500 MG capsuleIndicat ions:Skin and Soft Tissue Infection,nasa l packing in place Take 1 capsule by mouth 4 (Four) Times a Day for 11 doses. 11 capsule 06/27/2025 12:37 PM EST 5 Scopolamine 1 MG/3DAYS patch Apply 1 patch to the appropriate area as directed Every 72 (Seventy-Two) Hours for 1 dose. 1 patch 06/27/2025 12:37 PM EST 5 Active Problems Problem Noted Date Diagnosed Date Acute posterior epistaxis 06/25/2025 History of left-sided carotid endarterectomy Moderate R ICA stenosis 04/17/2021 Hemochromatosis requiring phlebotomy 04/17/2021 Dyslipidemia 04/17/2021 Hypertension 04/17/2021 Former smoker 04/17/2021 Daily ETOH use 04/17/2021 Carotid stenosis, left 04/09/2021 Encounters Date Type Department Care Team Description 06/25/2025 12:19 AM EST - 06/27/2025 2:18 PM [facility] En[facility] [address] [place] [address] Reynaldo Arndt III, DO West, Christopher R, MD Lyons, Andrea L, MD Acute posterior epistaxis (Primary Dx); Carotid stenosis, left; History of left-sided carotid endarterectomy; Primary hypertension; Moderate R ICA stenosis Discharge Disposition: Home or Self Care 06/25/2025 Travel from Last 3 Months Immunizations Immunization Administration Dates Next Due COVID-19 [...] Mass Index 23.15 06/26/2025 5:00 AM EST Plan of Treatment Upcoming Encounters Date Type Department Care Team (Late st Contact Info) Description 07/19/2025 10:00 AM EST Appointment [facility] [address] [place] [address] 07/19/2025 11:15 AM EST Office Visit [facility] [address] [place] [address] Ky Lai MD [address] [place] [address] Health Maintenance Due Date Last Done Comments [...] COVID-19 Vaccine (7 - Modern a risk season) 2025 04/20/2024, 05/17/2022, 12/26/2021, Additional history exists Pneumococcal Vaccine 50+ Completed 04/15/2018, 03/12 ZOSTER VACCINE Completed 06/21/2019, 04/2019, 04/30/2017 Medical Devices Implanted Type Area Laserist Device Identifier Shelf Expiration Date Model / Serial / Lot Clip Ligat Vasc Horizon Abhi Arriola Yoan 6ct - [id number] Implanted:Qty : 1 on 04/17/2021 by Syd De La Cruz MD at [facility] Implant Left: Carotid [employer] [id number] / / 0 Clip Ligat Vasc Horizon Abhi Arriola Yoan 6ct - [id number] Implanted:Qty : 1 on 04/17/2021 by Syd De La Cruz MD at [facility] Implant Left: Carotid [employer] [id number] / / 0 Clip Ligat Vasc Horizon Ti Yel 6ct - [id number] Implanted:Qty : 1 on 04/17/2021 by Syd De La Cruz MD at [facility] Implant Left: Carotid [employer] [id number] / / 0 Clip Ligat Vasc Horizon Ti Sm Yel 6ct - [id number] Implanted:Qty : 1 on 04/17/2021 by Syd De La Cruz MD at [facility] Implant Left: Carotid [employer] [id number] / / 0 Kt Seal Hemos Abs Floseal Matrx Fast/Prep 10ml - [id number] Implanted:Qty : 1 on 04/17/2021 by Syd De La Cruz MD at [facility] Implant Left: Carotid [employer] [id number] 01/09/2023 [id number] / / [id number] Hemost Abs Surgifoam Sz100 8x12 10mm - [id number] Implanted:Qty : 1 on 04/17/2021 by Syd De La Cruz MD at [facility] Implant Left: Carotid [employer] J [employer] J 11/02/2024 [id number] / / [id number] Ptch Vascuguard 1x6cm - [id number] Implanted:Qty : 1 on 04/17/2021 by Syd De La Cruz MD at [facility] Implant Left: Carotid [employer] [id number] 10/25/2025 [id number] / / [id number] Hemost Abs Surgicel 4x8in - [id number] Implanted:Qty : 1 on 04/17/2021 by Syd De La Cruz MD at [facility] Implant Left: Carotid [employer] DIV [employer] J AND J [id number] 10/08/20241951 / / [id number] Left Finger Procedures Procedure Name Priority Date/Time Associated Diagnosis Comments BASIC METABOLIC PANEL Urgent 06/27/2025 5:31 AM EST CBC (NO DIFF) Urgent 06/27/2025 5:31 AM EST SCANNED - [...] HEMATOCRIT, BLOOD Timed 06/25/2025 4:28 AM EST TYPE AND SCREEN Urgent 06/25/2025 1:51 AM EST CBC (NO DIFF) STAT 06/25/2025 1:51 AM EST PROTIME-INR STAT 06/25/2025 1:50 AM EST MAGNESIUM STAT 06/25/2025 1:50 AM EST COMPREHENSIVE METABOLIC PANEL STAT 06/25/2025 1:50 AM EST from Last 3 Months Results * (ABNORMAL) CBC (No Diff) (06/27/2025 5:31 AM EST) Only the most recent of2 resultswithin the time period is included. WBC 5.93 3.40 - 10.80 10*3/mm3 06/27/2025 6:29 AM EST [facility] RBC 2.82(L) 3.77 - 5.28 10*6/mm3 06/27/2025 6:29 AM EST [facility] Hemoglobin 9.1(L) 12.0 - 15.9 g/dL 06/27/2025 6:29 AM EST [facility] Hematocrit 28.0(L) 34.0 - 46.6 % 06/27/2025 6:29 AM EST [facility] MCV 99.3(H) 79.0 - 97.0 fL 06/27/2025 6:29 AM EST [facility] MCH 32.3 26.6 - 33.0 pg 06/27/2025 6:29 AM EST [facility] MCHC 32.5 31.5 - 35.7 g/dL 06/27/2025 6:29 AM EST [facility] RDW 13.6 12.3 - 15.4 % 06/27/2025 6:29 AM EST [facility] RDW-SD 49.7 37.0 - 54.0 fl 06/27/2025 6:29 AM EST [facility] MPV 12.2(H) 6.0 - 12.0 fL 06/27/2025 6:29 AM EST [facility] Platelets 176 140 - 450 10*3/mm3 06/27/2025 6:29 AM EST [facility] Blood Venipuncture / Unknown 06/27/2025 5:31 AM EST 06/27/2025 6:23 AM EST us Duane Scott MD LAB BLOOD ORDERABLES Final Result [facility]
[address] [place] [address], * (ABNORMAL) Basic Metabolic Panel (06/27/2025 5:31 AM EST) Glucose 102(H) 65 - 99 mg/dL 06/27/2025 6:32 AM [facility] BUN 8.7 8.0 - 23.0 mg/dL 06/27/2025 6:32 AM [facility] Creatinine 0.77 0.57 - 1.00 mg/dL 06/27/2025 6:32 AM [facility] Sodium 141 136 - 145 mmol/L 06/27/2025 6:32 AM EST [facility] Potassium 3.7 3.5 - 5.2 mmol/L 06/27/2025 6:32 AM [facility] Chloride 109(H) 98 - 107 mmol/L 06/27/2025 6:32 AM EST [facility] CO2 25.3 22.0 - 29.0 mmol/L 06/27/2025 6:32 AM EST [facility] Calcium 9.1 8.6 - 10.5 mg/dL 06/27/2025 6:32 AM [facility] BUN/Creatinine Ratio 11.3 7.0 - 25.0 06/27/2025 6:32 AM EST [facility] Anion Gap 6.7 5.0 - 15.0 mmol/L 06/27/2025 6:32 AM EST [facility] eGFR 81.6 >60.0 mL/min/1.7 3 06/27/2025 6:32 AM EST [facility] Blood Venipuncture / Unknown 06/27/2025 [...] does not include race as a factor Duane Scott MD LAB BLOOD ORDERABLES Final Result [facility]
[address] [place] [address], * Telemetry Scan (06/27/2025 12:14 AM EST) Only the most recent of3 resultswithin the time period is included. [facility] ECG ORDERABLES Final Result * (ABNORMAL) Hemoglobin & Hematocrit, Blood (06/26/2025 8:06 PM EST) Only the most recent of7 resultswithin the time period is included. Hemoglobin 9.4(L) 12.0 - 15.9 g/dL 06/26/2025 8:20 PM EST [facility] Hematocrit 28.6(L) 34.0 - 46.6 % 06/26/2025 8:20 PM EST [facility] Blood Venipuncture / Unknown 06/26/2025 8:06 PM EST 06/26/2025 8:18 PM EST Duane Scott MD LAB BLOOD ORDERABLES Final Result Performing Organization Address City/[facility]/ZIP Co de Phone Number [facility]
[address] [place] [address], * ABO RH Specimen Verification (06/25/2025 4:28 AM EST) ABO Type A 06/25/2025 12:31 PM EST [facility] RH type Positive 06/25/2025 12:31 PM EST [facility] Blood Venipuncture / Unknown 06/25/2025 4:28 AM EST 06/25/2025 5:02 AM EST Reynaldo Arndt III, DO BLOOD BANK TEST O RDERABLES Final Result Performing Organization Address City/[facility] Co de Phone Number [facility]
[address] [place] [address], * Type & Screen (06/25/2025 1:51 AM EST) ABO Type A 06/25/2025 2:52 AM EST [facility] RH type Positive 06/25/2025 2:52 AM EST [facility] Antibody Screen Negative 06/25/2025 2:52 AM EST [facility] T&S Expiration Date 06/28/2025 11:59:59 PM 06/25/2025 2:52 AM EST [facility] Blood Venipuncture / Unknown 06/25/2025 1:51 AM EST 06/25/2025 2:08 AM EST Reynaldo Arndt III, DO BLOOD BANK TEST O RDERABLES Edited Result - Final Performing Organization Address City/[facility]/ZIP Co de Phone Number [facility]
[address] [place] [address], * Protime-INR (06/25/2025 1:50 AM EST) Protime 14.0 12.2 - 15.3 Seconds 06/25/2025 2:19 AM EST [facility] INR 1.02 0.89 - 1.12 06/25/2025 2:19 AM EST [facility] Blood Venipuncture / Unknown 06/25/2025 1:50 AM EST 06/25/2025 2:00 AM EST Reynaldo Arndt III, DO LAB BLOOD ORDERAB LES Final Result Performing Organization Address City/[facility]/ZIP Co de Phone Number [facility]
[address] [place] [address], * Magnesium (06/25/2025 1:50 AM EST) Magnesium 2.0 1.6 - 2.4 mg/dL 06/25/2025 2:24 AM EST [facility] Blood Venipuncture / Unknown 06/25/2025 1:50 AM EST 06/25/2025 2:00 AM EST Reynaldo Arndt III, DO LAB BLOOD ORDERAB LES Final Result [facility]
[address] [place] [address], * (ABNORMAL) Comprehensive Metabolic Panel (06/25/2025 1:50 AM EST) Glucose 175(H) 65 - 99 mg/dL 06/25/2025 2:24 AM [facility] BUN 20.0 8.0 - 23.0 mg/dL 06/25/2025 2:24 AM [facility] Creatinine 0.70 0.57 - 1.00 mg/dL 06/25/2025 2:24 AM [facility] Sodium 139 136 - 145 mmol/L 06/25/2025 2:24 AM [facility] Potassium 4.5 3.5 - 5.2 mmol/L 06/25/2025 2:24 AM [facility] Chloride 107 98 - 107 mmol/L 06/25/2025 2:24 AM [facility] CO2 23.4 22.0 - 29.0 mmol/L 06/25/2025 2:24 AM [facility] Calcium 8.5(L) 8.6 - 10.5 mg/dL 06/25/2025 2:24 AM [facility] Total Protein 5.6(L) 6.0 - 8.5 g/dL 06/25/2025 2:24 AM [facility] Albumin 4.0 3.5 - 5.2 g/dL 06/25/2025 2:24 AM [facility] ALT (SGPT) 31 1 - 33 U/L 06/25/2025 2:24 AM [facility] AST (SGOT) 28 1 - 32 U/L 06/25/2025 2:24 AM [facility] Alkaline Phosphatase 47 39 - 117 U/L 06/25/2025 2:24 AM [facility] Total Bilirubin 0.3 0.0 - 1.2 mg/dL 06/25/2025 2:24 AM [facility] Globulin 1.6 gm/dL 06/25/2025 2:24 AM [facility] Comment:Calculated Result A/G Ratio 2.5 g/dL 06/25/2025 2:24 AM [facility] BUN/Creatinine Ratio 28.6(H) 7.0 - 25.0 06/25/2025 2:24 AM [facility] Anion Gap 8.6 5.0 - 15.0 mmol/L 06/25/2025 2:24 AM EST [facility] eGFR 91.5 >60.0 mL/min/1.7 3 06/25/2025 2:24 AM EST [facility] Blood Venipuncture / Unknown 06/25/2025 1:50 AM EST 06/25/2025 2:00 AM EST Narrative [facility] - 06/25/2025 2:24 AM EST GFR [...] DO LAB BLOOD ORDERAB LES Final Result [facility]
[address] [place] [address], [place] [phone] from Last 3 Months Insurance [employer] PPO Advance Directives Documents on File Type Date Recorded Patient Osteopathic Medicine Teacher Expl anation POWER OF POWER SUPERINTENDENT - SCAN 04/17/2021 5:58 AM LIVING WILL - SCAN 04/17/2021 5:57 AM * CPR (Attempt to Resuscitate) (Latest Code Status on File) Date Activated Date Inactivated Comments 06/25/2025 1:01 AM 06/27/2025 4:28 PM Question Answer Comments Code Status (Patient has no pulse and is not breathing): CPR (Attempt to Resuscitate) Medical Interventions (Patie nt has pulse or is breathing): Full Support Level Of Support Discussed With: Patient Healthcare Agents on File Name Relationship Healthcare Agent [facility] p Communication Andreas Diego Spouse Power of Attorne y for Healthcare Care Teams Exhibition Designer Relationship Specialty Start Date End Date Addy Rubin MD [address] [place] [address] [facility] [address] [place] [address] PCP - General Adolescent Medicine 02/08/21
--- OUTSIDE RECORDS SUMMARY | 2025-07-01 12:42 | XMS_ITS | Clinical Summary ---
Author Organization Healthcare Address [address] [id number] Care Team Providers Care Medical Insurance Clerk Name Role Phone Unavailable Primary Care Provider Unavailabl e Encounters Date Type Department Care Team Description 06/24/2025 - 06/25/2025 9:50 AM EST Emergency [facility] Emergency Department [address] [place] [address] Discharge Disposition: ED Dismiss - Never Arrived from Last 3 Months Social History Tobacco Use Types Packs/Day Years Used Date Smoking Tobacco: Never Assessed Comments Unknown Sex and Gender Information Value Date Recorded Sex Assigned at Not on file Legal Sex Female 7:44 PM EDT Gender Identity Not on file Sexual Orientation Not on file Plan of Treatment Not on file
--- OUTSIDE RECORDS SUMMARY | 2025-07-01 12:43 | XMS_ITS | Encounter Summary ---
Author Organization Healthcare Address [address] [id number] Care Team Providers Care Timber Management Specialist Name Role Phone Unavailable Primary Care Provider Unavailabl e Encounter Details Date Type Department Care Team (Late st Contact Info) Description 06/24/2025 - 06/25/2025 9:50 AM EST Emergency [facility] Emergency Department [address] [place] [address] Discharge Disposition: ED Dismiss - Never Arrived Social History Tobacco Use Types Packs/Day Years Used Date Smoking Tobacco: Never Assessed Comments Unknown Sex and Gender Information Value Date Recorded Sex Assigned at Not on file Legal Sex Female 7:44 PM EDT Gender Identity Not on file Sexual Orientation Not on file documented as of this encounter Plan of Treatment Not on file documented as of this encounter Visit Diagnoses Not on filedocumented in this encounter
--- OUTSIDE RECORDS SUMMARY | 2025-07-01 12:43 | XMS_ITS | Encounter Summary ---
[facility] Address [address] [place] [address] Care Team Providers Care Technical Marketing Engineer Name Role Phone Addy Rubin MD Primary Care Provider [phone] Encounter Details Date Type Department Care Team (Latest Contact Info) Description 06/25/2025 Travel Social History Tobacco Use Types Packs/Day Years [...] Unsafe Housing Conditions Not on claudia e 06/25/2025 Disabilities Answer Date Recorded Difficulty Concentrating, Remembering or Making Decisions no 06/25/2025 Difficulty Managing Errands Independently no 06/25/2025 Comments No Sex and Gender Information Value Date Recorded Sex Assigned at Not on file Legal Sex Female 10:10 AM EDT Gender Identity Not on file Sexual Orientation Not on file documented as of this encounter Functional Status * Question Answer Date of Assessment Author 1. Wish to be (Past 1 Month) No 025 3:04 AM An Chery RN 2. Non-Specific Active Suici oj Thoughts (Past 1 Month) No 06/25/2025 3:04 AM Arturo Chery RN * Calculated C-SSRS Risk Score (Lifetime/Recent) Answer Date of Assessment Author No Risk Indicated 06/25/2025 3:04 AM An Chery RN * [place] Suicide Severity Rating Scale (Screener/Recent Self-Report) Question Answer Date of Assessment Author 6. Suicidal Behavior (Lifetime) No 3:04 AM An Chery RN documented as of this encounter Plan of Treatment Upcoming Encounters Date Type Department Care Team (Late st Contact Info) Description 07/19/2025 10:00 AM EST Appointment [facility] [address] [facility] 3[address] [place] [address] 07/19/2025 11:15 AM EST Office Visit [facility] MEDICAL [facility] [address] [facility] [address] [place] [address] Ky Lai MD [address] [facility] [address] [place] [address] documented as of this encounter Visit Diagnoses Not on filedocumented in this encounter Care Teams Technical Marketing Engineer Relationship Specialty Start Date End Date Addy Rubin MD [address] [facility] [address] [place] [address] PCP - General Adolescent Medicine 02/08/21 documented as of this encounter
--- OUTSIDE RECORDS SUMMARY | 2025-07-01 12:43 | XMS_ITS | Data Portability ---
Author Organization [facility] Sharon cates, [facility] Address [address] [facility] [address] [place] [address] Care Team Providers Care Real Estate Representative Name Role Phone ADDY WATSON Primary Care Provider [phone] Assessment Encounter Date Assessment Date Assessment LastModified [...] By Organization Details Last Modified Time 09/10/2024 [id number] - Continue using Voltaren gel as needed [...] Small completed ADDY CHIN MD [address] [place], [address], [place] [facility] 03/14/2025 10:19:52 5 Injection - Joint/Bursa, Interm completed ADDY CHIN MD [address] [place], [address], [place] [facility] 11/26/2024 11:41:44 5 Injection - Joint/Bursa, Small completed ADDY CHIN MD [address] [place], [address], [place] [facility] 11/26/2024 11:41:56 5 Injection - Joint/Bursa, Small completed ADDY CHIN MD [address] [place], [address], [place] [facility] 09/10/2024 10:22:19 4 Injection - Joint/Bursa, Small completed ADDY CHIN MD [address] [place], [address], [place] [facility] 05/31/2024 09:36:54 4 Injection - Joint/Bursa, Interm completed ADDY CHIN MD [address] [place], [address], [place] [facility] 02/27/2024 10:47:21 4 Injection - Joint/Bursa, Small completed ADDY CHIN MD [address] [place], [address], [place] [facility] 02/27/2024 10:47:36 4 Injection - Joint/Bursa, Small completed ADDY CHIN MD [address] [place], [address], [facility] 11/26/2023 12:55:06 4 Injection - Joint/Bursa, Small completed Jocelynn Delgado [facility] 08/25/2023 09:19:14 3 Injection - Joint/Bursa, Interm completed ADDY CHIN MD [address] [place], [address], [place] [facility] 05/02/2023 10:51:11 3 Injection - Joint/Bursa, Small completed ADDY CHIN MD [address] [place], [address], [place] [facility] 01/08/2023 17:33:54 1 Injection - Joint/Bursa, Interm completed ADDY CHIN MD [address] [place], [address], [place] [facility] 10/02/2020 14:04:43 0 Injection - Joint/Bursa, Interm completed ADDY CHIN MD [address] [place], [address], [place] [facility] 04/07/2020 09:09:31 0 Injection - Joint/Bursa, Small completed ADDY CHIN MD [address] [place], [address], [place] [facility] 04/07/2020 09:09:54 0 Injection - Joint/Bursa, Interm completed ADDY CHIN MD [address] [place], [address], [place] [facility] 12/24/2019 09:09:29 0 Injection - Joint/Bursa, Small completed ADDY CHIN MD [address] [place], [address], [place] [facility] 12/24/2019 09:09:44 9 Injection - Joint/Bursa, Small completed ADDY CHIN MD [address] [place], [address], [place] [facility] 06/28/2019 15:41:13 9 Injection - Joint/Bursa, Interm completed ADDY CHIN MD [address] [place], [address], [place] [facility] 12/07/2018 10:14:18 9 Injection - Joint/Bursa, Small completed ADDY CHIN MD [address] [place], [address], [facility] 12/07/2018 10:14:11 8 Injection - Joint/Bursa, Interm completed ADDY CHIN MD [address] [place], [address], [facility] 02/23/2018 11:28:59 Imaging Results None recorded. [...] DateTime 09/10/2024 163.83 cm 8 22.6 kg/m2 07729.38 g [facility] 09/10/2024 09:09:05 Date Recorded Body height Pain severity - 0-10 verbal numeric rating [Score] - Reported Body mass index (BMI) Body weight Provider Name and Address Organization Details Last Updated DateTime 11/26/2024 162.56 cm 6 22.7 kg/m2 87624.19 g [facility] 11/26/2024 11:22:02 Date Recorded Body height Body mass index (BMI) Body weight Provider Name and Address Organization Details Last Updated DateTime 02/27/2024 165.1 cm 22.6 kg/m2 70318.56 g Kathy [facility] 02/27/2024 10:13:26 Date Recorded Body height Body mass index (BMI) Body weight Provider Name and Address Organization Details Last Updated DateTime 03/14/2025 162.56 cm 22.7 kg/m2 80548.19 g Michael [facility] 03/14/2025 10:09:46 Date Recorded Body height Pain severity - 0-10 verbal numeric rating [Score] - Reported Body mass index (BMI) Body weight Provider Name and Address Organization Details Last Updated DateTime 05/31/2024 165.1 cm 7 22.6 kg/m2 81116.56 g Haresh [facility] 05/31/2024 09:23:49 Social History Question Answer Notes LastModified by Organizat ion Details LastModified Time Tobacco Smoking Status [facility] 08:56:54 What Is Your Level Of [...] available 02/23 11:03:52 Medical History Condition Response Arthritis Y Bleeding Disorder Y Included as Review of Systems Y Blood Thinners Y High Cholesterol Y Gynecological HistoryNo gynecological history recorded. Obstetrics History GPAL:G 0 P 0 0 0 0 Immunizations Vaccine Type Date Status Note Provider Nam e and Address Organization Details Recorded Time Influenza, split virus, quadrivalent, preservative 7 [facility]26[facility]2024 11:14:55 zoster recombinant 9 completed Haresh De La [facility] 11/26/2024 11:14:55 zoster recombinant 9 completed Haresh De La Cruz [facility] 11/26/2024 11:14:55 COVID-19, mRNA, LNP-S, PF, 100 mcg/0.5mL dose or 50 mcg/0.25mL dose 1 completed Ahresh De La Cruz [facility] 11/26/2024 11:14:55 COVID-19, mRNA, LNP-S, PF, 100 mcg/0.5mL dose or 50 mcg/0.25mL dose 1 completed Haresh De La Cruz [facility] 11/26/2024 11:14:55 COVID-19, mRNA, LNP-S, PF, 100 mcg/0.5mL dose or 50 mcg/0.25mL dose 2 completed Haresh De La Cruz [facility] 11/26/2024 11:14:55 COVID-19, mRNA, LNP-S, PF, 100 mcg/0.5mL dose or 50 mcg/0.25mL dose 1 completed Haresh De La Cruz [facility] 11/26/2024 11:14:55 COVID-19, mRNA, LNP-S, bivalent, PF, 50 mcg/0.5 mL or 25mcg/0.25 mL dose 2 completed Haresh De La Cruz [facility] 11/26/2024 11:14:55 pneumococcal polysaccharide PPV23 8 completed Haresh De La Cruz [facility] 11/26/2024 11:14:55 Pneumococcal conjugate PCV 13 7 completed Haresh De La Cruz [facility] 11/26/2024 11:14:55 zoster live 7 completed Haresh De La Cruz [facility] 11/26/2024 11:14:56 Influenza, high-dose, trivalent, PF 0 completed Haresh De La Cruz [facility] 11/26/2024 11:14:56 Influenza, high-dose, trivalent, PF 9 completed Haresh De La Cruz [facility] 11/26/2024 11:14:56 Hep A, adult 8 completed Haresh De La Cruz [facility] 11/26/2024 11:14:56 Influenza, split virus, quadrivalent, PF 2 completed Haresh De La Cruz [facility] 11/26/2024 11:14:56 Pneumococcal conjugate PCV 13 7 completed Michael Jimenez [facility] 03/14/2025 10:05:40 Past Encounters Encounter ID Performer Location Encounter Start Date Encounter Closed Date Diagnosis/Indication Diagnosis SNOMED-CT Code Diagnosis ICD10 Code Diagnosis IMO Codes Diagnosis Note [id number] MD CAROLINE BLANTON [facility] [address] [place] [address] 02/23/2018 10:54:58 02/23/2018 14:29:34 Idiopathic osteoarthritis 092162010 M19.91 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 [id number] MD CAROLINE BLANTON [facility] [address] [place] [address] 12/07/2018 09:29:03 12/07/2018 10:16:56 Idiopathic osteoarthritis 142627812 M19.91 Right STT joint, left index MP joint. Injected both. May be a good candidate for right distal pole scaphoid excision, still has no CMC involvemen t. [id number] MD CAROLINE BLANTON [facility] [address] [place] [address] 06/28/2019 14:50:23 06/28/2019 16:53:40 Idiopathic osteoarthritis 505494293 M19.91 Left index MP joint. Injection. Right wrist STT joint is doing okay Upon follow-up as needed obtain x-ray AP lateral left hand [id number] MD CAROLINE BLANTON [facility] [address] [place] [address] 12/24/2019 08:38:37 12/24/2019 09:25:30 Idiopathic osteoarthritis 106472018 M19.91 Left index MP joint. Injection. Best definitive treatment: Arthrodesi s. Second best: [place] arthroplas ty Right wrist STT joint Injection Best definitive treatment: Basal joint arthroplas ty with partial trapezoid excision. If CMC not symptomati c then excision distal scaphoid pole. [id number] ADDY CHIN MD [facility]OPEDI [facility] [address] [facility] [place] [address] 04/07/2020 08:45:30 04/07/2020 09:17:23 Idiopathic osteoarthritis 485662641 M19.91 Left index MP joint. Injection. Best definitive treatment: Arthrodesi s. Second best: [place] arthroplas ty 04/07/2020 discussion : Favor arthroplas [...] it will ever hurt in the future. [id number] ADDY CHIN MD SURGERY SCHEDULE [address] [place] [address] 07/11/2020 07:08:05 07/11/2020 07:09:48 [id number] OCHOA BROCK PA-C [facility] [address] [place] [address] 07/24/2020 13:52:49 07/24/2020 14:49:06 Idiopathic osteoarthritis 502452381 M19.91 and well status post left index finger MCP joint arthroplas ty with repair of the ulnar and radial collateral ligaments. [id number] ADDY CHIN MD [facility] [address] [place] [address] 08/21/2020 10:40:31 08/21/2020 11:47:47 Idiopathic osteoarthritis 932066113 M19.91 6 weeks postop with developing PIP dorsal capsular contractur e, recommend joint mobilizati on, active and passive range of motion and strengthen ing, follow-up 6 weeks with new x-rays [id number] ADDY CHIN MD [facility] [address] [address] 10/02/2020 13:21:33 10/02/2020 14:07:34 Idiopathic osteoarthritis 718368869 M19.91 3 months postop, PIP dorsal capsular [...] x-rays PA lateral and hyperprona nima view [id number] ADDY CHIN MD ORTHOPEDI J[facility]ED [facility] [address] [address] 11/27/2020 14:58:47 11/27/2020 15:51:35 Idiopathic osteoarthritis 378691616 M19.91 Starting to improve, able to play golf doing well on the left. On the right may benefit from distal scaphoid excision, follow-up as needed [id number] ADDY CHIN MD [facility]I [facility] [address] [address] 01/08/2023 16:34:00 01/08/2023 17:34:51 Idiopathic osteoarthritis 164123751 M19.91 Left LF and IF We discussed operative versus nonoperati ve management including risks and benefits. She does not want to proceed with surgical interventi on. We discussed doing a CSI, LLF MPJ and the patient agreed to CSI in the office today. F/U PRN [id number] ADDY CHIN MD [facility] [address] [address] 05/02/2023 08:58:24 05/02/2023 09:25:54 Idiopathic osteoarthritis 594066557 M19.91 Left LF and Right IFWe discussed [...] she tolerated the procedure well.Geronimo martinez prn. [id number] ADDY CHIN MD [facility] [address] [place] [address] 08/25/2023 09:09:19 08/25/2023 09:34:47 Idiopathic osteoarthritis 583824959 M19.91 Left LF MPJ and Right IF [...] she tolerated the procedure well. F/U PRN. [id number] ADDY CHIN MD [facility] [address] [place] [address] 11/26/2023 12:33:58 12/03/2023 10:31:46 Idiopathic osteoarthritis 096285768 M19.91 Left LF MPJ injection. Index finger seems to be doing a little bit better in terms of range of motion and pain although it does hurt to flex it beyond [id number] ADDY CHIN MD [facility] [address] [place] [address] 02/27/2024 10:00:31 02/27/2024 10:50:09 Idiopathic osteoarthritis 493106188 M19.91 Left LF MPJ injection. R STT inj f/u prn [id number] ADDY CHIN MD [facility] [address] [place] [address] 05/31/2024 09:18:11 05/31/2024 10:08:53 Idiopathic osteoarthritis 821709772 M19.91 Only about 6 weeks relief with [...] be superior She will follow-up as needed. [id number] ADDY CHIN MD [facility] [address] [address] 09/10/2024 08:51:42 09/10/2024 10:16:26 Arthritis 5951068 M19.90 The plan includes the continuati on of topical Voltaren gel and a trial of glucosamin e and chondroiti n supplement s for possible relief from joint pain and swelling. A follow-up will be contingent on the patient s response to these interventi ons. Surgical options are deferred at this time per the patient's preference . [id number] ADDY CHIN MD [facility] [address] [place] [address] 11/26/2024 11:10:09 11/26/2024 12:03:02 Arthritis 8934971 M19.90 Injected right STT joint and left long finger MP joint, palliative management , she will consider surgical management but really wants to avoid it, have not injected the STT joint in a long time and the MP injection was 4 months ago [id number] ADDY CHIN MD ORTHOPEDI CS [address] [place] [address] 03/14/2025 09:54:32 03/14/2025 10:28:13 Arthritis [id number] M19.90 Left long finger MP joint injected, [...] Member ID Mejia Member ID Guarantor Name 06/30/2025 1 [facility] (MEDICARE REPLACEMENT/A DVANTAGE - PPO) [id number] Lyla Diego [id number] Lyla Diego Notes Date Note Type Note Provider Name and Address Organization Details Recorded Time 4 text/html Consult requested by: [facility] Physician: Dr. Addy Watson Hand dominance: ambidextrousLocation: Left LF rt wrist Pain level: 8 /10 Onset: 7 months Recent Surgery: No In office procedure? Yeslt LF, rt IF csi: 05/02/2023lt LF MP joint CSI: 08/25/2023; 11/26/2023; 01/08/2023Right wrist STT csi: 1Previous upper extremity surgery? YesProcedure: Left index finger metacarpophalangeal arthroplasty with Integra [place] MCP size 20Repair radial collateral ligament left index finger MP jointRepair ulnar collateral ligament left index finger MP jointApproximate date of surgery:07/11/2020Surgeo n (if known): Dr. Chin Have you or any of your immediate family members been seen by our hand surgeons before? 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 Diego is here for recheck of lt hand. She received an injection at her last visit. She says the injection lasted 2 months, she is disappointed with that. She is also wanting another injection in the right wrist. ADDY CHIN MD [address] [place] [address], [address], [facility] 02/27/2024 10:48:06 4 text/html [facility]Primary Care Physician: Dr. Addy Watson Hand dominance: ambidextrousLocation: Left LF rt wrist Pain level: 7 /10 Onset: 7+ months Recent Surgery: No In office procedure? Yeslt LF, rt IF csi: 05/02/2023lt LF MP joint CSI:02/27/2024; 08/25/2023; 11/26/2023; 01/08/2023Right wrist STT csi: 02/27/2024; 1Previous upper extremity surgery? YesProcedure: Left index finger metacarpophalangeal arthroplasty with Integra [place] MCP size 20Repair radial collateral ligament left index finger MP jointRepair ulnar collateral ligament left index finger MP jointApproximate date of surgery:07/11/2020Sursofyao n (if known): Dr. Chin Have you or any of your immediate family members been seen by our hand surgeons before? 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 Diego is here for recheck of lt hand. She received injections at her last visit. Ms. Diego says that her right wrist is doing great. However, she says that the injections in her left hand helped for 6 weeks, but is now painful again. ADDY CHIN MD [address] [place] [address], [phone], [facility] 05/31/2024 09:37:56 5 text/html Consult requested by: [facility] upmcPrformerly [facility] Care Physician: Dr. Addy Watson Hand dominance: ambidextrousLocation: Left LF rt wrist Pain level: 8 /10 Onset: 10+ months Recent Surgery: No In office procedure? Yeslt LF, rt IF csi: 05/02/2023lt LF MP joint CSI: 05/31/2024; 02/27/2024; 08/25/2023; 11/26/2023; 01/08/2023Right wrist STT csi: 02/27/2024; 11/27/2020 Previous upper extremity surgery? YesProcedure: Left index finger metacarpophalangeal arthroplasty with Integra [place] MCP size 20Repair radial collateral ligament left index finger MP jointRepair ulnar collateral ligament left index finger MP jointApproximate date of surgery:07/11/2020Surgaudencio n (if known): Dr. Chin Have you or any of your immediate family members been seen by our hand surgeons before? 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 Diego is here [...] advice on alternative therapies. ADDY CHIN MD [address] [place] [address], [phone], [facility] 09/10/2024 10:22:43 5 text/html [facility]: Dr. Addy Watson Hand dominance: [...] Left index finger metacarpophalangeal arthroplasty with Integra [place] MCP size 20Repair radial collateral ligament left index finger MP jointRepair ulnar collateral ligament left index finger MP jointApproximate date of surgery:07/11/2020Surgeo n (if known): Dr. Chin Have you or any of your immediate family members been seen by our hand surgeons before? 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 Diego is here for [...] her rt wrist pain. ADDY CHIN [facility] [place], [address], [facility] 11/26/2024 11:42:55 text/html Consult requested by: [...] Left index finger metacarpophalangeal arthroplasty with Integra [place] MCP size 20Repair radial collateral ligament left index finger MP jointRepair ulnar collateral ligament left index finger MP jointApproximate date of surgery:07/11/2020Surgeo n (if known): Dr. Chin Have you or any of your immediate family members been seen by our hand surgeons before? 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 Diego is here [...] the pain is now constant[place], [address], [facility] 03/14/2025 10:20:38 OBGyn Episode No OBEpisode recorded.
[2025-07-01 13:04] LABS: Hematocrit 30.1 % (37.0-47.0); Hemoglobin 10.1 g/dL (12.2-16.2); Immature Granulocytes % 0.3 %; Mean Corpuscular HGB Conc 33.6 g/dL (31.8-35.4); Mean Corpuscular Hemoglobin 33.2 pg (27.0-31.2); Mean Corpuscular Volume 99.0 fl (81-99); Nucleated Red Blood Cells % 0 %; Platelet Count 308 K/mm3 (142-424); Red Blood Count 3.04 M/mm3 (4.20-5.40); Red Cell Distribution Width-SD 48.4 fL; White Blood Count 6.2 K/mm3 (4.8-10.8)
[2025-07-01 14:01] LABS: Alanine Aminotransferase 24 U/L (12-78); Albumin Level 4.2 g/dl (3.5-5.0); Albumin/Globulin Ratio 2.0 (1.1-1.8); Alkaline Phosphatase 44 U/L (38-126); Anion Gap 10.6 mEq/L (5-15); Aspartate Amino Transferase 40 U/L (14-36); Bilirubin,Total 0.5 mg/dl (0.2-1.3); Blood Urea Nitrogen 19 mg/dl (7-17); Calcium 9.4 mg/dl (8.4-10.2); Carbon Dioxide 19 mmol/L (22.0-30.0); Chloride 109 mmol/L (98-107); Creatinine,Serum 0.80 mg/dl (0.52-1.04); Estimated Glomerular Filt Rate 70 ml/min (>60); GFR (African American) 85 ML/MIN (>60); Globulin 2.1 g/dL (1.3-3.2); Glucose 91 mg/dl (74-100); Potassium 4.6 mmoL/L (3.5-5.1); Sodium 134 mmol/L (136-145); Total Protein,Serum 6.3 g/dl (6.3-8.2)
== END 2025-07-01 23:59 | disposition home or self-care (01) ==
LOC: LAB 12:41
PROVIDERS: PCP Internal Medicine Adolescent Medicine; Visit Provider Internal Medicine Adolescent Medicine
DX: D50.0 Iron deficiency anemia secondary to blood loss (chronic) (principal)
CPT/HCPCS: 36415; 80053; 85025

== ENCOUNTER 2025-07-08 08:23 | Outpatient (CLI) | payer MEDICARE, SELFPAY ==
--- OUTSIDE RECORDS SUMMARY | 2025-06-25 00:19 | XMS_ITS | Encounter Summary ---
[facility] Address [address] [place] [address] Care Team Providers Care Movie Stunt Performer Name Role Phone Addy Rubin MD Primary Care Provider [phone] Reason for Referral * Physical Therapy (Routine) - Pending Review Specialty Diagnoses / Procedures Referred By Jennifer kathleen Referred To Contact Physical Therapy Diagnoses Acute posterior epistaxis Carotid stenosis, left History of left-sided carotid endarterectomy Primary hypertension Carotid stenosis, right Procedures LA OFFICE/OUTPATIENT NEW MODERATE MDM 45 MINUTES Tamiko Cr PA [address] [address] Phone: tel: fax: Referral ID Status Reason Start Date Expiration Date Visits Requested Visits Authorized [id number] Pending Review Specialty Services Required 09/26/2026 1 1 Reason for Visit * Auth/Cert Specialty Diagnoses / Procedures Referred By Jennifer kathleen Referred To Contact Diagnoses Epistaxis (Nose Bleed) Referral ID Status Reason Start Date Expiration Date Visits Re quested Visits Authorized [id number] 1 1 Encounter Details Date Type Department Care Team (Late st Contact Info) Description 06/25/2025 12:19 AM EST - 06/27/2025 2:18 PM EST Hospital Encounter [address] [place] [id number] Reynaldo Arndt III, DO [address] [place] [address] Duane Scott MD 1780 [facility] [address] [place], [place] [id number] Nash Anne MD [address] [place] [id number] Acute posterior epistaxis (Primary Dx); Carotid stenosis, [...] 06/25/2025 3:04 AM An Chery RN * Tift Suicide Severity Rating Scale (Screener/Recent Self-Report) Question Answer Date of Assessment Author 6. Suicidal Behavior (Lifetime) No 3:04 AM An Chery RN documented as of this encounter Discharge Summaries * Lorenza Pop RN - 06/27/2025 10:52 AM EST Images from the original note were not included. To [facility] From Lorenza Pop [phone] Diego Lyla Olivas (75 y.o. 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 Please contact [address] at [phone] during normal business hours. Authorizing Provider:Tamiko Cr PA Authorizing Provider's Order Entered By: Lorenza Pop RN 06/27/2025 10:51 AM Electronically signed by: Tamiko Cr PA 06/27/2025 10:51 AM Date of 1950 Social Security Number [id number] [place] [address] LIN [address] Mar[employer] Status Admission Date 06/25/2025 Admission Type Urgent Admitting Provider Nash Anne MD Attending Provider Nash Anne MD Department, Room/Bed [address], S527/1 Discharge Date Discharge Disposition Discharge Destination Attending Provider: Nash Anne MD Allergies: Codeine Isolation: None Infection: None Code Status: CPR Ht: 163.8 cm (64.5 ) Wt: 62.1 kg (137 lb) Admission Cmt: None Principal Problem: Acute posterior epistaxis [R04.0] Active Insurance as of 06/25/2025 Primary Coverage Payor Plan Insurance Group Employer/Plan Group [employer] MEDICARE REPLACEMENT UHC Medicare Advantage GROUP PPO [id number] Payor Plan Address Payor Plan Phone Number Payor Plan Fax Number Effective Dates [address] [address] 08/11/2022 - None Entered [facility] [id number] Subscriber Name Subscriber Date Member ID LYLA DIEGO 1950 [id number] Emergency Contacts 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 female who had a eustachian tube dilation 4 days ago at the [facility]. Was performed by the ENT [...] took the patient to the ED at [facility] for further evaluation. The ED physician there states to me that he had significant difficulty in controlling the bleed from both nares and the patient's mouth. The ED physician there states he attempted use, repositioning of the patient, nasal clamps, Rhino Rocket's, but she bled through all of these things. He thencontacted the ENT doctor on-call here who recommended placing 14 Macedonian Thurston catheters in each nare and then [...] chills earlier tonight after arriving at the [facility] ED, but her temperature was normal. [...] Surgeon: Syd De La Cruz MD; Location: [facility]; Service: Neurosurgery; Laterality: Left; COLONOSCOPY ECTOPIC 1975 [...] Other: Most notable findings include: On her quality assurance monitor in her room, rhythm is sinus, regular, [...] minutes Time spent includes time reviewing chart, reww-gg-ggmu time, counseling patient/family/caregiver, ordering medications/tests/procedures, communicating with other health direct care specialist, documenting clinical information in the electronic health [...] from the original note were not included. [facility] Medicine Services DISCHARGE SUMMARY Patient Name: [...] dilation recently , presented to [facility] ED w/ nasal bleeding evening of 06/24/25, local ED provider unable to adequately controlbleeding via packing so patient transferred to [facility], seen by ENT upon arrival early cobwdqh12/15/25, repacked by Dr. Goss (ENT) and recommended [...] Banegas) - Seen by ENT Dr. Goss citrix lead 06/25/25: S/P bilateral rhino-rocket insertion, appears bleeding improved - Anti staph antibiotic coverage recommended, initiated on zosyn. Changed to oral Keflex 06/26 for 4 more days. - Advanced diet 06/26, tolerating. - Dr. Banegas discontinued right sided nasal packing on Wednesday 06/27 with plans to remove left side in outpatient clinic in [place] on Thursday 06/28. - H/H overall stable. [...] 1. Follow up with Dr. Banegas in [place] clinic on Friday06/28/2025 as directed. 2. Follow [...] minutes on this discharge activity which included: bgex-nu-pasmttgpokulw with the patient, reviewing the data in [...] Care Everywhere. * Cephalexin Capsules or Tablets (Peruvian) * Scopolamine Patches (Peruvian) * Nasal Packing (Peruvian) * Nasal Packing Care After (Peruvian) documented in this encounter Medications at Time of Discharge aspirin 81 MG EC tablet Take 2 tablets by mouth Daily. atorvastatin (LIPITOR) 80 MG tablet TAKE ONE TABLET BY MOUTH AT BEDTIME 30 tablet 11 01/02/2022 cyclobenzaprine (FLEXERIL) 5 MG tablet 1 tablet As Needed. 03/04/2022 lisinopril (PRINIVIL,ZESTRI L) 20 MG tabletIndication s:Carotid stenosis, left,History of left-sided carotid endarterectomy,E ssential hypertension,Dys lipidemia TAKE ONE TABLET BY MOUTH ONCE A DAY 30 tablet 11 01/04/2025 Diclofenac Sodium (VOLTAREN) 1 % gel gel [...] PO Take 1,000 mg by mouth Daily. minoxidil (LONITEN) 2.5 MG tablet Take 1 [...] right side. Will arrange for follow-up in [place] tomorrow for further removal on the left Hold aspirin for now -will complete antibiotic course Low activity with no lifting or bending Discharge to home today Kwame Banegas MD 06/27/25 09:40 EST * Tamiko Cr PA - 06/27/2025 7:38 AM EST Images from the original note were not included. [facility] Medicine Services PROGRESS NOTE Patient Name: Lyla Diego : 1950 Date of Admission: 06/25/2025 Primary Care Physician: Addy Rubin MD Subjective Subjective CC: Following for Nose bleeding HPI: Awake in room, asleep at bedside. Vitals stable. Developed headache overnight. Jasper did not help, she did receive relief [...] dilation recently , presented to [facility] ED w/ nasal bleeding evening of 06/24/25, local ED provider unable to adequately controlbleeding via packing so patient transferred to [facility], seen by ENT upon arrival early itthldp04/15/25, repacked by Dr. Goss (ENT) and recommended [...] Banegas) - Seen by ENT Dr. Goss citrix lead 06/25/25: S/P bilateral rhino-rocket insertion, appears bleeding [...] from the original note were not included. [facility] Medicine Services PROGRESS NOTE Patient Name: [...] motion Neuro: Face symmetric, speech clear, equal nurse special, moves all extremities Cardiac: rrr Resp: ctab [...] dilation recently , presented to [facility] ED w/ nasal bleeding evening of 06/24/25, local ED provider unable to adequately controlbleeding via packing so patient transferred to [facility], seen by ENT upon arrival early qacvaby94/15/25, repacked by Dr. Goss (ENT) and recommended [...] (Dr. Banegas) -seen by ENT Dr. Goss citrix lead 06/25/25: s/p bilateral rhino-rocket insertion, appears bleeding [...] (Dr. Banegas) -seen by ENT Dr. Goss citrix lead 06/25/25: s/p bilateral rhino-rocket insertion, appears bleeding [...] from the original note were not included. [facility] Medicine Services HISTORY AND PHYSICAL Patient Name: Lyla Diego : 1950 Primary Care Physician: Addy Rubin MD Date of admission: 06/25/2025 Subjective Subjective Chief Complaint: Nosebleed HPI: Lyla Diego is a 75 y.o. female who had a eustachian tube dilation 4 days ago at the [facility] facility. Was performed by the ENT [...] took the patient to the ED at [facility] for further evaluation. The ED physician there states to me that he had significant difficulty in controlling the bleed from both nares and the patient's mouth. The ED physician there states he attempted use, repositioning of the patient, nasal clamps, Rhino Rocket's, but she bled through all of these things. He thencontacted the ENT doctor on-call here who recommended placing 14 Macedonian Thurston catheters in each nare and then tying to the bed to achieve anterior traction. He then used a Merisel packing soaked in TXA and lidocaine; this did control the hemorrhage for short time, but she continued to bleed. She also continued to have blood down the back of her throat. [facility] During my visit in the early [...] chills earlier tonight after arriving at the [facility] ED, but her temperature was normal. [...] Surgeon: Syd De La Cruz MD; Location: [facility]; Service: Neurosurgery; Laterality: Left; COLONOSCOPY ECTOPIC 1975 [...] Other: Most notable findings include: On her quality assurance monitor in her room, rhythm is sinus, regular, [...] minutes Time spent includes time reviewing chart, nqvq-oj-nlxv time, counseling patient/family/caregiver, ordering medications/tests/procedures, communicating with other health direct care specialist, documenting clinical information in the electronic health [...] AM ESTAssociated Order(s): IP CONSULT TO ENT [facility] Consult Note Patient Name: Lyla Diego [...] Surgeon: Syd De La Cruz MD; Location: [facility]; Service: Neurosurgery; Laterality: Left; COLONOSCOPY ECTOPIC 1975 [...] thoughts/feelings acknowledged Taken 06/26/2025 1200 by Sudha Fraizer RN Trust Relationship/Rapport: care explained choices provided [...] Review/Management: medications reviewed Taken 06/26/2025 1000 by Sduha Frazier RN Medication Review/Management: medications reviewed Taken [...] walker. She wantsto do outpt PT at [facility]. I spoke with Nabila [phone] at outpt PT at this location and faxed her a referral to [phone]. They are familar with the pt. 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 Independent without [...] Row Name 06/27/25 0943 Sit-Stand Transfer Sit-Stand [facility] (Transfers) contact guard;verbal cues -SD Row Name 06/27/25 0943 Gait/Stairs (Locomotion) [facility] Level (Gait) minimum assist (75% patient effort);contact [...] Type Aileen Porter PT Physical Therapist Obj/Interventions [facility] 06/27/25 0950 Range of Motion Comprehensive General Range of Motion no range of motion deficits identified -SD [facility] 06/27/25 0950 Strength Comprehensive (MMT) General Manual Muscle Testing (MMT) Assessment no strength deficits identified -[facility] 06/27/25 0950 Balance Balance Assessment sitting static [...] (PT) Activity/Assistive Device (Transfer Goal 1, PT) jeb-ps-njyot/iwnjz-aj-qcb;irt-dp-ohpka/dpdch-zm-tav-SD [facility] Level/Cues Needed (Transfer Goal 1, PT) independent -SD Time Frame (Transfer Goal 1, PT) short term goal (STG);3 days -SD Row Name 06/27/25 1000 Gait Training Goal 1 (PT) Activity/Assistive Device (Gait Training Goal 1, PT) gait (walking locomotion) -SD [facility] Level (Gait Training Goal 1, PT) modified independence -SD Distance (Gait Training Goal 1, PT) 400 -SD Time Frame (Gait Training Goal 1, PT) short term goal (STG);3 days -SD Row Name 06/27/25 1000 Stairs Goal 1 (PT) Activity/Assistive Device (Stairs Goal 1, PT) ascending stairs;descending stairs -SD [facility] Level/Cues Needed (Stairs Goal 1, PT) modified independence -SD Number of Stairs (Stairs Goal 1, PT) 12 -SD Time Frame (Stairs Goal 1, PT) care home goal (LTG);10 days -SD Row Name 06/27/25 1000 Therapy Assessment/Plan (PT) Planned Therapy Interventions (PT) balance training;bed mobility training;gait training;home exercise program;patient/family education;neuromuscular re- education;transfer training;strengthening;stairtraining -SD User Gamez (r) = Recorded By, (t) = Taken By, (c) = Cosigned By Initials Name Provider Type Aileen Porter, PT Physical Therapist Clinical Impression Row Name 06/27/25 0970 Pain Pretreatment Pain Rating 3/10 -SD Posttreatment Pain Rating 3/10 -SD Pain Location head -SD Pain Management Interventions nursing notified -SD Response to Pain Interventions no change per patient report -SD Row Name 06/27/25 0977 Plan of Care Review Plan of Care [...] Therapist Physical Therapy Education Title: PT OT DRIFT MINER Therapies (Done) Topic: Physical Therapy (Done) Point: [...] Description Service Date Service Provider Modifiers Qty [id number] HC-PT EVAL MOD COMPLEXITY 5 06/27/2025 Aileen [...] Surgeon: Syd De La Cruz MD; Location: [facility]; Service: Neurosurgery; Laterality: Left; COLONOSCOPY ECTOPIC 1975 [...] 1120 Bed Mobility Comment, (Bed Mobility) recevied [facility] upon OT arrival, preferred to remain OOB [...] Row Name 06/27/25 1120 Sit-Stand Transfer Sit-Stand [facility] (Transfers) contact guard;verbal cues -JY Assistive Device (Sit-Stand Transfers) other (see comments) no AD used -ARBEN Row Name 06/27/25 1120 Stand-Sit Transfer Stand-Sit [facility] (Transfers) contact guard;verbal cues -JY Assistive Device [...] Name 06/27/25 112 Upper Body Dressing Assessment/Training [facility] Level (Upper Body Dressing) doff;don;pull-over garment;other (see comments) anticipateneed for SBA for close monitoring of mgmt over head w/ nares packed -JY Comment, (Upper Body Dressing) pt already with UB and LB clothing donned, based on skill set and observation, anticipate SBA for overhead garments for close monitoring of packed nares -ARBEN Row Name 06/27/25 1120 Lower Body Dressing Assessment/Training [facility] Level (Lower Body Dressing) doff;don;socks;shoes/slippers;standby assist -JY Position (Lower Body Dressing) unsupported sitting -JY Comment, (Lower Body Dressing) no physical A for d/d socks and shoes, pt able to demo forward flexion reaching toward feet and ability to bring LEs upward to more proximal reach; denied any dizzinessor feeling LH with postition change -JY [facility] Name 06/27/25 1120 Grooming Assessment/Training [facility] Level (Grooming) wash face, hands;set up -JY Position (Grooming) supported sitting -JY User Gamez (r) = Recorded By, (t) = Taken By, (c) = Cosigned By Initials Name Provider Type Carmela Bullard OT Occupational Therapist Obj/Interventions [facility] Name 06/27/25 1130 Sensory Assessment (Somatosensory) Sensory Assessment (Somatosensory) bilateral UE;sensation intact -J Bilateral UE Sensory Assessment general sensation;light touch awareness;intact -JY Sensory Assessment denies any numbness or tingling and able to recognize LT stimuli as intact and symmetrical at BUEs -[facility] Name 06/27/25 1130 Vision Assessment/Intervention Vision Assessment Comment no acute changes to vision -[facility] 06/27/25 1130 Range of Motion Comprehensive General Range of Motion bilateral upper extremity ROM WFL -[facility] 06/27/25 1130 Strength Comprehensive (MMT) General Manual Muscle Testing (MMT) Assessment upper extremity strength deficits identified -JY Comment, General Manual Muscle Testing (MMT) Assessment BUE MMS grossly 4+/5 per MMT; LUE slightly weaker than R w/ remote deficits -JY [facility] 06/27/25 1130 Motor Skills Motor Skills functional endurance;coordination -JY Coordination bilateral;upper extremity;finger to nose;other (see comments);WFL finger thumb opposition -JY Functional Endurance decreased activity tolerance toward more dynamic demands -[facility] 06/27/25 1130 Balance Balance Assessment sitting [...] (OT) Activity/Assistive Device (Transfer Goal 1, OT) ghq-qr-izzrb/fgknr-pl-ufc;zau-eg-nwtdt/tldwo-ni-ilm;commode;walker, rolling -JY [facility] Level/Cues Needed (Transfer Goal 1, OT) standby assist;verbal cues required -JY Time Frame (Transfer Goal 1, OT) care home goal (LTG);4 days -JY Progress/Outcome (Transfer Goal 1, OT) new goal -JY Row Name 06/27/25 1145 Dressing Goal 1 (OT) Activity/Device (Dressing Goal 1, OT) upper body dressing;lower body dressing -JY [facility]/Cues Needed (Dressing Goal 1, OT) supervision required;verbal cues required -JY Time Frame (Dressing Goal 1, OT) care home goal (LTG);4 days -JY Progress/Outcome (Dressing Goal 1, OT) new goal -JY Row Name 06/27/25 1145 Toileting Goal 1 (OT) Activity/Device (Toileting Goal 1, OT) adjust/manage clothing;perform perineal hygiene;commode;commode, bedside without drop arms;grab bar/safety frame;raised toilet seat -JY [facility] Level/Cues Needed (Toileting Goal 1, OT) supervision required -JY Time Frame (Toileting Goal 1, OT) tank terminal gauger goal (LTG);4 days -JY Progress/Outcome (Toileting Goal 1, OT) new goal -[employer] Row Name 06/27/25 1145 Strength Goal 1 [...] Nurse Occupational Therapy Education Title: PT OT DRIFT MINER Therapies (In Progress) Topic: Occupational Therapy (In [...] Description Service Date Service Provider Modifiers Qty [id number] HC-OT EVAL MOD COMPLEXITY 5 06/27/2025 Carmela Santacruz OT 1 Carmela Santacruz OT 06/27/2025 documented in this encounter Plan of Treatment Upcoming Encounters Date Type Department Care Team (Late st Contact Info) Description 07/19/2025 10:00 AM EST Appointment [facility] [address] [facility] [address] [place] [id number] 07/19/2025 11:15 AM EST Office Visit [facility] [address] [facility] [address] [place] [id number] Ky Lai MD [address] [facility] [address] [place] [address] Scheduled Referrals Name Type Priority Associated Diagnoses [...] Basic Metabolic Panel (06/27/2025 5:31 AM EST) [facility] Glucose 102(H) 65 - 99 mg/dL 06/27/2025 6:32 AM EST [facility] BUN 8.7 8.0 - 23.0 mg/dL 06/27/2025 6:32 AM EST [facility] Creatinine 0.77 0.57 - 1.00 mg/dL 06/27/2025 6:32 AM EST [facility] Sodium 141 136 - 145 mmol/L 06/27/2025 6:32 AM EST [facility] Potassium 3.7 3.5 - 5.2 mmol/L 06/27/2025 6:32 AM EST [facility] Chloride 109(H) 98 - 107 mmol/L 06/27/2025 6:32 AM EST [facility] CO2 25.3 22.0 - 29.0 mmol/L 06/27/2025 6:32 AM [facility] Calcium 9.1 8.6 - 10.5 mg/dL 06/27/2025 6:32 AM [facility] BUN/Creatinine Ratio 11.3 7.0 - 25.0 06/27/2025 6:32 AM [facility] Anion Gap 6.7 5.0 - 15.0 mmol/L 06/27/2025 6:32 AM [facility] eGFR 81.6 >60.0 mL/min/1.7 3 06/27/2025 6:32 AM [facility] Blood Venipuncture / Unknown 06/27/2025 5:31 AM EST 06/27/2025 6:03 AM EST [facility] - 06/27/2025 6:32 AM EST [...] Scott MD LAB BLOOD ORDERABLES Final Result [facility]
[address] [place] [address], * (ABNORMAL) CBC (No Diff) (06/27/2025 5:31 AM EST) WBC 5.93 3.40 - 10.80 10*3/mm3 06/27/2025 6:29 AM EST [facility] RBC 2.82(L) 3.77 - 5.28 10*6/mm3 06/27/2025 6:29 AM EST [facility] Hemoglobin 9.1(L) 12.0 - 15.9 g/dL 06/27/2025 6:29 AM EST [facility] Hematocrit 28.0(L) 34.0 - 46.6 % 06/27/2025 6:29 AM [facility] MCV 99.3(H) 79.0 - 97.0 fL 06/27/2025 6:29 AM EST [facility] MCH 32.3 26.6 - 33.0 pg 06/27/2025 6:29 AM [facility] MCHC 32.5 31.5 - 35.7 g/dL 06/27/2025 6:29 AM EST [facility] RDW 13.6 12.3 - 15.4 % 06/27/2025 6:29 AM [facility] RDW-SD 49.7 37.0 - 54.0 fl 06/27/2025 6:29 AM [facility] MPV 12.2(H) 6.0 - 12.0 fL 06/27/2025 6:29 AM [facility] Platelets 176 140 - 450 10*3/mm3 06/27/2025 6:29 AM [facility] Blood Venipuncture / Unknown 06/27/2025 5:31 AM EST 06/27/2025 6:23 AM EST us Duane Scott MD LAB BLOOD ORDERABLES Final Result [facility]
[address] [place] [address], * Telemetry Scan (06/27/2025 12:14 AM EST) [facility] ECG ORDERABLES Final Result * (ABNORMAL) Hemoglobin & Hematocrit, Blood (06/26/2025 8:06 PM EST) Hemoglobin 9.4(L) 12.0 - 15.9 g/dL 06/26/2025 8:20 PM EST [facility] Hematocrit 28.6(L) 34.0 - 46.6 % 06/26/2025 8:20 PM EST [facility] Blood Venipuncture / Unknown 06/26/2025 8:06 PM EST 06/26/2025 8:18 PM EST Duane Scott MD LAB BLOOD ORDERABLES Final Result [facility]
[address] [place] [address], * Telemetry Scan (06/26/2025 1:40 PM EST) [facility] ECG ORDERABLES Final Result * (ABNORMAL) Hemoglobin & Hematocrit, Blood (06/26/2025 6:05 AM EST) Hemoglobin 10.6(L) 12.0 - 15.9 g/dL 06/26/2025 6:39 AM EST [facility] Hematocrit 32.2(L) 34.0 - 46.6 % 06/26/2025 6:39 AM EST [facility] Blood Venipuncture / Unknown 06/26/2025 6:05 AM EST 06/26/2025 6:32 AM EST Duane Scott MD LAB BLOOD ORDERABLES Final Result [facility]
[address] [place] [address], * (ABNORMAL) Hemoglobin & Hematocrit, Blood (06/26/2025 1:03 AM EST) Hemoglobin 9.3(L) 12.0 - 15.9 g/dL 06/26/2025 1:17 AM EST [facility] Hematocrit 27.5(L) 34.0 - 46.6 % 06/26/2025 1:17 AM EST [facility] Blood Venipuncture / Unknown 06/26/2025 1:03 AM EST 06/26/2025 1:14 AM EST Duane Scott MD LAB BLOOD ORDERABLES Final Result Performing Organization Address City/[facility] Hospital/ZIP Co de Phone Number [facility]
[address] [place] [address], * (ABNORMAL) Hemoglobin & Hematocrit, Blood (06/25/2025 5:16 PM EST) Hemoglobin 10.4(L) 12.0 - 15.9 g/dL 06/25/2025 5:37 PM EST [facility] Hematocrit 30.9(L) 34.0 - 46.6 % 06/25/2025 5:37 PM EST [facility] Blood Venipuncture / Unknown 06/25/2025 5:16 PM EST 06/25/2025 5:32 PM EST Duane Scott MD LAB BLOOD ORDERABLES Final Result [facility]
[address] [place] [address], * (ABNORMAL) Hemoglobin & Hematocrit, Blood (06/25/2025 11:57 AM EST) Hemoglobin 10.4(L) 12.0 - 15.9 g/dL 06/25/2025 12:17 PM EST [facility] Hematocrit 31.2(L) 34.0 - 46.6 % 06/25/2025 12:17 PM EST [facility] Blood Venipuncture / Unknown 06/25/2025 11:57 AM EST 06/25/2025 12:13 PM EST Reynaldo Arndt III, DO LAB BLOOD ORDERAB LES Final Result Performing Organization Address City/[facility] Hospital/ZIP Co de Phone Number [facility]
[address] [place] [address], * (ABNORMAL) Hemoglobin & Hematocrit, Blood (06/25/2025 9:27 AM EST) Hemoglobin 10.2(L) 12.0 - 15.9 g/dL 06/25/2025 10:04 AM EST [facility] Hematocrit 30.0(L) 34.0 - 46.6 % 06/25/2025 10:04 AM EST [facility] Blood Venipuncture / Unknown 06/25/2025 9:27 AM EST 06/25/2025 9:52 AM EST Reynaldo Arndt III, DO LAB BLOOD ORDERAB LES Final Result [facility]
[address] [place] [address], * Telemetry Scan (06/25/2025 8:04 AM EST) [facility] Onbase ECG ORDERABLES Final Result * ABO RH Specimen Verification (06/25/2025 4:28 AM EST) ABO Type A 06/25/2025 12:31 PM EST [facility] RH type Positive 06/25/2025 12:31 PM EST [facility] Blood Venipuncture / Unknown 06/25/2025 4:28 AM EST 06/25/2025 5:02 AM EST Reynaldo Arndt III, DO BLOOD BANK TEST O RDERABLES Final Result Performing Organization Address City/[facility] Hospital/ZIP Co de Phone Number [facility]
[address] [place] [address], * (ABNORMAL) Hemoglobin & Hematocrit, Blood (06/25/2025 4:28 AM EST) Pathologist [facility] Hemoglobin 11.6(L) 12.0 - 15.9 g/dL 06/25/2025 5:08 AM EST [facility] Hematocrit 34.0 34.0 - 46.6 % 06/25/2025 5:08 AM EST [facility] Blood Venipuncture / Unknown 06/25/2025 4:28 AM EST 06/25/2025 4:45 AM EST Reynaldo Arndt III, DO LAB BLOOD ORDERAB LES Final Result [facility]
[address] [place] [address], * (ABNORMAL) CBC (No Diff) (06/25/2025 1:51 AM EST) WBC 8.35 3.40 - 10.80 10*3/mm3 06/25/2025 2:02 AM EST [facility] RBC 3.58(L) 3.77 - 5.28 10*6/mm3 06/25/2025 2:02 AM EST [facility] Hemoglobin 11.7(L) 12.0 - 15.9 g/dL 06/25/2025 2:02 AM [facility] Hematocrit 35.1 34.0 - 46.6 % 06/25/2025 2:02 AM [facility] MCV 98.0(H) 79.0 - 97.0 fL 06/25/2025 2:02 AM EST [facility] MCH 32.7 26.6 - 33.0 pg 06/25/2025 2:02 AM [facility] MCHC 33.3 31.5 - 35.7 g/dL 06/25/2025 2:02 AM [facility] RDW 13.3 12.3 - 15.4 % 06/25/2025 2:02 AM [facility] RDW-SD 48.3 37.0 - 54.0 fl 06/25/2025 2:02 AM [facility] MPV 10.9 6.0 - 12.0 fL 06/25/2025 2:02 AM [facility] Platelets 226 140 - 450 10*3/mm3 06/25/2025 2:02 AM [facility] Blood Venipuncture / Unknown 06/25/2025 1:51 AM EST 06/25/2025 2:00 AM EST us Reynaldo Arndt III, DO LAB BLOOD ORDERAB LES Final Result [facility]
[address] [place] [address], * Type & Screen (06/25/2025 1:51 AM EST) ABO Type A 06/25/2025 2:52 AM [facility] RH type Positive 06/25/2025 2:52 AM [facility] Antibody Screen Negative 06/25/2025 2:52 AM [facility] T&S Expiration Date 06/28/2025 11:59:59 PM 06/25/2025 2:52 AM EST [facility] Blood Venipuncture / Unknown 06/25/2025 1:51 AM EST 06/25/2025 2:08 AM EST Reynaldo Arndt III, DO BLOOD BANK TEST O RDERABLES Edited Result - Final Performing Organization Address City/Va Hospital/ZIP Co de Phone Number [facility]
[address] [place] [address], * Protime-INR (06/25/2025 1:50 AM EST) Protime 14.0 12.2 - 15.3 Seconds 06/25/2025 2:19 AM EST [facility] INR 1.02 0.89 - 1.12 06/25/2025 2:19 AM EST [facility] Blood Venipuncture / Unknown 06/25/2025 1:50 AM EST 06/25/2025 2:00 AM EST Reynaldo Arndt III, DO LAB BLOOD ORDERAB LES Final Result Performing Organization Address [facility]/Va Hospital/[facility] Co de Phone Number [facility]
[address] [place] [address], * Magnesium (06/25/2025 1:50 AM EST) Magnesium 2.0 1.6 - 2.4 mg/dL 06/25/2025 2:24 AM EST [facility] Blood Venipuncture / Unknown 06/25/2025 1:50 AM EST 06/25/2025 2:00 AM EST Reynaldo Arndt III, DO LAB BLOOD ORDERAB LES Final Result Performing Organization Address City/[facility] Hospital/ZIP Co de Phone Number [facility]
[address] [place] [address], * (ABNORMAL) Comprehensive Metabolic Panel (06/25/2025 1:50 AM EST) [facility] Glucose 175(H) 65 - 99 mg/dL 06/25/2025 2:24 AM [facility] BUN 20.0 8.0 - 23.0 mg/dL 06/25/2025 2:24 AM [facility] Creatinine 0.70 0.57 - 1.00 mg/dL 06/25/2025 2:24 AM [facility] Sodium 139 136 - 145 mmol/L 06/25/2025 2:24 AM [facility] Potassium 4.5 3.5 - 5.2 mmol/L 06/25/2025 2:24 AM [facility] Chloride 107 98 - 107 mmol/L 06/25/2025 2:24 AM [facility] CO2 23.4 22.0 - 29.0 mmol/L 06/25/2025 2:24 AM [facility] Calcium 8.5(L) 8.6 - 10.5 mg/dL 06/25/2025 2:24 AM [facility] Total Protein 5.6(L) 6.0 - 8.5 g/dL 06/25/2025 2:24 AM [facility] Albumin 4.0 3.5 - 5.2 g/dL 06/25/2025 2:24 AM [facility] ALT (SGPT) 31 1 - 33 U/L 06/25/2025 2:24 AM [facility] AST (SGOT) 28 1 - 32 U/L 06/25/2025 2:24 AM [facility] Alkaline Phosphatase 47 39 - 117 U/L 06/25/2025 2:24 AM [facility] Total Bilirubin 0.3 0.0 - 1.2 mg/dL 06/25/2025 2:24 AM [facility] Globulin 1.6 gm/dL 06/25/2025 2:24 AM EST [facility] Comment:Calculated Result A/G Ratio 2.5 g/dL 06/25/2025 2:24 AM EST [facility] BUN/Creatinine Ratio 28.6(H) 7.0 - 25.0 06/25/2025 2:24 AM EST [facility] Anion Gap 8.6 5.0 - 15.0 mmol/L 06/25/2025 2:24 AM EST [facility] eGFR 91.5 >60.0 mL/min/1.7 3 06/25/2025 2:24 AM EST [facility] Blood Venipuncture / Unknown 06/25/2025 1:50 AM EST 06/25/2025 2:00 AM EST [facility] - 06/25/2025 2:24 AM EST [...] DO LAB BLOOD ORDERAB LES Final Result [facility]
[address] [phone], documented in this encounter Visit Diagnoses Diagnosis [...] medication prescribed for a lower pain scale. ([facility]) If given for pain, use the following [...] use if patient is older than 65. ([facility]) 1204 (Medication Applied - Provider: Jacquie Oneil [...] breaths/minute. documented in this encounter Care Teams Movie Stunt Performer Relationship Specialty Start Date End Date Addy Rubin MD [address] [place] [address] E [facility] [place] [id number] PCP - General Adolescent Medicine 02/08/21 documented as of this encounter
--- OUTSIDE RECORDS SUMMARY | 2025-07-08 08:26 | XMS_ITS | Encounter Summary ---
Author Organization [facility] Address [address] [place] [address] Care Team Providers Care Chart Snatcher Name Role Phone Addy Rubin MD Primary Care Provider [phone] Encounter Details Date Type Department Care Team [...] 06/25/2025 3:04 AM An Chery RN * [place] Suicide Severity Rating Scale (Screener/Recent Self-Report) Question Answer Date of Assessment Author 6. Suicidal Behavior (Lifetime) No 3:04 AM An Chery RN documented as of this encounter Plan of Treatment Upcoming Encounters Date Type Department Care Team (Late st Contact Info) Description 07/19/2025 10:00 AM EST Appointment [facility] [facility] [address] [place] [address] 07/19/2025 11:15 AM EST Office Visit [facility] [address] [facility] [address] [place] [address] Ky Lai MD [address] [facility] [address] [place] [address] documented as of this encounter Visit Diagnoses Not on filedocumented in this encounter Care Teams Chart Snatcher Relationship Specialty Start Date End Date Addy Rubin MD [address] [facility] [address] [place] [address] PCP - General Adolescent Medicine 02/08/21 documented as of this encounter
--- OUTSIDE RECORDS SUMMARY | 2025-07-08 08:26 | XMS_ITS | Data Portability ---
Author Organization [facility] Sharon cates, ILAS DENVER CLOSED Address [address] [place] [address] Care Team Providers Care Council Member Name Role Phone ADDY WATSON Primary Care Provider Assessment Encounter Date Assessment Date Assessment LastModified [...] By Organization Details Last Modified Time 09/10/2024 [id number] - Continue using Voltaren gel as needed [...] Small completed ADDY CHIN MD [address] [place], [address], [place] [facility] 03/14/2025 10:19:52 5 Injection - Joint/Bursa, Interm completed ADDY CHIN MD [address] [place], [address], [place] [facility] 11/26/2024 11:41:44 5 Injection - Joint/Bursa, Small completed ADDY CHIN MD [address] [place], [address], [place] [facility] 11/26/2024 11:41:56 5 Injection - Joint/Bursa, Small completed ADDY CHIN MD [address] [place], [address], [place] [facility] 09/10/2024 10:22:19 4 Injection - Joint/Bursa, Small completed ADDY CHIN MD [address] [place], [address], [place] [facility] 05/31/2024 09:36:54 4 Injection - Joint/Bursa, Interm completed ADDY CHIN MD [address] [place], [address], [place] [facility] 02/27/2024 10:47:21 4 Injection - Joint/Bursa, Small completed ADDY CHIN MD [address] [place], [address], [place] [facility] 02/27/2024 10:47:36 4 Injection - Joint/Bursa, Small completed ADDY CHIN MD [address] [place], [address], [facility] 11/26/2023 12:55:06 4 Injection - Joint/Bursa, Small completed Jocelynn Delgado [facility] 08/25/2023 09:19:14 3 Injection - Joint/Bursa, Interm completed ADDY CHIN MD [address] [place], [address], [place] [facility] 05/02/2023 10:51:11 3 Injection - Joint/Bursa, Small completed ADDY CHIN MD [address] [place], [address], [place] [facility] 01/08/2023 17:33:54 1 Injection - Joint/Bursa, Interm completed ADDY CHIN MD [address] [place], [address], [place] [facility] 10/02/2020 14:04:43 0 Injection - Joint/Bursa, Interm completed ADDY CHIN MD [address] [place], [address], [place] [facility] 04/07/2020 09:09:31 0 Injection - Joint/Bursa, Small completed ADDY CHIN MD [address] [place], [address], [place] [facility] 04/07/2020 09:09:54 0 Injection - Joint/Bursa, Interm completed ADDY CHIN MD [address] [place], [address], [place] [facility] 12/24/2019 09:09:29 0 Injection - Joint/Bursa, Small completed ADDY CHIN MD [address] [place], [address], [place] [facility] 12/24/2019 09:09:44 9 Injection - Joint/Bursa, Small completed ADDY CHIN MD [address] [place], [address], [place] [facility] 06/28/2019 15:41:13 9 Injection - Joint/Bursa, Interm completed ADDY CHIN MD [address] [place], [address], [place] [facility] 12/07/2018 10:14:18 9 Injection - Joint/Bursa, Small completed ADDY CHIN MD [address] [place], [address], [facility] 12/07/2018 10:14:11 8 Injection - Joint/Bursa, Interm completed ADDY CHIN MD [address] [place], [address], [facility] 02/23/2018 11:28:59 Imaging Results None recorded. Procedure [...] DateTime 09/10/2024 163.83 cm 8 22.6 kg/m2 50067.38 g Haresh De La Cruz [facility] 09/10/2024 09:09:05 Date Recorded Body height Pain severity - 0-10 verbal numeric rating [Score] - Reported Body mass index (BMI) Body weight Provider Name and Address Organization Details Last Updated DateTime 11/26/2024 162.56 cm 6 22.7 kg/m2 46287.19 g Haresh De La Cruz [facility] 11/26/2024 11:22:02 Date Recorded Body height Body mass index (BMI) Body weight Provider Name and Address Organization Details Last Updated DateTime 02/27/2024 165.1 cm 22.6 kg/m2 68219.56 g Kathy Joseph [facility] 02/27/2024 10:13:26 Date Recorded Body height Body mass index (BMI) Body weight Provider Name and Address Organization Details Last Updated DateTime 03/14/2025 162.56 cm 22.7 kg/m2 40389.19 g Michael Jimenez [facility] 03/14/2025 10:09:46 Date Recorded Body height Pain severity - 0-10 verbal numeric rating [Score] - Reported Body mass index (BMI) Body weight Provider Name and Address Organization Details Last Updated DateTime 05/31/2024 165.1 cm 7 22.6 kg/m2 59261.56 g Haresh De La Cruz [facility] 05/31/2024 09:23:49 Social History Question Answer Notes LastModified by Organizat ion Details LastModified Time Tobacco Smoking Status [facility] 12/[facility]/2019 08:56:54 What Is Your Level Of [...] split virus, quadrivalent, preservative 7 completed [facility] 11/26/2024 11:14:55 zoster recombinant 9 completed Haresh De La Cruz [facility] 11/26/2024 11:14:55 zoster recombinant 9 completed Haresh De La Cruz [facility] 11/26/2024 11:14:55 COVID-19, mRNA, LNP-S, PF, 100 mcg/0.5mL dose or 50 mcg/0.25mL dose 1 completed Haresh De La Cruz [facility] 11/26/2024 11:14:55 COVID-19, mRNA, LNP-S, PF, 100 mcg/0.5mL dose or 50 mcg/0.25mL dose 1 completed Haresh De La Cruz [facility] 11/26/2024 11:14:55 COVID-19, mRNA, LNP-S, PF, 100 mcg/0.5mL dose or 50 mcg/0.25mL dose 2 completed Haresh De La Cruz [facility] 11/26/2024 11:14:55 COVID-19, mRNA, LNP-S, PF, 100 mcg/0.5mL dose or 50 mcg/0.25mL dose 1 completed Haresh De La Cruz [facility] 11/26/2024 11:14:55 COVID-19, mRNA, LNP-S, bivalent, PF, 50 mcg/0.5 mL or 25mcg/0.25 mL dose 2 completed Haresh De La Cruz [facility] 11/26/2024 11:14:55 pneumococcal polysaccharide PPV23 8 completed Haresh De La Cruz [facility] 11/26/2024 11:14:55 Pneumococcal conjugate PCV 13 7 completed Haresh De La Cruz [facility] 11/26/2024 11:14:55 zoster live 7 completed Haresh De La Cruz [facility] 11/26/2024 11:14:56 Influenza, high-dose, trivalent, PF 0 completed Haresh De La Cruz [facility] 11/26/2024 11:14:56 Influenza, high-dose, trivalent, PF 9 completed Haresh De La Cruz [facility] 11/26/2024 11:14:56 Hep A, adult 8 completed Haresh De La Cruz [facility] 11/26/2024 11:14:56 Influenza, split virus, quadrivalent, PF 2 completed Haresh De La Cruz [facility] 11/26/2024 11:14:56 Pneumococcal conjugate PCV 13 7 completed Michael Jimenez [facility] 03/14/2025 10:05:40 Past Encounters Encounter ID Performer Location Encounter Start Date Encounter Closed Date Diagnosis/Indication Diagnosis SNOMED-CT Code Diagnosis ICD10 Code Diagnosis IMO Codes Diagnosis Note [id number] MD CAROLINE BLANTON [facility] [address] [place] [address] 02/23/2018 10:54:58 02/23/2018 14:29:34 Idiopathic osteoarthritis 848300780 M19.91 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 [id number] MD CAROLINE BLANTON [facility] [address] [place] [address] 12/07/2018 09:29:03 12/07/2018 10:16:56 Idiopathic osteoarthritis 061752024 M19.91 Right STT joint, left index MP joint. Injected both. May be a good candidate for right distal pole scaphoid excision, still has no CMC involvemen t. [id number] MD CAROLINE BLANTON [facility] [address] [place] [address] 06/28/2019 14:50:23 06/28/2019 16:53:40 Idiopathic osteoarthritis 844068527 M19.91 Left index MP joint. Injection. Right wrist STT joint is doing okay Upon follow-up as needed obtain x-ray AP lateral left hand [id number] MD CAROLINE BLANTON [facility] [address] [place] [place] [address] 12/24/2019 08:38:37 12/24/2019 09:25:30 Idiopathic osteoarthritis 020846160 M19.91 Left index MP joint. Injection. Best definitive treatment: Arthrodesi s. Second best: Yazoo arthroplas ty Right wrist STT joint Injection Best definitive treatment: Basal joint arthroplas ty with partial trapezoid excision. If CMC not symptomati c then excision distal scaphoid pole. [id number] ADDY CHIN MD [facility] [address] [facility] [place] [address] 04/07/2020 08:45:30 04/07/2020 09:17:23 Idiopathic osteoarthritis 973533692 M19.91 Left index MP joint. Injection. Best definitive treatment: Arthrodesi s. Second best: Yazoo arthroplas ty 04/07/2020 discussion : Favor arthroplas [...] it will ever hurt in the future. [id number] ADDY CHIN MD SURGERY SCHEDULE [address] [place] [address] 07/11/2020 07:08:05 07/11/2020 07:09:48 [id number] OCHOA BROCK PA-C [facility] [address] [place] [address] 07/24/2020 13:52:49 07/24/2020 14:49:06 Idiopathic osteoarthritis 946977878 M19.91 and well status post left index finger MCP joint arthroplas ty with repair of the ulnar and radial collateral ligaments. [id number] ADDY CHIN MD [facility] [address] [place] [address] 08/21/2020 10:40:31 08/21/2020 11:47:47 Idiopathic osteoarthritis 393747975 M19.91 6 weeks postop with developing PIP dorsal capsular contractur e, recommend joint mobilizati on, active and passive range of motion and strengthen ing, follow-up 6 weeks with new x-rays [id number] ADDY CHIN MD [facility] [address] [address] 10/02/2020 13:21:33 10/02/2020 14:07:34 Idiopathic osteoarthritis 733394149 M19.91 3 months postop, PIP dorsal capsular [...] x-rays PA lateral and hyperprona nima view [id number] ADDY CHIN MD [facility]TH[facility]I J[facility] [address] [address] 11/27/2020 14:58:47 11/27/2020 15:51:35 Idiopathic osteoarthritis 534178389 M19.91 Starting to improve, able to play golf doing well on the left. On the right may benefit from distal scaphoid excision, follow-up as needed [id number] ADDY CHIN MD [facility] [address] [place] [address] 01/08/2023 16:34:00 01/08/2023 17:34:51 Idiopathic osteoarthritis 279562372 M19.91 Left LF and IF We discussed operative versus nonoperati ve management including risks and benefits. She does not want to proceed with surgical interventi on. We discussed doing a CSI, LLF MPJ and the patient agreed to CSI in the office today. F/U PRN [id number] ADDY CHIN MD [facility] [address] [place] [address] 05/02/2023 08:58:24 05/02/2023 09:25:54 Idiopathic osteoarthritis 097612243 M19.91 Left LF and Right IFWe discussed [...] she tolerated the procedure well.Geronimo martinez prn. [id number] ADDY CHIN MD [facility] [address] [place] [address] 08/25/2023 09:09:19 08/25/2023 09:34:47 Idiopathic osteoarthritis 344026295 M19.91 Left LF MPJ and Right IF [...] she tolerated the procedure well. F/U PRN. [id number] ADDY CHIN MD [facility] [address] [place] [address] 11/26/2023 12:33:58 12/03/2023 10:31:46 Idiopathic osteoarthritis 289180189 M19.91 Left LF MPJ injection. Index finger seems to be doing a little bit better in terms of range of motion and pain although it does hurt to flex it beyond [id number] ADDY CHIN MD [facility] [address] [place] [address] 02/27/2024 10:00:31 02/27/2024 10:50:09 Idiopathic osteoarthritis 690774433 M19.91 Left LF MPJ injection. R STT inj f/u prn [id number] ADDY CHIN MD [facility] [address] [place] [address] 05/31/2024 09:18:11 05/31/2024 10:08:53 Idiopathic osteoarthritis 123383928 M19.91 Only about 6 weeks relief with [...] be superior She will follow-up as needed. [id number] ADDY CHIN MD [facility] [address] [address] 09/10/2024 08:51:42 09/10/2024 10:16:26 Arthritis 9188610 M19.90 The plan includes the continuati on of topical Voltaren gel and a trial of glucosamin e and chondroiti n supplement s for possible relief from joint pain and swelling. A follow-up will be contingent on the patient s response to these interventi ons. Surgical options are deferred at this time per the patient's preference . [id number] ADDY CHIN MD [facility] [address] [address] 11/26/2024 11:10:09 11/26/2024 12:03:02 Arthritis 2575209 M19.90 Injected right STT joint and left long finger MP joint, palliative management , she will consider surgical management but really wants to avoid it, have not injected the STT joint in a long time and the MP injection was 4 months ago [id number] ADDY CHIN MD [facility] [address] [place] [address] 03/14/2025 09:54:32 03/14/2025 10:28:13 Arthritis [id number] M19.90 Left long finger MP joint injected, [...] Mejia Member ID Guarantor Name 06/30/2025 1 [facility] (MEDICARE REPLACEMENT/A DVANTAGE - PPO) [id number] Lyla Diego [id number] Lyla Diego Notes Date Note Type Note Provider Name and Address Organization Details Recorded Time 4 text/html Consult [facility]: [facility] Physician: Dr. Addy Watson Hand dominance: ambidextrousLocation: Left LF rt wrist Pain level: 8 /10 Onset: 7 months Recent Surgery: No In office procedure? Yeslt LF, rt IF csi: 05/02/2023lt LF MP joint CSI: 08/25/2023; 11/26/2023; 01/08/2023Right wrist STT csi: 1Previous upper extremity surgery? YesProcedure: Left index finger metacarpophalangeal arthroplasty with Integra Yazoo MCP size 20Repair radial collateral ligament left index finger MP jointRepair ulnar collateral ligament left index finger MP jointApproximate date of surgery:07/11/2020Surgeo n (if known): Dr. Chin Have you or any of your immediate family members been seen by our hand surgeons before? 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 Diego is here for recheck of lt hand. She received an injection at her last visit. She says the injection lasted 2 months, she is disappointed with that. She is also wanting another injection in the right wrist. ADDY CHIN MD [address] [place] [address], [address], [facility] 02/27/2024 10:48:06 4 text/html Consult [facility] Phys[facility]: Dr. Addy Watson Hand dominance: ambidextrousLocation: Left LF rt wrist Pain level: 7 /10 Onset: 7+ months Recent Surgery: No In office procedure? Yeslt LF, rt IF csi: 05/02/2023lt LF MP joint CSI:02/27/2024; 08/25/2023; 11/26/2023; 01/08/2023Right wrist STT csi: 02/27/2024; 1Previous upper extremity surgery? YesProcedure: Left index finger metacarpophalangeal arthroplasty with Integra Yazoo MCP size 20Repair radial collateral ligament left index finger MP jointRepair ulnar collateral ligament left index finger MP jointApproximate date of surgery:07/11/2020Sursofyao n (if known): Dr. Chin Have you or any of your immediate family members been seen by our hand surgeons before? 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 Diego is here for recheck of lt hand. She received injections at her last visit. Ms. Diego says that her right wrist is doing great. However, she says that the injections in her left hand helped for 6 weeks, but is now painful again. ADDY CHIN MD [address] [place] [address], [address], [facility] 05/31/2024 09:37:56 5 text/html Consult [facility] by: [facility] Care Physician: Dr. Addy Watson Hand dominance: ambidextrousLocation: Left LF rt wrist Pain level: 8 /10 Onset: 10+ months Recent Surgery: No In office procedure? Yeslt LF, rt IF csi: 05/02/2023lt LF MP joint CSI: 05/31/2024; 02/27/2024; 08/25/2023; 11/26/2023; 01/08/2023Right wrist STT csi: 02/27/2024; 11/27/2020 Previous upper extremity surgery? YesProcedure: Left index finger metacarpophalangeal arthroplasty with Integra Yazoo MCP size 20Repair radial collateral ligament left index finger MP jointRepair ulnar collateral ligament left index finger MP jointApproximate date of surgery:07/11/2020Surgaudencio n (if known): Dr. Chin Have you or any of your immediate family members been seen by our hand surgeons before? 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 Diego is here [...] advice on alternative therapies. ADDY CHIN MD [address] [place] [address], [address], [facility] 09/10/2024 10:22:43 5 text/html Consult [facility]: [facility] Phys[facility]: Dr. Addy Watson Hand [...] Left index finger metacarpophalangeal arthroplasty with Integra Yazoo MCP size 20Repair radial collateral ligament left index finger MP jointRepair ulnar collateral ligament left index finger MP jointApproximate date of surgery:07/11/2020Surgeo n (if known): Dr. Chin Have you or any of your immediate family members been seen by our hand surgeons before? 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 Diego is here for [...] her rt wrist pain. ADDY CHIN MD [facility] [place], [address], [facility] 11/26/2024 11:42:55 text/html Consult requested by: selfPrimary [...] Left index finger metacarpophalangeal arthroplasty with Integra Yazoo MCP size 20Repair radial collateral ligament left index finger MP jointRepair ulnar collateral ligament left index finger MP jointApproximate date of surgery:07/11/2020Surgeo n (if known): Dr. Chin Have you or any of your immediate family members been seen by our hand surgeons before? 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 Diego is here [...] the pain is now constant. [place], [address], [facility] 03/14/2025 10:20:38 OBGyn Episode No OBEpisode recorded.
--- OUTSIDE RECORDS SUMMARY | 2025-07-08 08:26 | XMS_ITS | Clinical Summary ---
[facility] Address [address] [place] [address] Care Team Providers Care Vp Delivery Name Role Phone Addy Rubin MD Primary Care Provider [phone] Allergies Active Allergy Reactions Criticality Noted Date [...] 12:19 AM EST - 06/27/2025 2:18 PM [facility] Hospital Encounter [address] [place] [address] Reynaldo Arndt III, DO West, Christopher R, [...] Info) Description 07/19/2025 10:00 AM EST Appointment [facility] [address] [place] [address] 07/19/2025 11:15 AM EST Office Visit [facility] [address] [place] [address] Ky Lai MD [address] [place] [address] Health Maintenance Due Date Last Done Comments [...] 04/2019, 04/30/2017 Medical Devices Implanted Type Area Cook Fish And Chips Device Identifier Shelf Expiration Date Model / Serial / Lot Clip Ligat Vasc Horizon Abhi Arriola Yoan 6ct - [id number] Implanted:Qty : 1 on 04/17/2021 by Syd De La Cruz MD at [facility] Implant Left: Carotid TELE[employer]LEX MEDICAL [id number] / / 0 Clip Ligat Vasc Horizon Abhi Arriola Yoan 6ct - [id number] Implanted:Qty : 1 on 04/17/2021 by Syd De La Cruz MD at [facility] Implant Left: Carotid TELEFLEX MEDICAL [id number] / / 0 Clip Ligat Vasc Horizon Ti Yel 6ct - [id number] Implanted:Qty : 1 on 04/17/2021 by Syd De La Cruz MD at [facility] Implant Left: Carotid TELEFLEX MEDICAL [id number] / / 0 Clip Ligat Vasc Horizon Ti Sm Yel 6ct - [id number] Implanted:Qty : 1 on 04/17/2021 by Syd De La Cruz MD at [facility] Implant Left: Carotid TELEF[employer] MEDICAL [id number] / / 0 Kt Seal Hemos Abs Floseal Matrx Fast/Prep 10ml - [id number] Implanted:Qty : 1 on 04/17/2021 by Syd De La Cruz MD at [facility] Implant Left: Carotid SmartEquip [id number] 01/09/2023 [id number] / / [id number] Hemost Abs Surgifoam Sz100 8x12 10mm - [id number] Implanted:Qty : 1 on 04/17/2021 by Syd De La Cruz MD at [facility] Implant Left: Carotid ETHICON DIV OF J AND J 11/02/2024 [id number] / / [id number] Ptch Vascuguard 1x6cm - [id number] Implanted:Qty : 1 on 04/17/2021 by Syd De La Cruz MD at [facility] Implant Left: Carotid SYNOVIS [id number] 10/25/2025 [id number] / / [id number] Hemost Abs Surgicel 4x8in - [id number] Implanted:Qty : 1 on 04/17/2021 by Syd De La Cruz MD at [facility] Implant Left: Carotid ETHICON DIV OF J AND J [id number] 10/08/20241951 / / [id number] Left Finger Procedures Procedure Name Priority Date/Time [...] - 10.80 10*3/mm3 06/27/2025 6:29 AM EST [facility] RBC 2.82(L) 3.77 - 5.28 10*6/mm3 06/27/2025 6:29 AM EST [facility] Hemoglobin 9.1(L) 12.0 - 15.9 g/dL 06/27/2025 6:29 AM EST [facility] Hematocrit 28.0(L) 34.0 - 46.6 % 06/27/2025 6:29 AM EST [facility] MCV 99.3(H) 79.0 - 97.0 fL 06/27/2025 6:29 AM EST [facility] MCH 32.3 26.6 - 33.0 pg 06/27/2025 6:29 AM EST [facility] MCHC 32.5 31.5 - 35.7 g/dL 06/27/2025 6:29 AM EST [facility] RDW 13.6 12.3 - 15.4 % 06/27/2025 6:29 AM EST [facility] RDW-SD 49.7 37.0 - 54.0 fl 06/27/2025 6:29 AM EST [facility] MPV 12.2(H) 6.0 - 12.0 fL 06/27/2025 6:29 AM EST [facility] Platelets 176 140 - 450 10*3/mm3 06/27/2025 6:29 AM EST [facility] Blood Venipuncture / Unknown 06/27/2025 5:31 AM EST 06/27/2025 6:23 AM EST us Duane Scott MD LAB BLOOD ORDERABLES Final Result [facility]
[address] [place] [address], * (ABNORMAL) Basic Metabolic Panel (06/27/2025 5:31 AM EST) Glucose 102(H) 65 - 99 mg/dL 06/27/2025 6:32 AM [facility] BUN 8.7 8.0 - 23.0 mg/dL 06/27/2025 6:32 AM [facility] Creatinine 0.77 0.57 - 1.00 mg/dL 06/27/2025 6:32 AM [facility] Sodium 141 136 - 145 mmol/L 06/27/2025 6:32 AM EST [facility] Potassium 3.7 3.5 - 5.2 mmol/L 06/27/2025 6:32 AM [facility] Chloride 109(H) 98 - 107 mmol/L 06/27/2025 6:32 AM EST [facility] CO2 25.3 22.0 - 29.0 mmol/L 06/27/2025 6:32 AM EST [facility] Calcium 9.1 8.6 - 10.5 mg/dL 06/27/2025 6:32 AM [facility] BUN/Creatinine Ratio 11.3 7.0 - 25.0 06/27/2025 6:32 AM EST [facility] Anion Gap 6.7 5.0 - 15.0 mmol/L 06/27/2025 6:32 AM EST [facility] eGFR 81.6 >60.0 mL/min/1.7 3 06/27/2025 6:32 AM EST [facility] Blood Venipuncture / Unknown 06/27/2025 5:31 AM EST 06/27/2025 6:03 AM EST [facility] - 06/27/2025 6:32 AM [...] Scott MD LAB BLOOD ORDERABLES Final Result [facility]
[address] [place] [address], * Telemetry Scan (06/27/2025 12:14 AM EST) Only the most recent of3 resultswithin the time period is included. [facility] ECG ORDERABLES Final Result * (ABNORMAL) Hemoglobin & Hematocrit, Blood (06/26/2025 8:06 PM EST) Only the most recent of7 resultswithin the time period is included. Hemoglobin 9.4(L) 12.0 - 15.9 g/dL 06/26/2025 8:20 PM EST [facility] Hematocrit 28.6(L) 34.0 - 46.6 % 06/26/2025 8:20 PM EST [facility] Blood Venipuncture / Unknown 06/26/2025 8:06 PM EST 06/26/2025 8:18 PM EST Duane Scott MD LAB BLOOD ORDERABLES Final Result Performing Organization Address City/[facility]/ZIP Co de Phone Number [facility]
[address] [place] [address], * ABO RH Specimen Verification (06/25/2025 4:28 AM EST) ABO Type A 06/25/2025 12:31 PM EST [facility] RH type Positive 06/25/2025 12:31 PM EST [facility] Blood Venipuncture / Unknown 06/25/2025 4:28 AM EST 06/25/2025 5:02 AM EST Reynaldo Arndt III, DO BLOOD BANK TEST O RDERABLES Final Result Performing Organization Address City/[facility] Co de Phone Number [facility]
[address] [place] [address], * Type & Screen (06/25/2025 1:51 AM EST) ABO Type A 06/25/2025 2:52 AM EST [facility] RH type Positive 06/25/2025 2:52 AM EST [facility] Antibody Screen Negative 06/25/2025 2:52 AM EST [facility] T&S Expiration Date 06/28/2025 11:59:59 PM 06/25/2025 2:52 AM EST [facility] Blood Venipuncture / Unknown 06/25/2025 1:51 AM EST 06/25/2025 2:08 AM EST Reynaldo Arndt III, DO BLOOD BANK TEST O RDERABLES Edited Result - Final Performing Organization Address City/[facility]/ZIP Co de Phone Number [facility]
[address] [place] [address], * Protime-INR (06/25/2025 1:50 AM EST) Protime 14.0 12.2 - 15.3 Seconds 06/25/2025 2:19 AM EST [facility] INR 1.02 0.89 - 1.12 06/25/2025 2:19 AM EST [facility] Blood Venipuncture / Unknown 06/25/2025 1:50 AM EST 06/25/2025 2:00 AM EST Reynaldo Arndt III, DO LAB BLOOD ORDERAB LES Final Result Performing Organization Address City/[facility]/ZIP Co de Phone Number [facility]
[address] [place] [address], * Magnesium (06/25/2025 1:50 AM EST) Magnesium 2.0 1.6 - 2.4 mg/dL 06/25/2025 2:24 AM EST [facility] Blood Venipuncture / Unknown 06/25/2025 1:50 AM EST 06/25/2025 2:00 AM EST Reynaldo Arndt III, DO LAB BLOOD ORDERAB LES Final Result [facility]
[address] [place] [address], * (ABNORMAL) Comprehensive Metabolic Panel (06/25/2025 1:50 [...] LABORATORY Globulin 1.6 gm/dL 06/25/2025 2:24 AM [facility] Comment:Calculated Result A/G Ratio 2.5 g/dL 06/25/2025 2:24 AM [facility] BUN/Creatinine Ratio 28.6(H) 7.0 - 25.0 06/25/2025 2:24 AM [facility] Anion Gap 8.6 5.0 - 15.0 mmol/L 06/25/2025 2:24 AM EST [facility] eGFR 91.5 >60.0 mL/min/1.7 3 06/25/2025 2:24 AM EST [facility] Blood Venipuncture / Unknown 06/25/2025 1:50 AM EST 06/25/2025 2:00 AM EST Narrative [facility] - 06/25/2025 2:24 AM EST [...] DO LAB BLOOD ORDERAB LES Final Result [facility]
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
--- OUTSIDE RECORDS SUMMARY | 2025-07-08 08:26 | XMS_ITS | Encounter Summary ---
Author Organization Healthcare Address [address] [id number] Care Team Providers Care Financial Controller Name Role Phone Unavailable Primary Care Provider Unavailabl e Encounter Details Date Type Department Care Team (Late st Contact Info) Description 06/24/2025 - 06/25/2025 9:50 AM EST Emergency [facility] Emergency Department [address] [place] [address] Discharge Disposition: ED Dismiss - Never Arrived [...]
--- OUTSIDE RECORDS SUMMARY | 2025-07-08 08:26 | XMS_ITS | Clinical Summary ---
Author Organization Healthcare Address [address] [place] [address] Care Team Providers Care Pick Up Worker Name Role Phone Unavailable Primary Care Provider Unavailabl e Encounters Date Type Department Care Team Description 06/24/2025 - 06/25/2025 9:50 AM EST Emergency [facility] Emergency [facility] [address] [place] [address] Discharge Disposition: ED Dismiss - Never Arrived [...]
--- NOTE | 2025-07-08 08:27 | MM_ITS ---
PROCEDURE INFORMATION: Exam: MG Bilateral Screening 3D Mammography Exam date and time: 07/08/2025 8:30 AM Age: 75 years old Clinical indication: Screening examination TECHNIQUE: Imaging protocol: Bilateral Screening tomosynthesis and 2D mammography including computer-aided detection (CAD) when performed. COMPARISON: 1. MG MM DIG SCREENING MAMM BI W/CAD 07/06/2024 4:10 PM 2. MG MM DIG SCREENING MAMM BI W/CAD 06/18/2023 7:52 AM FINDINGS: MAMMOGRAPHY: Breast composition: There are scattered areas of fibroglandular density. Mass: None. Architectural distortion: None. Calcifications: No suspicious calcifications. Asymmetric density: None. Skin thickening: None. Axillary adenopathy: None. IMPRESSION: No mammographic evidence of malignancy. Annual screening is recommended unless otherwise clinically indicated. ASSESSMENT: BI-RADS Category 1: Negative.
== END 2025-07-08 23:59 | disposition home or self-care (01) ==
LOC: RAD 08:24
PROVIDERS: PCP Internal Medicine Adolescent Medicine; Visit Provider Internal Medicine Adolescent Medicine
DX: Z12.31 Encounter for screening mammogram for malignant neoplasm of breast (principal); R92.323 Mammographic fibroglandular density, bilateral breasts
CPT/HCPCS: 77063; 77067

== ENCOUNTER 2025-08-02 09:12 | Outpatient (CLI) | payer MEDICARE, SELFPAY ==
--- OUTSIDE RECORDS SUMMARY | 2025-06-25 00:19 | XMS_ITS | Encounter Summary ---
[facility] Address [address] [place] [address] Care Team Providers Care Social Work Specialist Name Role Phone Addy Rubin MD Primary Care Provider [phone] Reason for Referral * Physical Therapy (Routine) - Closed Specialty Diagnoses / Procedures Referred By Contac t Referred To Contact Physical Therapy Diagnoses Acute posterior epistaxis Carotid stenosis, left History of left-sided carotid endarterectomy Primary hypertension Carotid stenosis, right Procedures [place] OFFICE/OUTPATIENT NEW MODERATE MDM 45 MINUTES Tamiko Cr PA [address] [facility] [address] [place] [address] Phone: tel: fax: [facility] [address] [place] [address] [address] Phone: tel: fax: Referral ID Status Reason Start Date Expiration Date V isits Requested Visits Authorized [id number] Closed Specialty Services Required 06/27/2025 09/26/2026 1 1 Reason for Visit * Auth/Cert Specialty Diagnoses / Procedures Referred By Contac t Referred To Contact Diagnoses Epistaxis (Nose Bleed) Referral ID Status Reason Start Date Expiration Date Visits Re quested Visits Authorized [id number] 1 1 Encounter Details Date Type Department Care Team (Late st Contact Info) Description 06/25/2025 12:19 AM EST - 06/27/2025 2:18 PM [facility] Hospital Encounter [facility] [address]F [address] [place] [id number] Reynaldo Arndt III, DO [address] [place] [address] Duane Scott MD [address] [place] [address] Nash Anne MD [address] [place] [address] Acute posterior epistaxis (Primary Dx); Carotid stenosis, [...] Information Value Date Recorded Sex Assigned at Female 07/12/2025 4:12 PM EST Legal Sex Female 10:10 AM EDT Gender [...] documented in this encounter Functional Status * AUDIT-C (Alcohol Use Disorders Identification Test) Question Answer Date of Assessment Author AUDIT-C Score 0 06/25/2025 12:28 AM An Orozco RN Q1: How often do you have a drink containing alcohol? Never 06/25/2025 12:28 AM An Chery RN Q2: How many drinks containing alcohol do you have on a typical day when you are drinking? Patient does not drink 06/25/2025 12:28 AM An Chery RN Q3: How often do you have six or more drinks on one occasion? Never 06/25/2025 12:28 AM An Chery RN * Suicidal Ideation (Past 1 Month) Question Answer Date of Assessment Author 1. Wish to be (Past 1 Month) No 025 3:04 AM An Chery RN 2. Non-Specific Active Suici oj Thoughts (Past 1 Month) No 06/25/2025 3:04 AM Arturo Chery RN * Calculated C-SSRS Risk Score (Lifetime/Recent) Answer Date of Assessment Author No Risk Indicated 06/25/2025 3:04 AM An Chery RN * Terrell Suicide Severity Rating Scale (Screener/Recent Self-Report) Question Answer Date of Assessment Author 6. Suicidal Behavior (Lifetime) No 3:04 AM An Chery RN documented as of this encounter Discharge Summaries * Lorenza Pop RN - 06/27/2025 10:52 AM EST Images from the original note were not included. To [facility] From Lorenza Pop [phone] Lyla Diego (75 y.o. 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 Please contact [address] at [phone] during normal business hours. Authorizing Provider:Tamiko Cr PA Authorizing Provider's Order Entered By: Lorenza Pop RN 06/27/2025 10:51 AM Electronically signed by: Tamiko Cr PA 06/27/2025 10:51 AM Date of 1950 Social Security Number [id number] [place] [address] [employer] Status Admission Date 06/25/2025 Admission Type Urgent Admitting Provider Nash Anne MD Attending Provider Nash Anne MD Department, Room/Bed [address], S527/1 Discharge Date Discharge Disposition Discharge Destination Attending Provider: Nash Anne MD Allergies: Codeine Isolation: None Infection: None Code Status: CPR Ht: 163.8 cm (64.5 ) Wt: 62.1 kg (137 lb) Admission Cmt: None Principal Problem: Acute posterior epistaxis [R04.0] Active Insurance as of 06/25/2025 Primary Coverage Payor Plan Insurance Group Employer/Plan Group [employer] MEDICARE REPLACEMENT UHC Medicare Advantage GROUP PPO [id number] Payor Plan Address Payor Plan Phone Number Payor Plan Fax Number Effective Dates [address] [address] 08/11/2022 - None Entered [facility] [id number] Subscriber Name Subscriber Date Member ID LYLA DIEGO 1950 [id number] Emergency Contacts 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 female who had a eustachian tube dilation 4 days ago at the [facility] facility. Was performed by the ENT [...] took the patient to the ED at [facility] for further evaluation. The ED physician there states to me that he had significant difficulty in controlling the bleed from both nares and the patient's mouth. The ED physician there states he attempted use, repositioning of the patient, nasal clamps, Rhino Rocket's, but she bled through all of these things. He thencontacted the ENT doctor on-call here who recommended placing 14 Bahraini Thurston catheters in each nare and then [...] chills earlier tonight after arriving at the [facility] ED, but her temperature was normal. [...] Surgeon: Syd De La Cruz MD; Location: [facility]; Service: Neurosurgery; Laterality: Left; COLONOSCOPY ECTOPIC 1975 [...] Other: Most notable findings include: On her ekg monitor tech in her room, rhythm is sinus, regular, [...] minutes Time spent includes time reviewing chart, urqe-pv-nsnt time, counseling patient/family/caregiver, ordering medications/tests/procedures, communicating with other health managed care liaison, documenting clinical information in the electronic health [...] Discussed With: Patient Expected Discharge tbd Reynaldo Arndt,III, DO 06/25/25 0436 @[email or web address]@ Discharge Summary No notes of this type exist for this encounter. * Tamiko Cr PA - 06/27/2025 10:22 AM EST Images from the original note were not included. [facility] Medicine Services DISCHARGE SUMMARY Patient Name: [...] eustachian tube dilation recently , presented to [facility] ED w/ nasal bleeding evening of 06/24/25, local ED provider unable to adequately controlbleeding via packing so patient transferred to [facility], seen by ENT upon arrival early sblkvfi25/15/25, repacked by Dr. Goss (ENT) and recommended [...] Banegas) - Seen by ENT Dr. Goss psychologist social 06/25/25: S/P bilateral rhino-rocket insertion, appears bleeding improved - Anti staph antibiotic coverage recommended, initiated on zosyn. Changed to oral Keflex 06/26 for 4 more days. - Advanced diet 06/26, tolerating. - Dr. Banegas discontinued right sided nasal packing on Wednesday 06/27 with plans to remove left side in outpatient clinic in [place] on Thursday 06/28. - H/H overall stable. [...] 1. Follow up with Dr. Banegas in [facility] on Friday06/28/2025 as directed. 2. Follow up [...] Most Recent Results LAB RESULTS: Lab 06/27/25 0506/26/25200506/26/25 0606/26/25 0103 06/25/25 1716 06/25/2542706/25/2515006/25/25149 WBC 5.93 -- -- -- -- -- [...] values in this interval not displayed. Lab 06/27/2553006/25/25149 SODIUM 141 139 POTASSIUM 3.7 4.5 CHLORIDE 109* 107 CO2 25.3 23.4 ANION GAP 6.7 8.6 BUN 8.7 20.0 CREATININE 0.77 0.70 EGFR 81.6 91.5 GLUCOSE 102* 175* CALCIUM 9.1 8.5* MAGNESIUM -- 2.0 Lab 06/25/25149 TOTAL PROTEIN 5.6* ALBUMIN 4.0 GLOBULIN 1.6 ALT (SGPT) 31 AST (SGOT) 28 BILIRUBIN 0.3 ALK PHOS 47 Lab 06/25/25149 PROTIME 14.0 INR 1.02 Lab 06/25/2542706/25/25150 ABO TYPING A A RH TYPING Positive [...] MARYSE 07/19/2025 11:15 AM Ky Lai MD [facility] MARYSE MARYSE Additional Instructions for the Follow-ups that You Need to Schedule Ambulatory Referral to Physical Therapy for Evaluation & Treatment As directed Specialty needed: Evaluate and treat Weight Bearing Status: Full weight bearing Follow-up needed: Yes CONTRERAS Driver 06/27/25 Time Spent on Discharge: I spent 50 minutes on this discharge activity which included: qhmf-fw-pyvjotfkpfqmv with the patient, reviewing the data in the system, coordination of the care with the nursing staff as well as consultants, documentation, and entering orders. Cosigned by Nash Anne MD at 06/27/2025 2:53 PM EST Associated attestation - Nash Anne MD - 06/27/2025 2:53 PM EST I have reviewed this documentation and agree. Attending Cosignzarina I supervised care of the patient on day of service with direct care provided by the advanced care provider (APC). Nash Anne MD 06/27/25 documented in this encounter Discharge Instructions * Attachments The following attachments cannot be sent through Care Everywhere. * Cephalexin Capsules or Tablets (Andorran) * Scopolamine Patches (Andorran) * Nasal Packing (Andorran) * Nasal Packing Care After (Andorran) documented in this encounter Medications at Time of Discharge aspirin 81 MG EC tablet Take 1 tablet by mouth Daily. atorvastatin (LIPITOR) 80 MG [...] right side. Will arrange for follow-up in [place] tomorrow for further removal on the left Hold aspirin for now -will complete antibiotic course Low activity with no lifting or bending Discharge to home today Kwame Banegas MD 06/27/25 09:40 EST * CaseTamiko PA - 06/27/2025 7:38 AM EST Images from the original note were not included. [facility] Medicine Services PROGRESS NOTE Patient Name: Lyla Diego : 1950 Date of Admission: 06/25/2025 Primary Care Physician: Addy Rubin MD Subjective Subjective CC: Following for Nose bleeding HPI: Awake in room, asleep at bedside. Vitals stable. Developed headache overnight. Garland did not help, she did receive relief [...] rashes Results Reviewed: LAB RESULTS: Lab 06/27/25 0531 06/26/25200506/26/25 0606/26/25 0103 06/25/25 1716 06/25/25 0428 06/25/25 0151 [...] BILIRUBIN 0.3 ALK PHOS 47 Lab 06/25/25 015 PROTIME 14.0 INR 1.02 Lab 06/25/25 0428 06/25/25 015 ABO TYPING A A RH TYPING Positive [...] eustachian tube dilation recently , presented to [facility] ED w/ nasal bleeding evening of 06/24/25, local ED provider unable to adequately controlbleeding via packing so patient transferred to [facility], seen by ENT upon arrival early khfmrqu25/15/25, repacked by Dr. Goss (ENT) and recommended [...] Banegas) - Seen by ENT Dr. Goss psychologist social 06/25/25: S/P bilateral rhino-rocket insertion, appears bleeding [...] care provider (APC). Nash Anne MD 06/27/25 * Duane Scott MD - 06/26/2025 10:59 AM EST Images from the original note were not included. [facility] Medicine Services PROGRESS NOTE Patient Name: [...] motion Neuro: Face symmetric, speech clear, equal logistics planner, moves all extremities Cardiac: rrr Resp: ctab GI: abd soft, nontender Skin: No extremity rash Musculoskeletal/extremities: no cyanosis of extremities; no significant ankle edema Results Reviewed: LAB RESULTS: Lab 06/26/25 0605 06/26/25 0103 06/25/25 1716 06/25/25 1157 06/25/25 0927 06/25/25 0428 06/25/25 01506/25/25149 WBC -- -- -- -- -- -- [...] values in this interval not displayed. Lab 06/25/25149 SODIUM 139 POTASSIUM 4.5 CHLORIDE 107 CO2 23.4 ANION GAP 8.6 BUN 20.0 CREATININE 0.70 EGFR 91.5 GLUCOSE 175* CALCIUM 8.5* MAGNESIUM 2.0 Lab 06/25/25149 TOTAL PROTEIN 5.6* ALBUMIN 4.0 GLOBULIN 1.6 ALT (SGPT) 31 AST (SGOT) 28 BILIRUBIN 0.3 ALK PHOS 47 Lab 06/25/25149 PROTIME 14.0 INR 1.02 Lab 06/25/258 06/25/25150 ABO TYPING A A RH TYPING Positive [...] eustachian tube dilation recently , presented to [facility] ED w/ nasal bleeding evening of 06/24/25, local ED provider unable to adequately controlbleeding via packing so patient transferred to [facility], seen by ENT upon arrival early oflmxpl24/15/25, repacked by Dr. Goss (ENT) and recommended [...] (Dr. Banegas) -seen by ENT Dr. Goss psychologist social 06/25/25: s/p bilateral rhino-rocket insertion, appears bleeding [...] (Dr. Banegas) -seen by ENT Dr. Goss psychologist social 06/25/25: s/p bilateral rhino-rocket insertion, appears bleeding stopped/improved -antistaph antibiotic coverage recommended, initiated on zosyn -starting clears (nausea persists but improving), change to keflex x 5 days -q8h hgb (11-->10 currently) -pain meds -discussed w/ Dr. Goss; if stable overnight then plan to d/c on PO keflex, and to call Dr. Banegas office Friday06/27/25 morning to come set up time for nasal packing removal Hx carotid stenosis, previous cea HTN HL -restart statin & lisinopril once reliably tolerating po -for now prn labetalol Q8h hgb documented in this encounter H&P Notes * Reynaldo Arndt III, DO - 06/25/2025 1:50 AM EST Images from the original note were not included. [facility] Medicine Services HISTORY AND PHYSICAL Patient Name: Lyla Diego : 1950 Primary Care Physician: Addy Rubin MD Date of admission: 06/25/2025 Subjective Subjective Chief Complaint: Nosebleed HPI: Lyla Diego is a 75 y.o. female who had a eustachian tube dilation 4 days ago at the [facility]. Was performed by the ENT service. She has had bleeding in small amounts over thelast 4 days from the nose, but at around 5:30 PM earlier today (Sunday 06/24) the patient and her state that the blood really began coming out. They describe the bleed is uncontrollable and due to the amount they saw, they took the patient to the ED at [facility] for further evaluation. The ED physician there states to me that he had significant difficulty in controlling the bleed from both nares and the patient's mouth. The ED physician there states he attempted use, repositioning of the patient, nasal clamps, Rhino Rocket's, but she bled through all of these things. He thencontacted the ENT doctor on-call here who recommended placing 14 Bahraini Thurston catheters in each nare and then tying to the bed to achieve anterior traction. He then used a Merisel packing soaked in TXA and lidocaine; this did control the hemorrhage for short time, but she continued to bleed. She also continued to have blood down the back of her throat. [facility] During my visit in the early [...] chills earlier tonight after arriving at the [facility] ED, but her temperature was normal. [...] Surgeon: Syd De La Cruz MD; Location: [facility]; Service: Neurosurgery; Laterality: Left; COLONOSCOPY ECTOPIC 1975 [...] Other: Most notable findings include: On her ekg monitor tech in her room, rhythm is sinus, regular, [...] minutes Time spent includes time reviewing chart, xvds-xe-kyqf time, counseling patient/family/caregiver, ordering medications/tests/procedures, communicating with other health managed care liaison, documenting clinical information in the electronic health [...] Expected Discharge tbd Reynaldo Arndt III, 06/25/25 documented in this encounter Consult Notes * Jeff Goss MD - 06/25/2025 3:22 AM ESTAssociated Order(s): IP CONSULT TO ENT [facility] Consult Note Patient Name: Lyla Diego : [...] time. She had fairly brisk bleeding on Jaime night and went to the outside emergency [...] Surgeon: Syd De La Cruz MD; Location: [facility]; Service: Neurosurgery; Laterality: Left; COLONOSCOPY ECTOPIC 1975 [...] documented in this encounter Nursing Notes * Shaggy Alexander RN - 06/27/2025 1:25 PM EST Problem: Adult Inpatient Plan of Care Goal: Plan of Care Review Outcome: Progressing Goal: Patient-Specific Goal (Individualized) Outcome: Progressing Goal: Absence of Hospital-Acquired Illness or Injury Outcome: Progressing Intervention: Identify and Manage Fall Risk Recent Flowsheet Documentation Taken 06/27/2025 1209 by Shaggy Alexander RN Safety Promotion/Fall Prevention: activity supervised clutter free environment maintained assistive device/personal items within reach fall prevention program maintained toileting scheduled safety round/check completed room organization consistent nonskid shoes/slippers when out of bed Taken 06/27/2025 1000 by Shaggy Alexander RN Safety Promotion/Fall Prevention: activity supervised clutter free environment maintained assistive device/personal items within reach fall prevention program maintained toileting scheduled safety round/check completed room organization consistent nonskid shoes/slippers when out of bed Taken 06/27/2025 0800 by Shaggy Alexander RN Safety Promotion/Fall Prevention: activity supervised assistive device/personal items within reach clutter free environment maintained fall prevention program maintained toileting scheduled safety round/check completed room organization consistent nonskid shoes/slippers when out of bed Intervention: Prevent Skin Injury Recent Flowsheet Documentation Taken 06/27/2025 1209 by Shaggy Alexander RN Body Position: legs elevated weight shifting Skin Protection: incontinence pads utilized Taken 06/27/2025 1000 by Shaggy Alexander RN Body Position: position changed independently Skin Protection: incontinence pads utilized Taken 06/27/2025 0800 by Shaggy Alexander RN Body Position: position changed independently Skin Protection: incontinence pads utilized Intervention: Prevent Infection Recent Flowsheet Documentation Taken 06/27/2025 1209 by Shaggy Alexander RN Infection Prevention: environmental surveillance performed hand hygiene promoted rest/sleep promoted single patient room provided Taken 06/27/2025 1000 by Shaggy Alexander RN Infection Prevention: environmental surveillance performed hand hygiene promoted rest/sleep promoted single patient room provided Taken 06/27/2025 0800 by Shaggy Alexander RN Infection Prevention: environmental surveillance performed hand hygiene promoted rest/sleep promoted single patient room provided Goal: Optimal Comfort and Wellbeing Outcome: Progressing Intervention: Provide Person-Centered Care Recent Flowsheet Documentation Taken 06/27/2025 0800 by Shaggy Alexander RN Trust Relationship/Rapport: care explained choices provided questions answered questions encouraged reassurance provided thoughts/feelings acknowledged Goal: Readiness for Transition of Care Outcome: Progressing Problem: Fall Injury Risk Goal: Absence of Fall and Fall-Related Injury Outcome: Progressing Intervention: Identify and Manage Contributors Recent Flowsheet Documentation Taken 06/27/2025 1209 by Shaggy Alexander RN Medication Review/Management: medications reviewed Taken 06/27/2025 1000 by Shaggy Alexander RN Medication Review/Management: medications reviewed Taken 06/27/2025 0800 by Shaggy Alexander RN Medication Review/Management: medications reviewed Intervention: Promote Injury-Free Environment Recent Flowsheet Documentation Taken 06/27/2025 1209 by Shaggy Alexander RN Safety Promotion/Fall Prevention: activity supervised clutter free environment maintained assistive device/personal items within reach fall prevention program maintained toileting scheduled safety round/check completed room organization consistent nonskid shoes/slippers when out of bed Taken 06/27/2025 1000 by Shaggy Alexander RN Safety Promotion/Fall Prevention: activity supervised clutter free environment maintained assistive device/personal items within reach fall prevention program maintained toileting scheduled safety round/check completed room organization consistent nonskid shoes/slippers when out of bed Taken 06/27/2025 0800 by Shaggy Alexander RN Safety Promotion/Fall Prevention: activity supervised assistive device/personal items within reach clutter free environment maintained fall prevention program maintained toileting scheduled safety round/check completed room organization consistent nonskid shoes/slippers when out of bed Problem: Pain Acute Goal: Optimal Pain Control and Function Outcome: Progressing Intervention: Optimize Psychosocial Wellbeing Recent Flowsheet Documentation Taken 06/27/2025 0800 by Shaggy Alexander RN Supportive Measures: active listening utilized Diversional Activities: television Intervention: Prevent or Manage Pain Recent Flowsheet Documentation Taken 06/27/2025 1209 by Shaggy Alexander RN Medication Review/Management: medications reviewed Taken 06/27/2025 1000 by Shaggy Alexander RN Medication Review/Management: medications reviewed Taken 06/27/2025 0800 by Shaggy Alexander RN Sleep/Rest Enhancement: consistent schedule promoted [...] thoughts/feelings acknowledged Taken 06/26/2025 0800 by Sudha Frazeir RN Trust Relationship/Rapport: care explained choices provided [...] reviewed Taken 06/26/2025 1200 by Sudha Frazier data modeling specialist Review/Management: medications reviewed Taken 06/26/2025 1000 by Sudha Frazier data modeling specialist Review/Management: medications reviewed Taken 06/26/2025 0800 by Sudha Frazier data modeling specialist Review/Management: medications reviewed Goal Outcome Evaluation: * [...] Notes * Case Management/Social Work - Lorenza Pop RN - 06/27/2025 10:58 AM EST Case Management Discharge Note Final Note: I spoke with the pt and her spouse. The pt states she has access to a walker. She wantsto do outpt PT at [facility]. I spoke with Nabila [phone] at outpt PT at this location and faxed her a referral to [phone]. They are familar with the pt. They [...] Provider Services Address Phone Fax Patient Preferred [facility] Outpatient Physical Therapy [address] [place] [phone] -- Community & DME No services [...] Surgeon: Syd De La Cruz MD; Location: 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 Independent without [...] Provider Type Aileen Porter PT Physical Therapist Mobility Row Name 06/27/25 0943 Bed Mobility Comment, (Bed Mobility) UIC -PA Row Name 06/27/25 0943 Transfers Comment, (Transfers) pt able to stand from recliner with and without using UE's. Pt unsteady initially upon standing needing Kirsten to correct. -PA Row Name 06/27/25 0943 Sit-Stand Transfer Sit-Stand [place] (Transfers) contact guard;verbal cues -PA Row Name 06/27/25 0943 Gait/Stairs (Locomotion) [place] Level (Gait) minimum assist (75% patient effort);contact [...] Type Aileen Porter PT Physical Therapist Obj/Interventions Row Name 06/27/25 0903 Range of Motion Comprehensive General Range of Motion no range of motion deficits identified -PA Row Name 06/27/25 0950 Strength Comprehensive (MMT) General Manual Muscle Testing (MMT) Assessment no strength deficits identified -PA Row Name 06/27/25 0950 Balance Balance Assessment sitting static [...] Provider Type Aileen Porter, PT Physical Therapist Goals/Plan Row Name 06/27/25 1000 Transfer Goal 1 (PT) Activity/Assistive Device (Transfer Goal 1, PT) sze-da-imiiw/hooaw-op-qpg;vdv-gf-rlgnx/hwrkx-ij-pgv-SD [place] Level/Cues Needed (Transfer Goal 1, PT) independent -SD Time Frame (Transfer Goal 1, PT) short term goal (STG);3 days -SD Row Name 06/27/25 1000 Gait Training Goal 1 (PT) Activity/Assistive Device (Gait Training Goal 1, PT) gait (walking locomotion) -SD [place] Level (Gait Training Goal 1, PT) modified independence -SD Distance (Gait Training Goal 1, PT) 400 -SD Time Frame (Gait Training Goal 1, PT) short term goal (STG);3 days -SD Row Name 06/27/25 1000 Stairs Goal 1 (PT) Activity/Assistive Device (Stairs Goal 1, PT) ascending stairs;descending stairs -SD [place] Level/Cues Needed (Stairs Goal 1, PT) modified independence -SD Number of Stairs (Stairs Goal 1, PT) 12 -SD Time Frame (Stairs Goal 1, PT) director of strategic sourcing goal (LTG);10 days -SD Row Name 06/27/25 1000 Therapy Assessment/Plan (PT) Planned Therapy Interventions (PT) balance training;bed mobility training;gait training;home exercise program;patient/family education;neuromuscular re- education;transfer training;strengthening;stairtraining -SD User Gamez (r) = Recorded By, (t) = Taken By, (c) = Cosigned By Initials Name Provider Type Aileen Porter, PT Physical Therapist Clinical Impression Row Name 06/27/25950 Pain Pretreatment Pain Rating 3/10 -SD Posttreatment Pain Rating 3/10 -SD Pain Location head -SD Pain Management Interventions nursing notified -SD Response to Pain Interventions no change per patient report -SD Row Name 06/27/25950 Plan of Care Review Plan of Care [...] RW and outpatient PT. -SD Row Name 06/27/25950 Therapy Assessment/Plan (PT) Patient/Family Therapy Goals Statement (PT) return home -SD Rehab Potential (PT) good -SD Criteria for Skilled Interventions Met (PT) yes;skilled treatment is necessary -SD Therapy Frequency (PT) daily -SD Predicted Duration of Therapy Intervention (PT) 10 days -SD Row Name 06/27/25950 Vital Signs Pre Systolic BP Rehab 112 [...] Post Patient Position Standing -SD Row Name 06/27/25950 Positioning and Restraints Pre-Treatment Position sitting in chair/recliner -SD Post Treatment Position chair -SD In Chair notified nsg;reclined;call light within reach;encouraged to call for assist;exit alarm on;with family/caregiver;waffle cushion -SD User Gamez (r) = Recorded By, (t) = Taken By, (c) = Cosigned By Initials Name Provider Type Aileen Porter PT Physical Therapist Outcome Measures Row Name 06/27/25 0956 How much help from another person do [...] 10 Steps or More-6 -SD Row Name 06/27/25 0956 Tinetti Assessment Tinetti Assessment yes -SD Sitting [...] Provider Type Aileen Porter PT Physical Therapist Physical Therapy Education Title: PT OT CAREER TECHNICAL SUPERVISOR Therapies (Done) Topic: Physical Therapy (Done) Point: Mobility training (Done) Learning Progress Summary Patient Acceptance, E, VU by SD at 06/27/2025 100 Significant Other Acceptance, E, VU by SD at 06/27/2025 100 Point: Home exercise program (Done) Learning Progress Summary Patient Acceptance, E, VU by SD at 06/27/2025 100 Significant Other Acceptance, E, VU by SD at 06/27/20251000 Point: Body mechanics (Done) Learning Progress Summary Patient Acceptance, E, VU by SD at 06/27/2025 100 Significant Other Acceptance, E, VU by SD at 06/27/20251000 Point: Precautions (Done) Learning Progress Summary Patient Acceptance, E, VU by SD at 06/27/2025 100 Significant Other Acceptance, E, VU by SD at 06/27/20251000 User Gamez Initials Effective Dates Name Provider Type Discipline SD 10/21/22 - Aileen Engel, PT Physical Therapist PT PT Recommendation and [...] Provider Type Aileen Porter, PT Physical Therapist Therapy Charges for Today Code Description Service Date Service Provider Modifiers Qty [id number] HC-PT EVAL MOD COMPLEXITY 5 06/27/2025 Aileen Engel, PT 1 PT G-Codes Outcome Measure Options: [...] Surgeon: Syd De La Cruz MD; Location: [facility]; Service: Neurosurgery; Laterality: Left; COLONOSCOPY ECTOPIC 1975 [...] 1120 Bed Mobility Comment, (Bed Mobility) recevied UIC upon OT arrival, preferred to remain OOB after OT interventions therefore no bed mobility assessed this date -ARBEN Row Name 06/27/25 1120 Transfers Transfers sit-stand [...] w/ need for min A to correct -JDottie Row Name 06/27/25 1120 Sit-Stand Transfer Sit-Stand [place] (Transfers) contact guard;verbal cues -JY Assistive Device (Sit-Stand Transfers) other (see comments) no AD used -ARBEN Row Name 06/27/25 1120 Stand-Sit Transfer Stand-Sit [place] (Transfers) contact guard;verbal cues -JY Assistive Device (Stand-Sit Transfers) other (see comments) no AD used - Row Name 06/27/25 1120 Functional Mobility Functional [...] -JY Patient was able to Ambulate yes - Row Name 06/27/25 1120 Activities of Daily Living BADL Assessment/Intervention upper body dressing;lower body dressing;grooming -JY Row Name 06/27/25 1120 Upper Body Dressing Assessment/Training [place] Level (Upper Body Dressing) doff;don;pull-over garment;other (see comments) anticipateneed for SBA for close monitoring of mgmt over head w/ nares packed -JY Comment, (Upper Body Dressing) pt already with UB and LB clothing donned, based on skill set and observation, anticipate SBA for overhead garments for close monitoring of packed nares -JY Row Name 06/27/25 1120 Lower Body Dressing Assessment/Training [place] Level (Lower Body Dressing) doff;don;socks;shoes/slippers;standby assist -JY Position (Lower Body Dressing) unsupported sitting -JY Comment, (Lower Body Dressing) no physical A for d/d socks and shoes, pt able to demo forward flexion reaching toward feet and ability to bring LEs upward to more proximal reach; denied any dizzinessor feeling LH with postition change -JY Row Name 06/27/25 1120 Grooming Assessment/Training [place] Level (Grooming) wash face, hands;set up -JY Position (Grooming) supported sitting -JY User Gamez (r) = Recorded By, (t) = Taken By, (c) = Cosigned By Initials Name Provider Type Carmela Bullard OT Occupational Therapist Obj/Interventions Row Name 06/27/25 1130 Sensory Assessment (Somatosensory) Sensory Assessment (Somatosensory) bilateral UE;sensation intact -JY Bilateral UE Sensory Assessment general sensation;light touch awareness;intact -JY Sensory Assessment denies any numbness or tingling and able to recognize LT stimuli as intact and symmetrical at BUEs -Y Row Name 06/27/25 1130 Vision Assessment/Intervention Vision Assessment Comment no acute changes to vision -JY Row Name 06/27/25 1130 Range of Motion Comprehensive General Range of Motion bilateral upper extremity ROM WFL -JY Row Name 06/27/25 1130 Strength Comprehensive (MMT) General Manual Muscle Testing (MMT) Assessment upper extremity strength deficits identified -JY Comment, General Manual Muscle Testing (MMT) Assessment BUE MMS grossly 4+/5 per MMT; LUE slightly weaker than R w/ remote deficits -JY Row Name 06/27/25 1130 Motor Skills Motor Skills functional endurance;coordination -JY Coordination bilateral;upper extremity;finger to nose;other (see comments);WFL finger thumb opposition -JY Functional Endurance decreased activity tolerance toward more dynamic demands -JY Row Name 06/27/25 1130 Balance Balance Assessment sitting static [...] (OT) Activity/Assistive Device (Transfer Goal 1, OT) kha-ay-rsdgz/ohrcj-ga-[id number];qfn-et-lcitt/bjmfc-gs-chq;commode;walker, rolling -JY [place] Level/Cues Needed (Transfer Goal 1, OT) standby assist;verbal cues required -JY Time Frame (Transfer Goal 1, OT) director of strategic sourcing goal (LTG);4 days -JY Progress/Outcome (Transfer Goal 1, OT) new goal -JY Row Name 06/27/25 1145 Dressing Goal 1 (OT) Activity/Device (Dressing Goal 1, OT) upper body dressing;lower body dressing -JY [place]/Cues Needed (Dressing Goal 1, OT) supervision required;verbal cues required -JY Time Frame (Dressing Goal 1, OT) fdc goal (LTG);4 days -JY Progress/Outcome (Dressing Goal 1, OT) new goal -JY Row Name 06/27/25 1145 Toileting Goal 1 (OT) Activity/Device (Toileting Goal 1, OT) adjust/manage clothing;perform perineal hygiene;commode;commode, bedside without drop arms;grab bar/safety frame;raised toilet seat -JY [place] Level/Cues Needed (Toileting Goal 1, OT) supervision required -JY Time Frame (Toileting Goal 1, OT) fdc goal (LTG);4 days -JY Progress/Outcome (Toileting Goal 1, OT) new goal -JY Row Name 06/27/25 1145 Strength Goal 1 (OT) Strength Goal 1 (OT) Pt to complete seated HEP encompassing BUEs targeting strength and endurance with progressive sets/reps/resistance in order to improve integration in ADLs, related t/fs and mobility as appropriate -JY Time Frame (Strength Goal 1, OT) short term goal (STG);3 days -JY Progress/Outcome (Strength Goal 1, OT) new goal - Row Name 06/27/25 1145 Therapy Assessment/Plan (OT) Planned Therapy Interventions (OT) activity tolerance training;adaptive equipment training;BADL retraining;functional balance retraining;occupation/activity based interventions;patient/caregiver educa tion/training;ROM/therapeutic exercise;strengthening exercise;transfer/mobility retraining -JY User Gamez (r) = Recorded By, (t) = Taken By, (c) = Cosigned By Initials Name Provider Type Carmela Bullard, ETHAN Occupational Therapist Clinical Impression Row Name 06/27/25 1133 Pain Assessment Pretreatment Pain Rating 3/10 -JY Posttreatment Pain Rating 3/10 -JY Pain Location head -JY Pain Side/Orientation [...] By Initials Name Provider Type Aileen Porter, CAROLINE Physical Therapist Carmela Bullard, OT Occupational Therapist Shaggy Cee, RN Registered Nurse Occupational Therapy Education Title: PT OT CAREER TECHNICAL SUPERVISOR Therapies (In Progress) Topic: Occupational Therapy (In [...] Description Service Date Service Provider Modifiers Qty [id number] HC-OT EVAL MOD COMPLEXITY 5 06/27/2025 Carmela Santacruz OT 1 Carmela Santacruz OT 06/27/2025 documented in this encounter Plan of Treatment Upcoming Encounters Date Type Department Care Team (Late st Contact Info) Description 08/16/2025 9:00 AM EST Appointment [facility] AT [address] [place] [address] 10/31/2026 11:45 AM EDT Office Visit [facility] [address] [place] [id number] Ky Lai MD [address] [place] [address] Scheduled Referrals Name Type Priority Associated Diagnoses [...] Basic Metabolic Panel (06/27/2025 5:31 AM EST) Glucose 102(H) 65 - 99 mg/dL 06/27/2025 6:32 AM EST [facility] BUN 8.7 8.0 - 23.0 mg/dL 06/27/2025 6:32 AM [facility] Creatinine 0.77 0.57 - 1.00 mg/dL 06/27/2025 6:32 AM EST [facility] Sodium 141 136 - 145 mmol/L 06/27/2025 6:32 AM EST [facility] Potassium 3.7 3.5 - 5.2 mmol/L 06/27/2025 6:32 AM [facility] Chloride 109(H) 98 - 107 mmol/L 06/27/2025 6:32 AM EST [facility] CO2 25.3 22.0 - 29.0 mmol/L 06/27/2025 6:32 AM EST [facility] Calcium 9.1 8.6 - 10.5 mg/dL 06/27/2025 6:32 AM EST [facility] BUN/Creatinine Ratio 11.3 7.0 - 25.0 06/27/2025 6:32 AM [facility] Anion Gap 6.7 5.0 - 15.0 mmol/L 06/27/2025 6:32 AM EST [facility] eGFR 81.6 >60.0 mL/min/1.7 3 06/27/2025 6:32 AM EST [facility] Blood Venipuncture / Unknown 06/27/2025 5:31 AM EST 06/27/2025 6:03 AM EST [facility] - 06/27/2025 6:32 AM EST GFR [...] Scott MD LAB BLOOD ORDERABLES Final Result [facility]
[address] [place] [address], * (ABNORMAL) CBC (No Diff) (06/27/2025 5:31 AM EST) WBC 5.93 3.40 - 10.80 10*3/mm3 06/27/2025 6:29 AM EST [facility] RBC 2.82(L) 3.77 - 5.28 10*6/mm3 06/27/2025 6:29 AM [facility] Hemoglobin 9.1(L) 12.0 - 15.9 g/dL 06/27/2025 6:29 AM [facility] Hematocrit 28.0(L) 34.0 - 46.6 % 06/27/2025 6:29 AM [facility] MCV 99.3(H) 79.0 - 97.0 fL 06/27/2025 6:29 AM [facility] MCH 32.3 26.6 - 33.0 pg 06/27/2025 6:29 AM [facility] MCHC 32.5 31.5 - 35.7 g/dL 06/27/2025 6:29 AM [facility] RDW 13.6 12.3 - 15.4 % 06/27/2025 6:29 AM EST [facility] RDW-SD 49.7 37.0 - 54.0 fl 06/27/2025 6:29 AM [facility] MPV 12.2(H) 6.0 - 12.0 fL 06/27/2025 6:29 AM [facility] Platelets 176 140 - 450 10*3/mm3 06/27/2025 6:29 AM EST [facility] Blood Venipuncture / Unknown 06/27/2025 5:31 AM EST 06/27/2025 6:23 AM EST Duane Scott MD LAB BLOOD ORDERABLES Final Result [facility]
[address] [place] [address], * Telemetry Scan (06/27/2025 12:14 AM EST) [facility] ECG ORDERABLES Final Result * (ABNORMAL) Hemoglobin & Hematocrit, Blood (06/26/2025 8:06 PM EST) Hemoglobin 9.4(L) 12.0 - 15.9 g/dL 06/26/2025 8:20 PM EST [facility] Hematocrit 28.6(L) 34.0 - 46.6 % 06/26/2025 8:20 PM EST [facility] Blood Venipuncture / Unknown 06/26/2025 8:06 PM EST 06/26/2025 8:18 PM EST Duane Scott MD LAB BLOOD ORDERABLES Final Result [facility]
[address] [place] [address], * Telemetry Scan (06/26/2025 1:40 PM EST) [facility] ECG ORDERABLES Final Result * (ABNORMAL) Hemoglobin & Hematocrit, Blood (06/26/2025 6:05 AM EST) Hemoglobin 10.6(L) 12.0 - 15.9 g/dL 06/26/2025 6:39 AM EST [facility] Hematocrit 32.2(L) 34.0 - 46.6 % 06/26/2025 6:39 AM EST [facility] Blood Venipuncture / Unknown 06/26/2025 6:05 AM EST 06/26/2025 6:32 AM EST Duane Scott MD LAB BLOOD ORDERABLES Final Result [facility]
[address] [place] [address], * (ABNORMAL) Hemoglobin & Hematocrit, Blood (06/26/2025 1:03 AM EST) Hemoglobin 9.3(L) 12.0 - 15.9 g/dL 06/26/2025 1:17 AM EST [facility] Hematocrit 27.5(L) 34.0 - 46.6 % 06/26/2025 1:17 AM EST [facility] Blood Venipuncture / Unknown 06/26/2025 1:03 AM EST 06/26/2025 1:14 AM EST Duane Scott MD LAB BLOOD ORDERABLES Final Result [facility]
[address] [place] [address], * (ABNORMAL) Hemoglobin & Hematocrit, Blood (06/25/2025 5:16 PM EST) Hemoglobin 10.4(L) 12.0 - 15.9 g/dL 06/25/2025 5:37 PM EST [facility] Hematocrit 30.9(L) 34.0 - 46.6 % 06/25/2025 5:37 PM EST [facility] Blood Venipuncture / Unknown 06/25/2025 5:16 PM EST 06/25/2025 5:32 PM EST Duane Scott MD LAB BLOOD ORDERABLES Final Result [facility]
[address] [place] [address], * (ABNORMAL) Hemoglobin & Hematocrit, Blood (06/25/2025 11:57 AM EST) Hemoglobin 10.4(L) 12.0 - 15.9 g/dL 06/25/2025 12:17 PM EST [facility] Hematocrit 31.2(L) 34.0 - 46.6 % 06/25/2025 12:17 PM EST [facility] Blood Venipuncture / Unknown 06/25/2025 11:57 AM EST 06/25/2025 12:13 PM EST Reynaldo Arndt III, DO LAB BLOOD ORDERAB LES Final Result [facility]
[address] [place] [address], * (ABNORMAL) Hemoglobin & Hematocrit, Blood (06/25/2025 9:27 AM EST) Hemoglobin 10.2(L) 12.0 - 15.9 g/dL 06/25/2025 10:04 AM EST [facility] Hematocrit 30.0(L) 34.0 - 46.6 % 06/25/2025 10:04 AM EST [facility] Blood Venipuncture / Unknown 06/25/2025 9:27 AM EST 06/25/2025 9:52 AM EST Reynaldo Arndt III, DO LAB BLOOD ORDERAB LES Final Result Performing Organization Address City/[facility]/ZIP Co de Phone Number [facility]
[address] [place] [address], * Telemetry Scan (06/25/2025 8:04 AM EST) [facility] Onbase ECG ORDERABLES Final Result * ABO RH Specimen Verification (06/25/2025 4:28 AM EST) ABO Type A 06/25/2025 12:31 PM EST [facility] RH type Positive 06/25/2025 12:31 PM EST [facility] Blood Venipuncture / Unknown 06/25/2025 4:28 AM EST 06/25/2025 5:02 AM EST Reynaldo Arndt III, DO BLOOD BANK TEST O RDERABLES Final Result [facility]
[address] [place] [address], * (ABNORMAL) Hemoglobin & Hematocrit, Blood (06/25/2025 4:28 AM EST) Hemoglobin 11.6(L) 12.0 - 15.9 g/dL 06/25/2025 5:08 AM EST [facility] Hematocrit 34.0 34.0 - 46.6 % 06/25/2025 5:08 AM [facility] Blood Venipuncture / Unknown 06/25/2025 4:28 AM EST 06/25/2025 4:45 AM EST Reynaldo Arndt III, DO LAB BLOOD ORDERAB LES Final Result [facility]
[address] [place] [address], * (ABNORMAL) CBC (No Diff) (06/25/2025 1:51 AM EST) WBC 8.35 3.40 - 10.80 10*3/mm3 06/25/2025 2:02 AM [facility] RBC 3.58(L) 3.77 - 5.28 10*6/mm3 06/25/2025 2:02 AM [facility] Hemoglobin 11.7(L) 12.0 - 15.9 g/dL 06/25/2025 2:02 AM [facility] Hematocrit 35.1 34.0 - 46.6 % 06/25/2025 2:02 AM [facility] MCV 98.0(H) 79.0 - 97.0 fL 06/25/2025 2:02 AM [facility] MCH 32.7 26.6 - 33.0 pg 06/25/2025 2:02 AM [facility] MCHC 33.3 31.5 - 35.7 g/dL 06/25/2025 2:02 AM [facility] RDW 13.3 12.3 - 15.4 % 06/25/2025 2:02 AM [facility] RDW-SD 48.3 37.0 - 54.0 fl 06/25/2025 2:02 AM [facility] MPV 10.9 6.0 - 12.0 fL 06/25/2025 2:02 AM [facility] Platelets 226 140 - 450 10*3/mm3 06/25/2025 2:02 AM [facility] Blood Venipuncture / Unknown 06/25/2025 1:51 AM EST 06/25/2025 2:00 AM EST Reynaldo Arndt III, DO LAB BLOOD ORDERAB LES Final Result [facility]
[address] [place] [address], * Type & Screen (06/25/2025 1:51 AM EST) ABO Type A 06/25/2025 2:52 AM EST [facility] RH type Positive 06/25/2025 2:52 AM EST [facility] Antibody Screen Negative 06/25/2025 2:52 AM EST [facility] T&S Expiration Date 06/28/2025 11:59:59 PM 06/25/2025 2:52 AM EST [facility] Blood Venipuncture / Unknown 06/25/2025 1:51 AM EST 06/25/2025 2:08 AM EST Reynaldo Arndt III, DO BLOOD BANK TEST O RDERABLES Edited Result - Final [facility]
[address] [place] [address], * Protime-INR (06/25/2025 1:50 AM EST) Protime 14.0 12.2 - 15.3 Seconds 06/25/2025 2:19 AM EST [facility] INR 1.02 0.89 - 1.12 06/25/2025 2:19 AM EST [facility] Blood Venipuncture / Unknown 06/25/2025 1:50 AM EST 06/25/2025 2:00 AM EST Reynaldo Arndt III, DO LAB BLOOD ORDERAB LES Final Result [facility]
[address] [place] [address], * Magnesium (06/25/2025 1:50 AM EST) Magnesium 2.0 1.6 - 2.4 mg/dL 06/25/2025 2:24 AM EST [facility] Blood Venipuncture / Unknown 06/25/2025 1:50 AM EST 06/25/2025 2:00 AM EST Reynaldo Arndt III, DO LAB BLOOD ORDERAB LES Final Result Performing Organization Address [facility] Co de Phone Number [facility]
[address] [place] [address], * (ABNORMAL) Comprehensive Metabolic Panel (06/25/2025 1:50 AM EST) Glucose 175(H) 65 - 99 mg/dL 06/25/2025 2:24 AM EST [facility] BUN 20.0 8.0 - 23.0 mg/dL 06/25/2025 2:24 AM EST [facility] Creatinine 0.70 0.57 - 1.00 mg/dL 06/25/2025 2:24 AM EST [facility] Sodium 139 136 - 145 mmol/L 06/25/2025 2:24 AM EST [facility] Potassium 4.5 3.5 - 5.2 mmol/L 06/25/2025 2:24 AM EST [facility] Chloride 107 98 - 107 mmol/L 06/25/2025 2:24 AM EST [facility] CO2 23.4 22.0 - 29.0 mmol/L 06/25/2025 2:24 AM EST [facility] Calcium 8.5(L) 8.6 - 10.5 mg/dL 06/25/2025 2:24 AM [facility] Total Protein 5.6(L) 6.0 - 8.5 g/dL 06/25/2025 2:24 AM [facility] Albumin 4.0 3.5 - 5.2 g/dL 06/25/2025 2:24 AM [facility] ALT (SGPT) 31 1 - 33 U/L 06/25/2025 2:24 AM [facility] AST (SGOT) 28 1 - 32 U/L 06/25/2025 2:24 AM [facility] Alkaline Phosphatase 47 39 - 117 U/L 06/25/2025 2:24 AM [facility] Total Bilirubin 0.3 0.0 - 1.2 mg/dL 06/25/2025 2:24 AM [facility] Globulin 1.6 gm/dL 06/25/2025 2:24 AM [facility] Comment:Calculated Result A/G Ratio 2.5 g/dL 06/25/2025 2:24 AM [facility] BUN/Creatinine Ratio 28.6(H) 7.0 - 25.0 06/25/2025 2:24 AM [facility] Anion Gap 8.6 5.0 - 15.0 mmol/L 06/25/2025 2:24 AM [facility] eGFR 91.5 >60.0 mL/min/1.7 3 06/25/2025 2:24 AM [facility] Blood Venipuncture / Unknown 06/25/2025 1:50 AM EST 06/25/2025 2:00 AM EST [facility] - 06/25/2025 2:24 AM EST GFR [...] not include race as a factor us Reynaldo Arndt III, DO LAB BLOOD ORDERAB LES Final Result [facility]
[address] [place] [address], documented in this encounter Visit Diagnoses Diagnosis [...] medication prescribed for a lower pain scale. (BK) If given for pain, use the following [...] use if patient is older than 65. ([facility]) Medication Applied 06/25/2025 12:04 PM EST 1 [...] place 1227 (Given - Provider: Sudha Frazier, RN)1728 (Given - Provider: Sudha Frazier RN)2034 (Given - Provider: Monika Akhtar, JANELL) 0944 (Given - Provider: Shaggy Alexander, JANELL)1133 (Given - Provider: Shaggy Alexander RN) piperacillin-tazobacta m (ZOSYN) 4.5 g IVPB [...] RN)2129 (New Bag - Provider: Amber Guillory, JANELL) 0011 (Currently Infusing - Provider: Amber Guillory, JANELL)0510 (New Bag - Provider: Amber Guillory, RN) scopolamine patch 1 mg/72 hr 1 patch, Transdermal - scopolamine, Administer over 72 Hours, Every 72 Hours, First dose on 06/25/25 at 1300, Do not apply if patient has history of glaucoma. Not recommended for use if patient is older than 65. ([facility]) 1204 (Medication Applied - Provider: Jacquie Oneil [...] at 0200 0243 (Given - Provider: An Miller RN)0817 (Not Given - Provider: Jacquie Oneil RN - Reason: Given from running infusion)2149 (Not Given - Provider: Amber Guillory RN - Reason: Given from running infusion) 0835 (Given - Provider: Sudha Frazier RN)2036 (Given - Provider: Monika Akhtar, JANELL) 0944 (Given - Provider: Shaggy Alexander RN) Continuous Medication Order 06/25/2025 06/26/2025 [...] BPA Driven Protocol Open Order & Select [facility] Electrolyte Replacement Protocol Algorithm to View Details [...] Jacquie Oneil RN)1805 (Given - Provider: Jacquie Oneil, JANELL) 0031 (Given - Provider: Amber Guillory, RN) ketorolac (TORADOL) injection 15 mg 15 [...] Oneil RN)2130 (Given - Provider: Amber Guillory, JANELL) 0524 (Given - Provider: Amber Guillory, JANELL)1226 (Given - Provider: Sudha Frazier, JANELL)2128 (Given - Provider: Jaimie Arriaga, JANELL) 0454 (Given - Provider: Monika Akhtar, JANELL)1139 (Given - Provider: Shaggy Alexander, JANELL) labetalol (NORMODYNE,TRANDATE) injection 10 mg (CANCELED) 10 mg, Intravenous, Every 4 Hours PRN, High Blood Pressure, Starting on 06/25/25 at 0118, As needed for SBP greater than 140 mmHg. Max. Dose: 300 mg. Give IV Push over 2 minutes. 0445 (Given - Provider: An Miller RN) LORazepam (ATIVAN) injection 0.5 mg 0.5 mg, Intravenous, Every 6 Hours PRN, Anxiety, Starting on 06/25/25 at 0228, For 5 days, Dilute 1:1 with normal saline. (AMANDA} Caution: Look alike/sound alike. 0327 (Given - Provider: An Miller RN)1304 (Given - Provider: Jacquie Oneil RN) Magnesium Standard Dose Replacement - Follow Nurse / BPA Driven Protocol [facility] Electrolyte Replacement Protocol Algorithm to View Details [...] CPOT 5-8 0116 (Given - Provider: Jaimie Arriaga RN)0654 (Not Given - Provider: An Miller RN [...] is ineffective. 0115 (Given - Provider: Jaimie Arriaga RN)0725 (Given - Provider: Jacquie Oneil, JANELL)1304 (Given - Provider: Jacquie Oneil RN) Phosphorus Replacement - Follow Nurse / BPA Driven Protocol [facility] Electrolyte Replacement Protocol Algorithm to View Details Potassium Replacement - Follow Nurse / BPA Driven Protocol [facility] Electrolyte Replacement Protocol Algorithm to View Details [...] breaths/minute. documented in this encounter Care Teams Social Work Specialist Relationship Specialty Start Date End Date Addy Rubin MD [address] [facility] [address] [place] [address] PCP - General Adolescent Medicine 02/08/21 documented as of this encounter
--- OUTSIDE RECORDS SUMMARY | 2025-07-19 09:59 | XMS_ITS | Encounter Summary ---
[facility] [address] [place] [address] Care Team Providers Care Arch Cushion Skiving Machine Operator Name Role Phone Addy Rubin MD Primary Care Provider [phone] Reason for Referral * Diagnostic Imaging (Routine) - Closed Specialty Diagnoses / Procedures Referred By Contac Referred To Contact Diagnoses Carotid stenosis, left History of left-sided carotid endarterectomy Procedures Duplex Carotid Ultrasound CAR Ky Lai MD [address] [place] [address] Phone: tel: fax: [facility] [address] [place] [address] Phone: tel: Referral ID Status Reason Start Date Expiration Date Visits Re quested Visits Authorized [id number] Closed 01/17/2025 04/18/2026 1 1 Reason for Visit * Diagnostic Imaging (Routine) - Closed Specialty Diagnoses / Procedures Referred By Contac t Referred To Contact Diagnoses Carotid stenosis, left History of left-sided carotid endarterectomy Procedures Duplex Carotid Ultrasound Ky North MD [address] [place] [address] Phone: tel: fax: [facility] [address] [place] [address] Phone: tel: Referral ID Status Reason Start Date Expiration Date Visits Re quested Visits Authorized [id number] Closed 01/17/2025 04/18/2026 1 1 Encounter Details Date Type Department Care Team (Late st Contact Info) Description 07/19/2025 9:59 AM EST - 07/19/2025 11:59 PM EST Hospital Encounter [facility] [address] [place] [address] Ky Lai MD [address] [place] [address] Carotid stenosis, left; History of left-sided carotid endarterectomy Discharge Disposition: Home or Self Care Social [...] on file documented as of this encounter Medications at Time of Discharge [...] by mouth 2 (two) times a day. documented as of this encounter Plan of Treatment Upcoming Encounters Date Type Department Care Team (Late st Contact Info) Description 08/16/2025 9:00 AM EST Appointment [facility] [address] [place] [address] 10/31/2026 11:45 AM EDT Office Visit [facility] [address] [place] [address] Ky Lai MD [address] [place] [address] documented as of this encounter Procedures Procedure Name Priority Date/Time Associated Diagnosis Comments DUPLEX CAROTID BILATERAL CAR - PERFORMED PROCEDURE Routine 07/19/2025 10:25 AM EST Carotid stenosis, left History of left-sided carotid endarterectomy documented in this encounter Results * DUPLEX CAROTID BILATERAL CAR - PERFORMED PROCEDURE (07/19/2025 10:25 AM EST) Prox CCA PSV 94.7 cm/sec Prox CCA EDV 16.5 cm/sec Right Mid CCA PSV 108.4 cm/sec right Mid CCA EDV 15.4 cm/sec Dist CCA PSV 117.1 cm/sec Dist CCA EDV 19.3 cm/sec Prox ICA PSV 164.2 cm/sec Prox ICA EDV 32.1 cm/sec Mid ICA PSV 137.5 cm/sec Mid ICA EDV 34.8 cm/sec Dist ICA PSV 97.7 cm/sec Dist ICA EDV 26.3 cm/sec Prox ECA PSV 111.4 cm/sec Prox ECA EDV 10.7 cm/sec Vertebral A PSV 71.0 cm/sec Vertebral A EDV 7.8 cm/sec Prox CCA PSV 98.9 cm/sec Prox CCA EDV 18.1 cm/sec left Mid CCA PSV 112.9 cm/sec left Mid CCA EDV 20.4 cm/sec Dist CCA PSV 100.6 cm/sec Dist CCA EDV 22.1 cm/sec Prox ICA PSV 110.0 cm/sec Prox ICA EDV 13.6 cm/sec Mid ICA PSV 94.7 cm/sec Mid ICA EDV 24.3 cm/sec Dist ICA PSV 115.6 cm/sec Dist ICA EDV 36.0 cm/sec Prox ECA PSV 158.8 cm/sec Prox ECA EDV 17.1 cm/sec Vertebral A PSV 59.5 cm/sec Vertebral A EDV 11.2 cm/sec Prox SCLA PSV 255.9 cm/sec ICA/CCA ratio 1.51 Prox SCLA PSV 147.4 cm/sec ICA/CCA ratio 1.02 Right arm BP 100/57 mmHg Left arm BP 103/55 mmHg Anatomical Region Laterality Modality Ultrasound Narrative 07/19/2025 10:54 AM EST Right internal carotid artery demonstrates a less than 50% stenosis. Antegrade right vertebral flow. Left internal carotid artery demonstrates a less than 50% stenosis. Antegrade left vertebral flow. History of left-sided carotid endarterectomy Study Impression Right ICA: Imaging indicates <50% stenosis. Left ICA: Imaging indicates <50% stenosis. Study Findings Right CCA Prox: No plaque visualized. Intima-medial thickening noted. Right CCA Mid: No plaque visualized. Intima-medial thickening noted. Right CCA Dist: No plaque visualized. Intima-medial thickening noted. Right Carotid Bulb: Irregular calcified heterogeneous plaque present. Right ICA Prox: Irregular calcified heterogeneous plaque present. Right ICA Mid: No plaque visualized. Right ICA Dist: No plaque visualized. Right ECA: No plaque visualized. Right Vertebral: Antegrade flow noted. Left CCA Prox: No plaque visualized. Left CCA Mid: Irregular heterogeneous plaque present. Left CCA Dist: Irregular heterogeneous plaque present. Left Carotid Bulb: No plaque visualized. Left ICA Prox: No plaque visualized. Left ICA Mid: No plaque visualized. Left ICA Dist: No plaque visualized. Left ECA: No plaque visualized. Left Vertebral: Antegrade flow noted. Maximum right ICA velocity obtain from previous exam done 04/27/2024 was 109.1/27.3 cm/sec (ratio 1.34) compared to maximum right ICA velocity of 164.2/32.1 cm/sec (ratio 1.51) on today's study. Maximum left ICA velocity obtain from previous exam done 04/27/2024 was 95/25.3 cm/sec (ratio 1.03) compared to maximum left ICA velocity of 115.6/36 cm/sec (ratio 1.02) on today's study. Antegrade flow detected in Vertebral arteries, bilaterally. Additional Study Details The study is technically good for diagnosis. Relevant Cardiovascular History: Left Carotid Endarterectomy 04/17/2021. us Ky Lai MD CV VASCULAR ORDERABLES Final Result documented in this encounter Visit Diagnoses Diagnosis Carotid stenosis, left Occlusion and stenosis of carotid artery without mention of cerebral infarction History of left-sided carotid endarterectomy documented in this encounter Care Teams Arch Cushion Skiving Machine Operator Relationship Specialty Start Date End Date Addy Rubin MD [facility] [address] [id number] PCP - General Adolescent Medicine 02/08/21 documented as of this encounter
--- OUTSIDE RECORDS SUMMARY | 2025-07-19 11:15 | XMS_ITS | Encounter Summary ---
[facility] Address [address] [place] [address] Care Team Providers Care Runner On Name Role Phone Addy Rubin MD Primary Care Provider [phone] Reason for Referral * Diagnostic Imaging (Routine) - Pending Review Specialty Diagnoses / Procedures Referred By Contac t Referred To Contact Diagnoses History of left-sided carotid endarterectomy Procedures Duplex Carotid Ultrasound CAR Ky Lai MD [address] [place] [address] Phone: tel: fax: [facility] [address] [place] [address] Phone: tel: Referral ID Status Reason Start Date Expiration Date V isits Requested Visits Authorized [id number] Pending Review 07/19/2025 07/19/2028 1 1 * Diagnostic Imaging (Routine) - Authorized Specialty Diagnoses / Procedures Referred By Contac t Referred To Contact Diagnoses Hemochromatosis, unspecified hemochromatosis type Procedures Adult Transthoracic Echo Complete W/ Cont if Necessary Per Protocol Ky Lai MD [address] [place] [address] Phone: tel: fax: [facility] [address] [place] [address] Phone: tel: Referral ID Status Reason Start Date Expiration Date V isits Requested Visits Authorized [id number] Authorized 07/19/2025 10/18/2026 1 1 Reason for Visit * Reason Comments Dyslipidemia Encounter Details Date Type Department Care Team (Late st Contact Info) Description 07/19/2025 11:15 AM EST Office Visit [facility] [address] [facility] [address] [place] [address] Ky Lai MD [address] In[address] [facility] [address] [place] [address] Hemochromatosis, unspecified hemochromatosis type (Primary Dx); Epistaxis; History of left-sided carotid endarterectomy Social History Tobacco Use Types Packs/Day Years Used Date Smoking Tobacco: Never Passive Smoke Exposure: Never Smokeless Tobacco: Never Tobacco Cessation:Counseling Given: Not Answered Comments:Casual social one to two cigarettes monthly Alcohol Use Standard Drinks/Week [...] Sign Reading Time Taken Comments Blood Pressure 132/62 07/19/2025 10:52 AM EST Pulse 89 07/19/2025 10:52 AM EST Temperature - - Respiratory Rate - - Oxygen Saturation 99% 07/19/2025 10:52 AM EST Inhaled Oxygen Concentration - - Weight 60.4 kg (133 lb 3.2 oz) 07/19/2025 10:52 AM EST Height 163.8 cm (5' 4.5 ) 07/19/2025 10:52 AM ES T Body Mass Index 22.51 07/19/2025 10:52 AM EST documented in this encounter Progress Notes * Ky Lai MD - 07/19/2025 11:15 AM EST [facility] Cardiology Follow Up Visit Lyla Diego 1950 VISIT DATE: 07/19/25 PCP: Addy Rubin MD [address] [facility] [address] [address] CC: Dyslipidemia Problem List: 1. Carotid artery stenosis -Status post left carotid endarterectomy April 2021 2. Dyslipidemia 3. Hypertension 4. GERD 5. Squamous cell skin cancer removed from the chest 6. Hemochromatosis Cardiac Testing: Carotid Duplex 08/23/2021 Patient is status post left carotid endarterectomy Left internal carotid artery stenosis of 0-49%. Right internal carotid artery stenosis of 0-49%. Vertebral artery flow is antegrade bilaterally Carotid Duplex July 2025 Less than 50% stenosis bilaterally, antegrade vertebral artery flow History of Present Illness: Lyla Diego Is a 75 y.o. female with pertinent cardiac history detailed above. Patient has had recent admission for epistaxis. This was shortly after eustachian tube surgery. Evaluated by ENT. Has had outpatient ENT follow up. Has been off aspirin. She did require bilateral Rhino Rocket's. She is not having further ongoing epistaxis. No complaints of chest pain. She does have a history of hemochromatosis. Recently has not been needing routine phlebotomy. We will check an echocardiogram toscreen for any signs of cardiac iron overload or restrictive cardiomyopathy. Patient Active Problem List Diagnosis Date Noted Acute posterior epistaxis 06/25/2025 History of left-sided carotid endarterectomy 05/08/2021 Moderate R ICA stenosis 04/17/2021 Hemochromatosis requiring phlebotomy 04/17/2021 Dyslipidemia 04/17/2021 Hypertension 04/17/2021 Former smoker 04/17/2021 Daily ETOH use 04/17/2021 Carotid stenosis, left 04/09/2021 Allergies Allergen Reactions Codeine Nausea Only Social History Socioeconomic History Marital status: Tobacco Use Smoking status: Never Passive exposure: Never Smokeless tobacco: Never Tobacco comments: Casual social one to two cigarettes monthly Vaping Use Vaping status: Never Used Substance and Sexual Activity Alcohol use: Yes Alcohol/week: 6.0 standard drinks of alcohol Types: 6 Glasses of wine per week Comment: occas Drug use: Never Sexual activity: Yes Partners: Female, Male control/protection: Post-menopausal, Tubal ligation, Hysterectomy Family History Problem Relation Name Age of Onset Multiple myeloma Mother Daly Anemia Mother Daly Thalassemia, cancer Cancer Mother Daly Heart attack Father Nicho 3 times Hyperlipidemia Father Nicho Liver disease Father Nicho Heart disease Father Nicho Breast cancer Sister Renetta Anemia Sister Renetta Thalassemia, cancer Cancer Sister Renetta No Known Problems Sister has liver problems No Known Problems Sister Anemia Maternal Grandmother Cynthia breast, cervical Current Medications: Current Outpatient Medications: atorvastatin (LIPITOR) 80 MG tablet, TAKE ONE TABLET BY MOUTH AT BEDTIME, Disp: 30 tablet, Rfl: 11 cyclobenzaprine (FLEXERIL) 5 MG tablet, 1 tablet As Needed. (Patient taking differently: Take 1 tablet by mouth As Needed.), Disp: , Rfl: estrogens, conjugated,-methyltestosterone (ESTRATEST HS) 0.625-1.25 MG per tablet, Take 0.5 tabletsby mouth Take As Directed. 4 times weekly, Disp: , Rfl: famotidine (PEPCID) 20 MG tablet, Take 1 tablet by mouth At Night As Needed., Disp: , Rfl: ibuprofen (ADVIL,MOTRIN) 600 MG tablet, Take 1 tablet by mouth As Needed., Disp: , Rfl: L-ARGININE PO, Take 1,000 mg by mouth Daily., Disp: , Rfl: lisinopril (PRINIVIL,ZESTRIL) 20 MG tablet, TAKE ONE TABLET BY MOUTH ONCE A DAY, Disp: 30 tablet, Rfl: 11 minoxidil (LONITEN) 2.5 MG tablet, Take 1 tablet by mouth Daily., Disp: , Rfl: Multiple Minerals (CALCIUM/MAGNESIUM/ZINC PO), Take 1 tablet by mouth 2 (two) times a day., Disp: ,Rfl: [Paused] aspirin 81 MG EC tablet, Take 2 tablets by mouth Daily. (Patient not taking: Reported on 07/19/2025), Disp: , Rfl: Diclofenac Sodium (VOLTAREN) 1 % gel gel, Apply 4 g topically to the appropriate area as directed As Needed. (Patient not taking: Reported on 07/19/2025), Disp: , Rfl: Flonase Sensimist 27.5 MCG/SPRAY nasal spray, 2 sprays into the nostril(s) as directed by provider Daily. (Patient not taking: Reported on 07/19/2025), Disp: , Rfl: KRILL OIL PO, Take 2,000 mg by mouth Daily. (Patient not taking: Reported on 07/19/2025), Disp: , Rfl: Review of Systems Constitutional: Positive for malaise/fatigue. HENT: Positive for nosebleeds. Cardiovascular: Negative for chest pain and dyspnea on exertion. Vitals: 07/19/25 1052 BP: 132/62 BP Location: Right arm Patient Position: Sitting Cuff Size: Adult Pulse: 89 SpO2: 99% Weight: 60.4 kg (133 lb 3.2 oz) Height: 163.8 cm (64.5 ) Physical Exam Constitutional: Appearance: Normal appearance. Neck: Vascular: No carotid bruit. Cardiovascular: Rate and Rhythm: Normal rate and regular rhythm. Pulses: Normal pulses. Heart sounds: Normal heart sounds. Pulmonary: Effort: Pulmonary effort is normal. Breath sounds: Normal breath sounds. Musculoskeletal: Right lower leg: No edema. Left lower leg: No edema. Neurological: Mental Status: She is alert. Diagnostic Data: Procedures Lab Results Component Value Date TRIG 77 04/27/2024 HDL 70 (H) 04/27/2024 Lab Results Component Value Date GLUCOSE 102 (H) 06/27/2025 BUN 8.7 06/27/2025 CREATININE 0.77 06/27/2025 NA 141 06/27/2025 K 3.7 06/27/2025 CL 109 (H) 06/27/2025 CO2 25.3 06/27/2025 Lab Results Component Value Date HGBA1C 5.20 04/04/2021 Lab Results Component Value Date WBC 5.93 06/27/2025 HGB 9.1 (L) 06/27/2025 HCT 28.0 (L) 06/27/2025 PLT 176 06/27/2025 Assessment: Diagnosis Plan 1. Hemochromatosis, unspecified hemochromatosis type Adult Transthoracic Echo Complete W/ Cont if Necessary Per Protocol 2. Epistaxis 3. History of left-sided carotid endarterectomy Duplex Carotid Ultrasound CAR Plan: 1. Bilateral carotid stenosis. Status post left carotid endarterectomy. Crest-2 -Less than 50% stenosis bilaterally, on today's exam -Continue statin -Schedule 1 year follow-up 2. Hypertension -lisinopril 20.mg -BP normal -Also on low-dose minoxidil for hair loss 3. Hyperlipidemia -She is on atorvastatin 80 mg -last LDL 71 4. Recent significant epistaxis -will reach out to her ENT Dr. Banegas to see if she is able to restart aspirin [phone] 5. Check echo given her history of hemochromatosis to ensure no signs of cardiomyopathy ACP discussion was held with the patient during this visit. Patient has an advance directive in EMRwhich is still valid. Ky Lai MD [facility] documented in this encounter Plan of Treatment Upcoming Encounters Date Type Department Care Team (Late st Contact Info) Description 08/16/2025 9:00 AM EST Appointment [facility] [address] [place] [address] 10/31/2026 11:45 AM EDT Office Visit [facility] C[facility] [address] [place] [address] [address] [place] [address] Ky Lai MD [address] [place] [address] Scheduled Orders Name Type Priority Associated Diagnoses Orde r Schedule Adult Transthoracic Echo Complete W/ Cont if Necessary Per Protocol Echocardiography Routine Hemochromatosis, unspecified hemochromatosis type Expected: 07/24/2025 (Approximate), Expires: 07/19/2026 Duplex Carotid Ultrasound CAR Vascular Ultrasound Routine History of left-sided carotid endarterectomy Expected: 07/19/2026, Expires: 07/19/2027 documented as of this encounter Visit Diagnoses Diagnosis Hemochromatosis, unspecified hemochromatosis type- Primary Epistaxis History of left-sided carotid endarterectomy documented in this encounter Care Teams Runner On Relationship Specialty Start Date End Date Addy Rubin MD [address] [facility] [address] [place] [address] PCP - General Adolescent Medicine 02/08/21 documented as of this encounter
--- OUTSIDE RECORDS SUMMARY | 2025-08-02 09:15 | XMS_ITS | Encounter Summary ---
[facility] Address [address] [place] [address] Care Team Providers Care Library Information Technician Name Role Phone Addy Rubin MD Primary Care Provider [phone] Encounter Details Date Type Department Care Team [...] Info) Description 08/16/2025 9:00 AM EST Appointment [facility] AT [facility] [address] [place] [address] 10/31/2026 11:45 AM EDT Office Visit [facility]IOLOG[facility] [address] [place] [address] Ky Lai MD [address] [place] [address] documented as of this encounter Visit Diagnoses Not on filedocumented in this encounter Care Teams Library Information Technician Relationship Specialty Start Date End Date Addy Rubin MD [address] [facility] [address] [place] [address] PCP - General Adolescent Medicine 02/08/21 documented as of this encounter
--- OUTSIDE RECORDS SUMMARY | 2025-08-02 09:15 | XMS_ITS | Clinical Summary ---
[facility] Organization [facility] Address [address] [place] [address] Care Team Providers Care Meat Counter Clerk Name Role Phone Addy Rubin MD Primary Care Provider [phone] Allergies Active Allergy Reactions Criticality Noted Date Comments Codeine Nausea Only 10/22/2021 Medications estrogens, conjugated,-met hyltestosterone (ESTRATEST HS) 0.625-1.25 MG per tablet Take 0.5 tablets by mouth Take As Directed. 4 times weekly Active aspirin 81 MG EC tablet Take 1 tablet by mouth Daily. Active KRILL OIL PO [...] BY MOUTH ONCE A DAY 30 tablet 5 Active Active Problems Problem Noted Date Diagnosed Date Acute posterior epistaxis 06/25/2025 History of left-sided carotid endarterectomy Moderate R ICA stenosis 04/17/2021 Hemochromatosis requiring phlebotomy 04/17/2021 Dyslipidemia 04/17/2021 Hypertension 04/17/2021 Former smoker 04/17/2021 Daily ETOH use 04/17/2021 Carotid stenosis, left 04/09/2021 Encounters Date Type Department Care Team Description 07/19/2025 11:15 AM EST Office Visit [facility] CARDIOLOGY [address] [place] [address] Ky Lai MD Hemochromatosis, unspecified hemochromatosis type (Primary Dx); Epistaxis; History of left-sided carotid endarterectomy 07/19/2025 9:59 AM EST - 07/19/2025 11:59 PM EST Hospital Encounter [facility] NONINVASIVE LAB [address] [place] [address] Ky Lai MD Carotid stenosis, left; History of left-sided carotid endarterectomy Discharge Disposition: Home or Self Care 07/19/2025 Telephone [facility] C[facility]IOLOG[facility] [address] [place] [address] Ky Lai MD 07/19/2025 Travel 06/25/2025 12:19 AM EST - 06/27/2025 2:18 PM EST Hospital Encounter [facility] 5F [address] [place] [id number] Reynaldo Arndt III, DO Duane Scott MD Lyons, Andrea L, MD Acute posterior epistaxis (Primary Dx); Carotid stenosis, left; History of left-sided carotid endarterectomy; Primary hypertension; Moderate R ICA stenosis Discharge Disposition: Home or Self Care 06/25/2025 Travel from Last 3 Months Immunizations Immunization Administration Dates Next Due COVID-19 (MODERNA) 1st,2nd,3rd Dose Monovalent 0 09/14/2020,08/17/2020 Family History Medical History Relation Name Comments Heart attack Father Nicho 3 times Heart disease Father Nicho Hyperlipidemia Father Nicho Liver disease Father Nicho Anemia Maternal Grandmother Cynthia breast, cervical Anemia Mother Daly Thalassemia, ca ncer Cancer Mother Daly Multiple myeloma Mother Daly Anemia Sister 1 Renetta Thalassemia, ca ncer Breast cancer Sister 1 Renetta Cancer Sister 1 Renetta No Known Problems Sister [...] Pulse 89 07/19/2025 10:52 AM EST Temperature 36.7 C (98 F) 06/27/2025 12:16 PM EST Respiratory Rate 16 06/27/2025 12:16 PM EST Oxygen Saturation 99% 07/19/2025 10:52 AM EST Inhaled Oxygen Concentration - - Weight 60.4 kg (133 lb 3.2 oz) 07/19/2025 10:52 AM EST Height 163.8 cm (5' 4.5 ) 07/19/2025 10:52 AM ES T Body Mass Index 22.51 07/19/2025 10:52 AM EST Plan of Treatment Upcoming Encounters Date Type Department Care Team (Late st Contact Info) Description 08/16/2025 9:00 AM EST [facility] AT [address] [place] [address] 10/31/2026 11:45 AM EDT Office Visit [facility] CARDI[facility] [address] [place] [address] Ky Lai MD [address] [place] [address] Health Maintenance Due Date Last Done Comments DXA SCAN 1952 MAMMOGRAM 1992 COLOGUARD 1997 COLON CANCER SCREENING 5 YEA R SIGMOIDOSCOPY 1997 COLONOSCOPY 1997 COLORECTAL CANCER SCREENING 1997 CT COLONOGRAPHY 1997 FECAL OCCULT BLOOD TEST 1997 FIT Testing (1 year) 1997 ANNUAL WELLNESS VISIT 03/26/2021 HEPATITIS C SCREENING 03/26/2021 COVID-19 Vaccine (7 - Modern a risk season) 2025 04/20/2024, 05/17/2022, 12/26/2021, Additional history exists TDAP/TD VACCINES (2 - Td or Tdap) 07/05/2034 024 Pneumococcal Vaccine 50+ Completed 04/15/2018, 03/12 ZOSTER VACCINE Completed 06/21/2019, 04/2019, 04/30/2017 INFLUENZA VACCINE Completed 06/07/2025, , 05/17/2022, Additional history exists Medical Devices Implanted Type Area Broadcast Director Operations Device Identifier Shelf Expiration Date Model / Serial / Lot Clip Ligat Vasc Horizon Abhi Arriola Yoan 6ct - [id number] Implanted:Qty : 1 on 04/17/2021 by Syd De La Cruz MD at [facility] Implant Left: Carotid TELE[employer]LEX MEDICAL [id number] / / 0 Clip Ligat Vasc Horizon Abhi Arriola Yoan 6ct - [id number] Implanted:Qty : 1 on 04/17/2021 by Syd De La Cruz MD at [facility] Implant Left: Carotid TELE[employer] MEDICAL [id number] / / 0 Clip Ligat Vasc Horizon Ti Sm Yel 6ct - [id number] Implanted:Qty : 1 on 04/17/2021 by Syd De La Cruz MD at [facility] Implant Left: Carotid TELEFLEX MEDICAL [id number] / / 0 Clip Ligat Vasc Horizon Ti Sm Yel 6ct - [id number] Implanted:Qty : 1 on 04/17/2021 by Syd De La Cruz MD at [facility] Implant Left: Carotid TELE[employer] MEDICAL [id number] / / 0 Kt Seal Hemos Abs Floseal Matrx Fast/Prep 10ml - [id number] Implanted:Qty : 1 on 04/17/2021 by Syd De La Cruz MD at [facility] Implant Left: Carotid SPEEDELO [id number] 01/09/2023 [id number] / / [id number] Hemost Abs Surgifoam Sz100 8x12 10mm - [id number] Implanted:Qty : 1 on 04/17/2021 by Syd De La Cruz MD at [facility] Implant Left: Carotid ETHICON DIV OF J AND J 11/02/2024 [id number] / / [id number] Ptch Vascuguard 1x6cm - [id number] Implanted:Qty : 1 on 04/17/2021 by Syd De La Cruz MD at [facility] Implant Left: Carotid SYNOVIS [id number] 10/25/2025 [id number] / / [id number] Hemost Abs Surgicel 4x8in - [id number] Implanted:Qty : 1 on 04/17/2021 by Syd De La Cruz MD at [facility] Implant Left: Carotid ETHICON DIV OF J AND J [id number] 10/08/20241951 / / [id number] Left Finger Procedures Procedure Name Priority Date/Time Associated Diagnosis Comments DUPLEX CAROTID BILATERAL CAR - PERFORMED PROCEDURE Routine 07/19/2025 10:25 AM EST Carotid stenosis, left History of left-sided carotid endarterectomy BASIC METABOLIC PANEL Urgent 06/27/2025 5:31 AM [...] EST from Last 3 Months Results * DUPLEX CAROTID BILATERAL CAR - [...] Relevant Cardiovascular History: Left Carotid Endarterectomy 04/17/2021. Ky Lai MD CV VASCULAR ORDERABLES Final Result * (ABNORMAL) CBC (No Diff) (06/27/2025 5:31 AM EST) Only the most recent of2 resultswithin the time period is included. WBC 5.93 3.40 - 10.80 10*3/mm3 06/27/2025 6:29 AM [facility] RBC 2.82(L) 3.77 - 5.28 10*6/mm3 06/27/2025 6:29 AM [facility] Hemoglobin 9.1(L) 12.0 - 15.9 g/dL 06/27/2025 6:29 AM [facility] Hematocrit 28.0(L) 34.0 - 46.6 % 06/27/2025 6:29 AM [facility] MCV 99.3(H) 79.0 - 97.0 fL 06/27/2025 6:29 AM [facility] MCH 32.3 26.6 - 33.0 pg 06/27/2025 6:29 AM [facility] MCHC 32.5 31.5 - 35.7 g/dL 06/27/2025 6:29 AM [facility] RDW 13.6 12.3 - 15.4 % 06/27/2025 6:29 AM [facility] RDW-SD 49.7 37.0 - 54.0 fl 06/27/2025 6:29 AM [facility] MPV 12.2(H) 6.0 - 12.0 fL 06/27/2025 6:29 AM [facility] Platelets 176 140 - 450 10*3/mm3 06/27/2025 6:29 AM [facility] Blood Venipuncture / Unknown 06/27/2025 5:31 AM EST 06/27/2025 6:23 AM EST Duane Scott MD LAB BLOOD ORDERABLES Final Result [facility]
[address] [place] [address], * (ABNORMAL) Basic Metabolic Panel (06/27/2025 5:31 AM EST) Glucose 102(H) 65 - 99 mg/dL 06/27/2025 6:32 AM [facility] BUN 8.7 8.0 - 23.0 mg/dL 06/27/2025 6:32 AM [facility] Creatinine 0.77 0.57 - 1.00 mg/dL 06/27/2025 6:32 AM [facility] Sodium 141 136 - 145 mmol/L 06/27/2025 6:32 AM [facility] Potassium 3.7 3.5 - 5.2 mmol/L 06/27/2025 6:32 AM [facility] Chloride 109(H) 98 - 107 mmol/L 06/27/2025 6:32 AM [facility] CO2 25.3 22.0 - 29.0 mmol/L 06/27/2025 6:32 AM [facility] Calcium 9.1 8.6 - 10.5 mg/dL 06/27/2025 6:32 AM [facility] BUN/Creatinine Ratio 11.3 7.0 - 25.0 06/27/2025 6:32 AM [facility] Anion Gap 6.7 5.0 - 15.0 mmol/L 06/27/2025 6:32 AM [facility] eGFR 81.6 >60.0 mL/min/1.7 3 06/27/2025 6:32 AM [facility] Blood Venipuncture / Unknown 06/27/2025 5:31 AM EST 06/27/2025 6:03 AM EST Narrative [facility] - 06/27/2025 6:32 AM EST GFR [...] Scott MD LAB BLOOD ORDERABLES Final Result [facility]
[address] [place] [address], * Telemetry Scan (06/27/2025 12:14 AM EST) Only the most recent of3 resultswithin the time period is included. [facility] ECG ORDERABLES Final Result * (ABNORMAL) Hemoglobin & Hematocrit, Blood (06/26/2025 8:06 PM EST) Only the most recent of7 resultswithin the time period is included. Hemoglobin 9.4(L) 12.0 - 15.9 g/dL 06/26/2025 8:20 PM EST [facility] Hematocrit 28.6(L) 34.0 - 46.6 % 06/26/2025 8:20 PM EST [facility] Blood Venipuncture / Unknown 06/26/2025 8:06 PM EST 06/26/2025 8:18 PM EST Duane Scott MD LAB BLOOD ORDERABLES Final Result [facility]
[address] [place] [address], * ABO RH Specimen Verification (06/25/2025 4:28 AM EST) ABO Type A 06/25/2025 12:31 PM EST [facility] BB LABORATORY RH type Positive 06/25/2025 12:31 PM EST [facility] Blood Venipuncture / Unknown 06/25/2025 4:28 AM EST 06/25/2025 5:02 AM EST us Reynaldo Arndt III, DO BLOOD BANK TEST O RDERABLES Final Result [facility]
[address] [place] [address], [place] [phone] * Type & Screen (06/25/2025 1:51 AM EST) Pathologist [facility] [place] ABO Type A 06/25/2025 2:52 AM EST [facility] BB LABORATORY RH type Positive 06/25/2025 2:52 AM EST [facility] BB [facility]OR[facility]ORY Antibody Screen Negative 06/25/2025 2:52 AM EST [facility] T&S Expiration Date 06/28/2025 11:59:59 PM 06/25/2025 2:52 AM EST [facility] Blood Venipuncture / Unknown 06/25/2025 1:51 AM EST 06/25/2025 2:08 AM EST us Reynaldo Arndt III, DO BLOOD BANK TEST O RDERABLES Edited Result - Final [facility]
[address] [place] [address], * Protime-INR (06/25/2025 1:50 AM EST) Pathologist [facility] [place] Protime 14.0 12.2 - 15.3 Seconds 06/25/2025 2:19 AM EST [facility] INR 1.02 0.89 - 1.12 06/25/2025 2:19 AM EST [facility] Blood Venipuncture / Unknown 06/25/2025 1:50 AM EST 06/25/2025 2:00 AM EST Reynaldo Arndt III, DO LAB BLOOD ORDERAB LES Final Result Performing Organization Address City/[facility]/ZIP Co de Phone Number [facility]
[address] [place] [address], * Magnesium (06/25/2025 1:50 AM EST) [facility] Magnesium 2.0 1.6 - 2.4 mg/dL 06/25/2025 2:24 AM EST [facility] Blood Venipuncture / Unknown 06/25/2025 1:50 AM EST 06/25/2025 2:00 AM EST Reynaldo Arndt III, DO LAB BLOOD ORDERAB LES Final Result Performing Organization Address City/[facility]/ZIP Co de Phone Number [facility]
[address] [place] [address], * (ABNORMAL) Comprehensive Metabolic Panel (06/25/2025 1:50 AM EST) [facility] Glucose 175(H) 65 - 99 mg/dL 06/25/2025 2:24 AM EST [facility] BUN 20.0 8.0 - 23.0 mg/dL 06/25/2025 2:24 AM EST [facility] Creatinine 0.70 0.57 - 1.00 mg/dL 06/25/2025 2:24 AM EST [facility] Sodium 139 136 - 145 mmol/L 06/25/2025 2:24 AM EST [facility] Potassium 4.5 3.5 - 5.2 mmol/L 06/25/2025 2:24 AM [facility] Chloride 107 98 - 107 mmol/L 06/25/2025 2:24 AM [facility] CO2 23.4 22.0 - 29.0 mmol/L 06/25/2025 2:24 AM [facility] Calcium 8.5(L) 8.6 - 10.5 mg/dL 06/25/2025 2:24 AM [facility] Total Protein 5.6(L) 6.0 - 8.5 g/dL 06/25/2025 2:24 AM [facility] Albumin 4.0 3.5 - 5.2 g/dL 06/25/2025 2:24 AM [facility] ALT (SGPT) 31 1 - 33 U/L 06/25/2025 2:24 AM [facility] AST (SGOT) 28 1 - 32 U/L 06/25/2025 2:24 AM [facility] Alkaline Phosphatase 47 39 - 117 U/L 06/25/2025 2:24 AM [facility] Total Bilirubin 0.3 0.0 - 1.2 mg/dL 06/25/2025 2:24 AM [facility] Globulin 1.6 gm/dL 06/25/2025 2:24 AM [facility] Comment:Calculated Result A/G Ratio 2.5 g/dL 06/25/2025 2:24 AM [facility] BUN/Creatinine Ratio 28.6(H) 7.0 - 25.0 06/25/2025 2:24 AM [facility] Anion Gap 8.6 5.0 - 15.0 mmol/L 06/25/2025 2:24 AM [facility] eGFR 91.5 >60.0 mL/min/1.7 3 06/25/2025 2:24 AM [facility] Blood Venipuncture / Unknown 06/25/2025 1:50 AM EST 06/25/2025 2:00 AM EST Narrative [facility] - 06/25/2025 2:24 AM EST [...] DO LAB BLOOD ORDERAB LES Final Result [facility]
[address] [place] [address], [place] [phone] from Last 3 Months Insurance [employer] PPO Advance Directives Documents on File Type Date Recorded Patient Carrot Buncher Expl anation POWER OF NETWORKING ENGINEER - SCAN 04/17/2021 5:58 AM LIVING WILL [...] of Attorne y for Healthcare Care Teams Meat Counter Clerk Relationship Specialty Start Date End Date Addy Rubin MD [address] [place] [facility] [address] [place] [address] PCP - General Adolescent Medicine 02/08/21
--- OUTSIDE RECORDS SUMMARY | 2025-08-02 09:15 | XMS_ITS | Encounter Summary ---
Author Organization [facility] Address [address] [place] [address] Care Team Providers Care Boiler Technician Name Role Phone Addy Rubin MD Primary Care Provider [phone] Encounter Details Date Type Department Care Team (Late st Contact Info) Description 07/19/2025 Telephone [facility] C[facility] [address] [facility] [address] [place] [address] yK Lai MD [address] [place] [address] Social History Tobacco Use Types Packs/Day Years [...] on file documented as of this encounter Miscellaneous Notes * Telephone Encounter - Janneth Daniel RN - 07/19/2025 1:[address] Lai asked me to contact pt's ENT, Dr. Banegas to see if she can resume taking ASA. I spoke to Lilly at that office. She spoke to Dr. Banegas who said that pt can resume ASA. I spoke to pt and informed her. She said she had been taking 2 ASA 81mg tablets, and wanted to knowif she should resume taking 1 or 2. I spoke to Dr. Lai, who said pt should resume taking 1 ASA 81mg daily. I spoke to pt and informed her. She verbalized understanding. Updated med list. documented in this encounter Plan of Treatment Upcoming Encounters Date Type Department Care Team (Late st Contact Info) Description 08/16/2025 9:00 AM EST Appointment [facility] C[facility] AT [facility] DI[facility] [address] [place] [address] 10/31/2026 11:45 AM EDT Office Visit [facility] MED[facility] C[facility] [address] [place] [address] Ky Lai MD [address] [place] [address] documented as of this encounter Visit Diagnoses Not on filedocumented in this encounter Care Teams Boiler Technician Relationship Specialty Start Date End Date Addy Rubin MD [address] [facility] [address] [place] [id number] PCP - General Adolescent Medicine 02/08/21 documented as of this encounter
--- OUTSIDE RECORDS SUMMARY | 2025-08-02 09:15 | XMS_ITS | Clinical Summary ---
Author Organization Healthcare Address [address] [id number] Care Team Providers Care Interpersonal Communications Professor Name Role Phone Unavailable Primary Care Provider Unavailabl e Encounters Date Type Department Care Team Description 06/24/2025 - 06/25/2025 9:50 AM EST Emergency [facility] Emergency Department [address] [place] [address] Discharge Disposition: ED Dismiss - Never Arrived [...]
--- OUTSIDE RECORDS SUMMARY | 2025-08-02 09:15 | XMS_ITS | Encounter Summary ---
[facility] [address] [place] [address] Care Team Providers Care Welt Cutter Name Role Phone Addy Rubin MD Primary Care Provider [phone] Encounter Details Date Type Department Care Team (Latest Contact Info) Description 07/19/2025 Travel Social History Tobacco Use Types Packs/Day [...] Info) Description 08/16/2025 9:00 AM EST Appointment [facility] CARD[facility] AT [address] [place] [address] 10/31/2026 11:45 AM EDT Office Visit [facility] C[facility] [address] [place] [address] Ky Lai MD [address] [place] [address] documented as of this encounter Visit Diagnoses Not on filedocumented in this encounter Care Teams Welt Cutter Relationship Specialty Start Date End Date Addy Rubin MD [address] [place] [facility] [address] [facility] [place] [address] PCP - General Adolescent Medicine 02/08/21 documented as of this encounter
--- NOTE | 2025-08-02 09:16 | XR_ITS ---
FINAL REPORT CLINICAL HISTORY: SCREENING COMPARISON: 07/29/2023 FINDINGS: Using L1-4, the bone mineral density of the spine is 1.044 g/cm2, corresponding to T-score of 0.0. The bone mineral density change versus baseline is 3%. Using the left hip, the bone mineral density of the femoral neck is 0.664 g/cm2, corresponding to a T-score of -1.7. The bone mineral density change versus baseline is -6.2%. Using the right hip, the bone mineral density of the femoral neck is 0.739 g/cm2, corresponding to a T-score of -1.0. The bone mineral density change versus baseline is 3.8%. NOTE: T-score: Standard deviation compared with peak bone mass of young adult mean. *Following the recommendations of the International Society of Bone densitometry, classification of hip BMD is based on the lower of two T-scores; total hip or femoral neck. IMPRESSION: Normal bone mineral density of the lumbar spine, which may be artificially elevated secondary to bony sclerosis. Diminished bone mineral density of the bilateral hips, consistent with osteopenia. Reviewed, Interpreted and Dictated by Geetha Krueger MD Transcribed by Nakia Yañez Authenticated and [facility]
--- OUTSIDE RECORDS SUMMARY | 2025-08-02 09:16 | XMS_ITS | Encounter Summary ---
Author Organization Healthcare Address [address] [id number] Care Team Providers Care Petroleum Transport Driver Name Role Phone Unavailable Primary Care Provider Unavailabl e Encounter Details Date Type Department Care Team (Late st Contact Info) Description 06/24/2025 - 06/25/2025 9:50 AM EST Emergency [facility] Emergency Department [address] [place] [address] Discharge Disposition: ED Dismiss - Never Arrived [...]
== END 2025-08-02 23:59 ==
LOC: RAD 09:13
PROVIDERS: PCP Internal Medicine Adolescent Medicine; Visit Provider Nurse Practitioner Family
DX: Z13.820 Encounter for screening for osteoporosis (principal); Z78.0 Asymptomatic menopausal state; M85.88 Other specified disorders of bone density and structure, other site
CPT/HCPCS: 77080